=== PATIENT | male | born 1950 | race Caucasian/White ===

== ENCOUNTER → 2017-03-29 | Outpatient (CLI) | payer OTHER ==
[2017-03-29 17:30] LABS: Non-African American GFR(MDRD) >60 (>60 ml/min/1.73 sqM)
--- NOTE | 2017-03-29 19:22 | MR ---
EXAMINATION TYPE: MR lumbar spine wo/w con DATE OF EXAM: 03/29/2017 COMPARISON: Lumbar MRI 07/18/2014 HISTORY: Low back pain, Left leg pain and numbness, x30 years TECHNIQUE: Multiplanar, multisequence images of the lumbar spine were acquired utilizing 20 mL intravenous Multi Chris gadolinium contrast. L1-L2: Normal disc appearance without desiccation. No herniation, protrusion or disc bulging. No ca nal stenosis is present. Foramina are patent bilaterally. L2-L3: Circumferential posterior disc bulge causes mild anterior mass effect on the thecal sac, mild foraminal encroachment bilaterally. Only mild central stenosis. L3-L4: Circumferential posterior disc bulge causes anterior mass effect on the thecal sac, lateral ex tension endplate disc complex causes bilateral foraminal encroachment. Facet arthropathy is noted. On ly mild central stenosis. L4-L5: Facet arthropathy is present. Circumferential extension of endplate disc complex results in bi lateral foraminal encroachment left greater than right, there is mild anterior mass effect on the the mauro sac. L5-S1: Similar appearance to prior exam, circumferential extension of endplate disc complex results i n bilateral foraminal encroachment. Posterior disc herniation in the right posterior paracentral loca tion causes anterior mass effect on the thecal sac. There is facet arthropathy change, no significant central stenosis. Lumbar segments are intact. No paraspinal masses are identified. Conus medullaris has a normal appe arance. Lumbar vertebral bodies show stable height, alignment, and bone marrow signal, there is multi level spondylosis with endplate discogenic marrow signal change, loss of disc height and signal at th e intervertebral levels as on prior exam. Vacuum phenomenon present at the intervertebral levels L3-4 , L4-5 and L5-S1. Clumping of the nerve roots peripherally is again noted at the lower thecal sac as on prior exam with an empty thecal sac sign, laminectomy change present as on prior and L5 on the lef t. Abnormal thickening of the meninges is suspected as on prior. No abnormal enhancement following co ntrast administration. Possible bilateral parapelvic cysts as on prior exam. IMPRESSION: Findings compatible with arachnoiditis as on prior exam. Multilevel degenerative disc disease, postop changes, foraminal encroachment, facet arthropathy.
== END | disposition home or self-care (01) ==
LOC: RADMRIMAIN 16:53
PROVIDERS: ATTEND Physical Medicine & Rehabilitation
DX: M51.36 Other intervertebral disc degeneration, lumbar region (principal); M46.86 Other specified inflammatory spondylopathies, lumbar region; Z98.890 Other specified postprocedural states; Z01.812 Encounter for preprocedural laboratory examination; M48.06 Spinal stenosis, lumbar region; S33.5XXA Sprain of ligaments of lumbar spine, initial encounter; G60.9 Hereditary and idiopathic neuropathy, unspecified; M43.16 Spondylolisthesis, lumbar region; M47.817 Spondylosis without myelopathy or radiculopathy, lumbosacral region; E11.9 Type 2 diabetes mellitus without complications; Z85.51 Personal history of malignant neoplasm of bladder
CPT/HCPCS: 82565; 72158; A9577

== ENCOUNTER → 2017-10-11 | Outpatient (CLI) | payer MEDICARE ==
[2017-10-11 11:46] LABS: Anion Gap 11 mmol/L; Blood Urea Nitrogen 19 mg/dL (9-20); Carbon Dioxide 28 mmol/L (22-30); Chloride 105 mmol/L (98-107); Potassium 4.9 mmol/L (3.5-5.1); Sodium 144 mmol/L (137-145)
[2017-10-11 12:41] LABS: HGB 14.5 gm/dL (13.0-17.5); MCH 29.3 pg (25.0-35.0); MCHC 32.9 g/dL (31.0-37.0); MCV 89.1 fL (80.0-100.0); Mean Platelet Volume 7.1; Platelet Count 246 k/uL (150-450); RBC 4.94 m/uL (4.30-5.90); RDW 13.5 % (11.5-15.5); WBC 7.2 k/uL (3.8-10.6)
== END | disposition home or self-care (01) ==
LOC: LABPAT 10:43
PROVIDERS: ATTEND Internal Medicine Interventional Cardiology
DX: Z01.812 Encounter for preprocedural laboratory examination (principal); I25.10 Atherosclerotic heart disease of native coronary artery without angina pectoris
CPT/HCPCS: 36415; 80051; 82565; 84520; 85027

== ENCOUNTER 2017-10-18 09:24 | Day surgery (SDC) | payer MEDICARE ==
[~2017-10-18 09:24] MED LIST: ALPRAZolam 0.25 MG TAB PO PRN; ALPRAZolam 0.5 MG TAB PO PRN; ASPIRIN 325 MG TAB PO STA; NITROGLYCERIN SL TABS 0.4 MG TAB SUBLINGUAL PRN; SODIUM CHLORIDE 0.9% 1,000 ML in EMPTY BAG 1 BAG IV ONE
[2017-10-18] MEDS ORDERED: LIDOCAINE 2% INJ 20 MG/ML (20 ML MDV) ONE (10:05)
[2017-10-18 10:07] LABS: Glucose,Whole Blood 194 mg/dL (75-99)
[2017-10-18] MEDS ORDERED: VERAPAMIL 2.5 MG/ML 2 ML AMP ONE (10:07)
[2017-10-18] MEDS ORDERED: diphenhydrAMINE 50 MG/ML 1 ML VIAL ONE (10:12)
[2017-10-18] MEDS ORDERED: MIDAZOLAM 2 MG/2 ML VIAL ONE ×2 (10:12→11:07)
[2017-10-18] MEDS ORDERED: IV FLUID CONTINUATION 1,000 ML IV ONE (10:27)
[2017-10-18] MEDS ORDERED: diphenhydrAMINE 50 MG/ML 1 ML VIAL IVP ONE (10:36)
[2017-10-18] MEDS ORDERED: MIDAZOLAM 2 MG/2 ML VIAL IV ONE ×2 (10:37→11:09)
[2017-10-18] MEDS ORDERED: LIDOCAINE 2% INJ 20 MG/ML SQ ONE (10:51)
[2017-10-18] MEDS: NITROGLYCERIN 1000MCG/10ML SYRINGE INTRACORON ONE ×2 (11:09→11:31)
[2017-10-18] MEDS ORDERED: BIVALIRUDIN BOLUS 250 MG/50 ML IV ONE (11:13)
[2017-10-18] MEDS ORDERED: BIVALIRUDIN 250 MG in SODIUM CHLORIDE 0.9% 50 ML IV ONE (11:16)
[2017-10-18] MEDS ORDERED: CLOPIDOGREL 75 MG TAB ONE (11:26)
[2017-10-18] MEDS ORDERED: HYDROmorphone 2 MG/ML 1 ML SYRINGE ONE (11:28)
[2017-10-18] MEDS: HYDROmorphone 2 MG/ML 1 ML SYRINGE IV ONE ×2 (11:30→11:36)
[2017-10-18] MEDS ORDERED: IOHEXOL 350 MG/ML 125ML BOTTLE INJ ONE (11:31)
[2017-10-18] MEDS ORDERED: CLOPIDOGREL 75 MG TAB PO ONE (11:31)
[2017-10-18] MEDS ORDERED: ATROPINE SULFATE 0.1 MG/ML 10ML SYRINGE IV PRN (11:40)
[2017-10-18] MEDS ORDERED: MAG HYDROX/AL HYDROX/SIMETH 30 ML CUP PO PRN (11:40)
[2017-10-18] MEDS ORDERED: RX INFO: IV CONTRAST WAS GIVEN 1 EACH MISC MISCELLANE PRN (11:40)
[2017-10-18] MEDS ORDERED: NITROGLYCERIN SL TABS 0.4 MG TAB SUBLINGUAL PRN (11:40)
[2017-10-18] MEDS ORDERED: ZOLPIDEM 5 MG TAB PO PRN (11:40)
[2017-10-18] MEDS ORDERED: SODIUM CHLORIDE 0.9% 1,000 ML IV SCH (11:45)
--- NOTE | 2017-10-18 12:05 | CC ---
CARDIAC CATHETERIZATION REPORT DATE OF SERVICE: 10/18/2017 PERFORMING PHYSICIAN: Lawrence Gomes MD, Rope Walker. PROCEDURE PERFORMED: 1. Selective left and right coronary angiogram. 2. Left heart catheterization. 3. Successful stenting of the obtuse marginal branch of the left circumflex using 2.25 x 16 mm Promus drug-eluting stent with good angiographic results. 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 He continues to have chest discomfort. I brought him today to undergo a heart catheterization. APPROACH: Right common femoral artery. COMPLICATION: None. LEVEL OF SEDATION: Moderate with sedation length of 43 minutes. PROCEDURE DESCRIPTION: After obtaining an informed consent, the patient was brought to the Cardiac [employer] Sales Consultant. The right common femoral artery was cannulated using micropuncture technique, the micropuncture wire passed easily, then I placed a 6-Portuguese sheath in the right common femoral artery. After that, I did selective right and left coronary angiogram using a Jarrod Oconnor posterior. The RCA gives origin to the LAD and left circumflex by the ostium. After that, I did left heart catheterization using 6-Portuguese pigtail catheter. Subsequently, I did intervene on the left circumflex. Please see a separate paragraph for that. SELECTIVE CORONARY ANGIOGRAM: 1. The RCA is a large caliber vessel and it is a dominant vessel. The proximal RCA has mild disease only. The mid RCA is tortuous with mild disease only. The RCA distally has mild disease and bifurcates into PDA and PLV branches. The PDA branch is angiographically normal and the PLV branch is stented and the stent is patent. 2. The left main is not exist. 3. The left circumflex originating from the ostial RCA. The proximal left circumflex appeared to be angiographically normal. The mid left circumflex is normal and the circumflex distally has a lesion appeared to be in the range of 70%. 4. The left anterior descending artery. The proximal LAD appeared to be angiographically normal. The mid LAD has mild disease only and the LAD distally is angiographically normal. HEMODYNAMICS: The left ventricular end-diastolic pressure was 8 mmHg and no gradient was identified across the aortic valve. Left ventriculography was not performed. PCI of the left circumflex anticoagulation was initiated using Angiomax. Subsequently, I took multipurpose catheter and the left circumflex was engaged. A Whisper wire was used to wire the left circumflex. We subsequently did PTCA ballooning using 2.0 x 12 mm balloon, then I deployed 2.25 x 60 mm Promus Premier drug-eluting stent where the stent was positioned under fluoroscopic guidance and deployed under its nominal pressure. The following angiogram showed good angiographic results. The procedure was completed without any complication. POSTPROCEDURE MANAGEMENT: 1. Dual anti-platelet therapy. 2. Risk factors modifications. 3. Follow up with the patient. MMODL / IJN: [id number] /
--- NOTE | 2017-10-18 12:05 | LTR ---
DATE OF SERVICE: October 18, 2017 RE: Gregor Bernal Dear Alban; . Gregor Bernal underwent a heart catheterization and that revealed patent stent in the right coronary artery with severe disease involving the left circumflex, which was opened and stented with good angiographic results and without any complication. Thank you for allowing me to participate in his care. Sincerely, MD JEOVANY Fonseca / TEMI: [id number] /
[2017-10-18 12:25] VITALS: RESP 16
[2017-10-18 12:42] VITALS: BMI 28.5
[2017-10-18] MEDS ORDERED: INSPUCOR MISCELLANE PRN (14:16)
[2017-10-18] MEDS ORDERED: INSULIN PUMP ACTIVE INSULIN 1 EACH MISC MISCELLANE PRN (14:16)
[2017-10-18] MEDS ORDERED: INSULIN PUMP BASAL RATES 1 EACH MISC MISCELLANE PRN (14:16)
[2017-10-18] MEDS ORDERED: INSULIN PUMP TARGET GLUCOSE 1 EACH MISC MISCELLANE PRN (14:16)
[2017-10-18] MEDS ORDERED: INSULIN ASPART 100 UNIT/ML 1 ML 10 ML VIAL SQ PRN (14:16)
[2017-10-18 16:10] LABS: Glucose,Whole Blood 156 mg/dL (75-99)
[2017-10-18 17:22] LABS: Glucose,Whole Blood 158 mg/dL (75-99)
[2017-10-18] MEDS: INSULIN PUMP MEAL BOLUS 1 UNIT MISC MISCELLANE SCH ×2 (18:46→21:37)
[2017-10-18] MEDS: METOPROLOL TARTRATE 25 MG TAB PO SCH (20:07)
[2017-10-18] MEDS ORDERED: ATORVASTATIN 80 MG TAB PO SCH (21:00)
[2017-10-18] MEDS ORDERED: LORATADINE 10 MG TAB PO SCH (21:00)
[2017-10-18 21:42] LABS: Glucose,Whole Blood 204 mg/dL (75-99)
[2017-10-19 05:52] LABS: Basophils % (A) 1 %; Eosinophils # (A) 0.1 k/uL (0-0.7); Eosinophils % (A) 2 %; HCT 41.5 % (39.0-53.0); HGB 13.2 gm/dL (13.0-17.5); Lymphocytes % (A) 36 %; MCH 28.6 pg (25.0-35.0); MCHC 31.9 g/dL (31.0-37.0); MCV 89.8 fL (80.0-100.0); Mean Platelet Volume 6.9; Monocytes # (A) 0.5 k/uL (0-1.0); Monocytes % (A) 7 %; Neutrophils # (A) 4.4 k/uL (1.3-7.7); Neutrophils % (A) 53 %; Platelet Count 208 k/uL (150-450); RBC 4.62 m/uL (4.30-5.90); RDW 13.5 % (11.5-15.5); WBC 8.2 k/uL (3.8-10.6)
[2017-10-19 06:12] LABS: Glucose,Whole Blood 113 mg/dL (75-99)
[2017-10-19 06:17] LABS: Anion Gap 5 mmol/L; Blood Urea Nitrogen 20 mg/dL (9-20); Calcium 9.4 mg/dL (8.4-10.2); Carbon Dioxide 30 mmol/L (22-30); Chloride 107 mmol/L (98-107); Glucose 110 mg/dL (74-99); Potassium 4.3 mmol/L (3.5-5.1); Sodium 142 mmol/L (137-145)
[2017-10-19] MEDS ORDERED: PANTOPRAZOLE 40 MG TABLET PO SCH (07:30)
[2017-10-19] MEDS: INSULIN PUMP MEAL BOLUS 1 UNIT MISC MISCELLANE SCH (07:43)
[2017-10-19 08:15] VITALS: BP 136/68; PULSE 58; TEMP 97.5
[2017-10-19] MEDS ORDERED: ISOSORBIDE MONONITRATE 20 MG TAB PO SCH (09:00)
[2017-10-19] MEDS ORDERED: CLOPIDOGREL 75 MG TAB PO SCH (09:00)
[2017-10-19] MEDS ORDERED: ASPIRIN 81 MG PO SCH (09:00)
[2017-10-19] MEDS ORDERED: LISINOPRIL 10 MG TAB PO SCH (09:00)
[2017-10-19] MEDS ORDERED: FLUTICASONE 50MCG/SPRAY NASAL 16GM EA NOSTRIL SCH (09:00)
[2017-10-19] MEDS: METOPROLOL TARTRATE 25 MG TAB PO SCH (09:45)
--- NOTE | 2017-10-19 11:30 | DS ---
DISCHARGE SUMMARY DATE OF ADMISSION: 10/18/2017 DATE OF DISCHARGE: 10/19/2017 BRIEF HISTORY: This is a very pleasant 67-year-old gentleman who is known to have coronary artery disease and prior stenting of the RCA, was admitted to the hospital yesterday and underwent a heart catheterization for recurrent chest discomfort concerning for angina. He underwent successful stenting of anomalous left circumflex from the right coronary artery with good angiographic results and without any complication. On follow up with the patient today, he is doing good and he is asymptomatic. He is going to be discharged home on dual anti-platelet therapy and I will follow up with the patient in the office. MMODL / IJN: [id number] /
[2017-10-19 12:55] LABS: Hemoglobin A1C 7.7 % (4.0-6.0)
[2017-10-19] MEDS ORDERED: METOPROLOL TARTRATE 12.5 MG TAB PO SCH (21:00)
== END 2017-10-19 10:44 | disposition home or self-care (01) ==
LOC: CATHCVL 09:24 → 6SEL 11:33 → CATHCVL 10-19 10:44
PROVIDERS: ATTEND Internal Medicine Interventional Cardiology
DX: I25.110 Atherosclerotic heart disease of native coronary artery with unstable angina pectoris (principal); Q24.9 Congenital malformation of heart, unspecified; Z95.5 Presence of coronary angioplasty implant and graft; I10 Essential (primary) hypertension; E78.00 Pure hypercholesterolemia, unspecified; I25.5 Ischemic cardiomyopathy; E11.9 Type 2 diabetes mellitus without complications; Z82.49 Family history of ischemic heart disease and other diseases of the circulatory system; Z79.02 Long term (current) use of antithrombotics/antiplatelets; Z79.82 Long term (current) use of aspirin; Z79.4 Long term (current) use of insulin; Z79.899 Other long term (current) drug therapy; Z87.891 Personal history of nicotine dependence
CPT/HCPCS: 93458; 80048; 85025; 83036; C9600; C1769 ×3; C1887; C1725; C1894; C1874; C1760; J2001; J2250; J1170; J1200; J0583; Q9967

== ENCOUNTER → 2017-11-16 | Outpatient (CLI) | payer MEDICARE | END | disposition home or self-care (01) | LOC: LABWHC1 11:28 | PROVIDERS: ATTEND Internal Medicine | DX: R07.81 Pleurodynia (principal) | CPT/HCPCS: 36415; 85379 ==

== ENCOUNTER 2017-11-23 07:48 | Day surgery (SDC) | payer MEDICARE ==
[2017-11-21 11:52] VITALS: BMI 27.9
[~2017-11-23 07:48] MED LIST changes: +ATORVASTATIN 80 MG TAB PO STA
[2017-11-23 08:21] VITALS: TEMP 98
[2017-11-23 08:21] LABS: Basophils # (A) 0.1 k/uL (0-0.2); Basophils % (A) 1 %; Eosinophils # (A) 0.2 k/uL (0-0.7); Eosinophils % (A) 3 %; HGB 13.6 gm/dL (13.0-17.5); Lymphocytes # (A) 2.3 k/uL (1.0-4.8); Lymphocytes % (A) 36 %; MCH 28.7 pg (25.0-35.0); MCHC 33.1 g/dL (31.0-37.0); MCV 86.6 fL (80.0-100.0); Mean Platelet Volume 7.1; Monocytes # (A) 0.5 k/uL (0-1.0); Monocytes % (A) 8 %; Neutrophils # (A) 3.1 k/uL (1.3-7.7); Neutrophils % (A) 50 %; Platelet Count 250 k/uL (150-450); RBC 4.74 m/uL (4.30-5.90); RDW 13.4 % (11.5-15.5); WBC 6.3 k/uL (3.8-10.6)
[2017-11-23 08:30] LABS: Glucose,Whole Blood 127 mg/dL (75-99)
[2017-11-23 08:33] LABS: Anion Gap 10 mmol/L; Blood Urea Nitrogen 28 mg/dL (9-20); Calcium 9.3 mg/dL (8.4-10.2); Carbon Dioxide 23 mmol/L (22-30); Chloride 109 mmol/L (98-107); Glucose 133 mg/dL (74-99); Sodium 142 mmol/L (137-145)
[2017-11-23 08:35] LABS: Potassium 4.6 mmol/L (3.5-5.1)
[2017-11-23] MEDS ORDERED: LIDOCAINE 2% INJ 20 MG/ML (20 ML MDV) ONE (09:55)
[2017-11-23] MEDS ORDERED: MIDAZOLAM 2 MG/2 ML VIAL ONE (10:14)
[2017-11-23] MEDS ORDERED: MIDAZOLAM 2 MG/2 ML VIAL IVP ONE (10:26)
[2017-11-23] MEDS ORDERED: LIDOCAINE 2% INJ 20 MG/ML SQ ONE (10:29)
[2017-11-23] MEDS ORDERED: IOHEXOL 350 MG/ML 125ML BOTTLE INJ ONE (10:53)
[2017-11-23] MEDS ORDERED: RX INFO: IV CONTRAST WAS GIVEN 1 EACH MISC MISCELLANE PRN (11:00)
[2017-11-23] MEDS ORDERED: SODIUM CHLORIDE 0.9% 1,000 ML IV SCH (11:00)
--- NOTE | 2017-11-23 11:42 | LTR ---
November 23, 2017 Re: Gregor Bernal Dear Alban: MrWilliam Bernal underwent a heart catheterization today that revealed patent stent in both the RCA and left circumflex. I want to thank you for allowing me to participate in his care and please do not hesitate to call if you have any question or concern. Sincerely, MD JEOVANY Fonseca / TEMI: [id number] /
--- NOTE | 2017-11-23 11:42 | CC ---
CARDIAC CATHETERIZATION REPORT DATE OF SERVICE: 11/23/2017 PERFORMING PHYSICIAN: Lawrence Gomes MD, armature varnisher. PROCEDURE PERFORMED: 1. Selective right and left coronary angiogram. 2. Left heart catheterization. INDICATION: This is a pleasant 67-year-old gentleman who is known to have coronary artery disease and prior stenting of the RCA and left circumflex continues to have intermittent episodes of chest discomfort concerning for angina. He was seen and evaluated in the office and a heart catheterization was recommended. APPROACH: Right common femoral artery. COMPLICATION: None. LEVEL OF SEDATION: Moderate with sedation length of 21 minutes. PROCEDURE DESCRIPTION: After obtaining an informed consent, the patient was brought to cardiac lab manager. The right common femoral artery was cannulated using micropuncture technique, and a micropuncture wire passed easily, then I placed a 6-Sudanese sheath in the right common femoral artery. After that, I did selective right and left coronary angiogram using a [employer] posterior. The patient is known to have the origin of the left circumflex and LAD from the right coronary artery. After that I did left heart catheterization using 6-Sudanese pigtail catheter. The procedure was completed without any complication. SELECTIVE CORONARY ANGIOGRAM: 1. The right coronary artery is a large caliber vessel and it is a dominant vessel. The proximal RCA appeared to be angiographically normal. The mid RCA has mild disease only. The RCA distally appeared to be angiographically normal and bifurcates into PDA and PLV branches. The RCA distally is stented and the stent is patent. The PDA and PLV branches both have mild disease only. 2. The left main exist. 3. Left circumflex is a large caliber vessel and it is a nondominant vessel. The proximal circ appeared to have mild disease only. The mid circ appeared to be angiographically normal. The circ distally is stented and the stent is patent. 4. The left anterior descending artery: The LAD in general is a small to medium caliber vessel. The proximal LAD appeared to be angiographically normal. The mid LAD appeared to have mild to moderate disease only and the LAD distally becomes small caliber vessel and seems to be angiographically normal. The LAD in the proximal portion gives rise into a diagonal branch which seems to be angiographically normal. CONCLUSION: 1. 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 2. Patent stent in the distal right coronary artery. 3. Patent stent in the distal left circumflex coronary artery. 4. Small to medium caliber left anterior descending artery with mild to moderate disease in the midportion. Postprocedure management is medical treatment. MMODL / IJN: [id number] /
[2017-11-23 12:20] VITALS: BP 127/62; PULSE 64; RESP 16
== END 2017-11-23 16:34 | disposition home or self-care (01) ==
LOC: CATHCVL 07:48
PROVIDERS: ATTEND Internal Medicine Interventional Cardiology
DX: I25.110 Atherosclerotic heart disease of native coronary artery with unstable angina pectoris (principal); I10 Essential (primary) hypertension; Z87.891 Personal history of nicotine dependence; Q24.5 Malformation of coronary vessels; I25.5 Ischemic cardiomyopathy; E78.5 Hyperlipidemia, unspecified; Z95.5 Presence of coronary angioplasty implant and graft; Z82.49 Family history of ischemic heart disease and other diseases of the circulatory system; E11.9 Type 2 diabetes mellitus without complications; Z79.4 Long term (current) use of insulin; Z79.02 Long term (current) use of antithrombotics/antiplatelets; Z79.82 Long term (current) use of aspirin; Z79.51 Long term (current) use of inhaled steroids; Z79.899 Other long term (current) drug therapy
CPT/HCPCS: 93458; 80048; 85025; C1894; C1769 ×2; C1760; J2001; J2250; Q9967

== ENCOUNTER → 2017-12-20 | Outpatient (CLI) | payer MEDICARE ==
--- NOTE | 2017-12-20 09:01 | US ---
EXAMINATION TYPE: US abdomen limited DATE OF EXAM: 12/20/2017 COMPARISON: NONE CLINICAL HISTORY: K21.9 GERD. chest pain EXAM MEASUREMENTS: Liver Length: 13.7 cm Gallbladder Wall: 0.2 cm CBD: 0.4 cm Right Kidney: 9.7 x 5.5 x 4.8 cm Pancreas: not visualized due to midline bowel gas Liver: wnl as visualized, limited vis of left lobe due to midline bowel gas. Gallbladder: No stones seen Evidence for sonographic Santizo's sign: No CBD: wnl Right Kidney: No hydronephrosis or masses seen IMPRESSION: No sonographic evidence of cholelithiasis or acute cholecystitis. Unremarkable limited ab dominal ultrasound other than nonvisualization of the pancreas due to overlying bowel gas.
== END | disposition home or self-care (01) ==
LOC: RADUSMAIN 08:25
PROVIDERS: ATTEND Family Medicine
DX: K21.9 Gastro-esophageal reflux disease without esophagitis (principal)
CPT/HCPCS: 76705

== ENCOUNTER → 2018-01-09 | Outpatient (CLI) | payer MEDICARE ==
--- NOTE | 2018-01-09 10:09 | FL ---
EXAMINATION TYPE: FL barium swallow DATE OF EXAM: 01/09/2018 CLINICAL HISTORY: Dysphagia, chest pain and globus sensation x 4months. hx of thoractomy and cardiac stents. TECHNIQUE: A double contrast esophagram is performed utilizing air and barium. A total of 1min 48 seconds of fluoroscopic time was utilized during procedure. 1 pk of ez gas 1oz of ez paque, 3 oz of h d paque . 30 fluoroscopic images saved. COMPARISON: None FINDINGS: The esophagus shows slight delayed motility and emptying into the stomach with blunting of the secondary wave and few tertiary contractions on the gravity dependent portion of the examination. On the gravity independent portion the examination and tertiary contractions are present with sever e delayed motility. The patient was placed in upright position for contrast to pass through the gastr ic esophageal junction. There is a moderate degree of intraesophageal reflux without any gastroesopha geal reflux identified. No evidence of hiatal hernia or stricture noted. IMPRESSION: 1. Abnormal esophageal motility that can be seen in neuromuscular disorder or more commonly presbyeso phagus. The patient notes difficulty initiating swallowing and overall speech pathologist consultati on may be of benefit. 2. Moderate degree of intraesophageal reflux due to delayed esophageal motility without evidence of g astroesophageal reflux. 3. No evidence of hiatal hernia or stricture.
== END | disposition home or self-care (01) ==
LOC: RADFLMAIN 08:26
PROVIDERS: ATTEND Family Medicine
DX: K21.9 Gastro-esophageal reflux disease without esophagitis (principal); K22.4 Dyskinesia of esophagus
CPT/HCPCS: 74220

== ENCOUNTER 2018-01-30 01:59 | Inpatient (IN) | payer MEDICARE ==
[2018-01-30] MEDS ORDERED: NITROGLYCERIN-D5W PMX 50 MG in DEXTROSE/WATER 1 250ML.BAG IV STA ×2 (02:10→13:59)
[2018-01-30] MEDS ORDERED: MORPHINE SULFATE 4 MG/ML SYRINGE IVP STA (02:10)
--- NOTE | 2018-01-30 02:16 | ED ---
General Adult HPI - General Chief complaint: Chest Pain Stated complaint: chest pain Time Seen by Provider: 01/30/18 02:01 Source: patient, RN notes reviewed, old records reviewed Mode of arrival: ambulatory Limitations: no limitations - History of Present Illness Initial comments: 67-year-old male presenting for evaluation of chest pain. Patient has history of CAD status post stenting. He is currently on aspirin and Plavix. He states that his pain began throughout the day today. He states that approximately one hour prior to presentation the pain began to worsen. He took one sublingual nitroglycerin with complete relief of his pain. Proximally 30 minutes later the pain returned he took a second nitroglycerin at the time of my evaluation his pain is somewhat improved but still present. He denies missing any of his medications. He has history of hypertension and diabetes. His pain is substernal. He states it is somewhat similar but not the same as his previous [place]. Denies vomiting. Denies diaphoresis. Remote history of tobacco use. - Related Data Home Medications Medication Instructions Recorded Confirmed Cetirizine HCl 10 mg PO HS 07/19/17 11/23/17 Insulin Aspart (For Pump) [NovoLOG See Protocol SQ-PUMP CONTINUOUS 07/19/1704/05 (For Pump)] Lisinopril [Zestril] 10 mg PO QAM 07/19/17 11/23/17 Omeprazole 20 mg PO QAM 07/19/17 11/23/17 Clopidogrel Bisulfate [Plavix] 75 mg PO QAM 10/11/17 11/23/17 Fluticasone Nasal [place] [Flonase 2 spr EA NOSTRIL DAILY 10/11/17 11/23/17 Nasal [place]] Nitroglycerin Sl Tabs [Nitrostat] 0.4 mg SUBLINGUAL Q5M PRN 10/19/17 11/23/17 Previous Rx's Medication Instructions Recorded Aspirin EC [Ecotrin Low Dose] 81 mg PO DAILY #30 tablet. 07/22/17 Atorvastatin [Lipitor] 80 mg PO HS #30 tab 07/22/17 Isosorbide Mononitrate ER [Imdur] 60 mg PO QAM #30 tab.er.24h 10/21/17 Allergies Allergy/AdvReac Type Severity Reaction Status Date / Time No Known Allergies Allergy Verified 01/30/18 02:10 Review of Systems ROS Statement: Those systems with pertinent positive or pertinent negative responses have been documented in the HPI. ROS Other: All systems not noted in ROS Statement are negative. Past Medical History Past Medical History: Asthma, Cancer, Diabetes Mellitus, GERD/Reflux, Myocardial Infarction ([place]), Osteoarthritis (OA), Prostate Disorder Additional Past Medical History / Comment(s): Chronic back and bilateral shoulder pain, sciaticia, uses insulin pump, SARCOIDOSIS, PAST BLADDER CANCER, SEASONAL ALLERGIES, OCC CONSTIPATION, "DENIES HYPERTENSION OR HIGH CHOLESTEROL STATED THE MEDS HE'S ON IS D/T HIS DIABETES. Last Myocardial Infarction Date:: 07/19/17 History of Any Multi-Drug Resistant Organisms: None Reported Past Surgical History: Heart Catheterization, Heart Catheterization With Stent, Joint Replacement, Orthopedic Surgery Additional Past Surgical History / Comment(s): X3 SX FOR BLADDER CANCER, SAVITA CATARACTS, COLONOSCOPY, RT ANKLE SX, SAVITA CARPAL TUNNEL, LT KNEE REPLACMENT, SAVITA SHOULDER ROTATOR CUFF SX TWICE BILATERAlLY, LAMINECTOMY X2, THORACOTOMY/BX FOR NODULES ON LYMPH NODES(SACRCOIDOSIS) Past Anesthesia/Blood Transfusion Reactions: Motion Sickness, Postoperative Nausea & Vomiting (PONV) Date of Last Stent Placement:: 10/18/2017 Past Psychological History: No Psychological Hx Reported Smoking Status: Former smoker Past Alcohol Use History: Occasional Past Drug Use History: None Reported - Past Family History Father Family Medical History: Diabetes Mellitus Mother Family Medical History: Coronary Artery Disease (CAD), Diabetes Mellitus, Hypertension Brother(s) Family Medical History: Cancer Additional Family Medical History / Comment(s): Prostate cancer General Exam Limitations: no limitations General appearance: alert, in no apparent distress Head exam: Present: atraumatic, normocephalic Eye exam: Present: normal appearance, PERRL ENT exam: Present: normal exam Neck exam: Present: normal inspection. Absent: tenderness, meningismus Respiratory exam: Present: normal lung sounds bilaterally. Absent: respiratory distress Cardiovascular Exam: Present: regular rate, normal rhythm GI/Abdominal exam: Present: soft. Absent: distended, tenderness Extremities exam: Present: normal inspection, full ROM, normal capillary refill. Absent: pedal edema Neurological exam: Present: alert, oriented X3, CN II-XII intact. Absent: motor sensory deficit Psychiatric exam: Present: normal affect, normal mood Skin exam: Present: warm, dry, intact. Absent: cyanosis, diaphoretic Course Vital Signs 01/30/18 01/30/18 01/30/18 02:02 02:40 03:10 Temperature 97.9 F Pulse Rate 82 70 69 Respiratory 18 16 17 Rate Blood Pressure 155/78 115/59 108/59 O2 Sat by Pulse 100 99 97 Oximetry EKG Findings - EKG Comments: EKG Findings:: EKG: Normal sinus rhythm, right bundle branch block, left anterior fascicular block consistent with bifascicular block, septal infarct and possible lateral infarct of undetermined age. Rate of 78, MS interval 154, QRS duration 132, QTC 471 patient has had bifascicular block on previous EKG in September 2017 and has history of right bundle-branch block. Medical Decision Making - Medical Decision Making 67 yo male presenting with typical chest pain. Patient has history of CAD status post stenting. He is on aspirin and Plavix. He has not missed any of his medications. EKG shows a bifascicular block, no ST segment elevation. CBC and CMP are within normal limits. Troponin is elevated at 0.053. Patient had minimal pain at the time my evaluation. This improved with nitroglycerin infusion. He is maintained on nitroglycerin and heparin. He will be admitted for stroke cardiac enzymes and cardiology evaluation. Chest x-ray shows no acute findings. Diagnosis: NSTEMI - Lab Data Result diagrams: 01/30/18 02:14 01/30/18 02:14 Lab Results 01/30/18 01/30/18 01/30/18 Range/Units 02:14 02:14 02:14 WBC 7.6 (3.8-10.6) k/uL RBC 4.76 (4.30-5.90) m/uL Hgb 13.4 (13.0-17.5) gm/dL Hct 40.8 (39.0-53.0) % MCV 85.8 (80.0-100.0) fL MCH 28.2 (25.0-35.0) pg MCHC 32.9 (31.0-37.0) g/dL RDW 13.1 (11.5-15.5) % Plt Count 246 (150-450) k/uL Neutrophils % 50 % Lymphocytes % 36 % Monocytes % 8 % Eosinophils % 3 % Basophils % 1 % Neutrophils # 3.8 (1.3-7.7) k/uL Lymphocytes # 2.7 (1.0-4.8) k/uL Monocytes # 0.6 (0-1.0) k/uL Eosinophils # 0.2 (0-0.7) k/uL Basophils # 0.1 (0-0.2) k/uL PT (9.0-12.0) sec INR (<1.2) APTT (22.0-30.0) sec Sodium 142 (137-145) mmol/L Potassium 4.2 (3.5-5.1) mmol/L Chloride 105 (98-107) mmol/L Carbon Dioxide 25 (22-30) mmol/L Anion Gap 12 mmol/L BUN 20 (9-20) mg/dL Creatinine 0.90 (0.66-1.25) mg/dL Est GFR (CKD-EPI)AfAm >90 (>60 ml/min/1.73 sqM) Est GFR (CKD-EPI)NonAf 89 (>60 ml/min/1.73 sqM) Glucose 258 H (74-99) mg/dL Calcium 9.3 (8.4-10.2) mg/dL Magnesium 2.0 (1.6-2.3) mg/dL Total Bilirubin 0.2 (0.2-1.3) mg/dL AST 23 (17-59) U/L ALT 26 (21-72) U/L Alkaline Phosphatase 143 H (38-126) U/L Total Creatine Kinase 141 (55-170) U/L CK-MB (CK-2) 2.1 (0.0-2.4) ng/mL CK-MB (CK-2) Rel Index 1.5 Troponin I 0.053 H* (0.000-0.034) ng/mL NT-Pro-B Natriuret Pep pg/mL Total Protein 6.2 L (6.3-8.2) g/dL Albumin 3.8 (3.5-5.0) g/dL Lipase 78 (23-300) U/L 01/30/18 01/30/18 Range/Units 02:14 02:14 WBC (3.8-10.6) k/uL RBC (4.30-5.90) m/uL Hgb (13.0-17.5) gm/dL Hct (39.0-53.0) % MCV (80.0-100.0) fL MCH (25.0-35.0) pg MCHC (31.0-37.0) g/dL RDW (11.5-15.5) % Plt Count (150-450) k/uL Neutrophils % % Lymphocytes % % Monocytes % % Eosinophils % % Basophils % % Neutrophils # (1.3-7.7) k/uL Lymphocytes # (1.0-4.8) k/uL Monocytes # (0-1.0) k/uL Eosinophils # (0-0.7) k/uL Basophils # (0-0.2) k/uL PT 9.9 (9.0-12.0) sec INR 1.0 (<1.2) APTT 24.0 (22.0-30.0) sec Sodium (137-145) mmol/L Potassium (3.5-5.1) mmol/L Chloride (98-107) mmol/L Carbon Dioxide (22-30) mmol/L Anion Gap mmol/L BUN (9-20) mg/dL Creatinine (0.66-1.25) mg/dL Est GFR (CKD-EPI)AfAm (>60 ml/min/1.73 sqM) Est GFR (CKD-EPI)NonAf (>60 ml/min/1.73 sqM) Glucose (74-99) mg/dL Calcium (8.4-10.2) mg/dL Magnesium (1.6-2.3) mg/dL Total Bilirubin (0.2-1.3) mg/dL AST (17-59) U/L ALT (21-72) U/L Alkaline Phosphatase (38-126) U/L Total Creatine Kinase (55-170) U/L CK-MB (CK-2) (0.0-2.4) ng/mL CK-MB (CK-2) Rel Index Troponin I (0.000-0.034) ng/mL NT-Pro-B Natriuret Pep 135 pg/mL Total Protein (6.3-8.2) g/dL Albumin (3.5-5.0) g/dL Lipase (23-300) U/L Critical Care Time Critical Care Time: Yes Total Critical Care Time: 35 Disposition Clinical Impression: Acute non-ST segment elevation myocardial infarction (STEMI) following previous myocardial infarction Disposition: ADMITTED IP TO THIS HOSP Condition: Stable Is patient prescribed a controlled substance at d/c from ED?: No Referrals: Alban Terrell DO [Primary Care Provider] - 1-2 days Decision to Admit Reason: Admit from EC Decision Date: 01/30/18 Decision Time: 03:33
[2018-01-30 02:24] LABS: Basophils # (A) 0.1 k/uL (0-0.2); Basophils % (A) 1 %; Eosinophils # (A) 0.2 k/uL (0-0.7); Eosinophils % (A) 3 %; HCT 40.8 % (39.0-53.0); HGB 13.4 gm/dL (13.0-17.5); Lymphocytes # (A) 2.7 k/uL (1.0-4.8); Lymphocytes % (A) 36 %; MCH 28.2 pg (25.0-35.0); MCHC 32.9 g/dL (31.0-37.0); MCV 85.8 fL (80.0-100.0); Mean Platelet Volume 7.1; Monocytes # (A) 0.6 k/uL (0-1.0); Monocytes % (A) 8 %; Neutrophils # (A) 3.8 k/uL (1.3-7.7); Neutrophils % (A) 50 %; Platelet Count 246 k/uL (150-450); RBC 4.76 m/uL (4.30-5.90); RDW 13.1 % (11.5-15.5); WBC 7.6 k/uL (3.8-10.6)
[2018-01-30 02:33] LABS: Prothrombin Time 9.9 sec (9.0-12.0)
[2018-01-30 02:36] LABS: ALT 26 U/L (21-72); AST 23 U/L (17-59); Albumin 3.8 g/dL (3.5-5.0); Alkaline Phosphatase 143 U/L (38-126); Anion Gap 12 mmol/L; Blood Urea Nitrogen 20 mg/dL (9-20); Calcium 9.3 mg/dL (8.4-10.2); Carbon Dioxide 25 mmol/L (22-30); Chloride 105 mmol/L (98-107); Glucose 258 mg/dL (74-99); Lipase 78 U/L (23-300); Potassium 4.2 mmol/L (3.5-5.1); Sodium 142 mmol/L (137-145); Total Bilirubin 0.2 mg/dL (0.2-1.3); Total Protein 6.2 g/dL (6.3-8.2)
[2018-01-30] MEDS: NITROGLYCERIN SL TABS 0.4 MG TAB SUBLINGUAL STA ×2 (02:38→02:52)
--- NOTE | 2018-01-30 02:46 | XR ---
EXAMINATION TYPE: XR chest 2V DATE OF EXAM: 01/30/2018 COMPARISON: 10/19/2017 HISTORY: Chest pain TECHNIQUE: Frontal and lateral views of the chest are obtained. FINDINGS: Heart and mediastinum are normal. Lungs are clear. Diaphragm is normal. Bony thorax is int act. IMPRESSION: Normal chest. No change.
[2018-01-30 02:57] LABS: Creatine Kinase MB 2.1 ng/mL (0.0-2.4)
[2018-01-30 03:01] LABS: Troponin I 0.053 ng/mL (0.000-0.034)
[2018-01-30] MEDS ORDERED: HEPARIN SODIUM,PORCINE 5,000 UNIT/ML 1 ML VIAL IV PRN (03:03)
[2018-01-30] MEDS ORDERED: HEPARIN SODIUM,PORCINE 5,000 UNIT/ML 1 ML VIAL IV ONE (03:03)
[2018-01-30] MEDS ORDERED: NALOXONE 0.4 MG/ML 1 ML VIAL IV PRN (03:27)
[2018-01-30] MEDS ORDERED: MORPHINE SULFATE 4 MG/ML SYRINGE IV PRN (03:27)
[2018-01-30] MEDS: HEPARIN SODIUM,PORCINE/D5W PMX 25,000 UNIT in DEXTROSE/WATER 1 500ML.BAG IV SCH (04:05)
[2018-01-30 06:03] LABS: Glucose,Whole Blood 206 mg/dL (75-99)
[2018-01-30 06:39] LABS: Creatine Kinase MB 1.9 ng/mL (0.0-2.4)
[2018-01-30 06:43] LABS: Troponin I 0.065 ng/mL (0.000-0.034)
[2018-01-30] MEDS: 0.9% NACL WITH KCL 20 MEQ/L 1,000 ML IV SCH (07:33)
[2018-01-30] MEDS: ASPIRIN 81 MG PO SCH (07:48)
[2018-01-30] MEDS: CLOPIDOGREL 75 MG TAB PO SCH (07:48)
[2018-01-30] MEDS: LISINOPRIL 10 MG TAB PO SCH (07:48)
[2018-01-30] MEDS ORDERED: Insulin Aspart (For Pump) 100 UNIT/ML VIAL SQ-PUMP SCH (08:00)
[2018-01-30] MEDS ORDERED: NITROGLYCERIN SL TABS 0.4 MG TAB SUBLINGUAL PRN ×2 (08:02→13:19)
--- NOTE | 2018-01-30 08:17 | P.CRDCN ---
History of Present Illness Consult date: 01/30/18 Requesting physician: Markus Franks Consult reason: chest pain Chief complaint: Chest pain History of present illness: This is a pleasant 67 or O gentleman who follows regularly with Dr. Ponce in the office. 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 Patent stent in the distal RCA, patent stent in the distal circumflex, small to medium caliber LAD with mild to moderate disease. Medical therapy again was advised at that time. Because of the continuation of intermittent chest discomfort, patient was referred to pulmonary as an outpatient to did not feel that his lungs were giving him this problem. Subsequent to that he was evaluated by GI service, they do not want to do an EGD because the patient was on Plavix and aspirin, therefore a barium swallow was performed which revealed abnormal esophageal motility which can be seen and neuromuscular disorder or more commonly precipice esophagus. Moderate degree of intra-esophageal reflux. No hiatal hernia or stricture. He was scheduled to follow-up with GI in the office later this week. Tuesday patient was experiencing intermittent midsternal chest discomfort, heaviness and pressure. He again was experiencing symptoms Tuesday, took nitroglycerin with some relief, but right shortly after the symptoms returned, they became quite severe through the night so he woke his up to come into the hospital for further evaluation. His chest x-ray on admission here was normal. EKG showed a normal sinus rhythm with a right bundle branch block pattern and left anterior fascicular block.CBC is normal, sodium 142, potassium 4.2, BUN 20, creatinine 0.9. Magnesium level 2.0, C-reactive protein 3.4, cassius screen negative. Initial troponin 0.053, subsequent troponin 0.65. Blood pressure 108/60 with a heart rate in the 60s, temperature 97.2. Patient is currently on an IV heparin drip along with IV nitroglycerin. At the time of my examination this morning he does have some mild chest discomfort. Past Medical History Past Medical History: Asthma, Cancer, Diabetes Mellitus, GERD/Reflux, Myocardial Infarction ([place]), Osteoarthritis ([place]), Prostate Disorder Additional Past Medical History / Comment(s): Chronic back and bilateral shoulder pain, sciaticia, uses insulin pump, SARCOIDOSIS, PAST BLADDER CANCER, SEASONAL ALLERGIES, OCC CONSTIPATION, "DENIES HYPERTENSION OR HIGH CHOLESTEROL STATED THE MEDS HE'S ON IS D/T HIS DIABETES. Last Myocardial Infarction Date:: 07/19/17 History of Any Multi-Drug Resistant Organisms: None Reported Past Surgical History: Heart Catheterization, Heart Catheterization With Stent, Joint Replacement, Orthopedic Surgery Additional Past Surgical History / Comment(s): X3 SX FOR BLADDER CANCER, SAVITA CATARACTS, COLONOSCOPY, RT ANKLE SX, SAVITA CARPAL TUNNEL, LT KNEE REPLACMENT, SAVITA SHOULDER ROTATOR CUFF SX TWICE BILATERAlLY, LAMINECTOMY X2, THORACOTOMY/BX FOR NODULES ON LYMPH NODES(SACRCOIDOSIS) Past Anesthesia/Blood Transfusion Reactions: Postoperative Nausea & Vomiting ( PONV) Date of Last Stent Placement:: 10/18/2017 Past Psychological History: No Psychological Hx Reported Additional Psychological History / Comment(s): PT IS INDEPENDENT, LIVES W/ IN SINGLE STORY HOME THAT HAS 3 PORCH STEPS. I PET DOG. HAS INSULIN PUMP. NO SERVICE IN PAST. RETIRED -WAS A [employer]. Smoking Status: Former smoker Past Alcohol Use History: Occasional Additional Past Alcohol Use History / Comment(s): STARTED SMOLKING 1984 AND QUIT 1992 SMOKED 1 PPD Past Drug Use History: None Reported - Past Family History Father Family Medical History: Diabetes Mellitus Mother Family Medical History: Coronary Artery Disease (CAD), Diabetes Mellitus, Hypertension Brother(s) Family Medical History: Cancer Additional Family Medical History / Comment(s): Prostate cancer Medications and Allergies Home Medications Medication Instructions Recorded Confirmed Type Cetirizine HCl 10 mg PO HS 07/19/17 11/23/17 History Insulin Aspart (For Pump) [NovoLOG See Protocol SQ-PUMP CONTINUOUS 07/19/1704/05 History (For Pump)] Lisinopril [Zestril] 10 mg PO QAM 07/19/17 11/23/17 History Omeprazole 20 mg PO QAM 07/19/17 11/23/17 History Aspirin EC [Ecotrin Low Dose] 81 mg PO DAILY #30 tablet. 07/22/17 11/23/17 Rx Atorvastatin [Lipitor] 80 mg PO HS #30 tab 07/22/17 11/23/17 Rx Clopidogrel Bisulfate [Plavix] 75 mg PO QAM 10/11/17 11/23/17 History Fluticasone Nasal [place] [Flonase 2 spr EA NOSTRIL DAILY 10/11/17 11/23/17 History Nasal [place]] Nitroglycerin Sl Tabs [Nitrostat] 0.4 mg SUBLINGUAL Q5M PRN 10/19/17 11/23/17 History Isosorbide Mononitrate ER [Imdur] 60 mg PO QAM #30 tab.er.24h 10/21/17 11/23/17 Rx Allergies Allergy/AdvReac Type Severity Reaction Status Date / Time No Known Allergies Allergy Verified 01/30/18 02:10 Physical Exam Vitals: Vital Signs Temp Pulse Pulse Resp BP BP Pulse Ox 01/30/18 07:49 97.2 F L 67 18 137/76 98 01/30/18 04:25 96.8 F L 68 18 124/67 97 01/30/18 03:10 69 17 108/59 97 01/30/18 02:40 70 16 115/59 99 01/30/18 02:02 97.9 F 82 18 155/78 100 Intake and Output 01/29/18 01/30/18 01/30/18 22:59 06:59 14:59 Output Total 475 Balance -475 Output: Urine 475 Other: # Voids 1 Weight 95.8 kg PHYSICAL EXAMINATION: HEENT: Head is atraumatic, normocephalic. Pupils equal, round. Neck is supple. There is no elevated jugular venous pressure. HEART EXAMINATION: Heart S1, S2 normal. No murmur or gallop heard. CHEST EXAMINATION: Lungs are clear to auscultation and precussion. No chest wall tenderness is noted on palpation or with deep breathing. ABDOMEN: Soft, nontender. Bowel sounds are heard. No organomegaly noted. EXTREMITIES: 2+ peripheral pulses with no evidence of peripheral edema and no calf tenderness noted. NEUROLOGIC patient is awake, alert and oriented -3. . Results 01/30/18 02:14 01/30/18 02:14 Cardiac Enzymes 01/30/18 01/30/18 01/30/18 Range/Units 02:14 02:14 05:50 AST 23 (17-59) U/L CK-MB (CK-2) 2.1 1.9 (0.0-2.4) ng/mL Troponin I 0.053 H* 0.065 H* (0.000-0.034) ng/mL Coagulation 01/30/18 Range/Units 02:14 PT 9.9 (9.0-12.0) sec APTT 24.0 (22.0-30.0) sec CBC 01/30/18 Range/Units 02:14 WBC 7.6 (3.8-10.6) k/uL RBC 4.76 (4.30-5.90) m/uL Hgb 13.4 (13.0-17.5) gm/dL Hct 40.8 (39.0-53.0) % Plt Count 246 (150-450) k/uL Comprehensive Metabolic Panel 01/30/18 Range/Units 02:14 Sodium 142 (137-145) mmol/L Potassium 4.2 (3.5-5.1) mmol/L Chloride 105 (98-107) mmol/L Carbon Dioxide 25 (22-30) mmol/L BUN 20 (9-20) mg/dL Creatinine 0.90 (0.66-1.25) mg/dL Glucose 258 H (74-99) mg/dL Calcium 9.3 (8.4-10.2) mg/dL AST 23 (17-59) U/L ALT 26 (21-72) U/L Alkaline Phosphatase 143 H (38-126) U/L Total Protein 6.2 L (6.3-8.2) g/dL Albumin 3.8 (3.5-5.0) g/dL Current Medications Generic Name Dose Route Start Last Admin Trade Name Freq PRN Reason Stop Dose Admin Aspirin 81 mg 01/30/18 09:00 01/30/18 07:48 Aspirin PO 81 mg DAILY JAYDON Administration Atorvastatin Calcium 80 mg 01/30/18 21:00 Lipitor PO HS JAYDON Clopidogrel Bisulfate 75 mg 01/30/18 09:00 01/30/18 07:48 Plavix PO 75 mg QAM JAYDON Administration Heparin Sodium (Porcine) 0 unit 01/30/18 03:03 Heparin IV PER PROTOCOL PRN Low PTT Protocol Nitroglycerin/Dextrose 50 mg/ 250 mls @ 1.5 mls/hr 01/30/18 02:10 01/30/18 02 :39 IV Solution IV 01/31/18 02:09 5 mcg/min .Q24H STA 1.5 mls/hr Protocol Administration 5 MCG/MIN Heparin Sodium/Dextrose 25,000 500 mls @ 23.4 mls/hr 01/30/18 03:15 01/30/18 04:05 unit/ IV Solution IV 10.25 units/kg/hr .[id number] JAYDON 20 mls/hr Protocol Administration 12 UNITS/KG/HR Potassium Chloride/Sodium Chloride 1,000 mls @ 50 mls/hr 01/30/18 03:30 01/30 07:33 Ns-Kcl 20 Meq/L Iv Solution IV Not Given .Q20H JAYDON Lisinopril 10 mg 01/30/18 09:00 01/30/18 07:48 Zestril PO 10 mg QAM JAYDON Administration Morphine Sulfate 4 mg 01/30/18 03:27 Morphine Sulfate (Inj) IV Q4HR PRN Severe Pain Naloxone HCl 0.2 mg 01/30/18 03:27 Narcan IV Q2M PRN Opioid Reversal Intake and Output 01/29/18 01/30/18 01/30/18 22:59 06:59 14:59 Output Total 475 Balance -475 Output: Urine 475 Other: # Voids 1 Weight 95.8 kg 01/30/18 02:14 01/30/18 02:14 EKG Interpretations (text) EKG shows a normal sinus rhythm with a right bundle branch block pattern, left anterior fascicular block, no acute changes noted. Assessment and Plan Plan: Assessment and plan #1 chest pressure and heaviness with associated mild rise in troponin, suggesting acute coronary syndrome. EKG shows normal sinus rhythm with a right bundle branch block pattern, left anterior fascicular block. No acute changes noted on EKG. 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 Small to medium caliber LAD with mild to moderate disease. #3 hypertension #4 diabetes #5 hyperlipidemia Plan We will resume the patient's aspirin, continue IV heparin and nitroglycerin drips, continue Plavix, lisinopril, patient is not on a beta irene, we will start a low-dose beta irene. Because of the abnormality in the troponin and the patient's symptoms, he may require repeat cardiac catheterization in spite of the fact that he just had a cath done in November, we will speak with Dr. Ponce and further recommendations then will be made. DNP note has been reviewed, I agree with a documented findings and plan of care. Patient was seen and examined.
[2018-01-30] MEDS: PANTOPRAZOLE 40 MG TABLET PO SCH (09:10)
[2018-01-30] MEDS: FLUTICASONE 50MCG/SPRAY NASAL 16GM EA NOSTRIL SCH (09:10)
[2018-01-30] MEDS ORDERED: INSULIN PUMP ACTIVE INSULIN 1 EACH MISC MISCELLANE PRN (10:58)
[2018-01-30] MEDS ORDERED: INSULIN PUMP TARGET GLUCOSE 1 EACH MISC MISCELLANE PRN (10:58)
[2018-01-30] MEDS ORDERED: INSPUCOR MISCELLANE PRN (10:58)
[2018-01-30] MEDS ORDERED: INSULIN ASPART 100 UNIT/ML 1 ML 10 ML VIAL SQ PRN (10:58)
[2018-01-30] MEDS ORDERED: INSULIN PUMP BASAL RATES 1 EACH MISC MISCELLANE PRN (10:58)
[2018-01-30 11:47] LABS: Glucose,Whole Blood 114 mg/dL (75-99)
[2018-01-30] MEDS: INSULIN PUMP MEAL BOLUS 1 UNIT MISC MISCELLANE SCH ×2 (12:00→17:15)
--- NOTE | 2018-01-30 12:08 | ECHOF ---
Referral Reason:chest pain MEASUREMENTS -------- HEIGHT: 180.3 cm WEIGHT: 95.7 kg BP: IVSd: 1.3 cm (0.6 - 1.1) LVIDd: 4.5 cm (3.9 - 5.3) LVPWd: 1.1 cm (0.6 - 1.1) IVSs: 1.7 cm LVIDs: 2.8 cm LVPWs: 1.7 cm Ao Diam: 3.2 cm (2.0 - 3.7) AV Cusp: 2.0 cm (1.5 - 2.6) LA Diam: 3.1 cm (2.7 - 3.8) MV EXCURSION: 16.659 mm (> 18.000) MV EF SLOPE: 166 mm/s (70 - 150) EPSS: 0.5 cm MV E Shawn: 0.84 m/s MV DecT: 231 ms MV A Shawn: 0.93 m/s MV E/A Ratio: 0.91 RAP: 5.00 mmHg RVSP: 9.42 mmHg FINDINGS -------- Sinus rhythm. This was a technically difficult study with suboptimal views. The left ventricular size is normal. There is mild concentric left ventricular hypertrophy. Overa ll left ventricular systolic function is normal with, an EF between 55 - 60 %. The right ventricle is normal in size and function. The left atrium is normal in size. The right atrium is normal in size. Lumason used The aortic valve is trileaflet, and appears structurally normal. No aortic stenosis or regurgitation. The mitral valve leaflets are mildly thickened. Mild mitral regurgitation is present. Mild tricuspid regurgitation present. The right ventricular systolic pressure, as measured by Doppl er, is 9.42mmHg. There is no pulmonic regurgitation present. The aortic root size is normal. There is no pericardial effusion. CONCLUSIONS -------- 1. Sinus rhythm. 2. This was a technically difficult study with suboptimal views. 3. The left ventricular size is normal. 4. There is mild concentric left ventricular hypertrophy. 5. Overall left ventricular systolic function is normal with, an EF between 55 - 60 %. 6. The left atrium is normal in size. 7. Lumason used 8. The aortic valve is trileaflet, and appears structurally normal. No aortic stenosis or regurgitati on. 9. The mitral valve leaflets are mildly thickened. 10. Mild mitral regurgitation is present. 11. Mild tricuspid regurgitation present. 12. The right ventricular systolic pressure, as measured by Doppler, is 9.42mmHg. 13. There is no pulmonic regurgitation present. 14. The aortic root size is normal. 15. There is no pericardial effusion. ELECTROENCEPHALOGRAM TECHNOLOGIST: Araceli Mack RDCS
[2018-01-30] MEDS ORDERED: ASPIRIN 81 MG PO STA (13:19)
[2018-01-30] MEDS ORDERED: ALPRAZolam 0.5 MG TAB PO PRN (13:19)
[2018-01-30] MEDS ORDERED: ATORVASTATIN 80 MG TAB PO STA (13:19)
[2018-01-30] MEDS ORDERED: ALPRAZolam 0.25 MG TAB PO PRN (13:19)
[2018-01-30] MEDS ORDERED: SODIUM CHLORIDE 0.9% 1,000 ML in EMPTY BAG 1 BAG IV ONE (13:19)
[2018-01-30 14:24] LABS: Creatine Kinase MB 1.8 ng/mL (0.0-2.4)
[2018-01-30 14:26] LABS: Troponin I 0.058 ng/mL (0.000-0.034)
[2018-01-30 16:32] LABS: Glucose,Whole Blood 160 mg/dL (75-99)
[2018-01-30] MEDS: LORATADINE 10 MG TAB PO SCH (20:33)
[2018-01-30 20:46] LABS: Glucose,Whole Blood 142 mg/dL (75-99)
--- NOTE | 2018-01-30 21:18 | HP ---
HISTORY AND PHYSICAL DATE PATIENT WAS SEEN: 01/30/2018 HISTORY OF PRESENT ILLNESS: The patient is a pleasant 67-year-old white male who was just recently undergone a cardiac catheterization with stent placement. The patient had been having progressive atypical chest pain since having this stent placed a few months prior. The patient had revaluation by Dr. Gomes, who did a second heart catheterization to determine that there is no change in his stents. He is currently on aspirin and Plavix. He had a full pulmonary workup to rule out any complications from sarcoidosis or any type of pulmonary process. It is determined that there was no pulmonary acute process going on at this time. However, patient was still having difficulty with chest pain in swallowing. He is currently under evaluation for some esophageal motility dysfunction and difficulty swallowing, which she also underwent a barium swallow and has a consultation this with Gastroenterology. However, last evening the patient began having pain throughout the day midsternal area radiating to his left upper chest and his back. His pain began to worsen and felt like he was having some cardiac chest pain. He took a sublingual nitroglycerin which relieved his pain. Approximately 30 minutes later, his pain returned where he took another nitroglycerin. He then proceeded to wake up his and told her to take him to the emergency department when she was subsequently admitted. He denies any nausea, vomiting, diaphoresis, or vomiting. MEDICATIONS: Include Zyrtec 10 mg at q.h.s., insulin via pump protocol with a basal rate and bolus according to carb load, lisinopril 10 mg daily, omeprazole 20 mg daily, Plavix 75 mg daily, Flonase 2 sprays each nostril at q.h.s., sublingual nitroglycerin as directed. Lipitor 80 mg at q.h.s., Imdur 60 daily. PAST MEDICAL HISTORY: Significant for asthma, sarcoidosis, diabetes type 2. GERD and esophageal motility dysfunction. Previous myocardial infarction with coronary artery disease and stenting. Osteoarthritis, prostate and bladder cancer. PAST SURGICAL HISTORY: Significant for heart catheterization with stent, then re-heart catheterization since his myocardial infarction July 19, 2017, joint replacement, bladder cancer surgery, bilateral cataracts, colonoscopy, right ankle surgery, bilateral carpal tunnel, left total knee arthroplasty, bilateral shoulder rotator cuff, lumbar laminectomy, thoracotomy for biopsy of lung nodules, which was positive for sarcoidosis. PAST FAMILY HISTORY: Father had diabetes. Mother had coronary artery disease and diabetes and hypertension. Has a brother with prostate cancer. REVIEW OF SYSTEMS: Denies any stroke or paralysis. Admits shortness of breath on occasion. States that he did have chest pain and pressure last evening with deep breathing. Rest of review of systems is essentially unremarkable. PHYSICAL EXAM: He is alert. He is answering questions appropriately. He is in no apparent distress at this time. HEAD: Normocephalic and atraumatic. Eyes, pupils equal, round, reactive to light. NECK: Supple. No JVD. No carotid bruits. HEART: Regular rate and rhythm without murmurs, rubs, or gallops. ABDOMEN: Soft, nontender. No rebound, rigidity, or guarding is present. EXTREMITIES: No cyanosis, clubbing or jaundice with normal capillary refill. Neurological cranial nerves 2-12 grossly intact without any lateralizing deficit. Psychiatric: Answers questions appropriately with normal tone. Skin is warm and dry without edema. His vital signs on chart for review today: Temperature is 97.9, pulse rate of 82, respiratory rate of 18 with a blood pressure 155/78, and pulse ox continuous above 97% on room air. The EKG shows a right bundle branch block with a lateral infarct which is unchanged from his previous EKG. IMPRESSIONS: 1. Non ST-segment elevated myocardial infarction with elevated troponins. 2. History of coronary artery stent with angioplasty post stenting, currently on anticoagulants, aspirin and Plavix. 3. Sarcoidosis. 4. Esophageal motility dysfunction currently under an evaluation. 5. Hypertensive coronary artery disease. 6. Asthma. PLAN: Admit patient with full cardiology workup, serial EKGs and enzymes already in progress. Dr. Roberts at bedside evaluating the patient currently. MMODL / IJN: [id number] /
[2018-01-30 21:47] LABS: Hemoglobin A1C 8.3 % (4.0-6.0)
[2018-01-31] MEDS: INSULIN PUMP MEAL BOLUS 1 UNIT MISC MISCELLANE SCH ×5 (03:00→21:20)
[2018-01-31] MEDS: 0.9% NACL WITH KCL 20 MEQ/L 1,000 ML IV SCH ×3 (03:43→22:04)
[2018-01-31] MEDS: HEPARIN SODIUM,PORCINE/D5W PMX 25,000 UNIT in DEXTROSE/WATER 1 500ML.BAG IV SCH ×2 (03:44→22:05)
[2018-01-31 06:11] LABS: Glucose,Whole Blood 135 mg/dL (75-99)
[2018-01-31 06:17] LABS: Basophils % (A) 1 %; Eosinophils # (A) 0.1 k/uL (0-0.7); Eosinophils % (A) 2 %; HCT 40.2 % (39.0-53.0); HGB 12.9 gm/dL (13.0-17.5); Lymphocytes # (A) 2.1 k/uL (1.0-4.8); Lymphocytes % (A) 28 %; MCH 28.2 pg (25.0-35.0); MCHC 32.2 g/dL (31.0-37.0); MCV 87.8 fL (80.0-100.0); Mean Platelet Volume 6.6; Monocytes # (A) 0.5 k/uL (0-1.0); Monocytes % (A) 6 %; Neutrophils # (A) 4.6 k/uL (1.3-7.7); Neutrophils % (A) 62 %; Platelet Count 216 k/uL (150-450); RBC 4.58 m/uL (4.30-5.90); RDW 13.5 % (11.5-15.5); WBC 7.5 k/uL (3.8-10.6)
[2018-01-31] MEDS: CLOPIDOGREL 75 MG TAB PO SCH (06:41)
[2018-01-31] MEDS: LISINOPRIL 10 MG TAB PO SCH (06:41)
[2018-01-31] MEDS: ASPIRIN 81 MG PO SCH (06:41)
[2018-01-31] MEDS: PANTOPRAZOLE 40 MG TABLET PO SCH (06:41)
[2018-01-31] MEDS: FLUTICASONE 50MCG/SPRAY NASAL 16GM EA NOSTRIL SCH (06:43)
[2018-01-31] MEDS: METOPROLOL TARTRATE 12.5 MG TAB PO SCH ×2 (10:32→19:25)
[2018-01-31 11:19] LABS: Glucose,Whole Blood 221 mg/dL (75-99)
[2018-01-31] MEDS ORDERED: MORPHINE ORAL SOLN 10 MG/5 ML CUP PO PRN (13:28)
[2018-01-31] MEDS: NITROGLYCERIN-D5W PMX 50 MG in DEXTROSE/WATER 1 250ML.BAG IV SCH (14:21)
--- NOTE | 2018-01-31 15:55 | P.PN ---
Subjective Progress Note Date: 01/31/18 This is a pleasant 67 or O gentleman who follows regularly with Dr. Ponce in the office. 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 Patent stent in the distal RCA, patent stent in the distal circumflex, small to medium caliber LAD with mild to moderate disease. Medical therapy again was advised at that time. Because of the continuation of intermittent chest discomfort, patient was referred to pulmonary as an outpatient to did not feel that his lungs were giving him this problem. Subsequent to that he was evaluated by GI service, they do not want to do an EGD because the patient was on Plavix and aspirin, therefore a barium swallow was performed which revealed abnormal esophageal motility which can be seen and neuromuscular disorder or more commonly precipice esophagus. Moderate degree of intra-esophageal reflux. No hiatal hernia or stricture. He was scheduled to follow-up with GI in the office later this week. Tuesday patient was experiencing intermittent midsternal chest discomfort, heaviness and pressure. He again was experiencing symptoms Tuesday, took nitroglycerin with some relief, but right shortly after the symptoms returned, they became quite severe through the night so he woke his up to come into the hospital for further evaluation. His chest x-ray on admission here was normal. EKG showed a normal sinus rhythm with a right bundle branch block pattern and left anterior fascicular block.CBC is normal, sodium 142, potassium 4.2, BUN 20, creatinine 0.9. Magnesium level 2.0, C-reactive protein 3.4, cassius screen negative. Initial troponin 0.053, subsequent troponin 0.65. Blood pressure 108/60 with a heart rate in the 60s, temperature 97.2. Patient is currently on an IV heparin drip along with IV nitroglycerin. At the time of my examination this morning he does have some mild chest discomfort. 01/31/2018 Patient seen and examined this morning, denied any further chest discomfort, however he has not been up ambulating either. Computed tomography scan performed at [place] was reviewed, no evidence of the coronary arteries the aorta. For this reason patient was advised to undergo cardiac catheterization. This was originally scheduled for today, it was deferred to be performed until tomorrow because of the schedule. Objective - Vital Signs Vital signs: Vital Signs Temp 98 F 01/31/18 12:00 Pulse 70 01/31/18 12:00 Resp 18 01/31/18 12:00 BP 121/80 01/31/18 12:00 Pulse Ox 98 01/31/18 12:00 Intake & Output 01/30/18 01/31/18 01/31/18 18:59 06:59 18:59 Intake Total 621.7 473 804.893 Output Total 1050 580 Balance 621.7 -577 224.893 Weight 94.8 kg Intake: Intake, IV Titration 144.7 473 564.893 Amount 0.9% NaCl with KCl 20 Meq 350 /l 1,000 ml @ 50 mls/hr IV .Q20H PENDING SALE TO [facility] Rx#: [id number] Heparin Sodium,Porcine/ 23.4 473 214.893 D5w Pmx 25,000 unit In Dextrose/Water 1 500ml. bag @ 12 UNITS/KG/HR 23.4 mls/hr IV .[id number] PENDING SALE TO [facility] Rx#:[id number] Nitroglycerin-D5w Pmx 50 25.5 mg In Dextrose/Water 1 250ml.bag @ 5 MCG/MIN 1.5 mls/hr IV .Q24H [facility] Rx#: [id number] Sodium Chloride 0.9% 1, 95.8 000 ml In Empty Bag 1 bag @ 1 ML/KG/HR 95.8 mls/hr IV .[id number] [facility] Rx#: [id number] Oral 477 240 Output: Urine 1050 580 Other: # Voids 1 - Exam PHYSICAL EXAMINATION: HEENT: Head is atraumatic, normocephalic. Pupils equal, round. Neck is supple. There is no elevated jugular venous pressure. HEART EXAMINATION: Heart S1, S2 normal. No murmur or gallop heard. CHEST EXAMINATION: Lungs are clear to auscultation and precussion. No chest wall tenderness is noted on palpation or with deep breathing. ABDOMEN: Soft, nontender. Bowel sounds are heard. No organomegaly noted. EXTREMITIES: 2+ peripheral pulses with no evidence of peripheral edema and no calf tenderness noted. NEUROLOGIC patient is awake, alert and oriented -3. . - Labs CBC & Chem 7: 01/31/18 05:53 01/30/18 02:14 Labs: Abnormal Lab Results - Last 24 Hours (Table) 01/30/18 01/30/18 01/30/18 Range/Units 02:14 16:29 20:44 Hgb (13.0-17.5) gm/dL APTT (22.0-30.0) sec POC Glucose (mg/dL) 160 H 142 H (75-99) mg/dL Hemoglobin A1c 8.3 H (4.0-6.0) % 01/31/18 01/31/18 01/31/18 Range/Units 05:53 05:53 06:10 Hgb 12.9 L (13.0-17.5) gm/dL APTT 38.9 H (22.0-30.0) sec POC Glucose (mg/dL) 135 H (75-99) mg/dL Hemoglobin A1c (4.0-6.0) % 01/31/18 01/31/18 Range/Units 11:16 13:54 Hgb (13.0-17.5) gm/dL APTT 39.1 H (22.0-30.0) sec POC Glucose (mg/dL) 221 H (75-99) mg/dL Hemoglobin A1c (4.0-6.0) % Assessment and Plan Plan: Assessment and plan #1 chest pressure and heaviness with associated mild rise in troponin, suggesting acute coronary syndrome. EKG shows normal sinus rhythm with a right bundle branch block pattern, left anterior fascicular block. No acute changes noted on EKG. 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 Small to medium caliber LAD with mild to moderate disease. #3 hypertension #4 diabetes #5 hyperlipidemia Plan We will resume the patient's aspirin, continue IV heparin and nitroglycerin drips, continue Plavix, lisinopril, patient is not on a beta irene, we will start a low-dose beta irene. Patient is scheduled to undergo cardiac catheterization tomorrow by Dr. Ponce. Further recommendations will be based on those findings and patient's clinical course. DNP note has been reviewed, I agree with a documented findings and plan of care. Patient was seen and examined. DNP note has been reviewed, I agree with a documented findings and plan of care. Patient was seen and examined.
[2018-01-31 16:09] LABS: Glucose,Whole Blood 148 mg/dL (75-99)
[2018-01-31] MEDS: ATORVASTATIN 80 MG TAB PO SCH (19:25)
[2018-01-31] MEDS: LORATADINE 10 MG TAB PO SCH (19:25)
--- NOTE | 2018-01-31 20:10 | PN ---
PROGRESS NOTE DATE OF SERVICE: 01/31/2018 Gregor is a pleasant 67-year-old white male who was admitted with atypical chest pain who is awaiting cardiac catheterization. The patient denied any further chest pain that he had. He is currently on aspirin, Plavix and denies any further chest discomfort. He is waiting and currently n.p.o. The patient's vital signs are stable. He is afebrile. PHYSICAL EXAM: HEENT: Head is normocephalic, atraumatic. Pupils equal, round, reactive to light. Extraocular muscles are intact. Neck is supple. No JVD. HEART: Regular rate and rhythm. LUNGS: Clear to auscultation. Abdomen is soft, nontender. No rebound, rigidity, guarding. EXTREMITIES: No cyanosis, clubbing or jaundice. IMPRESSIONS: 1. Atypical chest pain with acute coronary syndrome. 2. Status post recent myocardial infarction with cardiac catheterization and stent placement and re-catheterization to check the patency of the previous 2 stents. 3. Diabetes type 2 with insulin pump. 4. Hyperlipidemia. 5. Hypertensive cardiovascular disease. 6. Sarcoidosis of the lung. 7. Motility disorder seen on recent esophagram with gastroenterology office consultation scheduled for this . PLAN: Continue to await heart catheterization to further delineate patient's problem, meaning chest pain. MMODL / IJN: [id number] /
[2018-01-31 20:55] LABS: Glucose,Whole Blood 152 mg/dL (75-99)
[2018-02-01 05:45] LABS: Glucose,Whole Blood 156 mg/dL (75-99)
[2018-02-01] MEDS: METOPROLOL TARTRATE 12.5 MG TAB PO SCH ×2 (06:05→19:37)
[2018-02-01] MEDS: FLUTICASONE 50MCG/SPRAY NASAL 16GM EA NOSTRIL SCH (06:05)
[2018-02-01] MEDS: ASPIRIN 81 MG PO SCH (06:06)
[2018-02-01] MEDS: CLOPIDOGREL 75 MG TAB PO SCH (06:06)
[2018-02-01] MEDS: PANTOPRAZOLE 40 MG TABLET PO SCH (06:06)
[2018-02-01] MEDS: LISINOPRIL 10 MG TAB PO SCH (06:06)
[2018-02-01] MEDS: INSULIN PUMP MEAL BOLUS 1 UNIT MISC MISCELLANE SCH ×4 (06:07→21:20)
[2018-02-01 06:37] LABS: Basophils % (A) 1 %; Eosinophils # (A) 0.1 k/uL (0-0.7); Eosinophils % (A) 2 %; HCT 40.1 % (39.0-53.0); HGB 12.9 gm/dL (13.0-17.5); Lymphocytes # (A) 2.4 k/uL (1.0-4.8); Lymphocytes % (A) 36 %; MCH 28.2 pg (25.0-35.0); MCHC 32.2 g/dL (31.0-37.0); MCV 87.5 fL (80.0-100.0); Mean Platelet Volume 6.8; Monocytes # (A) 0.5 k/uL (0-1.0); Monocytes % (A) 8 %; Neutrophils # (A) 3.4 k/uL (1.3-7.7); Neutrophils % (A) 52 %; Platelet Count 237 k/uL (150-450); RBC 4.59 m/uL (4.30-5.90); RDW 13.3 % (11.5-15.5); WBC 6.6 k/uL (3.8-10.6)
[2018-02-01] MEDS ORDERED: SODIUM CHLORIDE 0.9% 1,000 ML IV ONE (07:20)
[2018-02-01] MEDS ORDERED: MIDAZOLAM 2 MG/2 ML VIAL IV ONE (07:38)
[2018-02-01] MEDS ORDERED: LIDOCAINE 2% INJ 20 MG/ML SQ ONE (07:40)
[2018-02-01] MEDS ORDERED: fentaNYL (PF) 50 MCG/ML 2 ML AMP IV ONE (07:45)
[2018-02-01] MEDS: NITROGLYCERIN 1000MCG/10ML SYRINGE INTRACORON ONE ×2 (07:49→08:14)
[2018-02-01] MEDS ORDERED: BIVALIRUDIN BOLUS 250 MG/50 ML IV ONE (07:57)
[2018-02-01] MEDS ORDERED: BIVALIRUDIN 250 MG in SODIUM CHLORIDE 0.9% 50 ML IV ONE (07:58)
[2018-02-01] MEDS ORDERED: IOPAMIDOL-370 125ML BTL INJ ONE (08:16)
[2018-02-01] MEDS ORDERED: CLOPIDOGREL 75 MG TAB PO ONE (08:23)
[2018-02-01] MEDS ORDERED: MAG HYDROX/AL HYDROX/SIMETH 30 ML CUP PO PRN (08:31)
[2018-02-01] MEDS ORDERED: ZOLPIDEM 5 MG TAB PO PRN (08:31)
[2018-02-01] MEDS ORDERED: RX INFO: IV CONTRAST WAS GIVEN 1 EACH MISC MISCELLANE PRN (08:31)
[2018-02-01] MEDS ORDERED: NITROGLYCERIN SL TABS 0.4 MG TAB SUBLINGUAL PRN (08:31)
[2018-02-01] MEDS ORDERED: ATROPINE SULFATE 0.1 MG/ML 10ML SYRINGE IV PRN (08:31)
[2018-02-01] MEDS ORDERED: SODIUM CHLORIDE 0.9% 1,000 ML IV SCH (08:45)
--- NOTE | 2018-02-01 09:05 | CC ---
CARDIAC CATHETERIZATION REPORT CARDIAC CATH AND PERCUTANEOUS CORONARY INTERVENTION DATE OF SERVICE: 02/01/2018 PERFORMING PHYSICIAN: Lawrence Gomes MD, programming director. PROCEDURE PERFORMED: 1. Selective right and left coronary angiogram. 2. Left heart catheterization. 3. Successful stenting of the distal left circumflex coronary artery using 2.25 x 15 mm Xience DAREK with good angiographic results. INDICATION: This is a pleasant 67-year-old gentleman with known history of coronary artery disease and prior stenting of the RCA and left circumflex presented to the hospital complaining of chest discomfort and mildly abnormal cardiac enzymes. He was found to have mildly abnormal cardiac enzymes. He was seen and evaluated by Dr. Srinivasan and a heart catheterization was recommended. APPROACH: Right common femoral artery. COMPLICATION: None. LEVEL OF SEDATION: Moderate with a sedation length of 45 minutes. PROCEDURE DESCRIPTION: After obtaining an informed consent, the patient was brought to the cardiac geophysical laboratory chief. The right common femoral artery was cannulated using micropuncture technique, the micropuncture wire passed easily then I placed a 6-Senegalese sheath in the right common femoral artery. After that, I did selective right and left coronary angiogram using Jarrod johnson. 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 After that, I did perform left heart catheterization using 6-Senegalese pigtail catheter. Then I did angioplasty and stenting of the left circumflex please see a separate paragraph for that. SELECTIVE CORONARY ANGIOGRAM: 1. The right coronary artery is a large caliber vessel and it is a dominant vessel. The RCA has mild disease in the proximal and mid portion. Distally has mild disease only. It bifurcates into PDA and PLV branch. The PDA branch appeared to have mild disease only and the PLV branch is stented and the stent is patent. 2. The left circumflex is a large caliber vessel. It is a nondominant vessel. The proximal circ appeared to be angiographically normal. The mid circ appeared to be angiographically normal. The circ gives rise into a OM branch which is stented and the stent is patent. Distal to the stent, there was a lesion appeared to be in the range of 90%. 3. The LAD; the LAD appeared to have mild disease only in the mid portion. PCI OF THE LEFT CIRCUMFLEX: Anticoagulation was initiated using Angiomax. Subsequently I did engage the left circumflex using multipurpose catheter. A whisper wire was used to wire the left circumflex coronary artery and advance the wire to the OM branch of the left circumflex. Subsequently I did balloon angioplasty using 2.0 x 12 mm balloon before I deployed 2.25 x 15 mm Xience DAREK where the stent was positioned under fluoroscopy guidance and deployed under its nominal pressure. The following angiogram showed good angiographic results and the procedure was completed without any complication. CONCLUSION: 1. Acute non-ST elevation myocardial infarction. 2. Known history of coronary artery disease and prior stenting of the right coronary artery and left circumflex. 3. 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 4. Patent stent in the PLV branch of the right coronary artery. 5. Patent stent in the obtuse marginal branch of the left circumflex. 6. Severe de cherie coronary artery disease involving the first obtuse marginal branch of the left circumflex just distal to the previous stent. 7. Mild disease involving the left anterior descending artery. 8. Successful stenting of the left circumflex as described above. POSTPROCEDURE MANAGEMENT: Maximize medical treatment and follow up with the patient. MMODL / IJN: [id number] /
--- NOTE | 2018-02-01 09:11 | LTR ---
February 01, 2018 Re: Gregor Bernal Dear Dr. Terrell: MrWilliam Bernal underwent a heart catheterization and successful stenting of the left circumflex coronary artery. Thank you for allowing me to participate in his care and please do not hesitate to call if you have any question or concern. Sincerely, MD JEOVANY Fonseca / TEMI: [id number] /
[2018-02-01 09:33] VITALS: BMI 27.9
[2018-02-01 11:29] LABS: Glucose,Whole Blood 138 mg/dL (75-99)
[2018-02-01] MEDS: NITROGLYCERIN-D5W PMX 50 MG in DEXTROSE/WATER 1 250ML.BAG IV SCH (16:01)
[2018-02-01 16:32] LABS: Glucose,Whole Blood 196 mg/dL (75-99)
[2018-02-01] MEDS: ATORVASTATIN 80 MG TAB PO SCH (19:37)
[2018-02-01] MEDS: LORATADINE 10 MG TAB PO SCH (19:37)
[2018-02-01 21:21] LABS: Glucose,Whole Blood 176 mg/dL (75-99)
[2018-02-02] MEDS: INSULIN PUMP MEAL BOLUS 1 UNIT MISC MISCELLANE SCH ×2 (06:16→12:10)
[2018-02-02 06:17] LABS: Glucose,Whole Blood 143 mg/dL (75-99)
[2018-02-02 06:37] LABS: Basophils % (A) 1 %; Eosinophils # (A) 0.1 k/uL (0-0.7); Eosinophils % (A) 2 %; HCT 44.8 % (39.0-53.0); HGB 14.5 gm/dL (13.0-17.5); Lymphocytes # (A) 1.8 k/uL (1.0-4.8); Lymphocytes % (A) 26 %; MCHC 32.5 g/dL (31.0-37.0); MCV 89.2 fL (80.0-100.0); Mean Platelet Volume 6.7; Monocytes # (A) 0.5 k/uL (0-1.0); Monocytes % (A) 7 %; Neutrophils # (A) 4.4 k/uL (1.3-7.7); Neutrophils % (A) 63 %; Platelet Count 191 k/uL (150-450); RBC 5.02 m/uL (4.30-5.90); RDW 13.7 % (11.5-15.5); WBC 7.1 k/uL (3.8-10.6)
[2018-02-02] MEDS: ASPIRIN 81 MG PO SCH (09:31)
[2018-02-02] MEDS: CLOPIDOGREL 75 MG TAB PO SCH (09:31)
[2018-02-02] MEDS: METOPROLOL TARTRATE 12.5 MG TAB PO SCH (09:32)
[2018-02-02] MEDS: LISINOPRIL 10 MG TAB PO SCH (09:32)
[2018-02-02] MEDS: FLUTICASONE 50MCG/SPRAY NASAL 16GM EA NOSTRIL SCH (09:32)
[2018-02-02] MEDS: PANTOPRAZOLE 40 MG TABLET PO SCH (09:32)
[2018-02-02 09:59] VITALS: TEMP 97.1
[2018-02-02 11:17] VITALS: BP 127/80; PULSE 57; RESP 16
[2018-02-02] MEDS: 0.9% NACL WITH KCL 20 MEQ/L 1,000 ML IV SCH (11:24)
[2018-02-02 11:33] LABS: Glucose,Whole Blood 150 mg/dL (75-99)
[2018-02-02] MEDS ORDERED: EZETIMIBE 10 MG TAB PO SCH (15:00)
--- NOTE | 2018-02-02 15:18 | P.PN ---
Subjective Progress Note Date: 02/02/18 This is a pleasant 67 or O gentleman who follows regularly with Dr. Ponce in the office. 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 Patent stent in the distal RCA, patent stent in the distal circumflex, small to medium caliber LAD with mild to moderate disease. Medical therapy again was advised at that time. Because of the continuation of intermittent chest discomfort, patient was referred to pulmonary as an outpatient to did not feel that his lungs were giving him this problem. Subsequent to that he was evaluated by GI service, they do not want to do an EGD because the patient was on Plavix and aspirin, therefore a barium swallow was performed which revealed abnormal esophageal motility which can be seen and neuromuscular disorder or more commonly precipice esophagus. Moderate degree of intra-esophageal reflux. No hiatal hernia or stricture. He was scheduled to follow-up with GI in the office later this week. Tuesday patient was experiencing intermittent midsternal chest discomfort, heaviness and pressure. He again was experiencing symptoms Tuesday, took nitroglycerin with some relief, but right shortly after the symptoms returned, they became quite severe through the night so he woke his up to come into the hospital for further evaluation. His chest x-ray on admission here was normal. EKG showed a normal sinus rhythm with a right bundle branch block pattern and left anterior fascicular block.CBC is normal, sodium 142, potassium 4.2, BUN 20, creatinine 0.9. Magnesium level 2.0, C-reactive protein 3.4, cassius screen negative. Initial troponin 0.053, subsequent troponin 0.65. Blood pressure 108/60 with a heart rate in the 60s, temperature 97.2. Patient is currently on an IV heparin drip along with IV nitroglycerin. At the time of my examination this morning he does have some mild chest discomfort. 01/31/2018 Patient seen and examined this morning, denied any further chest discomfort, however he has not been up ambulating either. Computed tomography scan performed at [facility] was reviewed, no evidence of the coronary arteries the aorta. For this reason patient was advised to undergo cardiac catheterization. This was originally scheduled for today, it was deferred to be performed until tomorrow because of the schedule. 02/02/2018 Patient was taken to the cardiac catheterization lab yesterday where he underwent angioplasty and stenting of a new lesion in the circumflex artery. He was seen and examined this morning, feeling well, denies any chest pain, breathing is stable. He is hemodynamically stable. EKG shows normal sinus rhythm with no changes from post-PCI. Objective - Vital Signs Vital signs: Vital Signs Temp 97.1 F L 02/02/18 11:15 Pulse 57 L 02/02/18 11:26 Resp 16 02/02/18 11:15 BP 127/80 02/02/18 11:15 Pulse Ox 97 02/02/18 11:15 Intake & Output 02/01/18 02/02/18 02/02/18 18:59 06:59 18:59 Intake Total 882 480 Output Total 1000 1200 Balance -118 -720 Weight 93.4 kg 94.1 kg Intake: IV 282 Oral 600 480 Output: Urine 1000 1200 Other: Voiding Method Toilet # Voids 1 - Exam PHYSICAL EXAMINATION: HEENT: Head is atraumatic, normocephalic. Pupils equal, round. Neck is supple. There is no elevated jugular venous pressure. HEART EXAMINATION: Heart S1, S2 normal. No murmur or gallop heard. CHEST EXAMINATION: Lungs are clear to auscultation and precussion. No chest wall tenderness is noted on palpation or with deep breathing. ABDOMEN: Soft, nontender. Bowel sounds are heard. No organomegaly noted. Right groin soft, no evidence of any hematoma. EXTREMITIES: 2+ peripheral pulses with no evidence of peripheral edema and no calf tenderness noted. NEUROLOGIC patient is awake, alert and oriented -3. . - Labs CBC & Chem 7: 02/02/18 06:06 02/02/18 06:06 Labs: Abnormal Lab Results - Last 24 Hours (Table) 02/01/18 02/01/18 02/02/18 Range/Units 16:28 21:19 06:15 POC Glucose (mg/dL) 196 H 176 H 143 H (75-99) mg/dL 05/17/18 Range/Units 11:29 POC Glucose (mg/dL) 150 H (75-99) mg/dL Assessment and Plan Plan: Assessment and plan #1 chest pressure and heaviness with associated mild rise in troponin, suggesting acute coronary syndrome. EKG shows normal sinus rhythm with a right bundle branch block pattern, left anterior fascicular block. No acute changes noted on EKG. 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 Small to medium caliber LAD with mild to moderate disease. #3 hypertension #4 diabetes #5 hyperlipidemia Plan From cardiology's perspective, patient may be able to be discharged home today. We will make him a follow-up appointment to see Dr. Ponce in the office in one week. We will add study at 10 mg daily to his medication regime. Patient will be discharged home on dual antiplatelet therapy along with Lipitor 80 mg daily, aspirin 81 mg daily, Plavix 75 mg daily, Cipro 10 mg daily, metoprolol tartrate milligrams twice a day, subungual nitroglycerin as needed for chest pain. DNP note has been reviewed, I agree with a documented findings and plan of care. Patient was seen and examined.
--- NOTE | 2018-02-03 07:09 | DS ---
DISCHARGE SUMMARY DATE OF ADMISSION: 01/30/2018. DATE OF DISCHARGE: 02/02/2018. DISCHARGE DIAGNOSES: 1. Acute coronary syndrome with mild elevation of troponin and unstable angina. 2. Known coronary artery disease status post 2 stent placements and recent heart catheterization. 3. New stent placement on this admission with catheterization. 4. Hypertension. 5. Diabetes. 6. Sarcoidosis of the lung. 7. Hyperlipidemia. HOSPITAL COURSE: Gregor is a pleasant 57-year-old white male who has known coronary artery disease. He underwent stent placements earlier this year and subsequently was discharged. He underwent a second cardiac catheterization which was negative. However, on this admission with continued chest pain with a positive third stent placed. He was doing quite well. Feeling much improved. Chest pain seemed to be resolved from a cardiac standpoint. To be discharged on his regular medications with follow up with Dr. Gomes as well as myself in the office. He had new prescriptions for: 1. Zetia 10 mg 1 daily. 2. Lopressor 12.5 b.i.d. 3. Nitroglycerin sublingual p.r.n. 4. Aspirin 81 mg 1 daily. 5. Lipitor 80 mg once daily. 6. Zyrtec 10 mg at bedtime. 7. Plavix 75 once daily. 8. Flonase as directed. 9. Insulin pump. 10.Imdur 60 daily. 11.Zestril 10 1 daily. 12.Omeprazole 20 daily. The patient understands both written and verbal instructions. MMODL / IJN: [id number] /
== END 2018-02-02 15:05 | disposition home or self-care (01) | DRG 247 ==
LOC: EC 01:59 → 6SEL 03:29
PROVIDERS: ADMIT Family Medicine; ATTEND Family Medicine
PROC: B2111ZZ Fluoroscopy of Multiple Coronary Arteries using Low Osmolar Contrast (ICD-10-PCS; 2018-02-01)
PROC: 027034Z Dilation of Coronary Artery, One Artery with Drug-eluting Intraluminal Device, Percutaneous Approach (ICD-10-PCS; principal; 2018-02-01 07:30)
PROC: 4A023N7 Measurement of Cardiac Sampling and Pressure, Left Heart, Percutaneous Approach (ICD-10-PCS; 2018-02-01 07:30)
DX: I21.4 Non-ST elevation (NSTEMI) myocardial infarction (principal); I45.2 Bifascicular block; D86.9 Sarcoidosis, unspecified; E78.5 Hyperlipidemia, unspecified; E11.9 Type 2 diabetes mellitus without complications; K59.00 Constipation, unspecified; K22.4 Dyskinesia of esophagus; J45.909 Unspecified asthma, uncomplicated; I25.110 Atherosclerotic heart disease of native coronary artery with unstable angina pectoris; I45.10 Unspecified right bundle-branch block; I11.9 Hypertensive heart disease without heart failure; Z96.41 Presence of insulin pump (external) (internal); K21.9 Gastro-esophageal reflux disease without esophagitis; Z96.652 Presence of left artificial knee joint; I25.2 Old myocardial infarction; Z95.5 Presence of coronary angioplasty implant and graft; Z79.02 Long term (current) use of antithrombotics/antiplatelets; Z79.82 Long term (current) use of aspirin; Z87.891 Personal history of nicotine dependence; Z85.51 Personal history of malignant neoplasm of bladder; Z79.4 Long term (current) use of insulin; Z83.3 Family history of diabetes mellitus; Z82.49 Family history of ischemic heart disease and other diseases of the circulatory system; Z80.42 Family history of malignant neoplasm of prostate; Z98.41 Cataract extraction status, right eye; Z98.42 Cataract extraction status, left eye; Z85.46 Personal history of malignant neoplasm of prostate; Z79.899 Other long term (current) drug therapy
CPT/HCPCS: 36415; 71046; 80053; 82550; 82553; 82565; 83036; 83690; 83735; 83880; 84484; 85025; 85610; 85730; 93005; 93306; 93454; 96365; 96366; 96375; 99291

== ENCOUNTER 2018-08-26 18:09 | Observation (INO) | payer MEDICARE ==
[2018-08-26] MEDS ORDERED: MORPHINE SULFATE 4 MG/ML SYRINGE IVP STA (18:30)
[2018-08-26] MEDS ORDERED: SODIUM CHLORIDE 0.9% 1,000 ML IV STA ×2 (18:30)
--- NOTE | 2018-08-26 18:32 | ED ---
Chest Pain HPI - General Chief Complaint: Chest Pain Stated Complaint: Chest pain Time Seen by Provider: 08/26/18 18:14 Source: EMS Mode of arrival: EMS Limitations: no limitations - History of Present Illness Initial Comments: This is a 68-year-old male the ER with history of cardiac disease and stents, presents with chest pain that began was at [facility] she was diaphoretic short of breath and chest pain rating to his back. Chest pain is persisted, patient's friend ER by EMS still mildly short of breath or chest pain and nausea MD Complaint: chest pain -: minutes(s) Onset: during rest Pain Location: substernal Pain Radiation: back Severity: severe Severity scale (1-10): 6 Quality: tightness, aching Consistency: constant Improves With: nothing Worsens With: nothing Anginal Symptoms: nausea, diaphoresis, dyspnea Treatments Prior to Arrival: none - Related Data Home Medications Medication Instructions Recorded Confirmed Cetirizine HCl 10 mg PO HS 07/19/17 08/27/18 Insulin Aspart (For Pump) [NovoLOG See Protocol SQ-PUMP CONTINUOUS 07/19/1706/06 (For Pump)] Lisinopril [Zestril] 10 mg PO QAM 07/19/17 08/27/18 Omeprazole 20 mg PO QAM 07/19/17 08/27/18 Famotidine [Pepcid] 20 mg PO DAILY 08/27/18 08/27/18 Metoprolol Tartrate [Lopressor] 12.5 mg PO DAILY 08/27/18 08/27/18 Previous Rx's Medication Instructions Recorded Aspirin EC [Ecotrin Low Dose] 81 mg PO DAILY #30 tablet. 07/22/17 Atorvastatin [Lipitor] 80 mg PO HS #30 tab 07/22/17 Ezetimibe [Zetia] 10 mg PO DAILY #30 tab 02/02/18 Nitroglycerin Sl Tabs [Nitrostat] 0.4 mg SUBLINGUAL Q5M PRN #25 tab 02/02/18 Allergies Allergy/AdvReac Type Severity Reaction Status Date / Time No Known Allergies Allergy Verified 01/30/18 08:05 Review of Systems ROS Statement: Those systems with pertinent positive or pertinent negative responses have been documented in the HPI. ROS Other: All systems not noted in ROS Statement are negative. EKG Findings - EKG Comments: EKG Findings:: EKG shows sinus bradycardia rate of 52, FL 154, QRS 1:30, QTc 451 ,. This is compared with old EKG by EMS as well as prior EKG Past Medical History Past Medical History: Asthma, Cancer, Diabetes Mellitus, GERD/Reflux, Myocardial Infarction (CT), Osteoarthritis (OA), Prostate Disorder Additional Past Medical History / Comment(s): Chronic back and bilateral shoulder pain, sciaticia, uses insulin pump, SARCOIDOSIS, PAST BLADDER CANCER, SEASONAL ALLERGIES, OCC CONSTIPATION, "DENIES HYPERTENSION OR HIGH CHOLESTEROL STATED THE MEDS HE'S ON IS D/T HIS DIABETES. Last Myocardial Infarction Date:: 07/19/17 History of Any Multi-Drug Resistant Organisms: None Reported Past Surgical History: Heart Catheterization, Heart Catheterization With Stent, Joint Replacement, Orthopedic Surgery Additional Past Surgical History / Comment(s): X3 SX FOR BLADDER CANCER, SAVITA CATARACTS, COLONOSCOPY, RT ANKLE SX, SAVITA CARPAL TUNNEL, LT KNEE REPLACMENT, SAVITA SHOULDER ROTATOR CUFF SX TWICE BILATERAlLY, LAMINECTOMY X2, THORACOTOMY/BX FOR NODULES ON LYMPH NODES(SACRCOIDOSIS) Past Anesthesia/Blood Transfusion Reactions: Postoperative Nausea & Vomiting ( PONV) Date of Last Stent Placement:: 10/18/2017 Past Psychological History: No Psychological Hx Reported Smoking Status: Former smoker Past Alcohol Use History: Occasional Past Drug Use History: None Reported - Past Family History Father Family Medical History: Diabetes Mellitus Mother Family Medical History: Coronary Artery Disease (CAD), Diabetes Mellitus, Hypertension Brother(s) Family Medical History: Cancer Additional Family Medical History / Comment(s): Prostate cancer General Exam Limitations: no limitations General appearance: alert, in no apparent distress Head exam: Present: atraumatic, normocephalic, normal inspection Eye exam: Present: normal appearance, PERRL, EOMI. Absent: scleral icterus, conjunctival injection, periorbital swelling ENT exam: Present: normal exam, mucous membranes moist Neck exam: Present: normal inspection. Absent: tenderness, meningismus, lymphadenopathy Respiratory exam: Present: normal lung sounds bilaterally. Absent: respiratory distress, wheezes, rales, rhonchi, stridor Cardiovascular Exam: Present: regular rate, normal rhythm, normal heart sounds. Absent: systolic murmur, diastolic murmur, rubs, gallop, clicks GI/Abdominal exam: Present: soft, normal bowel sounds. Absent: distended, tenderness, guarding, rebound, rigid Extremities exam: Present: normal inspection, full ROM, normal capillary refill. Absent: tenderness, pedal edema, joint swelling, calf tenderness Back exam: Present: normal inspection Neurological exam: Present: alert, oriented X3, CN II-XII intact Psychiatric exam: Present: normal affect, normal mood Skin exam: Present: warm, dry, intact, normal color. Absent: rash Course Vital Signs 08/26/18 08/26/18 08/26/18 18:13 18:23 18:30 Temperature 97.3 F L Pulse Rate 58 L 50 L Pulse Rate [ Clinical Business Analyst ] Respiratory 18 10 L Rate Blood Pressure 111/63 111/63 O2 Sat by Pulse 90 L 99 100 Oximetry 08/26/18 08/26/18 08/26/18 19:00 19:30 20:00 Temperature Pulse Rate 55 L 51 L Pulse Rate [ Clinical Business Analyst ] Respiratory 13 14 Rate Blood Pressure 101/58 117/64 119/65 O2 Sat by Pulse 97 100 Oximetry 08/26/18 08/26/18 08/26/18 20:19 20:30 20:38 Temperature 97.7 F Pulse Rate Pulse Rate [ 58 L Clinical Business Analyst ] Respiratory Rate Blood Pressure 128/66 O2 Sat by Pulse 100 100 Oximetry - Reevaluation(s) Reevaluation #1: 08/26/18 18:32 Medical history is reviewed including multiple cardiac stents Spoke with Cardiology, they're aware of patient, EKG Studies CTA chest is negative for acute disease Chest Pain MDM - MDM 68 male the ER for evaluation resents today for evaluation chest pain. Patient be admitted for chest pain observation Critical Care Time Critical Care Time: Yes Total Critical Care Time: 31 Disposition Clinical Impression: Chest pain Disposition: ADMITTED IP TO THIS HOSP Condition: Undetermined Is patient prescribed a controlled substance at d/c from ED?: No
[2018-08-26 19:07] LABS: Basophils # (A) 0.1 k/uL (0-0.2); Basophils % (A) 1 %; Eosinophils # (A) 0.1 k/uL (0-0.7); Eosinophils % (A) 2 %; HCT 40.3 % (39.0-53.0); Lymphocytes # (A) 2.9 k/uL (1.0-4.8); Lymphocytes % (A) 40 %; MCH 29.2 pg (25.0-35.0); MCHC 32.3 g/dL (31.0-37.0); MCV 90.5 fL (80.0-100.0); Mean Platelet Volume 7.1; Monocytes # (A) 0.6 k/uL (0-1.0); Monocytes % (A) 8 %; Neutrophils # (A) 3.3 k/uL (1.3-7.7); Neutrophils % (A) 46 %; Platelet Count 206 k/uL (150-450); RBC 4.46 m/uL (4.30-5.90); RDW 13.9 % (11.5-15.5); WBC 7.1 k/uL (3.8-10.6)
[2018-08-26 19:16] LABS: Albumin 3.5 g/dL (3.5-5.0); Calcium 9.2 mg/dL (8.4-10.2); Potassium 4.4 mmol/L (3.5-5.1); Total Bilirubin 0.4 mg/dL (0.2-1.3)
[2018-08-26 19:27] LABS: Partial Thromboplastin Time 21.6 sec (22.0-30.0); Prothrombin Time 10.5 sec (9.0-12.0)
[2018-08-26 19:28] LABS: Creatine Kinase MB 2.9 ng/mL (0.0-2.4); Troponin I 0.015 ng/mL (0.000-0.034)
[2018-08-26] MEDS ORDERED: MORPHINE SULFATE 4 MG/ML SYRINGE IV PRN (20:19)
[2018-08-26] MEDS ORDERED: NITROGLYCERIN SL TABS 0.4 MG TAB SUBLINGUAL PRN (20:19)
--- NOTE | 2018-08-26 20:27 | CT ---
EXAMINATION TYPE: CT abdomen pelvis w con DATE OF EXAM: 08/26/2018 COMPARISON: 03/17/2012 HISTORY: posterior chest pain CT DLP: combined DLP 1485.3 mGycm Automated exposure control for dose reduction was used. TECHNIQUE: Helical acquisition of images was performed from the lung bases through the pelvis. CONTRAST: Performed without Oral Contrast and with IV Contrast, patient injected with 100 mL of Isovue 300. FINDINGS: Lung bases are clear. There is no pleural effusion. Heart size is normal. There is no pericardial eff usion. Liver shows no focal defect. Gallbladder appears normal. Stomach appears normal. Spleen appear s normal. There is no evidence of a pancreatic mass. There is no adrenal mass. Kidneys show satisfactory contrast opacification. There is no hydronephrosi s. There is no retroperitoneal adenopathy. Abdominal aorta is normal in size. There is minimal athero matous change. There is very slight thickening of the wall of the urinary bladder on the right side c ompared to the left. There is no inguinal hernia. There is no free fluid in the pelvis. There is no e vidence of a bowel obstruction. Appendix appears normal. There is laminectomy defect on the left side at the L5 level. There are spondylotic changes in the lumbar spine. There is hypertrophic facet arth ropathy and endplate spur formation. There is mild multilevel spinal stenosis. I see no focal bone de struction. There is some hypertrophic osteoarthritis in the hip joints and more on the right side. IMPRESSION: NO SIGN OF ACUTE ABDOMEN AND PELVIS. Slight right-sided bladder wall thickening is less than old CT s can and is of uncertain significance.
--- NOTE | 2018-08-26 20:31 | CT ---
EXAMINATION TYPE: CT angio chest DATE OF EXAM: 08/26/2018 8:05 PM COMPARISON: None HISTORY: posterior chest pain CT DLP: combined DLP 1485.3 mGycm Automated exposure control for dose reduction was used. CONTRAST: CTA scan of the thorax is performed with IV Contrast, patient injected with 100 mL of Isovue 300, pul monary embolism protocol. There are 3-D post processed images.. FINDINGS: There are small areas of linear density in the periphery of both lungs consistent with scarring or harrington bsegmental atelectasis. Heart size is normal. There is no pericardial effusion. There are no hilar ma sses. There is no mediastinal adenopathy. Thoracic aorta shows no aneurysm or dissection. There is no rmal contrast opacification of the pulmonary arteries. There are no filling defects. Thoracic spine i s intact. I see no bony destructive process. IMPRESSION: NEGATIVE CT ANGIOGRAM OF THE CHEST. NO EVIDENCE OF PULMONARY EMBOLISM.
[2018-08-26] MEDS ORDERED: INSULIN ASPART 100 UNIT/ML 1 ML 10 ML VIAL SQ SCH (21:00)
[2018-08-26] MEDS ORDERED: METOPROLOL TARTRATE 25 MG TAB PO SCH (21:00)
[2018-08-26 21:13] LABS: Glucose,Whole Blood 72 mg/dL (75-99)
[2018-08-26 21:22] VITALS: BMI 28.2
[2018-08-27 00:46] LABS: Troponin I 0.014 ng/mL (0.000-0.034)
[2018-08-27 06:06] LABS: Cholesterol 78 mg/dL (<200); HDL Cholesterol 39 mg/dL (40-60); LDL Cholesterol,Calculated 30 mg/dL (0-99); Triglycerides 45 mg/dL (<150)
[2018-08-27 06:25] LABS: Creatine Kinase MB 2.4 ng/mL (0.0-2.4); Troponin I 0.016 ng/mL (0.000-0.034)
[2018-08-27 07:03] LABS: Glucose,Whole Blood 108 mg/dL (75-99)
[2018-08-27] MEDS ORDERED: PANTOPRAZOLE 40 MG TABLET PO SCH (07:30)
[2018-08-27] MEDS ORDERED: ASPIRIN 325 MG TAB PO SCH (09:00)
[2018-08-27] MEDS ORDERED: LISINOPRIL 10 MG TAB PO SCH (09:00)
[2018-08-27] MEDS ORDERED: ASPIRIN 81 MG PO SCH (09:00)
[2018-08-27] MEDS ORDERED: EZETIMIBE 10 MG TAB PO SCH (09:00)
[2018-08-27] MEDS ORDERED: ISOSORBIDE MONONITRATE ER 60 MG TAB.ER.24H PO SCH (09:00)
[2018-08-27] MEDS ORDERED: METOPROLOL TARTRATE 12.5 MG TAB PO SCH (09:00)
[2018-08-27] MEDS ORDERED: CLOPIDOGREL 75 MG TAB PO SCH (09:00)
--- NOTE | 2018-08-27 09:19 | CONS ---
CONSULTATION This is a 68-year-old gentleman with a known history of type 2 diabetes, hypertension, hyperlipidemia. He has an insulin pump. He has CAD with multivessel PCI. This gentleman in January of this year underwent stenting of the circumflex marginal performed by Dr. Gomes. The previous stents in the circumflex marginal proximal to the current stent and also the stent in the RCA were widely patent. 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 He has a LAD, circumflex also originating from the right coronary cusp. Procedure was done using a multipurpose catheter for intervention and for selective coronary angiography, a Mario posterior catheter was used. He had a 2.25 caliber 15 mm long Xience stent deployed distal to the previously placed stent. He also has stenting of the RCA and RCA stent was patent at this time. This gentleman came into the hospital after having had an issue in the [facility]. He went to the [facility]iness and felt a little nauseated, had some pain under his right rib cage, felt uncomfortable, dizzy and came into a quiet room and the next thing he remembers is having and had a passing-out spell with extreme nausea, had broken into sweat and EMS had arrived. At the time of my evaluation, he is not having any chest pain, and he insisted that he did not complain of chest pain. Only had pain under his right rib and even that has resolved. He also had a CT angiogram performed which did not reveal any significant abnormalities and there was no evidence of any pulmonary embolism. He was slightly bradycardic when he came in at a rate of 52 beats per minute and his systolic blood pressure was about 111 on arrival. He seemed to have received nearly a L of IV fluids and repeat blood pressure and heart rate in supine and standing does not reveal any orthostatic changes. Blood pressure is in the range of 140-150 systolic. He is resting comfortably without any symptoms and his troponins are normal. PAST MEDICAL HISTORY: 1. Diabetes on insulin pump. 2. CAD with multivessel PCI. 3. History of left knee surgery, shoulder surgery, carpal tunnel surgery and also has had some question of sarcoidosis for which he had a thoracotomy. MEDICATIONS: At home include insulin pump, Zestril 10 mg daily, Plavix 75 mg daily, aspirin 81 mg, omeprazole 20 mg daily, Lipitor 80 mg daily, Zetia 10 mg daily, Imdur 60 mg daily, metoprolol tartrate 12.5 mg b.i.d. and sublingual nitroglycerin p.r.n. ALLERGIES: None. PHYSICAL EXAMINATION: Blood pressure is 144/70 without orthostatic changes HEENT: Unremarkable. Fundus was not examined by me. Neck is supple. No JVD. I do not hear a carotid bruit. There is no thyromegaly. Heart exam reveals S1, S2 without rub, murmur or gallop. Lungs are clear. Abdomen is soft, nontender. Lower extremities reveal normal pulses. No edema. Central nervous system is normal. EKG revealed a sinus mechanism with a right bundle branch block type pattern, leftward axis, no acute changes. IMPRESSION: 1. Episode of near syncope, probably vasovagal precipitated by some nausea and right rib area discomfort seems noncardiac. 2. History of CAD with prior multivessel PTCA last 1 in January of this year by Dr. Gomes in the first obtuse marginal branch of circumflex. 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 3. Type 2 diabetes mellitus. 4. History of PCI. 5. Negative CT angiography for pulmonary embolism. RECOMMENDATIONS: I am recommending that we will discontinue aspirin 81 mg daily, decrease the metoprolol tartrate to 12.5 mg in the morning only. Discontinue Imdur. Do orthostatic changes again later on today. Increase activity and if he has no further symptoms, he can be discharged and we will do an event monitor as an outpatient and he will see Dr. Gomes following the event monitor. I discussed my thoughts in detail with the patient. We will increase activity and see if he has any further symptoms in the hospital. If he has no symptoms, he can be discharged later this evening. Thank you very much for the consultation. MMODL / IJN: [id number] /
[2018-08-27 11:55] LABS: Glucose,Whole Blood 190 mg/dL (75-99)
--- NOTE | 2018-08-27 14:37 | P.HPIM ---
History of Present Illness 68-year-old pleasant gentleman with the extensive coronary artery disease history in the recent cardiac catheterization and multiple stents in the past came in with complaints of dizziness lightheadedness although workup is negative except for mild sinus bradycardia because of which patient received atropine patient was evaluated by cardiology patient is also comparing of mild epigastric abdominal tenderness started yesterday with mostly discomfort pressure like sensation lasted all day no aggravating or relieving factors not associated with shortness of breath, diaphoresis associated with that troponins were obtained EKG did not show any significant new abnormality was a valid by cardiology in the recommending cutting down the beta irene and patient will need a Holter monitor and patient will follow with Dr. Gomes as an outpatient. And cleared for discharge patient had a CT angiogram as well as CT of the abdomen and pelvis all of which are negative patient had an RCA stent in the past which was apparently patent. Review of Systems REVIEW OF SYSTEMS: CONSTITUTIONAL: No fever, no malaise, no fatigue. HEENT: No recent visual problems or hearing problems. Denied any sore throat. CARDIOVASCULAR: No chest pain, orthopnea, PND, no palpitations, no syncope. PULMONARY: No shortness of breath, no cough, no hemoptysis. GASTROINTESTINAL: No diarrhea, no nausea, no vomiting, no abdominal pain. Normoactive bowel sounds. NEUROLOGICAL: No headaches, no weakness, no numbness. HEMATOLOGICAL: Denies any bleeding or petechiae. GENITOURINARY: Denies any burning micturition, frequency, or urgency. MUSCULOSKELETAL/RHEUMATOLOGICAL: Denies any joint pain, swelling, or any muscle pain. ENDOCRINE: Denies any polyuria or polydipsia. The rest of the 14-point review of systems is negative. Past Medical History Past Medical History: Asthma, Cancer, Diabetes Mellitus, GERD/Reflux, Myocardial Infarction (CA), Osteoarthritis (OA), Prostate Disorder Additional Past Medical History / Comment(s): Chronic back and bilateral shoulder pain, sciaticia, uses insulin pump, SARCOIDOSIS, PAST BLADDER CANCER, SEASONAL ALLERGIES, OCC CONSTIPATION, "DENIES HYPERTENSION OR HIGH CHOLESTEROL STATED THE MEDS HE'S ON IS D/T HIS DIABETES. Last Myocardial Infarction Date:: 07/19/17 History of Any Multi-Drug Resistant Organisms: None Reported Past Surgical History: Heart Catheterization, Heart Catheterization With Stent, Joint Replacement, Orthopedic Surgery Additional Past Surgical History / Comment(s): X3 SX FOR BLADDER CANCER, SAVITA CATARACTS, COLONOSCOPY, RT ANKLE SX, SAVITA CARPAL TUNNEL, LT KNEE REPLACMENT, SAVITA SHOULDER ROTATOR CUFF SX TWICE BILATERAlLY, LAMINECTOMY X2, THORACOTOMY/BX FOR NODULES ON LYMPH NODES(SACRCOIDOSIS) Past Anesthesia/Blood Transfusion Reactions: Postoperative Nausea & Vomiting ( PONV) Date of Last Stent Placement:: 10/18/2017 Past Psychological History: No Psychological Hx Reported Additional Psychological History / Comment(s): PT IS INDEPENDENT, LIVES W/ IN SINGLE STORY HOME THAT HAS 3 PORCH STEPS. I PET DOG. HAS INSULIN PUMP. NO SERVICE IN PAST. RETIRED -WAS A [employer]. Smoking Status: Former smoker Past Alcohol Use History: Occasional Additional Past Alcohol Use History / Comment(s): STARTED SMOLKING 1984 AND QUIT 1992 SMOKED 1 PPD Past Drug Use History: None Reported - Past Family History Father Family Medical History: Diabetes Mellitus Mother Family Medical History: Coronary Artery Disease (CAD), Diabetes Mellitus, Hypertension Brother(s) Family Medical History: Cancer Additional Family Medical History / Comment(s): Prostate cancer Medications and Allergies Home Medications Medication Instructions Recorded Confirmed Type Cetirizine HCl 10 mg PO HS 07/19/17 08/27/18 History Insulin Aspart (For Pump) [NovoLOG See Protocol SQ-PUMP CONTINUOUS 07/19/1706/06 History (For Pump)] Lisinopril [Zestril] 10 mg PO QAM 07/19/17 08/27/18 History Omeprazole 20 mg PO QAM 07/19/17 08/27/18 History Aspirin EC [Ecotrin Low Dose] 81 mg PO DAILY #30 tablet. 07/22/17 08/27/18 Rx Atorvastatin [Lipitor] 80 mg PO HS #30 tab 07/22/17 08/27/18 Rx Ezetimibe [Zetia] 10 mg PO DAILY #30 tab 02/02/18 08/27/18 Rx Nitroglycerin Sl Tabs [Nitrostat] 0.4 mg SUBLINGUAL Q5M PRN #25 tab 02/02/1806/06 Rx Famotidine [Pepcid] 20 mg PO DAILY 08/27/18 08/27/18 History Metoprolol Tartrate [Lopressor] 12.5 mg PO DAILY 08/27/18 08/27/18 History Allergies Allergy/AdvReac Type Severity Reaction Status Date / Time No Known Allergies Allergy Verified 01/30/18 08:05 Physical Exam Vitals: Vital Signs Temp Pulse Pulse Pulse Pulse Pulse Resp 08/27/18 12:15 18 08/27/18 12:00 98.2 F 61 18 08/27/18 08:30 71 69 08/27/18 08:00 98.2 F 63 16 08/27/18 03:38 97.6 F 62 18 08/26/18 23:37 98.3 F 56 L 16 08/26/18 21:12 97.7 F 59 L 16 08/26/18 20:38 97.7 F 58 L 08/26/18 20:30 08/26/18 20:19 08/26/18 20:00 08/26/18 19:30 51 L 14 08/26/18 19:00 55 L 13 08/26/18 18:30 50 L 10 L 08/26/18 18:23 97.3 F L 58 L 18 08/26/18 18:13 BP BP BP BP Pulse Ox 08/27/18 12:15 08/27/18 12:00 144/71 100 08/27/18 08:30 152/79 142/79 08/27/18 08:00 137/77 98 08/27/18 03:38 118/69 97 08/26/18 23:37 117/62 97 08/26/18 21:12 127/73 100 08/26/18 20:38 100 08/26/18 20:30 128/66 08/26/18 20:19 100 08/26/18 20:00 119/65 08/26/18 19:30 117/64 100 08/26/18 19:00 101/58 97 08/26/18 18:30 111/63 100 08/26/18 18:23 111/63 99 08/26/18 18:13 90 L Intake and Output 08/26/18 08/27/18 08/27/18 22:59 06:59 14:59 Intake Total 999 Balance 999 Intake: Intake, IV Titration 999 Amount Sodium Chloride 0.9% 1, 999 000 ml @ 999 mls/hr IV . Q1H1M STA Rx#:[id number] Other: # Voids 2 Weight 94.347 kg PHYSICAL EXAMINATION: GENERAL: The patient is alert and oriented x3, not in any acute distress. Well developed, well nourished. HEENT: Pupils are round and equally reacting to light. EOMI. No scleral icterus. No conjunctival pallor. Normocephalic, atraumatic. No pharyngeal erythema. No thyromegaly. CARDIOVASCULAR: S1 and S2 present. No murmurs, rubs, or gallops. PULMONARY: Chest is clear to auscultation, no wheezing or crackles. ABDOMEN: Soft, nontender, nondistended, normoactive bowel sounds. No palpable organomegaly. MUSCULOSKELETAL: No joint swelling or deformity. EXTREMITIES: No cyanosis, clubbing, or pedal edema. NEUROLOGICAL: Gross neurological examination did not reveal any focal deficits. SKIN: No rashes. Results CBC & Chem 7: 08/26/18 18:18 08/26/18 18:18 Labs: Abnormal Lab Results - Last 24 Hours (Table) 08/26/18 08/26/18 08/26/18 Range/Units 18:18 18:18 18:18 APTT 21.6 L (22.0-30.0) sec Chloride 110 H (98-107) mmol/L BUN 26 H (9-20) mg/dL Glucose 143 H (74-99) mg/dL POC Glucose (mg/dL) (75-99) mg/dL Total Creatine Kinase 237 H (55-170) U/L CK-MB (CK-2) 2.9 H (0.0-2.4) ng/mL Total Protein 6.0 L (6.3-8.2) g/dL HDL Cholesterol (40-60) mg/dL 18 08/26/18 08/27/18 Range/Units 21:02 23:29 05:36 APTT (22.0-30.0) sec Chloride (98-107) mmol/L BUN (9-20) mg/dL Glucose (74-99) mg/dL POC Glucose (mg/dL) 72 L (75-99) mg/dL Total Creatine Kinase 218 H 172 H (55-170) U/L CK-MB (CK-2) 3.0 H (0.0-2.4) ng/mL Total Protein (6.3-8.2) g/dL HDL Cholesterol (40-60) mg/dL 08/27/18 08/27/18 08/27/18 Range/Units 05:36 06:53 11:51 APTT (22.0-30.0) sec Chloride (98-107) mmol/L BUN (9-20) mg/dL Glucose (74-99) mg/dL POC Glucose (mg/dL) 108 H 190 H (75-99) mg/dL Total Creatine Kinase (55-170) U/L CK-MB (CK-2) (0.0-2.4) ng/mL Total Protein (6.3-8.2) g/dL HDL Cholesterol 39 L (40-60) mg/dL Thrombosis Risk Factor Assmnt - Choose All That Apply Each Factor Represents 1 point: Obesity (BMI >25) Other Risk Factors: Yes Each Risk Factor Represents 2 Points: Age 61-74 years Thrombosis Risk Factor Assessment Total Risk Factor Score: 3 Thrombosis Risk Factor Assessment Level: Moderate Risk Assessment and Plan Plan: -Dizziness lightheadedness with mild sinus bradycardia: Cutting down on metoprolol patient will have a Holter monitor as an outpatient with rule out acute medicine syndromes was a valid by cardiology. TSH will be obtained because of his generalized fatigue symptoms which appears to be going on since his myocardial infarction. -Coronary artery disease: Patient will continue his home medications except for low-dose of metoprolol -Ruled out pulmonary embolism -Asthma without any acute exacerbation next and heparin type 2 diabetes mellitus -Benign prostatic hypertrophy -Gastroesophageal reflux disease For above-mentioned chronic medical problems patient will resume and continue his home medications no changes are being made for those medications
--- NOTE | 2018-08-27 14:37 | P.DS ---
Providers Date of admission: 08/26/18 20:19 Attending physician: Markus Franks Consults: 08/26/18 20:19 Consult Physician Urgent Consulting Provider: Nori Zhang Consult Reason/Comments: cp Do you want consulting provider notified?: Yes Primary care physician: Alban Terrell [facility] Course: Please refer to my HPI Patient Condition at Discharge: Undetermined Plan - Discharge Summary New Discharge Prescriptions: No Action Omeprazole 20 mg PO QAM Cetirizine HCl 10 mg PO HS Lisinopril [Zestril] 10 mg PO QAM Insulin Aspart (For Pump) [NovoLOG (For Pump)] See Protocol SQ-PUMP CONTINUOUS Atorvastatin [Lipitor] 80 mg PO HS #30 tab Aspirin EC [Ecotrin Low Dose] 81 mg PO DAILY #30 tablet. Nitroglycerin Sl Tabs [Nitrostat] 0.4 mg SUBLINGUAL Q5M PRN #25 tab PRN Reason: Chest Pain Ezetimibe [Zetia] 10 mg PO DAILY #30 tab Metoprolol Tartrate [Lopressor] 12.5 mg PO DAILY Famotidine [Pepcid] 20 mg PO DAILY Discharge Medication List Cetirizine HCl 10 mg PO HS 07/19/17 [History] Insulin Aspart (For Pump) [NovoLOG (For Pump)] See Protocol SQ-PUMP CONTINUOUS 07/19/17 [History] Lisinopril [Zestril] 10 mg PO QAM 07/19/17 [History] Omeprazole 20 mg PO QAM 07/19/17 [History] Aspirin EC [Ecotrin Low Dose] 81 mg PO DAILY #30 tablet. 07/22/17 [Rx] Atorvastatin [Lipitor] 80 mg PO HS #30 tab 07/22/17 [Rx] Ezetimibe [Zetia] 10 mg PO DAILY #30 tab 02/02/18 [Rx] Nitroglycerin Sl Tabs [Nitrostat] 0.4 mg SUBLINGUAL Q5M PRN #25 tab 02/02/18 [Rx ] Famotidine [Pepcid] 20 mg PO DAILY 08/27/18 [History] Metoprolol Tartrate [Lopressor] 12.5 mg PO DAILY 08/27/18 [History] Follow up Appointment(s)/Referral(s): Alban Terrell DO [Primary Care Provider] - 3 Days Patient Instructions/Handouts: Chest Pain (ED) Discharge Disposition: HOME SELF-CARE
[2018-08-27 16:04] VITALS: BP 135/61; RESP 16; TEMP 98.3
[2018-08-27 16:14] VITALS: PULSE 64
[2018-08-27 16:48] LABS: Glucose,Whole Blood 175 mg/dL (75-99)
[2018-08-27] MEDS ORDERED: ATORVASTATIN 80 MG TAB PO SCH (21:00)
[2018-08-28 10:17] LABS: Hemoglobin A1C 8.3 % (4.0-6.0)
== END 2018-08-27 17:36 | disposition home or self-care (01) ==
LOC: EC 18:09 → 1SOBS 20:19
PROVIDERS: ADMIT Hospitalist; ATTEND Hospitalist
DX: R42 Dizziness and giddiness (principal); R00.1 Bradycardia, unspecified; R61 Generalized hyperhidrosis; R11.0 Nausea; R53.83 Other fatigue; R10.816 Epigastric abdominal tenderness; K21.9 Gastro-esophageal reflux disease without esophagitis; J45.909 Unspecified asthma, uncomplicated; E11.9 Type 2 diabetes mellitus without complications; M16.0 Bilateral primary osteoarthritis of hip; I25.10 Atherosclerotic heart disease of native coronary artery without angina pectoris; I10 Essential (primary) hypertension; E78.5 Hyperlipidemia, unspecified; G89.29 Other chronic pain; M25.512 Pain in left shoulder; M25.511 Pain in right shoulder; M54.9 Dorsalgia, unspecified; D86.9 Sarcoidosis, unspecified; K59.00 Constipation, unspecified; M54.30 Sciatica, unspecified side; N40.0 Benign prostatic hyperplasia without lower urinary tract symptoms; E66.9 Obesity, unspecified; Z68.28 Body mass index [BMI] 28.0-28.9, adult; Z79.4 Long term (current) use of insulin; Z96.41 Presence of insulin pump (external) (internal); Z79.82 Long term (current) use of aspirin; Z79.899 Other long term (current) drug therapy; Z79.02 Long term (current) use of antithrombotics/antiplatelets; I25.2 Old myocardial infarction; Z85.51 Personal history of malignant neoplasm of bladder; Z96.652 Presence of left artificial knee joint; Z87.891 Personal history of nicotine dependence; Z98.42 Cataract extraction status, left eye; Z98.41 Cataract extraction status, right eye; Z95.5 Presence of coronary angioplasty implant and graft; Z83.3 Family history of diabetes mellitus; Z82.49 Family history of ischemic heart disease and other diseases of the circulatory system; Z80.42 Family history of malignant neoplasm of prostate
CPT/HCPCS: 96361; 96374; 99291; 36415; 93005; 80061; 80053; 84443; 82550 ×2; 82553 ×2; 83690; 83735; 84484 ×2; 85025; 85610; 85730; 83036; 71275; 74177; G0378 ×2; J2270; Q9967

== ENCOUNTER → 2018-08-30 | Outpatient (CLI) | payer MEDICARE ==
--- NOTE | 2018-08-30 10:39 | US ---
EXAMINATION TYPE: US scrotum with doppler. Grayscale and color Doppler Duplex imaging performed of t he scrotum. DATE OF EXAM: 08/30/2018 COMPARISON: NONE CLINICAL HISTORY: Left Testicular Swell N50.89. Swelling x 3 weeks; denies trauma; HX of Bladder CA EXAM MEASUREMENTS: TESTICLES: Right Testicle: 3.6 x 2.7 x 2.2 cm Left Testicle: 3.7 x 2.2 x 2.2 cm EPIDIDYMIS HEAD: Right Epididymis: 1.8 x 0.8 x 0.8 cm Left Epididymis: 2.2 x 1.1 x 0.4 cm Doppler performed to assess for testicular vascularity; good bilateral color flow and waveforms are s een. There is no evidence of testicular torsion. Presence of hydroceles: In right scrotal sac = 1.1 x 3.3 x 1.9cm and in left scrotal sac = 6.3 x 4.0 x 3.4cm. Presence of varicoceles: none. Left testicular appendage noted = 0.2 x 0.2 x 0.2cm. Left scrotal florentino (limited posterior shadowin g) seen in lower sac = 0.3 x 0.4 x 0.3cm IMPRESSION: 1. Minimal right hydrocele. 2. Moderate left hydrocele 3. Normal color flow within the bilateral testicles.
== END ==
LOC: RADUSWWP 07:02
PROVIDERS: ATTEND Urology
DX: N43.3 Hydrocele, unspecified (principal)
CPT/HCPCS: 76870; 93975

== ENCOUNTER → 2018-10-10 | Outpatient (CLI) | payer MEDICARE | END | disposition home or self-care (01) | LOC: LABWHC1 11:18 | PROVIDERS: ATTEND Urology | DX: N40.0 Benign prostatic hyperplasia without lower urinary tract symptoms (principal); R97.20 Elevated prostate specific antigen [PSA] | CPT/HCPCS: 36415; 84153 ==

== ENCOUNTER → 2018-10-14 | Outpatient (CLI) | payer MEDICARE ==
--- NOTE | 2018-10-14 08:08 | MR ---
EXAMINATION TYPE: MR shoulder LT wo con DATE OF EXAM: 10/14/2018 7:47 AM COMPARISON: NONE HISTORY: Lt shoulder pain, recent injury, hx of surgery TECHNIQUE: Multiplanar, multisequence imaging of the left shoulder is performed without contrast. FINDINGS: There is no evidence of an os acromiale. There are moderate hypertrophic changes in the lef t AC joint. There is an incomplete full-thickness tear of the supraspinatus tendon. There is generalized tendinos is of both supraspinatus and infraspinatus tendon. There is no muscular retraction. There is mild decentering of the humeral head within the glenohumeral joint. There are remodeling jacquie nges within the glenohumeral joint. There is pseudocystic changes present within the glenoid. Superio r glenoid labrum appears macerated. There is increased fluid adjacent to the biceps tendon. The bicep s tendon is intact and inserts normally upon the biceps anchor. IMPRESSION: 1. DIFFUSE TENDINOSIS OF BOTH THE SUPRASPINATUS AND INFRASPINATUS TENDONS WITH A INCOMPLETE FULL-THIC KNESS TEAR OF THE SUPRASPINATUS TENDON. 2. MACERATION OF THE SUPERIOR GLENOID LABRUM. 3. OSTEOARTHRITIS. 4. HYPERTROPHIC CHANGE, LEFT AC JOINT.
== END | disposition home or self-care (01) ==
LOC: RADMRIMAIN 07:02
PROVIDERS: ATTEND Orthopaedic Surgery
DX: M75.112 Incomplete rotator cuff tear or rupture of left shoulder, not specified as traumatic (principal); M19.012 Primary osteoarthritis, left shoulder

== ENCOUNTER → 2018-10-18 | Outpatient (CLI) | payer MEDICARE ==
[2018-10-18 10:32] LABS: Basophils # (A) 0.1 k/uL (0-0.2); Basophils % (A) 1 %; Eosinophils # (A) 0.1 k/uL (0-0.7); Eosinophils % (A) 2 %; HCT 47.1 % (39.0-53.0); HGB 14.5 gm/dL (13.0-17.5); Lymphocytes # (A) 2.3 k/uL (1.0-4.8); Lymphocytes % (A) 32 %; MCH 28.7 pg (25.0-35.0); MCHC 30.7 g/dL (31.0-37.0); MCV 93.5 fL (80.0-100.0); Mean Platelet Volume 6.3; Monocytes # (A) 0.5 k/uL (0-1.0); Monocytes % (A) 6 %; Neutrophils # (A) 4.1 k/uL (1.3-7.7); Neutrophils % (A) 57 %; Platelet Count 233 k/uL (150-450); RBC 5.04 m/uL (4.30-5.90); RDW 13.6 % (11.5-15.5); WBC 7.2 k/uL (3.8-10.6)
[2018-10-18 10:41] LABS: INR 0.9 (<1.2); Partial Thromboplastin Time 25.1 sec (22.0-30.0); Prothrombin Time 10.2 sec (9.0-12.0)
[2018-10-18 10:45] LABS: Potassium 4.6 mmol/L (3.5-5.1)
== END | disposition home or self-care (01) ==
LOC: LABPAT 09:20
PROVIDERS: ATTEND Orthopaedic Surgery
DX: Z01.812 Encounter for preprocedural laboratory examination (principal); M19.012 Primary osteoarthritis, left shoulder; Z79.01 Long term (current) use of anticoagulants
CPT/HCPCS: 36415; 80051; 85025; 85610; 85730; 87070

== ENCOUNTER 2018-10-31 06:17 | Inpatient (IN) | payer MEDICARE ==
--- NOTE | 2018-10-30 09:37 | HP ---
HISTORY AND PHYSICAL CHIEF COMPLAINT: Left shoulder pain. HISTORY OF PRESENT ILLNESS: The patient is a 68-year-old, right-hand dominant, retired gentleman who presents with left shoulder pain after a recent injury in September of this year. He slipped and fell on the ice and now cannot lift his arm. He has had problems with his shoulder in the past. He has been taking Tylenol for this. PAST MEDICAL HISTORY: Significant for hypercholesterolemia, diabetes, hypertension, heart disease, and neuropathy. PAST SURGICAL HISTORY: Significant for left knee surgery, previous bilateral shoulder surgery, multiple coronary stent placement, in addition to lumbar laminectomy. He also has a history of bladder cancer. CURRENT MEDICATIONS: 1. Aspirin. 2. Atorvastatin. 3. Lisinopril. 4. Insulin. 5. Omeprazole. 6. Plavix. 7. Tramadol. FAMILY HISTORY: Significant for cancer and heart disease. SOCIAL HISTORY: Significant for previous tobacco use; however, he quit in 1988. REVIEW OF SYSTEMS: A 16-point review of systems otherwise reviewed and is noncontributory. He denies drug allergies. PHYSICAL EXAMINATION: On examination, the patient is approximately 6 foot tall, 207 pounds of endomorphic habitus. HEENT exam is nonfocal. Neck is supple. He has painless cervical spine motion. Active motion left shoulder, forward elevation 20 degrees, external rotation with arm at side -15 degrees, internal rotation to L3. Motor strength is 4- over 5 for external rotation with arm at side and 4-/5 for abduction. Impingement test, Neer test, and Speed test are positive. Passively, I am able to forward elevate him 150 degrees. His distal neurovascular appears to be intact in the left upper extremity. X-rays of the left shoulder obtained in the office show severe rotator cuff arthropathy with diminished humeral head to acromial distance. MRI report form the for the left shoulder from 10/14/2018 shows a large rotator cuff tear along with significant tendinosis. Severe degenerative joint disease is also noted. IMPRESSION: 1. Left rotator cuff arthropathy-symptomatic. 2. History of heart disease on anticoagulation. RECOMMENDATIONS: I talked to the patient at length regarding his condition and treatment options. At this point, he is quite symptomatic and limited because of pain and lack of function. After a thorough discussion, he opts to proceed with surgery. We will plan to proceed with reverse left total shoulder arthroplasty. We will likely reinstitute his Plavix postoperatively. The patient underwent preoperative cardiac evaluation by Dr. Ray and medical evaluation by Dr. Terrell. JEOVANY / TEMI: [id number] /
[~2018-10-31 06:17] MED LIST changes: +ACETAMINOPHEN TAB 500 MG TAB PO ONE; -ALPRAZolam 0.25 MG TAB PO PRN; -ALPRAZolam 0.5 MG TAB PO PRN; -ASPIRIN 325 MG TAB PO STA; -ATORVASTATIN 80 MG TAB PO STA; +MELOXICAM 7.5 MG TAB PO ONE; -NITROGLYCERIN SL TABS 0.4 MG TAB SUBLINGUAL PRN; -SODIUM CHLORIDE 0.9% 1,000 ML in EMPTY BAG 1 BAG IV ONE; +TRANEXAMIC ACID 1,000 MG in SODIUM CHLORIDE 0.9% 100 ML IVPB PRN; +TRANEXAMIC ACID 1,000 MG in SODIUM CHLORIDE 0.9% 50 ML IVPB ONE; +ceFAZolin IN SWFI 2 GM/20 ML SYRINGE IVP ONE
[2018-10-31] MEDS ORDERED: LIDOCAINE 1% 20 ML VIAL (10MG/ML) FOR IV START INTRADERMA PRN (06:43)
[2018-10-31] MEDS ORDERED: MIDAZOLAM (PF) 2 MG/2 ML VIAL IV PRN (06:43)
[2018-10-31] MEDS ORDERED: fentaNYL (PF) 50 MCG/ML 2 ML AMP IV PRN (06:43)
[2018-10-31] MEDS ORDERED: HYDROmorphone 0.5 MG/0.5 ML SYRINGE IVP PRN ×2 (06:43→10:21)
[2018-10-31] MEDS: LACTATED RINGERS 1,000 ML IV SCH (07:14)
[2018-10-31 07:18] LABS: Glucose,Whole Blood 159 mg/dL (75-99)
[2018-10-31] MEDS ORDERED: ONDANSETRON 4 MG/2 ML VIAL IVP ONE ×2 (07:28→11:25)
[2018-10-31] MEDS ORDERED: DEXAMETHASONE SOD PHOSPHATE 10 MG/ML 1 ML VIAL IV ONE (07:28)
[2018-10-31] MEDS ORDERED: MIDAZOLAM 2 MG/2 ML VIAL IV ONE (07:53)
[2018-10-31] MEDS ORDERED: fentaNYL (PF) 50 MCG/ML 2 ML AMP IV ONE (08:08)
--- NOTE | 2018-10-31 08:14 | P.ONQ ---
Anesthesiology Proc Note - PNB - Peripheral Nerve Block Performed Left Interscalene Single Time Out Performed: Yes Procedure Start Time: 07:52 Indication: Acute Post-Operative Pain Specifically requested for management of pain by DrWilliam: Robles Quach Sedation Type: Sedate with meaningful contact maintained Preparation: Sterile Prep Position: Supine Catheter: None Needle Types: Other (see comment) (pajunk) Needle Size: 50mm (2") Needle Gauge: 21 Technique: Ultrasound Injectate: 0.5% Ropivacaine (see comment for volume) (20cc) Blood Aspirated: No Pain Paresthesia on Injection Noted: No Resistance on Injection: Normal Events: Uneventful and Well Tolerated
[2018-10-31] MEDS ORDERED: ROCURONIUM BROMIDE 10 MG/ML 10 ML VIAL IV ONE (08:20)
[2018-10-31] MEDS ORDERED: fentaNYL (PF) 50 MCG/ML 2 ML AMP ONE (08:20)
[2018-10-31] MEDS ORDERED: SODIUM CHLORIDE 0.9% 100 ML BAG ONE (08:20)
[2018-10-31] MEDS ORDERED: ePHEDrine SULFATE/0.9% NACL/PF 50 MG/5 ML SYRINGE IV ONE (08:20)
[2018-10-31] MEDS ORDERED: TRANEXAMIC ACID 1,000 MG/10 ML VIAL ONE (08:20)
[2018-10-31] MEDS ORDERED: SUCCINYLCHOLINE CHLORIDE 100 MG/5 ML SYR IV ONE (08:20)
[2018-10-31] MEDS ORDERED: LIDOCAINE 1% INJ 10MG/ML (20 ML MDV) ONE (08:20)
[2018-10-31] MEDS ORDERED: NEOSTIGMINE 1 MG/ML 10 ML VIAL ONE (08:20)
[2018-10-31] MEDS ORDERED: MIDAZOLAM 2 MG/2 ML VIAL ONE (08:20)
[2018-10-31] MEDS ORDERED: PROPOFOL 10 MG/ML 20 ML VIAL IV ONE (08:20)
[2018-10-31] MEDS ORDERED: GLYCOPYRROLATE 0.2 MG/ML 2 ML VIAL ONE (08:20)
[2018-10-31] MEDS ORDERED: PHENYLEPHRINE-0.9% NACL SYG 1 MG/10 ML SYRINGE ONE (08:20)
[2018-10-31] MEDS ORDERED: ceFAZolin 3,000 MG in SODIUM CHLORIDE 0.9% IRRIGATIO 3,000 ML IRRIGATION ONE (09:00)
[2018-10-31] MEDS ORDERED: HYDROcodone/APAP 5-325MG 1 EACH TAB PO PRN ×2 (10:21)
[2018-10-31] MEDS ORDERED: SENNOSIDES-DOCUSATE SODIUM 1 EACH TAB PO PRN (10:21)
[2018-10-31] MEDS ORDERED: ONDANSETRON 4 MG/2 ML VIAL IVP PRN (10:21)
[2018-10-31] MEDS ORDERED: LACTATED RINGERS 1,000 ML IV ONE (10:28)
--- NOTE | 2018-10-31 10:47 | P.OP ---
Date of Procedure: 10/31/18 Preoperative Diagnosis: Left shoulder rotator cuff arthropathy Postoperative Diagnosis: Same Procedure(s) Performed: Left reverse total shoulder arthroplasty Implants: Depuy Xtend size 12 press-fit humeral stem, size 1 epiphysis, 42 mm glenosphere , standard baseplate, 42+6 articular surface Anesthesia: VIPIN, ayah Surgeon: Robles Quach Cloth Mercerizer Operator #1: Lm Mclaughlin Estimated Blood Loss (ml): 150 Pathology: other (Humeral head) Condition: stable Disposition: PACU Indications for Procedure: The patient is a 68-year-old gentleman who presents with progressive left shoulder pain and weakness after a recent injury. He has a history of 2 open rotator cuff repairs. A discussion of the risks and benefits of operative intervention was made with patient. He opted to proceed with surgery. Operative risks to include infection, neurovascular injury, development of blood clots, possible instability, possible fracture, and possible need for subsequent procedures was discussed. Informed consent was obtained. Operative Findings: As below Description of Procedure: The patient was brought to the operating room, and after induction of general anesthesia was placed in a beachchair position. The bony prominences were appropriately padded. I examined the left shoulder. There was moderate lack of passive forward elevation and external rotation. The left upper extremity was prepped and draped in normal fashion. The bony outlines the coracoid process, distal clavicle, and acromion were outlined with a skin marker. A pulse centimeter deltopectoral incision was made lateral to the coracoid process. Skin was incised sharply. Subcutaneous tissues were divided bluntly. Electrocautery was used for hemostasis. The cephalic vein was identified and gently retracted laterally with the deltoid. The deltopectoral was bluntly developed. Subdeltoid adhesions were then released. The self-retaining retractor was placed. The conjoined tendon was retracted medially and the deltoid laterally. The biceps was identified. Its sheath was opened. A biceps tenotomy was performed along the remaining tendon did retract distally. Pseudocapsule was excised. The head was then exposed. The shoulder was dislocated. A starting hole was made in line with the humeral shaft. The canal was reamed by hand up to size 12. There was good distal chatter. The cutting guide was then placed. I planned on 20 of retroversion. The humeral head cut was then made. The bone was removed in one fragment. Residual inferomedial osteophytes were removed flush with the [place] cortical bone. Attention was then paid towards preparing the glenoid. An anterior and posterior retractors placed. The labrum was released from the 6:00 to 12 o' clock position. Remaining biceps was removed as well. A guidepin was placed in the inferior aspect of the glenoid with the guide slightly tilting inferior. The reamer was used down to a bleeding bony surface. The central peg hole was drilled. The standard baseplate was inserted with good purchase. Inferior , superior, and posterior locking screws the appropriate length were placed. Good purchase was obtained. The 42 mm glenosphere was inserted over a guidewire. This was fully seated. Care was taken to avoid any soft tissue interposition. Attention was then paid towards preparing the proximal humerus. The appropriate broach was placed and 20 of retroversion and was fully seated. An eccentric size 1 epiphyseal reamer was utilized. A size 12 stem with a size 1) was placed and 20 of retroversion. Trial reduction was obtained with a 42 mm +6 articular surface. The shoulder was taken through range of motion. He was felt to be stable in flexion and extension with internal and external rotation. I felt there was adequate mandaen of soft tissue tension judging off the conjoined tendon. The shoulder was gently dislocated. The trial components were then removed. The final size 12 press- fit stem along with a size 1 epiphysis was fully seated. There was good rotational stability. The 42 mm +6 articular surface was impacted. The shoulder again was gently reduced and taken through range of motion. Again it was felt to be stable in all planes. Pulsatile lavage was utilized. The subscapularis was a attached to the lesser tuberosity with #2 Ethibond suture. The deltopectoral interval was closed with interrupted 2-0 Vicryl sutures. The skin was reapproximated with 3-0 subcuticular Prolene suture. Steri-Strips were applied. A sterile dressing was applied. A sling was placed. The patient was awoken from general anesthesia and transferred to recovery room in good condition. Blood loss was estimated at 150 mL. No complications were incurred. Sponge and needle counts were correct at the end the case. Garry MARTIN assisted during the major components of the case to include exposure, glenoid and humeral preparation, implantation, and closure.
--- NOTE | 2018-10-31 11:29 | XR ---
Limited left shoulder HISTORY: Status post left shoulder arthroplasty Single frontal view of the left shoulder Patient is status post left shoulder arthroplasty. Lucency present in the soft tissues. There is anibal omic alignment. Left lung apex as visualized is normal. There are cardiac leads. IMPRESSION: Orthopedic follow-up.
[2018-10-31] MEDS ORDERED: METOCLOPRAMIDE 5 MG/ML 2 ML VIAL IVP ONE (11:32)
[2018-10-31 11:56] LABS: Glucose,Whole Blood 198 mg/dL (75-99)
[2018-10-31 12:43] LABS: Glucose,Whole Blood 231 mg/dL (75-99)
[2018-10-31] MEDS ORDERED: INSULIN PUMP TARGET GLUCOSE 1 EACH MISC MISCELLANE PRN (15:50)
[2018-10-31] MEDS ORDERED: INSPUCOR MISCELLANE PRN (15:50)
[2018-10-31] MEDS ORDERED: INSULIN PUMP BASAL RATES 1 EACH MISC MISCELLANE PRN (15:50)
[2018-10-31] MEDS ORDERED: INSULIN ASPART (NovoLOG) 100 UNIT/ML VIAL SQ PRN (15:50)
[2018-10-31] MEDS ORDERED: INSULIN PUMP ACTIVE INSULIN 1 EACH MISC MISCELLANE PRN (15:50)
[2018-10-31] MEDS: traMADol 50 MG TAB PO SCH ×3 (16:41→21:37)
[2018-10-31 17:21] LABS: Glucose,Whole Blood 313 mg/dL (75-99)
[2018-10-31] MEDS: INSULIN PUMP MEAL BOLUS 1 UNIT MISC MISCELLANE SCH ×2 (17:22→21:38)
[2018-10-31] MEDS: ceFAZolin IN SWFI 2 GM/20 ML SYRINGE IVP SCH ×2 (17:23→23:44)
[2018-10-31 19:11] VITALS: BMI 27.1
[2018-10-31 19:25] LABS: Glucose,Whole Blood 316 mg/dL (75-99)
[2018-10-31 21:53] LABS: Glucose,Whole Blood 263 mg/dL (75-99)
[2018-11-01] MEDS: LACTATED RINGERS 1,000 ML IV SCH (02:10)
[2018-11-01] MEDS: HYDROmorphone 0.5 MG/0.5 ML SYRINGE IVP PRN ×2 (02:41→07:55)
[2018-11-01 06:55] LABS: Basophils % (A) 0 %; Eosinophils % (A) 0 %; HCT 37.5 % (39.0-53.0); HGB 12.4 gm/dL (13.0-17.5); Lymphocytes # (A) 1.3 k/uL (1.0-4.8); Lymphocytes % (A) 10 %; MCH 29.7 pg (25.0-35.0); MCHC 32.9 g/dL (31.0-37.0); MCV 90.2 fL (80.0-100.0); Mean Platelet Volume 6.2; Monocytes % (A) 8 %; Neutrophils % (A) 81 %; Platelet Count 232 k/uL (150-450); RBC 4.16 m/uL (4.30-5.90); RDW 13.1 % (11.5-15.5); WBC 13.5 k/uL (3.8-10.6)
[2018-11-01 07:05] LABS: Glucose,Whole Blood 205 mg/dL (75-99)
[2018-11-01] MEDS: traMADol 50 MG TAB PO SCH ×2 (07:56→13:24)
[2018-11-01] MEDS: INSULIN PUMP MEAL BOLUS 1 UNIT MISC MISCELLANE SCH ×2 (07:57→13:24)
[2018-11-01] MEDS ORDERED: CLOPIDOGREL 75 MG TAB PO SCH (09:00)
--- NOTE | 2018-11-01 11:49 | P.PN ---
Subjective Progress Note Date: 11/01/18 Principal diagnosis: Status post left reverse total shoulder arthroplasty Patient evaluated at bedside today, resting comfortably. He has had some increase in pain since the block were off. Denies any chest pain or shortness of breath. Objective - Vital Signs Vital signs: Vital Signs Temp 97.9 F 11/01/18 00:51 Pulse 86 11/01/18 00:51 Resp 16 11/01/18 03:02 BP 113/64 11/01/18 00:51 Pulse Ox 95 11/01/18 00:51 Intake & Output 10/31/18 11/01/18 11/01/18 18:59 06:59 18:59 Intake Total 1701 600 Output Total 150 Balance 1551 600 Intake: IV 1101 Oral 600 600 Output: Estimated Blood Loss 150 Other: Voiding Method Toilet # Voids 1 - Exam Left upper extremity: Initial postop bandage is changed, Steri-Strips are in good position. Ecchymosis present in the lower arm. Sensation to light touch throughout extremities intact. Radial pulses 2+. - Labs CBC & Chem 7: 11/01/18 06:01 Labs: Abnormal Lab Results - Last 24 Hours (Table) 10/31/18 10/31/18 10/31/18 Range/Units 11:35 12:21 17:02 WBC (3.8-10.6) k/uL RBC (4.30-5.90) m/uL Hgb (13.0-17.5) gm/dL Hct (39.0-53.0) % Neutrophils # (1.3-7.7) k/uL POC Glucose (mg/dL) 198 H 231 H 313 H (75-99) mg/dL 10/31/18 10/31/18 11/01/18 Range/Units 19:13 21:36 06:01 WBC 13.5 H (3.8-10.6) k/uL RBC 4.16 L (4.30-5.90) m/uL Hgb 12.4 L (13.0-17.5) gm/dL Hct 37.5 L (39.0-53.0) % Neutrophils # 11.0 H (1.3-7.7) k/uL POC Glucose (mg/dL) 316 H 263 H (75-99) mg/dL 11/01/18 Range/Units 06:54 WBC (3.8-10.6) k/uL RBC (4.30-5.90) m/uL Hgb (13.0-17.5) gm/dL Hct (39.0-53.0) % Neutrophils # (1.3-7.7) k/uL POC Glucose (mg/dL) 205 H (75-99) mg/dL Assessment and Plan Plan: Assessment: Postoperative day #1 status post left reverse total shoulder arthroplasty Plan: Pain control, we'll discharge home on [place] 7.5 mg/325 mg GI and DVT prophylaxis, will resume aspirin and Plavix after discharge Wound care instructions discussed Activity restrictions discussed, this including use of sling Medical recommendations Discharge planning: Patient will be discharged home today Time with Patient: Less than 30
--- NOTE | 2018-11-01 11:54 | P.DS ---
Providers Date of admission: 10/31/18 06:17 Expected date of discharge: 11/01/18 Attending physician: Robles Quach Consults: 10/31/18 10:21 Consult Physician Routine Consulting Provider: Alban Terrell Reason/Comments: medical management Do you want consulting provider notified?: Yes Primary care physician: Alban Terrell [facility] Course: Date of admission: 10/31/2018 Date of discharge: 11/01/2018 Admission diagnosis: Status post left reverse total shoulder arthroplasty Discharge diagnosis: Same Attending physician: Dr. Quach Surgical procedures: Left reverse total shoulder arthroplasty Brief history: Patient is a 68-year-old male with a history of progressive left shoulder rotator cuff arthropathy. At this point patient has failed conservative treatment measures and has opted to proceed with a elective reverse left total shoulder arthroplasty. Hospital course: Details of patient's surgery can be found in operative report. Patient tolerated the procedure well and was subsequently transported to orthopedic floor. Patient's orthopeidc and medical care was provided daily. Patient had daily laboratory tests performed for evaluation of overall blood counts. Patient had daily physical therapy to include strengthening range of motion as well as education with walker ambulation. Patient was treated with Plavix for their postoperative DVT prophylaxis during their inpatient stay. Patient was noted to have a relatively uneventful postoperative course. Patient reported satisfactory pain control with oral pain medications by postoperative day 0. Patient showed satisfactory progress with physical therapy. Patient moved steadily through the program and had no difficulty meeting the goals by postoperative day 1. Given patient's otherwise satisfactory course and having met physical therapy goals, plan is to discharge patient home on postoperative day 1. Discharge condition/disposition: Patient will be discharged home in stable condition. Discharge medications: Instructions are given on resumption of patient's normal daily medications per primary care recommendation, in addition patient will be prescribed [place] 7.5 mg/25 mg, Colace 100 mg. Discharge instructions: 1. Wound care and infection precautions, keep incision dry and covered while showering, no lotions, creams, moisturizers. No soaking, tubs, pools, hottubs. Do not scrub over the incision. 2. Utilize arm sling 3. Ice and elevate when necessary. Do not exceed 20 minutes per hour with ice pack. 4. Utilize compression sleeve until seen at first follow up appointment. 5. Visiting nursing care. 6. Home physical therapy. 7. Pain meds and anticoagulants per prescription. 8. Pain medication has potential to cause constipation. Increase oral fluid and fiber intake. Contact primary care provider if you have not had a bowel movement within 48 hours after discharge 9. No anti-inflammatory medication until discussed at first post operative visit, this including Motrin, Aleve, Mobic, Diclofenac. 10. Follow up in office at 2 weeks postop with Garry Mclaughlin PA-C 11. Follow up with your primary care doctor 7-10 days after discharge. 12. Contact [facility] with any questions, . Procedures: Left reverse total shoulder arthroplasty Patient Condition at Discharge: Good Plan - Discharge Summary Discharge Rx Participant: Yes New Discharge Prescriptions: New Docusate [Colace] 100 mg PO DAILY #30 capsule HYDROcodone/APAP 7.5-325MG [[place] 7.5] 1 each PO Q6HR PRN #28 tab PRN Reason: Pain No Action Omeprazole 20 mg PO DAILY Cetirizine HCl 10 mg PO HS Lisinopril [Zestril] 10 mg PO DAILY Insulin Aspart (For Pump) [NovoLOG (For Pump)] See Protocol SQ-PUMP CONTINUOUS Atorvastatin [Lipitor] 80 mg PO HS #30 tab Aspirin EC [Ecotrin Low Dose] 81 mg PO DAILY #30 tablet. Nitroglycerin Sl Tabs [Nitrostat] 0.4 mg SUBLINGUAL Q5M PRN #25 tab PRN Reason: Chest Pain Ezetimibe [Zetia] 10 mg PO DAILY #30 tab Famotidine [Pepcid] 20 mg PO DAILY traMADol HCL [Ultram] 50 mg PO Q6HR PRN PRN Reason: Pain Loratadine [Claritin] 10 mg PO DAILY Clopidogrel [Plavix] 75 mg PO DAILY Calcium Polycarbophil [Fibercon] 625 mg PO DAILY Discharge Medication List Cetirizine HCl 10 mg PO HS 07/19/17 [History] Insulin Aspart (For Pump) [NovoLOG (For Pump)] See Protocol SQ-PUMP CONTINUOUS 07/19/17 [History] Lisinopril [Zestril] 10 mg PO DAILY 07/19/17 [History] Omeprazole 20 mg PO DAILY 07/19/17 [History] Aspirin EC [Ecotrin Low Dose] 81 mg PO DAILY #30 tablet. 07/22/17 [Rx] Atorvastatin [Lipitor] 80 mg PO HS #30 tab 11/03/17 [Rx] Ezetimibe [Zetia] 10 mg PO DAILY #30 tab 02/02/18 [Rx] Nitroglycerin Sl Tabs [Nitrostat] 0.4 mg SUBLINGUAL Q5M PRN #25 tab 02/02/18 [Rx ] Famotidine [Pepcid] 20 mg PO DAILY 08/27/18 [History] Calcium Polycarbophil [Fibercon] 625 mg PO DAILY 10/25/18 [History] Clopidogrel [Plavix] 75 mg PO DAILY 10/25/18 [History] Loratadine [Claritin] 10 mg PO DAILY 10/25/18 [History] traMADol HCL [Ultram] 50 mg PO Q6HR PRN 10/25/18 [History] Docusate [Colace] 100 mg PO DAILY #30 capsule 11/01/18 [Rx] HYDROcodone/APAP 7.5-325MG [[place] 7.5] 1 each PO Q6HR PRN #28 tab 11/01/18 [Rx] Follow up Appointment(s)/Referral(s): Alban Terrell DO [Primary Care Provider] - 11/13/18 2:00 pm Lm Mclaughlin PAC [PHYSICIAN [facility] [employer]Y SERVICES DISPATCHER] - 11/15/18 3:10 pm Activity/Diet/Wound Care/Special Instructions: Orthopedic Discharge Instructions: 1. Wound care and infection precautions, keep incision dry and covered while showering, no lotions, creams, moisturizers. No soaking, pools, hot tubs. Do not scrub over incision. 2. Utilize arm sling 3. Ice and elevate when necessary. Do not exceed 20 minutes per hour with ice pack. 4. Utilize compression sleeve until seen at first follow up appointment. 5. Pain meds and anticoagulants per prescription. 6. Pain medication has potential to cause constipation. Increase oral fluid and fiber intake. Contact primary care provider if you have not had a bowel movement within 48 hours after discharge. 7. No anti-inflammatory medication until discussed at first post operative visit, this including Motrin, Aleve, Mobic, Diclofenac. 8. Follow up in office at 2 weeks postop with Garry Mclaughlin PA-C 9. Follow up with your primary care doctor 7-10 days after discharge. 10. Contact [facility] with any questions, . Discharge Disposition: HOME WITH HOME HEALTH SERVICES
[2018-11-01 12:11] LABS: Glucose,Whole Blood 176 mg/dL (75-99)
[2018-11-01] MEDS ORDERED: HYDROcodone/APAP 10-325MG 1 EACH TAB PO PRN ×2 (13:05)
[2018-11-01 14:14] VITALS: BP 121/71; PULSE 83; RESP 18; TEMP 98.7
== END 2018-11-01 14:19 | disposition home or self-care (01) | DRG 483 ==
LOC: 2ORMAIN 06:17 → 4SSUR 10:51
PROVIDERS: ADMIT Orthopaedic Surgery; ATTEND Orthopaedic Surgery
PROC: 0RRK00Z Replacement of Left Shoulder Joint with Reverse Ball and Socket Synthetic Substitute, Open Approach (ICD-10-PCS; principal; 2018-10-31 08:00)
DX: M75.102 Unspecified rotator cuff tear or rupture of left shoulder, not specified as traumatic (principal); G62.9 Polyneuropathy, unspecified; E78.00 Pure hypercholesterolemia, unspecified; E11.9 Type 2 diabetes mellitus without complications; I10 Essential (primary) hypertension; Z79.02 Long term (current) use of antithrombotics/antiplatelets; Z79.82 Long term (current) use of aspirin; Z79.4 Long term (current) use of insulin; Z79.899 Other long term (current) drug therapy; Z96.41 Presence of insulin pump (external) (internal); Z91.81 History of falling; Z87.891 Personal history of nicotine dependence; Z95.5 Presence of coronary angioplasty implant and graft; Z85.51 Personal history of malignant neoplasm of bladder
CPT/HCPCS: 64415; 85025; 88300

== ENCOUNTER 2019-06-27 21:19 | Observation (INO) | payer MEDICARE ==
--- NOTE | 2019-06-27 21:43 | ED ---
Chest Pain [facility] - General Chief Complaint: Chest Pain Stated Complaint: Chest Pain Time Seen by Provider: 06/27/19 21:26 Source: patient Mode of arrival: wheelchair Limitations: no limitations - History of Present Illness Initial Comments: This patient is a 69-year-old man who presents with complaint that he was walking his dog tonight around the block from his home and he developed substernal chest pain. The patient states that the pain was tight or heavy feeling. He continued while he was walking. He did go home and with rest the pain improved somewhat. The patient's suggest he take nitroglycerin which did further reduce the pain. He also was complaining of some shortness of breath at the time. He may have felt a little sweaty as well. He does state that he is feeling better from the symptoms as well. History is notable for having for previous stent placements, the last of which was in January 2018 located in the obtuse marginal of the left circumflex, here with Dr. Skaf. MCCULLOUGH Complaint: chest pain -: hour(s) Onset: during exertion Pain Location: substernal Pain Radiation: none Quality: tightness Consistency: now resolved Improves With: nitroglycerin, rest Worsens With: exertion Anginal Symptoms: dyspnea Treatments Prior to Arrival: nitroglycerin - Related Data Home Medications Medication Instructions Recorded Confirmed Cetirizine HCl 10 mg PO HS 07/19/17 06/27/19 Insulin Aspart (For Pump) [NovoLOG See Protocol SQ-PUMP CONTINUOUS 07/19/17 06/27/19 (For Pump)] Lisinopril [Zestril] 10 mg PO DAILY 07/19/17 06/27/19 Omeprazole 20 mg PO DAILY 07/19/17 06/27/19 Famotidine [Pepcid] 20 mg PO DAILY 08/27/18 06/27/19 Clopidogrel [Plavix] 75 mg PO DAILY 10/25/18 06/27/19 Azithromycin [Zithromax Z-pack] See Taper PO DAILY 06/27/19 06/27/19 Previous Rx's Medication Instructions Recorded Aspirin EC [Ecotrin Low Dose] 81 mg PO DAILY #30 tablet. 07/22/17 Atorvastatin [Lipitor] 80 mg PO HS #30 tab 07/22/17 Ezetimibe [Zetia] 10 mg PO DAILY #30 tab 05/17/18 Nitroglycerin Sl Tabs [Nitrostat] 0.4 mg SUBLINGUAL Q5M PRN #25 tab 02/02/18 Allergies Allergy/AdvReac Type Severity Reaction Status Date / Time No Known Allergies Allergy Verified 06/27/19 21:56 Review of Systems ROS Statement: Those systems with pertinent positive or pertinent negative responses have been documented in the HPI. ROS Other: All systems not noted in ROS Statement are negative. Constitutional: Denies: fever, chills Respiratory: Reports: dyspnea. Denies: cough, wheezes Cardiovascular: Reports: chest pain, dyspnea on exertion. Denies: palpitations, orthopnea, edema, syncope Gastrointestinal: Denies: abdominal pain, nausea, vomiting Genitourinary: Denies: dysuria, hematuria Musculoskeletal: Denies: back pain Skin: Denies: rash Neurological: Denies: headache, weakness, numbness EKG Findings - EKG Results: EKG: sinus rhythm (Rate 86 bpm), normal ST/T - Blocks, [place], Hypertrophy, ST Abn: AV and intraventricular conduction: right bundle branch block (fixed/intermitten t, complete/incomplete), left anterior fascicular block - NC, Pacemaker, Normal: Myocardial infarction: septal NC (old age or indeterminate), lateral NC (old age or indeterminate) Past Medical History Past Medical History: Cancer, Diabetes Mellitus, GERD/Reflux, Hyperlipidemia, Hypertension, Myocardial Infarction (NC), Osteoarthritis (OA), Prostate Disorder Additional Past Medical History / Comment(s): Chronic back and bilateral shoulder pain, sciaticia, uses insulin pump, SARCOIDOSIS, PAST BLADDER CANCER, SEASONAL ALLERGIES, OCC CONSTIPATION, neuropathy, BPH Last Myocardial Infarction Date:: 07/19/17 History of Any Multi-Drug Resistant Organisms: None Reported Past Surgical History: Heart Catheterization, Heart Catheterization With Stent, Joint Replacement, Orthopedic Surgery Additional Past Surgical History / Comment(s): X3 SX FOR BLADDER CANCER, SAVITA CATARACTS, COLONOSCOPY, RT ANKLE SX, SAVITA CARPAL TUNNEL, LT KNEE REPLACEMENT, SAVITA SHOULDER ROTATOR CUFF SX x2, LAMINECTOMY X2, THORACOTOMY/BX FOR NODULES ON LYMPH NODES(SARCOIDOSIS), 7 trigger finger releases Past Anesthesia/Blood Transfusion Reactions: Previous Problems w/ Anesthesia, Postoperative Nausea & Vomiting (PONV) Additional Past Anesthesia/Blood Transfusion Reaction / Comment(s): anesthesia affected BP once & was in recovery longer Date of Last Stent Placement:: January 2018 Past Psychological History: No Psychological Hx Reported Smoking Status: Former smoker Past Alcohol Use History: Occasional Past Drug Use History: None Reported - Past Family History Father Family Medical History: Diabetes Mellitus Mother Family Medical History: Coronary Artery Disease (CAD), Diabetes Mellitus, Hypertension Brother(s) Family Medical History: Cancer Additional Family Medical History / Comment(s): Prostate cancer General Exam Limitations: no limitations General appearance: alert, in no apparent distress Head exam: Present: atraumatic, normocephalic Eye exam: Present: normal appearance ENT exam: Present: normal oropharynx Neck exam: Present: normal inspection Respiratory exam: Present: normal lung sounds bilaterally. Absent: respiratory distress, wheezes, rales, rhonchi, stridor Cardiovascular Exam: Present: regular rate, normal rhythm, normal heart sounds. Absent: systolic murmur, diastolic murmur, rubs, gallop GI/Abdominal exam: Present: soft. Absent: distended, tenderness, guarding, rebound, rigid, mass, pulsatile mass Extremities exam: Present: normal inspection, normal capillary refill. Absent: pedal edema, calf tenderness Back exam: Present: normal inspection. Absent: CVA tenderness (R), CVA t enderness (L) Neurological exam: Present: alert Skin exam: Present: warm, dry, intact, normal color. Absent: rash Course Vital Signs 06/27/19 06/27/19 06/27/19 21:20 21:22 22:00 Temperature 98.3 F Pulse Rate 98 83 83 Respiratory 20 18 18 Rate Blood Pressure 121/64 145/78 O2 Sat by Pulse 96 97 97 Oximetry 06/27/19 06/27/19 06/27/19 22:10 22:30 22:40 Temperature Pulse Rate 75 72 79 Respiratory 18 19 17 Rate Blood Pressure 142/69 122/69 142/73 O2 Sat by Pulse 97 97 98 Oximetry 06/27/19 06/27/19 06/27/19 22:50 23:40 23:50 Temperature Pulse Rate 72 76 76 Respiratory 19 22 18 Rate Blood Pressure 143/74 137/74 139/73 O2 Sat by Pulse 98 98 98 Oximetry 06/28/19 06/28/19 06/28/19 00:10 00:30 00:40 Temperature Pulse Rate 70 69 67 Respiratory 20 17 16 Rate Blood Pressure 138/74 139/87 139/74 O2 Sat by Pulse 97 97 98 Oximetry 06/28/19 00:50 Temperature Pulse Rate 68 Respiratory 16 Rate Blood Pressure 138/69 O2 Sat by Pulse 97 Oximetry Critical Care Time Critical Care Time: Yes (30 minutes) Disposition Clinical Impression: Chest pain, Hyperglycemia Disposition: ADMITTED IP TO THIS HOSP Condition: Fair Is patient prescribed a controlled substance at d/c from ED?: No
[2019-06-27] MEDS ORDERED: HEPARIN SODIUM,PORCINE 5,000 UNIT/ML 1 ML VIAL IV STA (22:03)
[2019-06-27] MEDS ORDERED: NITROGLYCERIN OINT 1 INCH/GM PACKET TOPICAL STA (22:03)
[2019-06-27] MEDS ORDERED: MORPHINE SULFATE 2 MG/ML SYRINGE IVP STA (22:03)
[2019-06-27] MEDS ORDERED: ASPIRIN 81 MG PO STA (22:03)
[2019-06-27] MEDS ORDERED: HEPARIN SOD,PORK IN 0.45% NACL 25,000 UNIT in 0.45% NACL 1 250ML.BAG IV SCH (22:15)
--- NOTE | 2019-06-27 22:22 | XR ---
EXAMINATION TYPE: XR chest 1V portable DATE OF EXAM: 06/27/2019 COMPARISON: 01/30/2018 HISTORY: Chest pain TECHNIQUE: Single frontal view of the chest is obtained. FINDINGS: Heart and mediastinum are normal. Lungs are clear. Diaphragm is normal. There is left shou lder prosthesis. There are chest leads. IMPRESSION: No active cardiopulmonary disease. Normal heart. No change.
[2019-06-27 22:23] LABS: Basophils # (A) 0.1 k/uL (0-0.2); Basophils % (A) 1 %; Eosinophils % (A) 0 %; HCT 44.8 % (39.0-53.0); HGB 13.5 gm/dL (13.0-17.5); Lymphocytes % (A) 9 %; MCH 28.9 pg (25.0-35.0); MCHC 30.1 g/dL (31.0-37.0); Mean Platelet Volume 6.9; Monocytes # (A) 0.3 k/uL (0-1.0); Monocytes % (A) 3 %; Neutrophils # (A) 9.1 k/uL (1.3-7.7); Neutrophils % (A) 87 %; Platelet Count 241 k/uL (150-450); RBC 4.67 m/uL (4.30-5.90); RDW 13.7 % (11.5-15.5); WBC 10.5 k/uL (3.8-10.6)
[2019-06-27 22:34] LABS: ALT 22 U/L (21-72); AST 30 U/L (17-59); African American GFR (CKD) >90 (>60 ml/min/1.73 sqM); Alkaline Phosphatase 165 U/L (38-126); Anion Gap 10 mmol/L; Blood Urea Nitrogen 31 mg/dL (9-20); Calcium 9.1 mg/dL (8.4-10.2); Carbon Dioxide 23 mmol/L (22-30); Chloride 106 mmol/L (98-107); Glucose 406 mg/dL (74-99); Potassium 4.7 mmol/L (3.5-5.1); Sodium 139 mmol/L (137-145); Total Bilirubin 0.3 mg/dL (0.2-1.3); Total Protein 6.6 g/dL (6.3-8.2)
[2019-06-27 22:46] LABS: Partial Thromboplastin Time 26.1 sec (22.0-30.0); Prothrombin Time 10.4 sec (9.0-12.0)
[2019-06-27] MEDS ORDERED: INSULIN REGULAR 100 UNIT/ML VIAL SQ STA (23:06)
[2019-06-27] MEDS ORDERED: NITROGLYCERIN SL TABS 0.4 MG TAB SUBLINGUAL PRN (23:19)
[2019-06-27 23:49] LABS: Glucose,Whole Blood 316 mg/dL (75-99)
[2019-06-28 00:31] LABS: Glucose,Whole Blood 311 mg/dL (75-99)
[2019-06-28 03:36] VITALS: RESP 18
[2019-06-28 06:27] LABS: Cholesterol 91 mg/dL (<200); HDL Cholesterol 46 mg/dL (40-60); LDL Cholesterol,Calculated 37 mg/dL (0-99); Triglycerides 38 mg/dL (<150)
[2019-06-28 06:39] LABS: Glucose,Whole Blood 139 mg/dL (75-99)
[2019-06-28] MEDS ORDERED: PANTOPRAZOLE 40 MG TABLET PO SCH (07:30)
[2019-06-28] MEDS: INSULIN ASPART (NovoLOG) 100 UNIT/ML VIAL SQ SCH ×2 (07:34→11:34)
[2019-06-28] MEDS ORDERED: EZETIMIBE 10 MG TAB PO SCH (09:00)
[2019-06-28] MEDS ORDERED: LISINOPRIL 10 MG TAB PO SCH (09:00)
[2019-06-28] MEDS ORDERED: ASPIRIN 325 MG TAB PO SCH (09:00)
[2019-06-28] MEDS ORDERED: NON FORMULARY DRUG (Aspirin Ec 81 MG) PO SCH (09:00)
[2019-06-28] MEDS ORDERED: CLOPIDOGREL 75 MG TAB PO SCH (09:00)
[2019-06-28] MEDS ORDERED: FAMOTIDINE 20 MG TAB PO SCH (09:00)
[2019-06-28] MEDS ORDERED: IPRATROPIUM-ALBUTEROL 3 ML NEB INHALATION PRN (10:45)
--- NOTE | 2019-06-28 10:45 | P.HPIM ---
History of Present Illness H&P Date: 06/28/19 Chief Complaint: Chest pain This is 69-year-old gentleman with history of diabetes mellitus with insulin pump, gastroesophageal reflux disease, hypertension, hyperlipidemia, MS, heart catheterization with stents-recently January 2018, bladder cancer, former smoker, history of sarcoidosis, chronic intermittent asthma, COPD presented to the ER with complaints of substernal chest tightness/heaviness accompanied by shortness of breath, diaphoresis, improved with rest and nitroglycerin sublingual. Earlier this week , patient at PCPs office with complaints of congestion, productive cough, shortness of breath, received Depo-Medrol injection, Rocephin, placed on Zpak. Blood sugars elevated in the 300s on admission, steroid- induced. Patient has insulin pump. Troponins less than 0.012, 0.017. EKG reported normal sinus rhythm, right bundle branch block, left anterior fascic ular block, septal and lateral infarct, age undetermined. Chest x-ray nonacute. Vital signs stable. Heparin protocol initiated,NPO, cardiology consulted with recommendations pending. Afebrile. Review of Systems Constitutional: Denied any fatigue denied any fever. Cardio vascular: Positive chest pain, no palpitations Gastrointestinal denied any nausea vomiting Pulmonary: Positive shortness of breath cough Neurologic denied any new focal deficits ROS Statement: Those systems with pertinent positive or pertinent negative responses have been documented in the HPI. ROS Other: All systems not noted in ROS Statement are negative. Past Medical History Past Medical History: Cancer, Diabetes Mellitus, GERD/Reflux, Hyperlipidemia, Hypertension, Myocardial Infarction (MS), Osteoarthritis (OA), Prostate Disorder Additional Past Medical History / Comment(s): Chronic back and bilateral shoulder pain, sciaticia, uses insulin pump, SARCOIDOSIS, PAST BLADDER CANCER, SEASONAL ALLERGIES, OCC CONSTIPATION, neuropathy, BPH Last Myocardial Infarction Date:: 07/19/17 History of Any Multi-Drug Resistant Organisms: None Reported Past Surgical History: Heart Catheterization, Heart Catheterization With Stent, Joint Replacement, Orthopedic Surgery Additional Past Surgical History / Comment(s): X3 SX FOR BLADDER CANCER, SAVITA CATARACTS, COLONOSCOPY, RT ANKLE SX, SAVITA CARPAL TUNNEL, LT KNEE REPLACEMENT, SAVITA SHOULDER ROTATOR CUFF SX x2, LAMINECTOMY X2, THORACOTOMY/BX FOR NODULES ON LYMPH NODES(SARCOIDOSIS), 7 trigger finger releases Past Anesthesia/Blood Transfusion Reactions: Previous Problems w/ Anesthesia, Postoperative Nausea & Vomiting (PONV) Additional Past Anesthesia/Blood Transfusion Reaction / Comment(s): anesthesia affected BP once & was in recovery longer Date of Last Stent Placement:: January 2018 Past Psychological History: No Psychological Hx Reported Smoking Status: Former smoker Past Alcohol Use History: Occasional Past Drug Use History: None Reported - Past Family History Father Family Medical History: Diabetes Mellitus Mother Family Medical History: Coronary Artery Disease (CAD), Diabetes Mellitus, Hypertension Brother(s) Family Medical History: Cancer Additional Family Medical History / Comment(s): Prostate cancer Medications and Allergies Home Medications Medication Instructions Recorded Confirmed Type Cetirizine HCl 10 mg PO HS 07/19/17 06/27/19 History Insulin Aspart (For Pump) [NovoLOG See Protocol SQ-PUMP CONTINUOUS 07/19/17 06/27/19 History (For Pump)] Lisinopril [Zestril] 10 mg PO DAILY 07/19/17 06/27/19 History Omeprazole 20 mg PO DAILY 07/19/17 06/27/19 History Aspirin EC [Ecotrin Low Dose] 81 mg PO DAILY #30 tablet.dr 07/22/17 06/27/19 Rx Atorvastatin [Lipitor] 80 mg PO HS #30 tab 07/22/17 06/27/19 Rx Ezetimibe [Zetia] 10 mg PO DAILY #30 tab 02/02/18 06/27/19 Rx Nitroglycerin Sl Tabs [Nitrostat] 0.4 mg SUBLINGUAL Q5M PRN #25 tab 02/02/18 06/27/19 Rx Famotidine [Pepcid] 20 mg PO DAILY 08/27/18 06/27/19 History Clopidogrel [Plavix] 75 mg PO DAILY 10/25/18 06/27/19 History Azithromycin [Zithromax Z-pack] See Taper PO DAILY 06/27/19 06/27/19 History Allergies Allergy/AdvReac Type Severity Reaction Status Date / Time No Known Allergies Allergy Verified 06/27/19 21:56 Physical Exam Vitals: Vital Signs Temp Pulse Pulse Resp BP BP Pulse Ox 06/28/19 07:20 97.8 F 72 18 151/76 98 06/28/19 03:55 82 18 06/28/19 02:15 98.2 F 82 18 148/75 97 06/28/19 02:05 61 15 06/28/19 00:50 68 16 138/69 97 06/28/19 00:40 67 16 139/74 98 06/28/19 00:30 69 17 139/87 97 06/28/19 00:10 70 20 138/74 97 06/27/19 23:50 76 18 139/73 98 06/27/19 23:40 76 22 137/74 98 06/27/19 22:50 72 19 143/74 98 06/27/19 22:40 79 17 142/73 98 06/27/19 22:30 72 19 122/69 97 06/27/19 22:10 75 18 142/69 97 06/27/19 22:00 83 18 145/78 97 06/27/19 21:22 83 18 97 06/27/19 21:20 98.3 F 98 20 121/64 96 Intake and Output 06/27/19 06/28/19 06/28/19 22:59 06:59 14:59 Other: Weight 93.44 kg PHYSICAL EXAM: VITAL SIGNS: As above GENERAL: Sitting up in bed, no acute distress HEENT: Conjunctivae normal. eyes normal. Oral mucosa dry NECK: No JVD. No thyroid enlargement. No LNs CARDIOVASCULAR: S1, S2 regular.. No murmur RESPIRATION: Breath sounds diminished in the bases. No rhonchi or crackles. No bronchial breathing. No wheezing ABDOMEN: Soft, nontender . No guarding. no masses palpable. No ascites, No hepatosplenomegaly.Bowel sounds heard. LEGS: No edema. no swelling PSYCHIATRY: Alert and oriented X3, mood and affect normal. NERVOUS SYSTEM: Cranial N 2-12 grossly normal. Moves all 4 limbs. Diffuse weakness No focal deficits. Strength and sensation grossly intact.. Skin: no lesions, no rash Joints: No active swelling. No inflammation. Lymphatic system. No LN neck axilla or groin. Results CBC & Chem 7: 06/27/19 21:40 06/27/19 21:40 Labs: Abnormal Lab Results - Last 24 Hours (Table) 06/27/19 06/27/19 06/27/19 Range/Units 21:40 21:40 23:38 MCHC 30.1 L (31.0-37.0) g/dL Neutrophils # 9.1 H (1.3-7.7) k/uL APTT (22.0-30.0) sec BUN 31 H (9-20) mg/dL Glucose 406 H (74-99) mg/dL POC Glucose (mg/dL) 316 H (75-99) mg/dL Alkaline Phosphatase 165 H (38-126) U/L 06/28/19 06/28/19 06/28/19 Range/Units 00:20 05:54 06:36 MCHC (31.0-37.0) g/dL Neutrophils # (1.3-7.7) k/uL APTT 55.0 H (22.0-30.0) sec BUN (9-20) mg/dL Glucose (74-99) mg/dL POC Glucose (mg/dL) 311 H 139 H (75-99) mg/dL Alkaline Phosphatase (38-126) U/L Thrombosis Risk Factor Assmnt - Choose All That Apply Any of the Below Risk Factors Present?: No Other Risk Factors: No Other congenital or acquired thrombophilia - If yes, enter type in comment: No Thrombosis Risk Factor Assessment Level: Very Low Risk Assessment and Plan Assessment: -Acute chest pain, rule out acute coronary syndrome -CAD, history of MS and prior stents, most recently January 2018 -Diabetes mellitus, hyperglycemia, steroid-induced, on insulin pump -Recently treated for acute COPD, acute asthma exacerbation in a patient with history of sarcoidosis -Hypertension -Hyperlipidemia -Bladder cancer -History of nicotine dependence -Osteoarthritis Plan: Continue on current medication regime ,monitoring and symptomatic treatment. Maintain heparin drip as per protocol. Cardiology consulted with recommendations pending. NPO. Home meds have been reviewed and resumed accordingly. Further recommendations to follow. The impression and plan of care has been dictated as directed. : I performed a history and examination of this patient, discussed the same with the dictator. I agree with the dictator's note ,documented as a scribe. Any additional findings or plans will be noted. Time taken: 35 minutes
[2019-06-28] MEDS ORDERED: AMINOPHYLLINE 500 MG/20 ML VIAL IV PRN (11:11)
[2019-06-28] MEDS ORDERED: CAFFEINE CITRATE 60 MG/3 ML VIAL IV PRN (11:11)
[2019-06-28] MEDS ORDERED: REGADENOSON 0.4 MG/5 ML SYRINGE IV ONE (11:30)
[2019-06-28] MEDS: IPRATROPIUM-ALBUTEROL 3 ML NEB INHALATION SCH ×2 (11:31→15:45)
[2019-06-28 11:35] LABS: Glucose,Whole Blood 169 mg/dL (75-99)
[2019-06-28 11:56] VITALS: BP 132/71; TEMP 98.2
[2019-06-28] MEDS ORDERED: INSULIN PUMP BASAL RATES 1 EACH MISC MISCELLANE PRN (12:26)
[2019-06-28] MEDS ORDERED: INSULIN ASPART (NovoLOG) 100 UNIT/ML VIAL SQ PRN (12:26)
[2019-06-28] MEDS ORDERED: INSPUCOR MISCELLANE PRN (12:26)
[2019-06-28] MEDS ORDERED: INSULIN PUMP TARGET GLUCOSE 1 EACH MISC MISCELLANE PRN (12:26)
[2019-06-28] MEDS ORDERED: INSULIN PUMP ACTIVE INSULIN 1 EACH MISC MISCELLANE PRN (12:26)
[2019-06-28] MEDS ORDERED: INSULIN PUMP MEAL BOLUS 1 UNIT MISC MISCELLANE SCH (12:30)
--- NOTE | 2019-06-28 13:01 | ECHOF ---
Referral Reason:cp MEASUREMENTS -------- HEIGHT: 182.9 cm WEIGHT: 93.4 kg BP: 151/76 RVIDd: 2.7 cm (< 3.3) IVSd: 1.3 cm (0.6 - 1.1) LVIDd: 4.2 cm (3.9 - 5.3) LVPWd: 1.1 cm (0.6 - 1.1) IVSs: 1.6 cm LVIDs: 3.4 cm LVPWs: 1.2 cm LA Diam: 3.9 cm (2.7 - 3.8) LAESV Index (A-L): 18.50 ml/m Ao Diam: 3.6 cm (2.0 - 3.7) AV Cusp: 1.8 cm (1.5 - 2.6) LA Diam: 4.1 cm (2.7 - 3.8) MV EXCURSION: 16.226 mm (> 18.000) MV EF SLOPE: 80 mm/s (70 - 150) EPSS: 0.9 cm MV E Shawn: 0.87 m/s MV DecT: 253 ms MV A Shawn: 0.93 m/s MV E/A Ratio: 0.93 RAP: 5.00 mmHg RVSP: 16.38 mmHg TAPSE: 30.50 mm FINDINGS -------- Sinus rhythm. This was a technically adequate study. The left ventricular size is normal. Left ventricular wall thickness is normal. Overall left vent ricular systolic function is normal with, an EF between 55 - 60 %. The diastolic filling pattern is normal for the age of the patient {E/E'}. The right ventricle is normal in size. The left atrial size is normal. Normal LA size by volume 22+/-6 ml/m2. The right atrial size is normal. There is mild aortic valve sclerosis. There is no evidence of aortic regurgitation. Mild mitral annular calcification present. Mild mitral regurgitation is present. Mild tricuspid regurgitation present. Right ventricular systolic pressure is normal at < 35 mmHg. There is no evidence of pulmonary hypertension. The pulmonic valve was not well visualized. The aortic root size is normal. There is no pericardial effusion. CONCLUSIONS -------- 1. Sinus rhythm. 2. This was a technically adequate study. 3. The left ventricular size is normal. 4. Left ventricular wall thickness is normal. 5. Overall left ventricular systolic function is normal with, an EF between 55 - 60 %. 6. The diastolic filling pattern is normal for the age of the patient {E/E'} 7. The right ventricle is normal in size. 8. The left atrial size is normal. 9. Normal LA size by volume 22+/-6 ml/m2. 10. The right atrial size is normal. 11. There is mild aortic valve sclerosis. 12. Mild mitral annular calcification present. 13. Mild mitral regurgitation is present. 14. Mild tricuspid regurgitation present. 15. Right ventricular systolic pressure is normal at < 35 mmHg. 16. There is no evidence of pulmonary hypertension. 17. The pulmonic valve was not well visualized. 18. The aortic root size is normal. 19. There is no pericardial effusion. TABULAR TYPIST: Zaria Buckley RDCS
--- NOTE | 2019-06-28 13:54 | NM ---
EXAMINATION TYPE: NM stress lexiscan cardiolite DATE OF EXAM: 06/28/2019 COMPARISON: NONE HISTORY: Chest pain TECHNIQUE: After the intravenous administration of 10.69 mCi Tc 99m Sestamibi - Cardiolite resting S PECT images acquired 45 minutes post injection. The patient received 0.4mg Lexiscan, 25.9 mCi Tc 99m Sestamibi - Stress images obtained [address] injection FINDINGS: Review of stress and rest SPECT images demonstrates no distinct perfusion abnormality. Gated analysi s shows normal wall motion with an estimated left ventricular ejection fraction of 56 %. IMPRESSION: No scintigraphic evidence for reversible ischemia.
--- NOTE | 2019-06-28 13:58 | P.CRDCN ---
History of Present Illness History of present illness: This is a pleasant 69-year-old male past medical history significant for coronary artery disease s/p multiple PCI's, hypertension, dyslipidemia, diabetes mellitus, sarcoidosis, history of bladder cancer and GERD. He follows in the office with Dr. Gomes. We have been asked to see him in consultation secondary to chest discomfort. He states for the previous one week he has had increased nasal drainage, mild shortness of breath and coughing. He saw Dr. Terrell first thing yesterday morning got a steroid injection later in the afternoon he was taking his dog for a walk and while he was had with his he started feeling a heavy pressure sensation in the midsternal region. There was no radiation to the arm, back, neck or jaw. His pain was quite intense and was associated with some mild shortness of breath. He continued to walk back to his home once he got home he sat down and his symptoms did seem to be mildly improved however he continued to have a pressure on the chest is not as intense. He continues to have a cough that is dry with no significant sputum production and is mildly short of breath with activity. He denies any further episodes of chest discomfort. Most recent cardiac catheterization performed January 2018 revealed patent stent in the circumflex, patent stent in the distal RCA and mild disease in the LAD. EKG on arrival reveals sinus mechanism with a right bundle branch block pattern, poor R-wave progression and left ventricular hypertrophy. Chest x-ray is negative for an acute cardiopulmonary process. X-ray data reviewed, cardiac enzymes negative 3, LDL 37, proBNP 259, WBC 10.5, hemoglobin 13.5, sodium 139, potassium 4.7, creatinine 0.93. Current daily cardiac medications include aspirin 81 mg daily, atorvastatin 80 mg daily, Plavix 75 mg daily, Zetia 10 mg daily, lisinopril 10 mg daily. Most recent echocardiogram obtained in the office in September 2018 reveals preserved LV systolic function with ejection fraction 50%, mild LVH, mild MR and mild TR. Most recent stress test performed in the office September 2018 revealed no evidence of reversibility with a fixed defect of the inferior wall. At the time of my exam: CONSTITUTIONAL: Denies fever. Denies chills. EYES: Denies blurred vision. Denies vision changes. Denies eye pain. EARS, NOSE, MOUTH & THROAT: Denies headache. Denies sore throat. Denies ear pain. CARDIOVASCULAR: Denies chest pain. Denies shortness of breath. Denies orthopnea. Denies PND. Denies palpitations. RESPIRATORY: Complains of cough. GASTROINTESTINAL: Denies abdominal pain. Denies diarrhea. Denies constipation. Denies nausea. Denies vomiting. MUSCULOSKELETAL: Denies myalgias. INTEGUMENTARY: Denies pruitis. Denies rash. NEUROLOGIC: Denies numbness. Denies tingling. Denies weakness. PSYCHIATRIC: Denies anxiety. Denies depression. ENDOCRINE: Denies fatigue. Denies weight change. Denies polydipsia. Denies polyurina. GENITOURINARY: Denies burning, hematuria or urgency with micturation. HEMATOLOGIC: Denies history of anemia. Denies bleeding. Blood pressure 132/71 heart rate 80 afebrile maintaining oxygen saturation on room air GENERAL: This is a 69-year-old male in no apparent distress at the time of my examination. HEENT: Head is atraumatic, normocephalic. Pupils are equal, round. Sclerae anicteric. Conjunctivae are clear. Mucous membranes of the mouth are moist. Neck is supple. There is no jugular venous distention. No carotid bruit is heard. LUNGS: Clear to auscultation no wheezes, rales or rhonchi. No chest wall tenderness is noted on palpation or with deep breathing. HEART: Regular rate and rhythm without murmurs, rubs or gallops. S1 and S2 heard. ABDOMEN: Soft, nontender. Bowel sounds are heard. No organomegaly noted. EXTREMITIES: No evidence of peripheral edema and no calf tenderness noted. VASCULAR: Radial and dorsalis pedis pulses palpated, no evidence of clubbing. NEUROLOGIC: Patient is awake, alert and oriented x3. ASSESSMENT Precordial chest pain, an acute coronary event has been ruled out. Recently treated for upper respiratory illness with ongoing cough and congestion History of coronary artery disease status post multiple PCI's Hypertension Dyslipidemia Diabetes mellitus Sarcoidosis PLAN An acute coronary event has been ruled out. Discontinue heparin infusion. Obtain 2-D echocardiogram and Doppler study to assess cardiac structure and function. Perform Lexiscan stress test to assess for stress-induced reversibility. If stress test is normal he may be discharged from a cardiac perspective. Symptoms may be related to underlying respiratory illness. Follow-up with Dr. Gomes upon discharge. Thank you kindly for this consultation. Nurse Practitioner note has been reviewed, I agree with a documented findings and plan of care. Patient was seen and examined. Past Medical History Past Medical History: Cancer, Diabetes Mellitus, GERD/Reflux, Hyperlipidemia, Hypertension, Myocardial Infarction (CA), Osteoarthritis (OA), Prostate Disorder Additional Past Medical History / Comment(s): Chronic back and bilateral shoulder pain, sciaticia, uses insulin pump, SARCOIDOSIS, PAST BLADDER CANCER, SEASONAL ALLERGIES, OCC CONSTIPATION, neuropathy, BPH Last Myocardial Infarction Date:: 07/19/17 History of Any Multi-Drug Resistant Organisms: None Reported Past Surgical History: Heart Catheterization, Heart Catheterization With Stent, Joint Replacement, Orthopedic Surgery Additional Past Surgical History / Comment(s): X3 SX FOR BLADDER CANCER, SAVITA CATARACTS, COLONOSCOPY, RT ANKLE SX, SAVITA CARPAL TUNNEL, LT KNEE REPLACEMENT, SAVITA SHOULDER ROTATOR CUFF SX x2, LAMINECTOMY X2, THORACOTOMY/BX FOR NODULES ON LYMPH NODES(SARCOIDOSIS), 7 trigger finger releases Past Anesthesia/Blood Transfusion Reactions: Previous Problems w/ Anesthesia, Postoperative Nausea & Vomiting (PONV) Additional Past Anesthesia/Blood Transfusion Reaction / Comment(s): anesthesia affected BP once & was in recovery longer Date of Last Stent Placement:: January 2018 Past Psychological History: No Psychological Hx Reported Smoking Status: Former smoker Past Alcohol Use History: Occasional Past Drug Use History: None Reported - Past Family History Father Family Medical History: Diabetes Mellitus Mother Family Medical History: Coronary Artery Disease (CAD), Diabetes Mellitus, Hypertension Brother(s) Family Medical History: Cancer Additional Family Medical History / Comment(s): Prostate cancer Medications and Allergies Home Medications Medication Instructions Recorded Confirmed Type Cetirizine HCl 10 mg PO HS 07/19/17 06/27/19 History Insulin Aspart (For Pump) [NovoLOG See Protocol SQ-PUMP CONTINUOUS 07/19/17 06/27/19 History (For Pump)] Lisinopril [Zestril] 10 mg PO DAILY 07/19/17 06/27/19 History Omeprazole 20 mg PO DAILY 07/19/17 06/27/19 History Aspirin EC [Ecotrin Low Dose] 81 mg PO DAILY #30 tablet. 07/22/17 06/27/19 Rx Atorvastatin [Lipitor] 80 mg PO HS #30 tab 07/22/17 06/27/19 Rx Ezetimibe [Zetia] 10 mg PO DAILY #30 tab 02/02/18 06/27/19 Rx Nitroglycerin Sl Tabs [Nitrostat] 0.4 mg SUBLINGUAL Q5M PRN #25 tab 02/02/18 06/27/19 Rx Famotidine [Pepcid] 20 mg PO DAILY 08/27/18 06/27/19 History Clopidogrel [Plavix] 75 mg PO DAILY 10/25/18 06/27/19 History Azithromycin [Zithromax Z-pack] See Taper PO DAILY 06/27/19 06/27/19 History Allergies Allergy/AdvReac Type Severity Reaction Status Date / Time No Known Allergies Allergy Verified 06/27/19 21:56 Physical Exam Vitals: Vital Signs Temp Pulse Pulse Resp BP BP Pulse Ox 06/28/19 11:42 80 06/28/19 11:32 76 06/28/19 11:15 98.2 F 77 18 132/71 97 06/28/19 07:20 97.8 F 72 18 151/76 98 06/28/19 03:55 82 18 06/28/19 02:15 98.2 F 82 18 148/75 97 06/28/19 02:05 61 15 06/28/19 00:50 68 16 138/69 97 06/28/19 00:40 67 16 139/74 98 06/28/19 00:30 69 17 139/87 97 06/28/19 00:10 70 20 138/74 97 06/27/19 23:50 76 18 139/73 98 06/27/19 23:40 76 22 137/74 98 06/27/19 22:50 72 19 143/74 98 06/27/19 22:40 79 17 142/73 98 06/27/19 22:30 72 19 122/69 97 06/27/19 22:10 75 18 142/69 97 06/27/19 22:00 83 18 145/78 97 06/27/19 21:22 83 18 97 06/27/19 21:20 98.3 F 98 20 121/64 96 Intake and Output 06/27/19 06/28/19 06/28/19 22:59 06:59 14:59 Other: Weight 93.44 kg 93.44 kg Results 06/27/19 21:40 06/27/19 21:40 Cardiac Enzymes 06/27/19 06/27/19 06/28/19 Range/Units 21:40 21:40 03:31 AST 30 (17-59) U/L Troponin I <0.012 0.017 (0.000-0.034) ng/mL 06/28/19 Range/Units 09:23 AST (17-59) U/L Troponin I 0.013 (0.000-0.034) ng/mL Coagulation 06/27/19 06/28/19 Range/Units 21:40 05:54 PT 10.4 (9.0-12.0) sec APTT 26.1 55.0 H (22.0-30.0) sec Lipids 06/28/19 Range/Units 05:54 Triglycerides 38 (<150) mg/dL Cholesterol 91 (<200) mg/dL HDL Cholesterol 46 (40-60) mg/dL CBC 06/27/19 Range/Units 21:40 WBC 10.5 (3.8-10.6) k/uL RBC 4.67 (4.30-5.90) m/uL Hgb 13.5 (13.0-17.5) gm/dL Hct 44.8 (39.0-53.0) % Plt Count 241 (150-450) k/uL Comprehensive Metabolic Panel 06/27/19 Range/Units 21:40 Sodium 139 (137-145) mmol/L Potassium 4.7 (3.5-5.1) mmol/L Chloride 106 (98-107) mmol/L Carbon Dioxide 23 (22-30) mmol/L BUN 31 H (9-20) mg/dL Creatinine 0.93 (0.66-1.25) mg/dL Glucose 406 H (74-99) mg/dL Calcium 9.1 (8.4-10.2) mg/dL AST 30 (17-59) U/L ALT 22 (21-72) U/L Alkaline Phosphatase 165 H (38-126) U/L Total Protein 6.6 (6.3-8.2) g/dL Albumin 4.0 (3.5-5.0) g/dL Current Medications Generic Name Dose Route Start Last Admin Trade Name Freq PRN Reason Stop Dose Admin Albuterol/Ipratropium 3 ml 06/28/19 12:00 06/28/19 11:31 Duoneb 0.5 Mg-3 Mg/3 Ml Soln INHALATION 3 ml RT-QID JAYDON Administration Albuterol/Ipratropium 3 ml 06/28/19 10:45 Duoneb 0.5 Mg-3 Mg/3 Ml Soln INHALATION RT-Q2H PRN Shortness Of Breath Or Wheezing Aminophylline 100 mg 06/28/19 11:11 Aminophylline IV 06/28/19 21:11 ONCE PRN Patient Response Aspirin 81 mg 06/29/19 09:00 Aspirin PO DAILY [facility] Atorvastatin Calcium 80 mg 06/28/19 21:00 Lipitor PO HS [facility] Caffeine Citrate 60 mg 06/28/19 11:11 Cafcit Inj IV 06/28/19 21:11 ONCE PRN Patient Response Clopidogrel Bisulfate 75 mg 06/28/19 09:00 06/28/19 11:34 Plavix PO 75 mg DAILY [facility] Administration Ezetimibe 10 mg 06/28/19 09:00 06/28/19 11:34 Zetia PO 10 mg DAILY [facility] Administration Famotidine 20 mg 06/28/19 09:00 06/28/19 11:33 Pepcid PO 20 mg DAILY [facility] Administration Insulin Aspart 0 unit 06/28/19 12:26 Novolog SQ DAILY PRN Insulin Pump Replacement Lisinopril 10 mg 06/28/19 09:00 06/28/19 11:33 Zestril PO 10 mg DAILY [facility] Administration Loratadine 10 mg 06/28/19 21:00 Claritin PO HS [facility] Miscellaneous Information 1 each 06/28/19 12:26 Insulin Pump Basal Rates MISCELLANE Q6HR PRN Blood Sugar - High Protocol Miscellaneous Information 0 unit 06/28/19 12:30 Insulin Pump Meal Bolus MISCELLANE ACHS [facility] Protocol Miscellaneous Information 0 unit 06/28/19 12:26 Insulin Pump Correction Bolus MISCELLANE ACHS PRN Blood Sugar - High Protocol Miscellaneous Information 1 each 06/28/19 12:26 Insulin Pump Active Insulin MISCELLANE ACHS PRN Blood Sugar - High Protocol Miscellaneous Information 1 each 06/28/19 12:26 Insulin Pump Target Glucose MISCELLANE ACHS PRN Blood Sugar - High Protocol Nitroglycerin 0.4 mg 06/27/19 23:19 Nitrostat SUBLINGUAL Q5M PRN Chest Pain Pantoprazole Sodium 40 mg 06/28/19 07:30 06/28/19 11:34 Protonix PO 40 mg DAILY@0730 [facility] Administration Intake and Output 06/27/19 06/28/19 06/28/19 22:59 06:59 14:59 Other: Weight 93.44 kg 93.44 kg Patient Weight 06/29/19 06:59 Weight 93.44 kg 06/27/19 21:40 06/27/19 21:40
[2019-06-28 14:30] VITALS: BMI 27.9
[2019-06-28 15:58] VITALS: PULSE 80
[2019-06-28] MEDS ORDERED: LORATADINE 10 MG TAB PO SCH (21:00)
[2019-06-28] MEDS ORDERED: ATORVASTATIN 80 MG TAB PO SCH (21:00)
[2019-06-29] MEDS ORDERED: ASPIRIN 81 MG PO SCH (09:00)
--- NOTE | 2019-06-29 12:14 | EST ---
EXERCISE STRESS AGE: 69 SEX: M HT: 72" WT: 206 PROTOCOL: Lexiscan Cardiolite Stress Test HEART RATE REST: 81 BLOOD PRESSURE REST: 143/81 MAXIMUM HEART RATE ACHIEVED: 88 MAXIMUM BLOOD PRESSURE: 122/55 INDICATIONS: Chest pain. CLINICAL INFORMATION: A Lexiscan nuclear study was performed. Peak heart rate of 88 was achieved. Maximum blood pressure of 122/55 mmHg was noted. Resting EKG shows a normal sinus rhythm with a QRS morphology suggestive of right bundle branch block pattern was noted. Occasional PVCs were noted. The results of the nuclear study will follow. MMODL / IJN: [id number] /
--- NOTE | 2019-06-29 16:18 | P.DS ---
Providers Date of admission: 06/27/19 23:19 Expected date of discharge: 06/29/19 Attending physician: Alban Terrell Consults: 06/27/19 23:19 Consult Physician Routine Consulting Provider: Lawrence Gomes Consult Reason/Comments: chest pain Do you want consulting provider notified?: Yes Primary care physician: Alban Terrell [facility] Course: Final Diagnoses: -Acute chest pain, acute coronary syndrome ruled out -CAD, history of KS and prior stents, most recently January 2018 -Diabetes mellitus, hyperglycemia, steroid-induced, on insulin pump -Recently treated for acute COPD, acute asthma exacerbation in a patient with history of sarcoidosis -Hypertension -Hyperlipidemia -Bladder cancer -History of nicotine dependence -Osteoarthritis Hospital course:This is 69-year-old gentleman with history of diabetes mellitus with insulin pump, gastroesophageal reflux disease, hypertension, hyperlipidemia, KS, heart catheterization with stents-recently January 2018, bladder cancer, former smoker, history of sarcoidosis, chronic intermittent asthma, COPD presented to the ER with complaints of substernal chest tightness/heaviness accompanied by shortness of breath, diaphoresis, improved with rest and nitroglycerin sublingual. Earlier this week , patient at PCPs office with complaints of congestion, productive cough, shortness of breath, received Depo- Medrol injection, Rocephin, placed on Zpak. Blood sugars elevated in the 300s on admission, steroid-induced. Patient has insulin pump. Troponins less than 0.012, 0.017. EKG reported normal sinus rhythm, right bundle branch block, left anterior fascicular block, septal and lateral infarct, age undetermined. Chest x-ray nonacute. Vital signs stable. Heparin protocol initiated,NPO, cardiology consulted with recommendations pending. Afebrile. Evaluated by cardiology, acute coronary event ruled out out. 2-D echo/Doppler, Lexiscan stress test ordered. Patient will be discharged home pending normal stress test, cardiac clearance, in a stable condition with guarded prognosis. EXAM: GENERAL: Alert and oriented 3, no acute distress CARDIOVASCULAR: S1, S2 regular.. No murmur RESPIRATION: Breath sounds diminished in the bases. No rhonchi or crackles. No wheezing ABDOMEN: Soft, nontender . No guarding. no masses palpable. Bowel sounds heard. NERVOUS SYSTEM: No focal deficits. The impression and plan of care has been dictated as directed. Dr.: I performed a history and examination of this patient, discussed the same with the dictator. I agree with the dictator's note ,documented as a scribe. Any additional findings or plans will be noted. Patient Condition at Discharge: Stable Plan - Discharge Summary Discharge Rx Participant: No New Discharge Prescriptions: Continue Omeprazole 20 mg PO DAILY Cetirizine HCl 10 mg PO HS Lisinopril [Zestril] 10 mg PO DAILY Insulin Aspart (For Pump) [NovoLOG (For Pump)] See Protocol SQ-PUMP CONTINUOUS Atorvastatin [Lipitor] 80 mg PO HS #30 tab Aspirin EC [Ecotrin Low Dose] 81 mg PO DAILY #30 tablet. Nitroglycerin Sl Tabs [Nitrostat] 0.4 mg SUBLINGUAL Q5M PRN #25 tab PRN Reason: Chest Pain Ezetimibe [Zetia] 10 mg PO DAILY #30 tab Famotidine [Pepcid] 20 mg PO DAILY Clopidogrel [Plavix] 75 mg PO DAILY Azithromycin [Zithromax Z-pack] See Taper PO DAILY Discharge Medication List Cetirizine HCl 10 mg PO HS 07/19/17 [History] Insulin Aspart (For Pump) [NovoLOG (For Pump)] See Protocol SQ-PUMP CONTINUOUS 1 [History] Lisinopril [Zestril] 10 mg PO DAILY 07/19/17 [History] Omeprazole 20 mg PO DAILY 07/19/17 [History] Aspirin EC [Ecotrin Low Dose] 81 mg PO DAILY #30 tablet. 07/22/17 [Rx] Atorvastatin [Lipitor] 80 mg PO HS #30 tab 07/22/17 [Rx] Ezetimibe [Zetia] 10 mg PO DAILY #30 tab 02/02/18 [Rx] Nitroglycerin Sl Tabs [Nitrostat] 0.4 mg SUBLINGUAL Q5M PRN #25 tab 02/02/18 [Rx] Famotidine [Pepcid] 20 mg PO DAILY 08/27/18 [History] Clopidogrel [Plavix] 75 mg PO DAILY 10/25/18 [History] Azithromycin [Zithromax Z-pack] See Taper PO DAILY 06/27/19 [History] Follow up Appointment(s)/Referral(s): Lawrence Gomes MD [STAFF PHYSICIAN] - 07/10/19 2:30 pm (pt to follow up at [facility] with [facility]ise) Alban Terrell DO [Primary Care Provider] - 1-2 days Patient Instructions/Handouts: Chest Pain (ED) Discharge Disposition: HOME SELF-CARE
== END 2019-06-28 17:30 | disposition home or self-care (01) ==
LOC: EC 21:19 → 1SOBS 23:19
PROVIDERS: ADMIT Family Medicine; ATTEND Family Medicine
DX: R07.89 Other chest pain (principal); I11.9 Hypertensive heart disease without heart failure; I45.2 Bifascicular block; J45.20 Mild intermittent asthma, uncomplicated; J44.9 Chronic obstructive pulmonary disease, unspecified; E11.65 Type 2 diabetes mellitus with hyperglycemia; T38.0X5A Adverse effect of glucocorticoids and synthetic analogues, initial encounter; K21.9 Gastro-esophageal reflux disease without esophagitis; E78.5 Hyperlipidemia, unspecified; E11.42 Type 2 diabetes mellitus with diabetic polyneuropathy; M19.90 Unspecified osteoarthritis, unspecified site; N40.0 Benign prostatic hyperplasia without lower urinary tract symptoms; D86.9 Sarcoidosis, unspecified; M25.511 Pain in right shoulder; M25.512 Pain in left shoulder; K59.00 Constipation, unspecified; Z79.02 Long term (current) use of antithrombotics/antiplatelets; Z79.82 Long term (current) use of aspirin; Z79.899 Other long term (current) drug therapy; Z96.41 Presence of insulin pump (external) (internal); I25.2 Old myocardial infarction; Z96.652 Presence of left artificial knee joint; Z85.51 Personal history of malignant neoplasm of bladder; Z98.42 Cataract extraction status, left eye; Z98.41 Cataract extraction status, right eye; Z95.5 Presence of coronary angioplasty implant and graft; Z87.891 Personal history of nicotine dependence; Z83.3 Family history of diabetes mellitus; Z80.42 Family history of malignant neoplasm of prostate; Z82.49 Family history of ischemic heart disease and other diseases of the circulatory system
CPT/HCPCS: 96366; 96376; 96365; 96375; 99291; 36415; 94640 ×2; 93005; 93017; 93306; 83880; 80061; 80053; 83735; 84484 ×2; 85025; 85610; 85730 ×2; 71045; 78452; G0378 ×2; A9500; J1644 ×2; J2270; J2785

== ENCOUNTER → 2019-08-27 | Outpatient (CLI) | payer MEDICARE ==
[2019-08-27 15:43] LABS: HCT 42.9 % (39.0-53.0); HGB 13.9 gm/dL (13.0-17.5); MCH 30.1 pg (25.0-35.0); MCHC 32.3 g/dL (31.0-37.0); MCV 92.9 fL (80.0-100.0); Mean Platelet Volume 7.3; Platelet Count 254 k/uL (150-450); RBC 4.62 m/uL (4.30-5.90); RDW 12.9 % (11.5-15.5); WBC 7.6 k/uL (3.8-10.6)
[2019-08-27 15:59] LABS: African American GFR (CKD) >90 (>60 ml/min/1.73 sqM); Anion Gap 8 mmol/L; Blood Urea Nitrogen 25 mg/dL (9-20); Carbon Dioxide 27 mmol/L (22-30); Chloride 106 mmol/L (98-107); Glucose 188 mg/dL (74-99); Non-African American GFR(CKD) 86 (>60 ml/min/1.73 sqM); Potassium 4.6 mmol/L (3.5-5.1); Sodium 141 mmol/L (137-145)
== END | disposition home or self-care (01) ==
LOC: LABPAT 14:25
PROVIDERS: ATTEND Internal Medicine Interventional Cardiology
DX: Z01.812 Encounter for preprocedural laboratory examination (principal); R07.89 Other chest pain; I25.5 Ischemic cardiomyopathy; E11.9 Type 2 diabetes mellitus without complications
CPT/HCPCS: 36415; 80051; 82565; 82947; 84520; 85027

== ENCOUNTER 2019-09-03 09:22 | Day surgery (SDC) | payer MEDICARE ==
[2019-08-30 11:15] VITALS: BMI 28.5
[~2019-09-03 09:22] MED LIST changes: -ACETAMINOPHEN TAB 500 MG TAB PO ONE; +ALPRAZolam 0.25 MG TAB PO PRN; +ALPRAZolam 0.5 MG TAB PO PRN; +ASPIRIN 325 MG TAB PO STA; +ATORVASTATIN 80 MG TAB PO STA; -MELOXICAM 7.5 MG TAB PO ONE; +NITROGLYCERIN SL TABS 0.4 MG TAB SUBLINGUAL PRN; +SODIUM CHLORIDE 0.9% 1,000 ML in EMPTY BAG 1 BAG IV ONE; -TRANEXAMIC ACID 1,000 MG in SODIUM CHLORIDE 0.9% 100 ML IVPB PRN; -TRANEXAMIC ACID 1,000 MG in SODIUM CHLORIDE 0.9% 50 ML IVPB ONE; -ceFAZolin IN SWFI 2 GM/20 ML SYRINGE IVP ONE
[2019-09-03 09:45] LABS: Glucose,Whole Blood 119 mg/dL (75-99)
[2019-09-03] MEDS ORDERED: VERAPAMIL 2.5 MG/ML 2 ML AMP ONE (10:21)
[2019-09-03] MEDS ORDERED: LIDOCAINE 1% INJ 10MG/ML (20 ML MDV) ONE (10:21)
[2019-09-03] MEDS ORDERED: HEPARIN SODIUM 1,000 UN/ML (10ML VL) ONE (10:21)
[2019-09-03] MEDS ORDERED: MIDAZOLAM 2 MG/2 ML VIAL IVP ONE ×2 (10:27)
[2019-09-03] MEDS ORDERED: LIDOCAINE 1% INJ 10MG/ML (20 ML MDV) SQ ONE (10:29)
[2019-09-03] MEDS ORDERED: HYDROmorphone 1 MG/ML 1 ML SYRINGE ONE (10:33)
[2019-09-03] MEDS ORDERED: HYDROmorphone 1 MG/ML 1 ML SYRINGE IVP ONE (10:35)
[2019-09-03] MEDS ORDERED: CLOPIDOGREL 75 MG TAB ONE (10:41)
[2019-09-03] MEDS ORDERED: CLOPIDOGREL 75 MG TAB PO ONE (10:42)
[2019-09-03] MEDS ORDERED: BIVALIRUDIN BOLUS 250 MG/50 ML IV ONE (10:43)
[2019-09-03] MEDS ORDERED: BIVALIRUDIN 250 MG in SODIUM CHLORIDE 0.9% 50 ML IV ONE (10:44)
[2019-09-03] MEDS ORDERED: IOPAMIDOL-370 125ML BTL INJ ONE (10:48)
[2019-09-03] MEDS ORDERED: NITROGLYCERIN 1000MCG/10ML SYRINGE INTRACORON ONE (10:55)
[2019-09-03] MEDS ORDERED: ATROPINE SULFATE 0.1 MG/ML 10ML SYRINGE IV PRN (11:03)
[2019-09-03] MEDS ORDERED: MAG HYDROX/AL HYDROX/SIMETH 30 ML CUP PO PRN (11:03)
[2019-09-03] MEDS ORDERED: RX INFO: IV CONTRAST WAS GIVEN 1 EACH MISC MISCELLANE PRN (11:03)
[2019-09-03] MEDS ORDERED: IOPAMIDOL-370 100ML BTL INJ ONE (11:08)
[2019-09-03 12:01] LABS: Glucose,Whole Blood 120 mg/dL (75-99)
[2019-09-03] MEDS: SODIUM CHLORIDE 0.9% 1,000 ML IV SCH ×2 (15:10→22:51)
[2019-09-03 17:06] LABS: Glucose,Whole Blood 147 mg/dL (75-99)
[2019-09-03] MEDS ORDERED: INSULIN PUMP BASAL RATES 1 EACH MISC MISCELLANE PRN (20:37)
[2019-09-03] MEDS ORDERED: INSPUCOR MISCELLANE PRN (20:37)
[2019-09-03 20:54] LABS: Glucose,Whole Blood 208 mg/dL (75-99)
[2019-09-03] MEDS ORDERED: INSULIN PUMP MEAL BOLUS 1 UNIT MISC MISCELLANE SCH (21:00)
[2019-09-03] MEDS ORDERED: ATORVASTATIN 80 MG TAB PO SCH (21:00)
[2019-09-03] MEDS ORDERED: LORATADINE 10 MG TAB PO SCH (21:00)
[2019-09-04 03:58] VITALS: BP 124/65; PULSE 65; RESP 19; TEMP 97.6
[2019-09-04 06:06] LABS: Glucose,Whole Blood 96 mg/dL (75-99)
[2019-09-04 06:28] LABS: Basophils % (A) 0 %; Eosinophils # (A) 0.1 k/uL (0-0.7); Eosinophils % (A) 2 %; HCT 41.8 % (39.0-53.0); HGB 13.3 gm/dL (13.0-17.5); Lymphocytes # (A) 2.3 k/uL (1.0-4.8); Lymphocytes % (A) 32 %; MCH 29.6 pg (25.0-35.0); MCHC 31.8 g/dL (31.0-37.0); Mean Platelet Volume 7.5; Monocytes # (A) 0.6 k/uL (0-1.0); Monocytes % (A) 8 %; Neutrophils # (A) 4.1 k/uL (1.3-7.7); Neutrophils % (A) 56 %; Platelet Count 200 k/uL (150-450); RBC 4.49 m/uL (4.30-5.90); WBC 7.3 k/uL (3.8-10.6)
[2019-09-04 06:34] LABS: African American GFR (CKD) >90 (>60 ml/min/1.73 sqM); Anion Gap 6 mmol/L; Blood Urea Nitrogen 15 mg/dL (9-20); Calcium 8.8 mg/dL (8.4-10.2); Carbon Dioxide 24 mmol/L (22-30); Chloride 110 mmol/L (98-107); Glucose 96 mg/dL (74-99); Non-African American GFR(CKD) >90 (>60 ml/min/1.73 sqM); Sodium 140 mmol/L (137-145)
--- NOTE | 2019-09-04 07:36 | CC ---
CARDIAC CATHETERIZATION REPORT CARDIAC CATHETERIZATION AND PERCUTANEOUS CORONARY INTERVENTION: DATE OF SERVICE: September 03, 2019 PERFORMING PHYSICIAN: Lawrence Gomes MD. PROCEDURE PERFORMED: 1. Selective right and left coronary angiogram. 2. Successful stenting of the PDA branch of the right coronary artery using 2.0 x 15 mm Jamaal drug-eluting stent with an excellent angiographic result and reduction of stenosis from 80% to 0%. 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 Because of that, a heart catheterization was advised. APPROACH: Right common femoral artery. COMPLICATION: None. LEVEL OF SEDATION: Moderate with sedation length of 42 minutes. PROCEDURE DESCRIPTION: After obtaining an informed consent, the patient was brought to the cardiac recyclable materials collector. The right common femoral artery was cannulated using micropuncture technique, the micropuncture wire passed easily then I placed a 6-Romansh sheath in the right common femoral artery. After that, I did selective right and left coronary angiogram using a Jarrod right posterior. I did that for the RCA, LCX, as well as LAD because the LCX and LAD are originating from the right coronary artery. After that, I intervened on the RCA, please see a separate paragraph for that. SELECTIVE CORONARY ANGIOGRAM: 1. The right coronary artery is a large caliber vessel, it is a dominant vessel, and is a tortuous vessel. The proximal RCA has mild disease only. The mid RCA is extremely tortuous with mild to moderate disease only. Distally appeared to have mild disease only. It bifurcates into PDA and PLV branches. The PDA branch has a tight lesion in the midportion appeared to be in the range of 50% and the PDA branch appeared to be stented and the stent is patent. The PDA branch after that bifurcates into 2 subbranches both appeared to be angiographically normal. 2. Left Circumflex: The left circumflex is originating from the right coronary artery. The left circumflex is stented and the stent is patent. 3. The left anterior descending artery appeared to have mild disease only. PCI OF THE RCA: Anticoagulation was initiated using Angiomax. Subsequently I took Jarrod right posterior and the RCA was engaged. I did after that wire the PDA using a whisper wire. I did balloon angioplasty using 2.5 x 12 mm balloon before I deployed 2.0 x 15 mm Jamaal drug-eluting stent where the stent was positioned under fluoroscopy guidance and deployed under 20 atmospheres for 20 seconds with the following angiogram showing good angiographic results. The procedure was completed without any complication. CONCLUSION: 1. Critical disease involving the PDA branch of the right coronary artery. Patent stent in the PDA branch of the RCA. 2. Successful stenting of the PDA branch of the RCA using 2.0 x 15 mm Chadwick with an excellent angiographic result. 3. Mild disease involving the left coronary system, which originates from the right coronary artery. POSTPROCEDURE MANAGEMENT: 1. Dual antiplatelet therapy. 2. Risk factors modifications. 3. Follow up with the patient. MMODL / IJN: [id number] /
--- NOTE | 2019-09-04 07:36 | DS ---
DISCHARGE SUMMARY DATE OF ADMISSION: September 03, 2019 DATE OF DISCHARGE: September 04, 2019 BRIEF HISTORY: This is a pleasant 69-year-old gentleman with history of coronary artery disease who was experiencing symptoms of chest discomfort concerning for angina. He underwent a heart catheterization yesterday and was found to have critical disease involving the PDA branch of the RCA where he underwent successful stenting of the PDA branch with an excellent angiographic result. The patient was seen this morning. He is doing good from the cardiovascular standpoint of view. He is going to be discharged home and I will follow up with him in the office next week. MMJASONL / IJN: [id number] /
[2019-09-04] MEDS ORDERED: ASPIRIN 325 MG TAB PO SCH (09:00)
[2019-09-04] MEDS ORDERED: EZETIMIBE 10 MG TAB PO SCH (09:00)
[2019-09-04] MEDS ORDERED: FAMOTIDINE 20 MG TAB PO SCH (09:00)
[2019-09-04] MEDS ORDERED: ISOSORBIDE MONONITRATE ER 30 MG TAB.ER.24H PO SCH (09:00)
[2019-09-04] MEDS ORDERED: LISINOPRIL 10 MG TAB PO SCH (09:00)
[2019-09-04] MEDS ORDERED: CLOPIDOGREL 75 MG TAB PO SCH (11:05)
== END 2019-09-04 09:32 | disposition home or self-care (01) ==
LOC: CATHCVL 09:22 → 3SCARD 11:01 → CATHCVL 09-04 09:32
PROVIDERS: ATTEND Internal Medicine Interventional Cardiology
DX: I25.110 Atherosclerotic heart disease of native coronary artery with unstable angina pectoris (principal); I10 Essential (primary) hypertension; I25.5 Ischemic cardiomyopathy; E78.5 Hyperlipidemia, unspecified; E11.9 Type 2 diabetes mellitus without complications; F17.210 Nicotine dependence, cigarettes, uncomplicated; Z79.4 Long term (current) use of insulin; Z79.02 Long term (current) use of antithrombotics/antiplatelets; Z79.899 Other long term (current) drug therapy; Z82.49 Family history of ischemic heart disease and other diseases of the circulatory system
CPT/HCPCS: 93454; 80048; 85025; C9600; C1887; C1769 ×4; C1725; C1894 ×2; C1874; J2250; J2001; J1170; J0583; Q9967 ×2

== ENCOUNTER 2019-10-02 02:06 | Observation (INO) | payer MEDICARE ==
[2019-10-02] MEDS ORDERED: MORPHINE SULFATE 4 MG/ML SYRINGE IV STA (02:21)
[2019-10-02] MEDS ORDERED: LABETALOL 5 MG/ML VIAL MDV IVP STA (02:21)
--- NOTE | 2019-10-02 02:25 | ED ---
Chest Pain HPI - General Stated Complaint: chest pain Time Seen by Provider: 10/02/19 02:14 - History of Present Illness Initial Comments: This patient is 69-year-old man who presents with substernal chest pain that had started tonight while he was lying in bed. The patient became concerned because the pain was somewhat reminiscent of the pain he experienced with his heart attack. When the pain was not relieved following nitroglycerin he phoned EMS who brought him here. The patient has had aspirin. MD Complaint: chest pain Onset/Timin -: hour(s) Onset: during rest Pain Location: substernal Severity: severe Quality: aching Consistency: constant Improves With: nothing Worsens With: nothing Anginal Symptoms: diaphoresis Treatments Prior to Arrival: aspirin, nitroglycerin, oxygen - Related Data Home Medications Medication Instructions Recorded Confirmed Cetirizine HCl 10 mg PO HS 07/19/17 09/03/19 Insulin Aspart (For Pump) [NovoLOG See Protocol SQ-PUMP CONTINUOUS 07/19/17 08/30/19 (For Pump)] Lisinopril [Zestril] 10 mg PO DAILY 07/19/17 09/03/19 Omeprazole 20 mg PO DAILY 07/19/17 09/03/19 Famotidine [Pepcid] 20 mg PO DAILY 08/27/18 09/03/19 Clopidogrel [Plavix] 75 mg PO DAILY 10/25/18 09/03/19 Isosorbide Mononitrate [Isosorbide 30 mg PO DAILY 08/30/19 09/03/19 Mononitrate ER] Previous Rx's Medication Instructions Recorded Aspirin EC [Ecotrin Low Dose] 81 mg PO DAILY #30 tablet. 07/22/17 Atorvastatin [Lipitor] 80 mg PO HS #30 tab 07/22/17 Ezetimibe [Zetia] 10 mg PO DAILY #30 tab 02/02/18 Nitroglycerin Sl Tabs [Nitrostat] 0.4 mg SUBLINGUAL Q5M PRN #25 tab 02/02/18 Allergies Allergy/AdvReac Type Severity Reaction Status Date / Time No Known Allergies Allergy Verified 10/02/19 02:27 Review of Systems ROS Statement: Those systems with pertinent positive or pertinent negative responses have been documented in the HPI. ROS Other: All systems not noted in ROS Statement are negative. Constitutional: Denies: fever, chills Respiratory: Denies: cough, dyspnea Cardiovascular: Reports: chest pain. Denies: palpitations, orthopnea, edema, syncope Gastrointestinal: Denies: abdominal pain, nausea, vomiting Genitourinary: Denies: dysuria Musculoskeletal: Denies: back pain Skin: Denies: rash Neurological: Denies: headache, weakness, numbness EKG Findings - EKG Comments: EKG Findings:: Similar to the comparison EKG from September 03. - EKG Results: EKG: interpreted by ERMD, sinus rhythm (Rate 67 bpm) - Blocks, [place], Hypertrophy, ST Abn: AV and intraventricular conduction: right bundle branch block (fixed/intermittent, complete/incomplete), left anterior fascicular block Past Medical History Past Medical History: Cancer, Diabetes Mellitus, GERD/Reflux, Hyperlipidemia, Hypertension, Myocardial Infarction (NE), Osteoarthritis (OA), Prostate Disorder Additional Past Medical History / Comment(s): Chronic back and bilateral shoulder pain, sciaticia, uses insulin pump, SARCOIDOSIS, PAST BLADDER CANCER, SEASONAL ALLERGIES, OCC CONSTIPATION, neuropathy, BPH Last Myocardial Infarction Date:: 07/19/17 History of Any Multi-Drug Resistant Organisms: None Reported Past Surgical History: Heart Catheterization, Heart Catheterization With Stent, Joint Replacement, Orthopedic Surgery Additional Past Surgical History / Comment(s): X3 SX FOR BLADDER CANCER, SAVITA CATARACTS, COLONOSCOPY, RT ANKLE SX, SAVITA CARPAL TUNNEL, LT KNEE REPLACEMENT, SAVITA SHOULDER ROTATOR CUFF SX x2, LAMINECTOMY X2, THORACOTOMY/BX FOR NODULES ON LYMPH NODES(SARCOIDOSIS), 7 trigger finger releases Past Anesthesia/Blood Transfusion Reactions: Previous Problems w/ Anesthesia, Postoperative Nausea & Vomiting (PONV) Additional Past Anesthesia/Blood Transfusion Reaction / Comment(s): anesthesia affected BP once & was in recovery longer Date of Last Stent Placement:: January 2018 Smoking Status: Former smoker - Past Family History Father Family Medical History: Diabetes Mellitus Mother Family Medical History: Coronary Artery Disease (CAD), Diabetes Mellitus, Hypertension Brother(s) Family Medical History: Cancer Additional Family Medical History / Comment(s): Prostate cancer General Exam General appearance: alert, in no apparent distress Head exam: Present: atraumatic, normocephalic Eye exam: Present: normal appearance Respiratory exam: Present: normal lung sounds bilaterally. Absent: respiratory distress, wheezes, rales, rhonchi, stridor Cardiovascular Exam: Present: regular rate, normal rhythm, normal heart sounds. Absent: systolic murmur, diastolic murmur, rubs, gallop GI/Abdominal exam: Present: soft. Absent: distended, tenderness, guarding, rebound, rigid, mass Extremities exam: Present: normal inspection, normal capillary refill. Absent: pedal edema, calf tenderness Back exam: Present: normal inspection. Absent: CVA tenderness (R), CVA tenderness (L) Neurological exam: Present: alert Skin exam: Present: warm, dry, intact, normal color. Absent: rash Course Vital Signs 10/02/19 10/02/19 10/02/19 02:22 02:57 03:39 Temperature 97.6 F Pulse Rate 69 67 66 Respiratory 18 18 18 Rate Blood Pressure 143/122 96/58 117/66 O2 Sat by Pulse 96 97 96 Oximetry 10/02/19 06:04 Temperature Pulse Rate 79 Respiratory 18 Rate Blood Pressure 119/72 O2 Sat by Pulse 96 Oximetry Disposition Clinical Impression: Chest pain Disposition: ADMITTED IP TO THIS HOSP
--- NOTE | 2019-10-02 02:39 | XR ---
EXAMINATION TYPE: XR chest 1V portable DATE OF EXAM: 10/02/2019 COMPARISON: 06/27/2019 HISTORY: Chest pain TECHNIQUE: FINDINGS: Portable single view shows a normal heart and mediastinum. Lungs are clear. Diaphragm is no rmal. There is a left shoulder prosthesis. Bony thorax is intact. IMPRESSION: Normal chest. No change.
[2019-10-02 03:10] LABS: Basophils # (A) 0.1 k/uL (0-0.2); Basophils % (A) 1 %; Eosinophils # (A) 0.2 k/uL (0-0.7); Eosinophils % (A) 2 %; HCT 41.7 % (39.0-53.0); HGB 13.9 gm/dL (13.0-17.5); Lymphocytes # (A) 3.2 k/uL (1.0-4.8); Lymphocytes % (A) 32 %; MCH 30.6 pg (25.0-35.0); MCHC 33.4 g/dL (31.0-37.0); MCV 91.5 fL (80.0-100.0); Mean Platelet Volume 7.7; Monocytes # (A) 0.8 k/uL (0-1.0); Monocytes % (A) 8 %; Neutrophils # (A) 5.6 k/uL (1.3-7.7); Neutrophils % (A) 56 %; Platelet Count 215 k/uL (150-450); RBC 4.56 m/uL (4.30-5.90); RDW 12.6 % (11.5-15.5)
[2019-10-02 03:24] LABS: D-Dimer 0.38 mg/L FEU (<0.60); Partial Thromboplastin Time 23.5 sec (22.0-30.0); Prothrombin Time 10.4 sec (9.0-12.0)
[2019-10-02 03:25] LABS: Calcium 8.8 mg/dL (8.4-10.2); Magnesium 2.3 mg/dL (1.6-2.3); Total Bilirubin 0.3 mg/dL (0.2-1.3); Total Protein 6.7 g/dL (6.3-8.2)
[2019-10-02] MEDS ORDERED: NITROGLYCERIN SL TABS 0.4 MG TAB SUBLINGUAL PRN (05:34)
[2019-10-02 07:52] LABS: Glucose,Whole Blood 175 mg/dL (75-99)
--- NOTE | 2019-10-02 08:43 | US ---
EXAMINATION TYPE: US gallbladder DATE OF EXAM: 10/02/2019 COMPARISON: Previous dated 12/20/2017 CLINICAL HISTORY: cp. Chest pain. NPO EXAM MEASUREMENTS: Liver Length: 14.4 cm Gallbladder Wall: 0.2 cm Right Kidney: 8.8 x 5.1 x 5.4 cm Limited due to overlying bowel gas Pancreas: Obscured by bowel gas Liver: Scanned through ribs due to overlying bowel gas. Left lobe not visualized due to gas. Limit ed visualization of right lobe appear wnl. Gallbladder: wnl Evidence for sonographic Santizo's sign: neg CBD: Obscured by overlying bowel gas Right Kidney: No hydronephrosis or masses seen There is no evident ascites. IMPRESSION: Exam is limited.
--- NOTE | 2019-10-02 11:01 | ECHOF ---
Referral Reason:cp, lv function MEASUREMENTS -------- HEIGHT: 182.9 cm WEIGHT: 93.0 kg BP: 127/72 FINDINGS -------- Sinus rhythm. This was a technically difficult study with suboptimal parasternal views. Limited Study Overall left ventricular systolic function is normal with, an EF between 60 - 65 %. 4 ml of Lumason was utilized for enhancement of images. There is mild aortic valve sclerosis. The mitral valve leaflets are mildly thickened. Mild mitral annular calcification present. The tricuspid valve appears structurally normal. The pulmonic valve was not well visualized. There is no pericardial effusion. CONCLUSIONS -------- 1. Sinus rhythm. 2. This was a technically difficult study with suboptimal parasternal views. 3. Limited Study 4. Overall left ventricular systolic function is normal with, an EF between 60 - 65 %. 5. 4 ml of Lumason was utilized for enhancement of images. 6. There is mild aortic valve sclerosis. 7. The mitral valve leaflets are mildly thickened. 8. Mild mitral annular calcification present. 9. The tricuspid valve appears structurally normal. 10. The pulmonic valve was not well visualized. 11. There is no pericardial effusion. [employer]: Krystin Alcaraz RD
[2019-10-02] MEDS: ISOSORBIDE MONONITRATE ER 30 MG TAB.ER.24H PO SCH (11:22)
[2019-10-02] MEDS: CLOPIDOGREL 75 MG TAB PO SCH (11:22)
[2019-10-02] MEDS: ASPIRIN 81 MG PO SCH (11:22)
[2019-10-02] MEDS: LISINOPRIL 10 MG TAB PO SCH (11:22)
[2019-10-02] MEDS: TRIAMTERENE-HCTZ 37.5-25MG 1 EACH TAB PO SCH (11:23)
[2019-10-02] MEDS: EZETIMIBE 10 MG TAB PO SCH (11:23)
[2019-10-02] MEDS ORDERED: INSULIN PUMP TARGET GLUCOSE 1 EACH MISC MISCELLANE PRN (11:26)
[2019-10-02] MEDS ORDERED: INSULIN PUMP BASAL RATES 1 EACH MISC MISCELLANE PRN (11:26)
[2019-10-02] MEDS ORDERED: INSULIN ASPART (NovoLOG) 100 UNIT/ML VIAL SQ PRN (11:26)
[2019-10-02] MEDS ORDERED: INSPUCOR MISCELLANE PRN (11:26)
[2019-10-02] MEDS ORDERED: INSULIN PUMP ACTIVE INSULIN 1 EACH MISC MISCELLANE PRN (11:26)
[2019-10-02 11:50] LABS: Glucose,Whole Blood 186 mg/dL (75-99)
--- NOTE | 2019-10-02 11:56 | P.CRDCN ---
History of Present Illness History of present illness: HISTORY OF PRESENTING ILLNESS This is a pleasant 69-year-old male past medical history significant for coronary artery disease s/p multiple stent placements, diabetes mellitus, hypertension, dyslipidemia, chronic neck, shoulder and back pain. He follows in the office with Dr. Gomes. We have been asked to see in consultation for chest pain. He states he has been experiencing pain and heaviness in the chest intermittently for quite some time. The pain feels heavy in the mid-sternal region. He suffers from chronic bilateral shoulder pain. When he laid down to sleep he was having difficulty getting comfortable, which is a chronic problem for him due to his shoulders. However have tossing and turning for a few minutes he then felt the heaviness in his chest. He became concerned and sat up to take a nitro. He took one nitro and then started to feeling light headed and diapho retic. EMS was called. Upon arrival he was having ongoing chest heaviness and he took a second nitro. This did not relieve his chest pain. Upon arrival to ED he was still having ongoing chest pain. He then developed pain in the left upper quadrant that was described as nagging and associated with nausea. He also states he has been having diarrhea for the last 4-5 days with foul smell. His symptoms of chest pain were evident prior to recent stent placement and persisted afterwards as well. Initially he underwent a Lexiscan stress in June 2019 that was normal with no evidence of reversibility. However given ongoing pain he brought him in for elective cardiac catheterization 09/03/2019. the cath revealed disease in the PDA that required placement of DAREK. The prior stented areas in the RCA, circumflex were patent. He has been following with Dr. Terrell as an outpatient and was in the process of getting an outpatient ultrasound of his gallbladder which was ordered here this morning. Gallbladder ultrasound is limited due to overlying gas but gallbladder is within normal limits. DIAGNOSTICS EKG reveals sinus mechanism, right bundle branch block, left anterior fasicular block and poor R-wave progression. Chest xray negative for an acute cardiopulmonary process. Laboratory reviewed, CBC unremarkable, d-dimer 0.38, sodium 135, potassium 4.0, creatinine 1.2, cardiac enzymes negative x2. Current cardiac medications include aspirin 81 mg daily, atorvastatin 80 mg daily, plavix 75 mg daily, zetia 10 mg daily, imdur 30 mg daily, lisinopril 10 mg daily and triamterene/hctz 37.5/25 mg daily. Most recent echocardiogram obtained 06/2019 revealed preserved LV systolic function with EF 55-60%, mild MR and mild TR. REVIEW OF SYSTEMS At the time of my exam: CONSTITUTIONAL: Denies fever or chills. CARDIOVASCULAR: Denies chest pain, shortness of breath, orthopnea, PND or palpitations. RESPIRATORY: Denies cough. GASTROINTESTINAL: Denies abdominal pain, diarrhea, constipation, nausea or vomiting. MUSCULOSKELETAL: Denies myalgias. NEUROLOGIC: Denies numbness, tingling or weakness. ENDOCRINE: Denies fatigue, weight change, polydipsia or polyurina. GENITOURINARY: Denies burning, hematuria or urgency with micturation. HEMATOLOGIC: Denies history of anemia or bleeding. PHYSICAL EXAMINATION Blood pressure 127/79 heart rate 69 afebrile and maintaining oxygen saturation on room air. CONSTITUTIONAL: No apparent distress. HEENT: Head is normocephalic. Pupils are equal, round. Sclerae anicteric. Mucous membranes of the mouth are moist. No JVD. No carotid bruit. CHEST EXAMINATION: Lungs are clear to auscultation. No chest wall tenderness is noted on palpation or with deep breathing. HEART EXAMINATION: Regular rate and rhythm. S1, S2 heard. No murmurs, gallops or rub. ABDOMEN: Soft, nontender. Positive bowel sounds. EXTREMITIES: 2+ peripheral pulses, no lower extremity edema and no calf tenderness. NEUROLOGIC EXAMINATION: Patient is awake, alert and oriented x3. ASSESSMENT Chest pain, atypical for angina. An acute event has been ruled out. Abdominal pain with nausea and diarrhea Coronary artery disease s/p recent stent placement, maintained on dual anti- platelet therapy Hypertension Dyslipidemia Diabetes mellitus. PLAN Repeat limited echo to assess for wall motion abnormalities. Consider GI evaluation. Symptoms are atypical for angina. Thank you kindly for this consultation. Nurse Practitioner note has been reviewed, I agree with a documented findings and plan of care. Patient was seen and examined. Past Medical History Past Medical History: Cancer, Chest Pain / Angina, Diabetes Mellitus, GERD/Reflux, Hyperlipidemia, Hypertension, Myocardial Infarction (ME), Osteoarthritis (OA), Prostate Disorder Additional Past Medical History / Comment(s): Chronic back and bilateral shoulder pain, sciaticia, uses insulin pump, SARCOIDOSIS, PAST BLADDER CANCER, SEASONAL ALLERGIES, OCC CONSTIPATION, neuropathy, BPH, macular edema- getting eye injections Last Myocardial Infarction Date:: 07/19/17 History of Any Multi-Drug Resistant Organisms: None Reported Past Surgical History: Heart Catheterization, Heart Catheterization With Stent, Joint Replacement, Orthopedic Surgery Additional Past Surgical History / Comment(s): X3 SX FOR BLADDER CANCER, SAVITA CATARACTS, COLONOSCOPY, RT ANKLE SX, SAVITA CARPAL TUNNEL, LT KNEE REPLACEMENT, SAVITA SHOULDER ROTATOR CUFF SX x2, LAMINECTOMY X2, THORACOTOMY/BX FOR NODULES ON LYMPH NODES(SARCOIDOSIS), 7 trigger finger releases, aug 2019 RCA stent- 5 total card iac stents. Past Anesthesia/Blood Transfusion Reactions: Previous Problems w/ Anesthesia, Postoperative Nausea & Vomiting (PONV) Additional Past Anesthesia/Blood Transfusion Reaction / Comment(s): anesthesia affected BP once & was in recovery longer Date of Last Stent Placement:: Aug 2019 Past Psychological History: No Psychological Hx Reported Additional Psychological History / Comment(s): PT IS INDEPENDENT, LIVES W/ IN SINGLE STORY HOME THAT HAS 3 PORCH STEPS. I PET DOG. HAS INSULIN PUMP. NO SERVICE IN PAST. RETIRED -WAS A [employer]. Smoking Status: Former smoker Past Alcohol Use History: Occasional Additional Past Alcohol Use History / Comment(s): STARTED SMOKING 1984 AND QUIT 1992 SMOKED 1 PPD Past Drug Use History: None Reported - Past Family History Father Family Medical History: Diabetes Mellitus Mother Family Medical History: Coronary Artery Disease (CAD), Diabetes Mellitus, Hypertension Brother(s) Family Medical History: Cancer Additional Family Medical History / Comment(s): Prostate cancer Medications and Allergies Home Medications Medication Instructions Recorded Confirmed Type Cetirizine HCl 10 mg PO HS 07/19/17 10/02/19 History Insulin Aspart (For Pump) [NovoLOG See Protocol SQ-PUMP CONTINUOUS 07/19/17 10/02/19 History (For Pump)] Lisinopril [Zestril] 10 mg PO DAILY 07/19/17 10/02/19 History Omeprazole 20 mg PO DAILY 07/19/17 10/02/19 History Aspirin EC [Ecotrin Low Dose] 81 mg PO DAILY #30 tablet. 07/22/17 10/02/19 Rx Atorvastatin [Lipitor] 80 mg PO HS #30 tab 07/22/17 10/02/19 Rx Ezetimibe [Zetia] 10 mg PO DAILY #30 tab 02/02/18 10/02/19 Rx Nitroglycerin Sl Tabs [Nitrostat] 0.4 mg SUBLINGUAL Q5M PRN #25 tab 02/02/18 10/02/19 Rx Famotidine [Pepcid] 20 mg PO DAILY 08/27/18 10/02/19 History Clopidogrel [Plavix] 75 mg PO DAILY 10/25/18 10/02/19 History Isosorbide Mononitrate [Isosorbide 30 mg PO DAILY 08/30/19 10/02/19 History Mononitrate ER] Triamterene/Hydrochlorothiazid 1 tab PO DAILY 10/02/19 10/02/19 History [Triamterene-Hctz 37.5-25 mg Tb] Allergies Allergy/AdvReac Type Severity Reaction Status Date / Time No Known Allergies Allergy Verified 10/02/19 07:26 Physical Exam Vitals: Vital Signs Temp Pulse Pulse Resp BP BP Pulse Ox 10/02/19 07:54 97.6 F 73 18 127/72 97 10/02/19 06:04 79 18 119/72 96 10/02/19 03:39 66 18 117/66 96 10/02/19 02:57 67 18 96/58 97 10/02/19 02:22 97.6 F 69 18 143/122 96 Intake and Output 10/01/19 10/02/19 10/02/19 22:59 06:59 14:59 Other: Weight 92.986 kg 92.986 kg Results 10/02/19 02:45 10/02/19 02:45 Cardiac Enzymes 10/02/19 10/02/19 Range/Units 02:45 02:45 AST 29 (17-59) U/L Troponin I <0.012 (0.000-0.034) ng/mL Coagulation 10/02/19 Range/Units 02:45 PT 10.4 (9.0-12.0) sec APTT 23.5 (22.0-30.0) sec CBC 10/02/19 Range/Units 02:45 WBC 10.0 (3.8-10.6) k/uL RBC 4.56 (4.30-5.90) m/uL Hgb 13.9 (13.0-17.5) gm/dL Hct 41.7 (39.0-53.0) % Plt Count 215 (150-450) k/uL Comprehensive Metabolic Panel 10/02/19 Range/Units 02:45 Sodium 135 L (137-145) mmol/L Potassium 4.0 (3.5-5.1) mmol/L Chloride 104 (98-107) mmol/L Carbon Dioxide 21 L (22-30) mmol/L BUN 45 H (9-20) mg/dL Creatinine 1.20 (0.66-1.25) mg/dL Glucose 175 H (74-99) mg/dL Calcium 8.8 (8.4-10.2) mg/dL AST 29 (17-59) U/L ALT 17 (4-49) U/L Alkaline Phosphatase 108 (38-126) U/L Total Protein 6.7 (6.3-8.2) g/dL Albumin 4.0 (3.5-5.0) g/dL Current Medications Generic Name Dose Route Start Last Admin Trade Name Freq PRN Reason Stop Dose Admin Aspirin 81 mg 10/02/19 09:00 Aspirin PO DAILY [facility] Atorvastatin Calcium 80 mg 10/02/19 21:00 Lipitor PO HS [facility] Clopidogrel Bisulfate 75 mg 10/02/19 09:00 Plavix PO DAILY [facility] Ezetimibe 10 mg 10/02/19 09:00 Zetia PO DAILY [facility] Isosorbide Mononitrate 30 mg 10/02/19 09:00 Imdur PO DAILY [facility] Lisinopril 10 mg 10/02/19 09:00 Zestril PO DAILY [facility] Nitroglycerin 0.4 mg 10/02/19 05:34 Nitrostat SUBLINGUAL Q5M PRN Chest Pain Sodium Chloride 10 ml 10/02/19 09:00 Saline Flush IV BID [facility] Triamterene/HCTZ 1 each 10/02/19 09:00 Maxzide-25 PO DAILY [facility] Intake and Output 10/01/19 10/02/19 10/02/19 22:59 06:59 14:59 Other: Weight 92.986 kg 92.986 kg Patient Weight 10/03/19 06:59 Weight 92.986 kg 10/02/19 02:45 10/02/19 02:45
[2019-10-02] MEDS: INSULIN PUMP MEAL BOLUS 1 UNIT MISC MISCELLANE SCH ×3 (12:30→22:34)
[2019-10-02] MEDS ORDERED: PANTOPRAZOLE 40 MG/10 ML VIAL IVP SCH (12:45)
[2019-10-02] MEDS ORDERED: MAGNESIUM CITRATE 296 ML BOTTLE PO ONE (15:21)
--- NOTE | 2019-10-02 15:46 | XR ---
Abdomen HISTORY: Abdomen pain Frontal view of the abdomen and 2 images Lung bases are clear. There are overlying cardiac leads. Degenerative disc changes are noted in the v isualized spine. There is no evident bowel obstruction or pneumoperitoneum. No pathologic calcificati on is seen. IMPRESSION: No acute abnormality.
[2019-10-02 16:51] LABS: Glucose,Whole Blood 251 mg/dL (75-99)
[2019-10-02] MEDS: DICYCLOMINE 20 MG TAB PO SCH ×2 (18:10→21:26)
--- NOTE | 2019-10-02 18:56 | P.HPIM ---
History of Present Illness H&P Date: 10/02/19 Chief Complaint: Chest pain, abdominal pain This is 69-year-old gentleman with history of diabetes mellitus with insulin pump, gastroesophageal reflux disease, hypertension, hyperlipidemia, DC, recent heart catheterization with stents-September 03 2019, bladder cancer, former smoker, history of sarcoidosis, chronic intermittent asthma, COPD, chronic bilateral shoulder pain, presented to the ER with complaints of mid substernal chest tightness/heaviness, worsened when laying down secondary to his chronic bilateral shoulder pain .After taking a nitro with sublingual, developed lightheadedness accompanied by diaphoresis. Called EMS and on arrival to the second nitro sublingual which relieved the pain. Also reported abdominal pain that has been reoccurring on a regular basis since mid August usually after eating. Reports he does not have regular bowel movements, either has constipation or diarrhea. Last colonoscopy was greater than 5 years ago. Last night developed left upper quadrant abdominal pain accompanied by nausea. States it is not a sharp pain but feels like a "punch" that radiates thru to the back, between the shoulder blades.EKG reported sinus with right bundle branch block, left anterior fascicular block with poor R-wave progression. Cardiac enzymes negative 2. D-dimer 0.38. Chest x-ray reported no acute cardiopulmonary process. CBC unremarkable, electrolytes within normal limits, creatinine 1.2. Blood sugars 251 on admission. Cardiology consulted. Review of Systems ROS Statement: Those systems with pertinent positive or pertinent negative responses have been documented in the HPI. ROS Other: All systems not noted in ROS Statement are negative. Constitutional: Denied any fatigue denied any fever. Cardio vascular: Positive chest pain, no palpitations Gastrointestinal Positive nausea, no vomiting Pulmonary: Denied shortness of breath cough Neurologic denied any new focal deficits Past Medical History Past Medical History: Cancer, Chest Pain / Angina, Diabetes Mellitus, GERD/Reflux, Hyperlipidemia, Hypertension, Myocardial Infarction (DC), Osteoarthritis (OA), Prostate Disorder Additional Past Medical History / Comment(s): Chronic back and bilateral shou lder pain, sciaticia, uses insulin pump, SARCOIDOSIS, PAST BLADDER CANCER, SEASONAL ALLERGIES, OCC CONSTIPATION, neuropathy, BPH, macular edema- getting eye injections Last Myocardial Infarction Date:: 07/19/17 History of Any Multi-Drug Resistant Organisms: None Reported Past Surgical History: Heart Catheterization, Heart Catheterization With Stent, Joint Replacement, Orthopedic Surgery Additional Past Surgical History / Comment(s): X3 SX FOR BLADDER CANCER, SAVITA CATARACTS, COLONOSCOPY, RT ANKLE SX, SAVITA CARPAL TUNNEL, LT KNEE REPLACEMENT, SAVITA SHOULDER ROTATOR CUFF SX x2, LAMINECTOMY X2, THORACOTOMY/BX FOR NODULES ON LYMPH NODES(SARCOIDOSIS), 7 trigger finger releases, aug 2019 RCA stent- 5 total cardiac stents. Past Anesthesia/Blood Transfusion Reactions: Previous Problems w/ Anesthesia, Postoperative Nausea & Vomiting (PONV) Additional Past Anesthesia/Blood Transfusion Reaction / Comment(s): anesthesia affected BP once & was in recovery longer Date of Last Stent Placement:: Aug 2019 Past Psychological History: No Psychological Hx Reported Additional Psychological History / Comment(s): PT IS INDEPENDENT, LIVES W/ IN SINGLE STORY HOME THAT HAS 3 PORCH STEPS. I PET DOG. HAS INSULIN PUMP. NO SERVICE IN PAST. RETIRED -WAS A [employer] AND [employer]. Smoking Status: Former smoker Past Alcohol Use History: Occasional Additional Past Alcohol Use History / Comment(s): STARTED SMOKING 1984 AND QUIT 1992 SMOKED 1 PPD Past Drug Use History: None Reported - Past Family History Father Family Medical History: Diabetes Mellitus Mother Family Medical History: Coronary Artery Disease (CAD), Diabetes Mellitus, Hypertension Brother(s) Family Medical History: Cancer Additional Family Medical History / Comment(s): Prostate cancer Medications and Allergies Home Medications Medication Instructions Recorded Confirmed Type Cetirizine HCl 10 mg PO HS 07/19/17 10/02/19 History Insulin Aspart (For Pump) [NovoLOG See Protocol SQ-PUMP CONTINUOUS 07/19/17 10/02/19 History (For Pump)] Lisinopril [Zestril] 10 mg PO DAILY 07/19/17 10/02/19 History Omeprazole 20 mg PO DAILY 07/19/17 10/02/19 History Aspirin EC [Ecotrin Low Dose] 81 mg PO DAILY #30 tablet. 07/22/17 10/02/19 Rx Atorvastatin [Lipitor] 80 mg PO HS #30 tab 07/22/17 10/02/19 Rx Ezetimibe [Zetia] 10 mg PO DAILY #30 tab 02/02/18 10/02/19 Rx Nitroglycerin Sl Tabs [Nitrostat] 0.4 mg SUBLINGUAL Q5M PRN #25 tab 02/02/18 10/02/19 Rx Famotidine [Pepcid] 20 mg PO DAILY 08/27/18 10/02/19 History Clopidogrel [Plavix] 75 mg PO DAILY 10/25/18 10/02/19 History Isosorbide Mononitrate [Isosorbide 30 mg PO DAILY 08/30/19 10/02/19 History Mononitrate ER] Triamterene/Hydrochlorothiazid 1 tab PO DAILY 10/02/19 10/02/19 History [Triamterene-Hctz 37.5-25 mg Tb] Allergies Allergy/AdvReac Type Severity Reaction Status Date / Time No Known Allergies Allergy Verified 10/02/19 07:26 Physical Exam Vitals: Vital Signs Temp Pulse Pulse Resp BP BP Pulse Ox 10/02/19 12:00 69 18 10/02/19 11:33 97.4 F L 69 18 127/79 97 10/02/19 08:00 73 18 10/02/19 07:54 97.6 F 73 18 127/72 97 10/02/19 06:04 79 18 119/72 96 10/02/19 03:39 66 18 117/66 96 10/02/19 02:57 67 18 96/58 97 10/02/19 02:22 97.6 F 69 18 143/122 96 Intake and Output 10/01/19 10/02/19 10/02/19 22:59 06:59 14:59 Other: Voiding Method Toilet Weight 92.986 kg 92.986 kg VITAL SIGNS: As above GENERAL: Sitting up in bed, no acute distress HEENT: Conjunctivae normal. eyes normal. Oral mucosa dry NECK: No JVD. No thyroid enlargement. No LNs CARDIOVASCULAR: S1, S2 regular.. No murmur RESPIRATION: Essentially clear .Breath sounds diminished in the bases. No rhonchi or crackles. No bronchial breathing. No wheezing ABDOMEN: Soft, nontender . No guarding. no masses palpable. No ascites, No he patosplenomegaly.Bowel sounds heard. LEGS: No edema. no swelling PSYCHIATRY: Alert and oriented X3, mood and affect normal. NERVOUS SYSTEM: Cranial N 2-12 grossly normal. Moves all 4 limbs. Diffuse weakness No focal deficits. Strength and sensation grossly intact.. Skin: no lesions, no rash Joints: No active swelling. No inflammation. Lymphatic system. No LN neck axilla or groin. Results CBC & Chem 7: 10/02/19 02:45 10/02/19 02:45 Labs: Abnormal Lab Results - Last 24 Hours (Table) 10/02/19 10/02/19 10/02/19 Range/Units 02:45 07:51 11:48 Sodium 135 L (137-145) mmol/L Carbon Dioxide 21 L (22-30) mmol/L BUN 45 H (9-20) mg/dL Glucose 175 H (74-99) mg/dL POC Glucose (mg/dL) 175 H 186 H (75-99) mg/dL Thrombosis Risk Factor Assmnt - Choose All That Apply Any of the Below Risk Factors Present?: Yes Each Factor Represents 1 point: Obesity (BMI >25) Other Risk Factors: Yes Each Risk Factor Represents 2 Points: Age 61-74 years Other congenital or acquired thrombophilia - If yes, enter type in comment: No Thrombosis Risk Factor Assessment Total Risk Factor Score: 3 Thrombosis Risk Factor Assessment Level: Moderate Risk Assessment and Plan Assessment: -Acute chest pain, rule out acute coronary syndrome, possible angina -Abdominal pain 2 months for further workup -CAD, history of DC and prior stents, most recently August 2019 -Diabetes mellitus, hyperglycemia, on insulin pump -history of sarcoidosis -Hypertension -Hyperlipidemia -Bladder cancer -History of nicotine dependence -Osteoarthritis Plan: Continue on current medication regime ,monitoring and symptomatic treatment. Evaluated by Cardiology with recommendations noted and appreciated. Echo ordered. PPI added to med regimen. GI consulted .HIDA scan scheduled for a.m. NPO. Home meds have been reviewed and resumed accordingly. Further rec ommendations to follow. The impression and plan of care has been dictated as directed. : I performed a history and examination of this patient, discussed the same with the dictator. I agree with the dictator's note ,documented as a scribe. Any additional findings or plans will be noted.
[2019-10-02 20:05] LABS: Glucose,Whole Blood 170 mg/dL (75-99)
[2019-10-02] MEDS: PANTOPRAZOLE 40 MG/10 ML VIAL IVP SCH (20:10)
[2019-10-02] MEDS ORDERED: ATORVASTATIN 80 MG TAB PO SCH (21:00)
[2019-10-02] MEDS ORDERED: LORATADINE 10 MG TAB PO SCH (21:00)
--- NOTE | 2019-10-02 21:00 | P.CONS ---
History of Present Illness - Reason for Consult Consult date: 10/02/19 Abdominal pain Requesting physician: Alban Terrell - Chief Complaint Chest and abdominal pain - History of Present Illness 69-year-old male with a medical history significant for diabetes mellitus, gastroesophageal reflux disease, hypertension, hyperlipidemia, myocardial inf arction with stents placed on 09/03/2019, bladder cancer, prior tobacco abuse, sarcoidosis, COPD who presented to the hospital with complaints of chest and abdominal pain. Patient was seen in the ER where he describes chest tightness/heaviness with lightheadedness developed after being given sublingual nitro. Patient reports that the pain is both in his chest and his upper abdomen. He describes the pain as both sharp and aching in nature. He feels that the pain is under his ribs and worse after eating. The patient has a long- standing history of problems with abdominal pain and problems with his bowel movements. He describes both intermittent diarrhea and constipation. He started a regimen of Metamucil with some improvement in the regularity of his bowel movements. Currently reporting 2 days without a bowel movement which is abnormal for him. He also reports previous diagnosis of reflux disease. The patient was on Prilosec therapy and had Pepcid at night with some improvement in his symptoms. Denies any dysphagia or odynophagia at this time. Does report nausea with no vomiting. He has undergone a colonoscopy approximately 5 years ago which she believes was normal. Denies any prior EGD. Ultrasound of the abdomen performed on current presentation was limited due to bowel gas. Laboratory evaluation significant for hemoglobin 13.9, WBC 10, platelet count 215,000, total bilirubin 0.3, alkaline phosphatase 108, AST 29, ALT 17. Review of Systems REVIEW OF SYSTEMS: CONSTITUTIONAL: Denies any fevers, chills, weight change or fatigue. CARDIOVASCULAR: Denies any palpitations high or low blood pressures, but did report pain in his chest and upper abdomen on presentation. RESPIRATORY: Denies any shortness of breath, hemoptysis or cough. GENITOURINARY: No dysuria or hematuria. MUSCULOSKELETAL: No weakness reported. SKIN: Denies any new rashes or lesions, jaundice or pallor. PSYCHIATRIC: Denies any depression or anxiety. NEUROLOGY: Denies headache, denies any new focal deficits. EARS/NOSE/THROAT: No recent hearing change, congestion, nasal discharge or sore throat. EYES: No pain in eyes, discharge or change in vision. GASTROINTESTINAL: As per HPI. Past Medical History Past Medical History: Cancer, Chest Pain / Angina, Diabetes Mellitus, GERD/Reflux, Hyperlipidemia, Hypertension, Myocardial Infarction ([place]), Osteoarthritis (OA), Prostate Disorder Additional Past Medical History / Comment(s): Chronic back and bilateral shoul monica pain, sciaticia, uses insulin pump, SARCOIDOSIS, PAST BLADDER CANCER, SEASONAL ALLERGIES, OCC CONSTIPATION, neuropathy, BPH, macular edema- getting eye injections Last Myocardial Infarction Date:: 07/19/17 History of Any Multi-Drug Resistant Organisms: None Reported Past Surgical History: Heart Catheterization, Heart Catheterization With Stent, Joint Replacement, Orthopedic Surgery Additional Past Surgical History / Comment(s): X3 SX FOR BLADDER CANCER, SAVITA CATARACTS, COLONOSCOPY, RT ANKLE SX, SAVITA CARPAL TUNNEL, LT KNEE REPLACEMENT, SAVITA SHOULDER ROTATOR CUFF SX x2, LAMINECTOMY X2, THORACOTOMY/BX FOR NODULES ON LYMPH NODES(SARCOIDOSIS), 7 trigger finger releases, aug 2019 RCA stent- 5 total cardiac stents. Past Anesthesia/Blood Transfusion Reactions: Previous Problems w/ Anesthesia, Postoperative Nausea & Vomiting (PONV) Additional Past Anesthesia/Blood Transfusion Reaction / Comm: anesthesia affected BP once & was in recovery longer Date of Last Stent Placement:: Aug 2019 Past Psychological History: No Psychological Hx Reported Additional Psychological History / Comment(s): PT IS INDEPENDENT, LIVES W/ IN SINGLE STORY HOME THAT HAS 3 PORCH STEPS. I PET DOG. HAS INSULIN PUMP. NO SERVICE IN PAST. RETIRED -WAS A [employer] AND [employer]. Smoking Status: Former smoker Past Alcohol Use History: Occasional Additional Past Alcohol Use History / Comment(s): STARTED SMOKING 1984 AND QUIT 1992 SMOKED 1 PPD Past Drug Use History: None Reported - Past Family History Father Family Medical History: Diabetes Mellitus Mother Family Medical History: Coronary Artery Disease (CAD), Diabetes Mellitus, Hypertension Brother(s) Family Medical History: Cancer Additional Family Medical History / Comment(s): Prostate cancer Medications and Allergies Home Medications Medication Instructions Recorded Confirmed Type Cetirizine HCl 10 mg PO HS 07/19/17 10/02/19 History Insulin Aspart (For Pump) [NovoLOG See Protocol SQ-PUMP CONTINUOUS 07/19/17 10/02/19 History (For Pump)] Lisinopril [Zestril] 10 mg PO DAILY 07/19/17 10/02/19 History Omeprazole 20 mg PO DAILY 07/19/17 10/02/19 History Aspirin EC [Ecotrin Low Dose] 81 mg PO DAILY #30 tablet.dr 07/22/17 10/02/19 Rx Atorvastatin [Lipitor] 80 mg PO HS #30 tab 07/22/17 10/02/19 Rx Ezetimibe [Zetia] 10 mg PO DAILY #30 tab 02/02/18 10/02/19 Rx Nitroglycerin Sl Tabs [Nitrostat] 0.4 mg SUBLINGUAL Q5M PRN #25 tab 02/02/18 10/02/19 Rx Famotidine [Pepcid] 20 mg PO DAILY 08/27/18 10/02/19 History Clopidogrel [Plavix] 75 mg PO DAILY 10/25/18 10/02/19 History Isosorbide Mononitrate [Isosorbide 30 mg PO DAILY 08/30/19 10/02/19 History Mononitrate ER] Triamterene/Hydrochlorothiazid 1 tab PO DAILY 10/02/19 10/02/19 History [Triamterene-Hctz 37.5-25 mg Tb] Allergies Allergy/AdvReac Type Severity Reaction Status Date / Time No Known Allergies Allergy Verified 10/02/19 07:26 Physical Exam Vitals: Vital Signs Temp Pulse Pulse Resp BP BP Pulse Ox 10/02/19 12:00 69 18 10/02/19 11:33 97.4 F L 69 18 127/79 97 10/02/19 08:00 73 18 10/02/19 07:54 97.6 F 73 18 127/72 97 10/02/19 06:04 79 18 119/72 96 10/02/19 03:39 66 18 117/66 96 10/02/19 02:57 67 18 96/58 97 10/02/19 02:22 97.6 F 69 18 143/122 96 Intake and Output 10/01/19 10/02/19 10/02/19 22:59 06:59 14:59 Other: Voiding Method Toilet Weight 92.986 kg 92.986 kg On physical examination, patient appears comfortable in no apparent distress. HEAD: Normocephalic, atraumatic. EYES: No scleral icterus. No conjunctival injection. MOUTH: No lesions, tongue midline. NECK: Trachea midline, no gross abnormalities. CHEST: Clear to auscultation with no wheezing or rhonchi appreciated. HEART: Regular rate and rhythm. ABDOMEN: Soft, obese, mildly tender to palpation. Bowel sounds are positive. No organomegaly. No guarding or rigidity. EXTREMITIES: No pedal edema. SKIN: No rashes, no jaundice. NEUROLOGIC: Alert and oriented x3. No focal deficits. Results CBC & Chem 7: 10/02/19 02:45 10/02/19 02:45 Labs: Abnormal Lab Results - Last 24 Hours (Table) 10/02/19 10/02/19 10/02/19 Range/Units 02:45 07:51 11:48 Sodium 135 L (137-145) mmol/L Carbon Dioxide 21 L (22-30) mmol/L BUN 45 H (9-20) mg/dL Glucose 175 H (74-99) mg/dL POC Glucose (mg/dL) 175 H 186 H (75-99) mg/dL Abdominal x-ray: report reviewed (Nonacute x-ray abdomen.) US - abdomen: report reviewed (Ultrasound of the abdomen limited due to bowel gas pattern.) Assessment and Plan (1) Abdominal pain Narrative/Plan: 61-year-old male with multiple medical comorbidities who presented to the hospital with chest and abdominal pain with cardiac evaluation negative. The patient reports worsening pain in his upper abdomen described as sharp and achy in nature which has been present for months. He reports worse symptoms with food. Ultrasound of the abdomen was limited due to bowel gas pattern. Liver enzymes were found to be normal. The patient does report a history of uncontrolled reflux previously on Prilosec therapy, improved after Pepcid was added at night. He also reports alternating constipation and diarrhea with improved bowel movements on Metamucil therapy. No bowel movement in 2 days which is unusual for the patient. X-ray of the abdomen was ordered an essentially negative. Patient's symptoms likely represent functional bowel disorder in the setting of altered bowel function uncontrolled reflux disease, patient may be experiencing uncontrolled heartburn, HIDA scan ordered to rule ou t biliary dysfunction with limited findings on ultrasound abdomen, serologic workup also will be performed to evaluate for pancreatic inflammation, otherwise symptoms to be treated medically. Current Visit: Yes Status: Acute Code(s): R10.9 - UNSPECIFIED ABDOMINAL PAIN SNOMED Code(s): 28418411 (2) GERD (gastroesophageal reflux disease) Current Visit: Yes Status: Acute Code(s): K21.9 - GASTRO-ESOPHAGEAL REFLUX DISEASE WITHOUT ESOPHAGITIS SNOMED Code(s): 831163064 Plan: Supportive care Protonix 40 mg twice daily Ultrasound abdomen reviewed HIDA scan ordered Amylase and lipase ordered for the morning Trial of dicyclomine 20 mg 4 times a day ordered for functional abdominal pain and spasming X-ray abdomen ordered to rule out large stool burden Patient reporting constipation at this time and magnesium citrate ordered for bowel regimen Patient's symptoms appear to be functional in order if improves with medical therapy patient should be discharged for follow-up in the gastroenterology clinic with no acute finding so far on laboratory and imaging evaluation Thank you for allowing us to participate in the care of the patient we will continue to follow
[2019-10-03 06:29] LABS: Basophils # (A) 0.1 k/uL (0-0.2); Basophils % (A) 2 %; Eosinophils # (A) 0.1 k/uL (0-0.7); Eosinophils % (A) 2 %; HGB 14.3 gm/dL (13.0-17.5); Lymphocytes # (A) 2.4 k/uL (1.0-4.8); Lymphocytes % (A) 32 %; MCH 29.8 pg (25.0-35.0); MCHC 32.6 g/dL (31.0-37.0); MCV 91.6 fL (80.0-100.0); Mean Platelet Volume 7.6; Monocytes # (A) 0.6 k/uL (0-1.0); Monocytes % (A) 7 %; Neutrophils # (A) 4.3 k/uL (1.3-7.7); Neutrophils % (A) 56 %; Platelet Count 211 k/uL (150-450); RDW 12.6 % (11.5-15.5); WBC 7.7 k/uL (3.8-10.6)
[2019-10-03 06:40] LABS: Calcium 9.1 mg/dL (8.4-10.2); Potassium 4.7 mmol/L (3.5-5.1)
[2019-10-03 07:01] LABS: Glucose,Whole Blood 123 mg/dL (75-99)
[2019-10-03] MEDS: INSULIN PUMP MEAL BOLUS 1 UNIT MISC MISCELLANE SCH ×3 (07:34→17:14)
[2019-10-03] MEDS ORDERED: ASPIRIN 325 MG TAB PO SCH (09:00)
[2019-10-03 09:24] LABS: Glucose,Whole Blood 112 mg/dL (75-99)
--- NOTE | 2019-10-03 09:36 | NM ---
EXAMINATION TYPE: NM hepatobiliary w CCK DATE OF EXAM: 10/03/2019 COMPARISON: Ultrasound gallbladder 10/02/2019 HISTORY: Abdominal pain TECHNIQUE: After the intravenous administration of 4.31 mCi Tc 99m Mebrofenin hepatobiliary scintigra phy is performed. Immediate images post injection. FINDINGS: There is satisfactory initial accumulation of tracer by the liver. The gallbladder is visualized wit hin 12 minutes. The small bowel activity is noted within 6 minutes. At one hour CCK was administere d, patient was injected with 1.8 mcg of Kinevac, and gallbladder ejection fraction is calculated at 8 9 %, just above the upper limit of the normal range. Therefore there is no scintigraphic evidence of cystic or common bile duct obstruction to suggest acute cholecystitis. IMPRESSION: Findings could represent hyperdynamic gallbladder.
[2019-10-03 12:08] LABS: Glucose,Whole Blood 136 mg/dL (75-99)
[2019-10-03] MEDS: CLOPIDOGREL 75 MG TAB PO SCH (12:45)
[2019-10-03] MEDS: ASPIRIN 81 MG PO SCH (12:45)
[2019-10-03] MEDS: ISOSORBIDE MONONITRATE ER 30 MG TAB.ER.24H PO SCH (12:46)
[2019-10-03] MEDS: TRIAMTERENE-HCTZ 37.5-25MG 1 EACH TAB PO SCH (12:46)
[2019-10-03] MEDS: EZETIMIBE 10 MG TAB PO SCH (12:46)
[2019-10-03] MEDS: LISINOPRIL 10 MG TAB PO SCH (12:46)
[2019-10-03] MEDS: DICYCLOMINE 20 MG TAB PO SCH ×2 (12:46→14:04)
[2019-10-03] MEDS: PANTOPRAZOLE 40 MG/10 ML VIAL IVP SCH (12:46)
--- NOTE | 2019-10-03 15:30 | P.DS ---
Providers Date of admission: 10/02/19 05:36 Expected date of discharge: 10/03/19 Attending physician: Alban Terrell Consults: 10/02/19 05:34 Consult Physician Routine Consulting Provider: Ren Rocha Consult Reason/Comments: chest pain Do you want consulting provider notified?: Yes 10/02/19 12:28 Consult Physician Routine Consulting Provider: Delroy Hays Consult Reason/Comments: abd pain x2 months, worse after eating Do you want consulting provider notified?: Yes Primary care physician: Alban Terrell Hospital Course: Final Diagnoses: -Atypical chest pain, acute coronary syndrome ruled out as per cardiology. -Abdominal pain, normal abdominal x-ray, hyperdynamic gallbladder -Gastroesophageal reflux disease -CAD, history of FL and prior stents, most recently August 2019 -Diabetes mellitus, hyperglycemia, on insulin pump -history of sarcoidosis -Hypertension -Hyperlipidemia -Bladder cancer -History of nicotine dependence -Osteoarthritis Hospital course:This is 69-year-old gentleman with history of diabetes mellitus with insulin pump, gastroesophageal reflux disease, hypertension, hyperlipidemia, FL, recent heart catheterization with stents-September 03 2019, bladder cancer, former smoker, history of sarcoidosis, chronic intermittent asthma, COPD, chronic bilateral shoulder pain, presented to the ER with complaints of mid substernal chest tightness/heaviness, worsened when laying down secondary to his chronic bilateral shoulder pain .After taking a nitro with sublingual, developed lightheadedness accompanied by diaphoresis. Called EMS and on arrival to the second nitro sublingual which relieved the pain. Also reported abdominal pain that has been reoccurring on a regular basis since mid August usually after eating. Reports he does not have regular bowel movements, either has constipation or diarrhea. Last colonoscopy was greater than 5 years ago. Last night developed left upper quadrant abdominal pain accompanied by nausea. States it is not a sharp pain but feels like a "punch" that radiates thru to the back, between the shoulder blades.EKG reported sinus with right bundle branch block, left anterior fascicular block with poor R-wave progression. Cardiac enzymes negative 2. D-dimer 0.38. Chest x-ray reported no acute cardiopulmonary process. CBC unremarkable, electrolytes within normal limits, creatinine 1.2. Blood sugars 251 on admission. Cardiology consulted. Abdominal x-ray reported no acute abnormality. HIDA scan reported hyperdynamic gallbladder, EF 89% with no evidence of cystic or common bile duct obstruction to suggest acute cholecystitis. Evaluated by GI, Bentyl added to med regime. Underwent treadmill stress test, verbally reported as negative. Cleared by both GI and cardiology for discharge. She is being discharged home in stable condition with guarded prognosis. GEN: Alert and oriented 3, no acute distress CHEST: Clear to auscultation with no wheezing or rhonchi appreciated. HEART: Regular rate and rhythm. ABDOMEN: Soft, nontender, Bowel sounds are positive. NEUROLOGIC: No focal deficits. The impression and plan of care has been dictated as directed. : I performed a history and examination of this patient, discussed the same with the dictator. I agree with the dictator's note ,documented as a scribe. Any additional findings or plans will be noted. Patient Condition at Discharge: Stable Plan - Discharge Summary Discharge Rx Participant: No New Discharge Prescriptions: New Dicyclomine [Bentyl] 20 mg PO QID #60 tab Continue Omeprazole 20 mg PO DAILY Cetirizine HCl 10 mg PO HS Lisinopril [Zestril] 10 mg PO DAILY Insulin Aspart (For Pump) [NovoLOG (For Pump)] See Protocol SQ-PUMP CONTINUOUS Atorvastatin [Lipitor] 80 mg PO HS #30 tab Aspirin EC [Ecotrin Low Dose] 81 mg PO DAILY #30 tablet. Nitroglycerin Sl Tabs [Nitrostat] 0.4 mg SUBLINGUAL Q5M PRN #25 tab PRN Reason: Chest Pain Ezetimibe [Zetia] 10 mg PO DAILY #30 tab Famotidine [Pepcid] 20 mg PO DAILY Clopidogrel [Plavix] 75 mg PO DAILY Isosorbide Mononitrate [Isosorbide Mononitrate ER] 30 mg PO DAILY Triamterene/Hydrochlorothiazid [Triamterene-Hctz 37.5-25 mg Tb] 1 tab PO DAILY Discharge Medication List Cetirizine HCl 10 mg PO HS 07/19/17 [History] Insulin Aspart (For Pump) [NovoLOG (For Pump)] See Protocol SQ-PUMP CONTINUOUS 07/19/17 [History] Lisinopril [Zestril] 10 mg PO DAILY 07/19/17 [History] Omeprazole 20 mg PO DAILY 07/19/17 [History] Aspirin EC [Ecotrin Low Dose] 81 mg PO DAILY #30 tablet. 07/22/17 [Rx] Atorvastatin [Lipitor] 80 mg PO HS #30 tab 07/22/17 [Rx] Ezetimibe [Zetia] 10 mg PO DAILY #30 tab 02/02/18 [Rx] Nitroglycerin Sl Tabs [Nitrostat] 0.4 mg SUBLINGUAL Q5M PRN #25 tab 02/02/18 [Rx] Famotidine [Pepcid] 20 mg PO DAILY 08/27/18 [History] Clopidogrel [Plavix] 75 mg PO DAILY 10/25/18 [History] Isosorbide Mononitrate [Isosorbide Mononitrate ER] 30 mg PO DAILY 08/30/19 [History] Triamterene/Hydrochlorothiazid [Triamterene-Hctz 37.5-25 mg Tb] 1 tab PO DAILY 10/02/19 [History] Dicyclomine [Bentyl] 20 mg PO QID #60 tab 10/03/19 [Rx] Follow up Appointment(s)/Referral(s): Lawrence Gomes MD [STAFF PHYSICIAN] - 2 Weeks Alban Terrell DO [Primary Care Provider] - 3 Days Patient Instructions/Handouts: Chest Pain (DC)
[2019-10-03 16:50] VITALS: TEMP 98.1
[2019-10-03 16:57] LABS: Glucose,Whole Blood 214 mg/dL (75-99)
[2019-10-03 17:56] VITALS: RESP 17
[2019-10-03 18:04] LABS: Glucose,Whole Blood 222 mg/dL (75-99)
[2019-10-03 18:16] VITALS: BP 108/61; PULSE 84
--- NOTE | 2019-10-03 19:08 | ECHOS ---
STRESS ECHOCARDIOGRAM INDICATIONS: Chest pain. MEDICATIONS: BASELINE HEART RATE: 75 BASELINE BLOOD PRESSURE: 123/73 MAXIMUM HEART RATE: 135 MAXIMUM BLOOD PRESSURE: 190/62 85% MPHR: 129 100% MPHR: 152 METS: 5.4 MAXIMUM STAGE REACHED: 2 TOTAL EXERCISE TIME: 5:00 CLINICAL INFORMATION: The patient was exercised for a total period of 5 minutes. A peak heart rate of 135 was achieved. Maximum blood pressure of 190/62 mmHg was noted. Resting EKG shows normal sinus rhythm with normal NH interval and QRS duration and normal ST-T waves. No ST- segment depression suggestive of ischemia is noted. The baseline echocardiographic images reveal normal left ventricular chamber size with normal left ventricular systolic function. In the immediate post-exercise period, normal increase in the wall thickness and contractility is noted. FINAL IMPRESSION: This stress echocardiographic study is negative for stress-induced ischemia. Patient's exercise tolerance is average. MMODL / IJN: [id number] /
== END 2019-10-03 18:15 ==
LOC: EC 02:06 → 1SOBS 05:36
PROVIDERS: ADMIT Family Medicine; ATTEND Family Medicine
DX: R07.89 Other chest pain (principal); I45.2 Bifascicular block; E78.5 Hyperlipidemia, unspecified; K21.9 Gastro-esophageal reflux disease without esophagitis; E11.40 Type 2 diabetes mellitus with diabetic neuropathy, unspecified; E11.311 Type 2 diabetes mellitus with unspecified diabetic retinopathy with macular edema; Z79.4 Long term (current) use of insulin; Z96.41 Presence of insulin pump (external) (internal); I10 Essential (primary) hypertension; G89.29 Other chronic pain; M54.9 Dorsalgia, unspecified; M25.512 Pain in left shoulder; M25.511 Pain in right shoulder; I25.10 Atherosclerotic heart disease of native coronary artery without angina pectoris; E11.65 Type 2 diabetes mellitus with hyperglycemia; M19.90 Unspecified osteoarthritis, unspecified site; I25.2 Old myocardial infarction; J45.20 Mild intermittent asthma, uncomplicated; J44.9 Chronic obstructive pulmonary disease, unspecified; D86.9 Sarcoidosis, unspecified; M54.30 Sciatica, unspecified side; Z87.891 Personal history of nicotine dependence; Z95.5 Presence of coronary angioplasty implant and graft; Z98.42 Cataract extraction status, left eye; Z98.41 Cataract extraction status, right eye; Z96.652 Presence of left artificial knee joint; Z98.890 Other specified postprocedural states; E66.9 Obesity, unspecified; Z68.27 Body mass index [BMI] 27.0-27.9, adult; Z85.51 Personal history of malignant neoplasm of bladder; Z83.3 Family history of diabetes mellitus; Z82.49 Family history of ischemic heart disease and other diseases of the circulatory system; Z80.42 Family history of malignant neoplasm of prostate; N40.0 Benign prostatic hyperplasia without lower urinary tract symptoms; Z79.02 Long term (current) use of antithrombotics/antiplatelets; Z79.82 Long term (current) use of aspirin; Z79.899 Other long term (current) drug therapy
CPT/HCPCS: 96375; 96376; 96374; 99285; 36415; 93005; 93351; 85379; 80061; 80053; 80048; 82150; 83690; 83735; 84484; 85025 ×2; 85610; 85730; 71045; 74018; 76705; 78227; G0378 ×2; C8924; A9537; J2270; J2805; C9113 ×2; Q9950; 93308

== ENCOUNTER → 2020-03-17 | Outpatient (CLI) | payer MEDICARE ==
[2020-03-17 11:05] LABS: Basophils # (A) 0.1 k/uL (0-0.2); Basophils % (A) 1 %; Eosinophils # (A) 0.2 k/uL (0-0.7); Eosinophils % (A) 2 %; HCT 43.7 % (39.0-53.0); HGB 13.7 gm/dL (13.0-17.5); Lymphocytes # (A) 2.4 k/uL (1.0-4.8); Lymphocytes % (A) 29 %; MCH 28.9 pg (25.0-35.0); MCHC 31.4 g/dL (31.0-37.0); Mean Platelet Volume 6.9; Monocytes # (A) 0.7 k/uL (0-1.0); Monocytes % (A) 8 %; Neutrophils # (A) 4.9 k/uL (1.3-7.7); Neutrophils % (A) 58 %; Platelet Count 241 k/uL (150-450); RBC 4.75 m/uL (4.30-5.90); RDW 13.5 % (11.5-15.5); WBC 8.4 k/uL (3.8-10.6)
[2020-03-17 12:39] LABS: Erythrocyte Sedimentation Rate 4 mm/hr (0-15)
== END | disposition home or self-care (01) ==
LOC: LABWHC1 09:43
PROVIDERS: ATTEND Orthopaedic Surgery
DX: M25.562 Pain in left knee (principal)
CPT/HCPCS: 36415; 85025; 85652; 86140

== ENCOUNTER → 2020-03-28 | Outpatient (CLI) | payer MEDICARE ==
--- NOTE | 2020-03-28 13:00 | NM ---
EXAMINATION TYPE: NM bone 3 phase DATE OF EXAM: 03/28/2020 COMPARISON: Plain film left knee 03/17/2020 HISTORY: Left knee pain Triple phase bone scintigraphy was performed following the injection of 25 mCi Tc 99m MDP. Immediate images and 4 hours post injection images acquired. FINDINGS: Increased blood flow and blood pool activity is noted to the left knee is compared to the right, more towards the femoral component. Delayed imaging shows uptake along the tibial plateau and tibial comp onent as well as the patella, lateral aspect of the femoral component. IMPRESSION: Correlate for loosening patient's left knee arthroplasty, infection not excluded.
== END | disposition home or self-care (01) ==
LOC: RADNMMAIN 07:19
PROVIDERS: ATTEND Orthopaedic Surgery
DX: M79.662 Pain in left lower leg (principal)
CPT/HCPCS: 78315; A9503

== ENCOUNTER → 2020-08-12 | Outpatient (CLI) | payer MEDICARE ==
[2020-08-12 14:20] LABS: HCT 46.7 % (39.0-53.0); HGB 14.4 gm/dL (13.0-17.5); MCH 28.7 pg (25.0-35.0); MCHC 30.9 g/dL (31.0-37.0); MCV 92.9 fL (80.0-100.0); Mean Platelet Volume 6.9; Platelet Count 244 k/uL (150-450); RBC 5.03 m/uL (4.30-5.90); WBC 8.3 k/uL (3.8-10.6)
[2020-08-12 14:30] LABS: African American GFR (CKD) >90 (>60 ml/min/1.73 sqM); Anion Gap 5 mmol/L; Blood Urea Nitrogen 24 mg/dL (9-20); Carbon Dioxide 28 mmol/L (22-30); Chloride 106 mmol/L (98-107); Magnesium 2.2 mg/dL (1.6-2.3); Non-African American GFR(CKD) 80 (>60 ml/min/1.73 sqM); Potassium 4.8 mmol/L (3.5-5.1); Sodium 139 mmol/L (137-145)
== END | disposition home or self-care (01) ==
LOC: LABPAT 12:25
PROVIDERS: ATTEND Internal Medicine Interventional Cardiology
DX: Z01.818 Encounter for other preprocedural examination (principal); I25.10 Atherosclerotic heart disease of native coronary artery without angina pectoris
CPT/HCPCS: 36415; 80051; 82565; 83735; 84520; 85027

== ENCOUNTER 2020-08-19 06:15 | Day surgery (SDC) | payer MEDICARE ==
[2020-08-12 11:44] VITALS: BMI 28.0
[~2020-08-19 06:15] MED LIST changes: +ASPIRIN 325 MG TAB PO ONE; -ASPIRIN 325 MG TAB PO STA; +ATORVASTATIN 80 MG TAB PO ONE; -ATORVASTATIN 80 MG TAB PO STA
[2020-08-19] MEDS ORDERED: SODIUM CHLORIDE 0.9% 1,000 ML IV ONE (06:57)
[2020-08-19 07:01] LABS: Glucose,Whole Blood 140 mg/dL (75-99)
[2020-08-19 07:03] VITALS: RESP 16; TEMP 98.6
[2020-08-19] MEDS ORDERED: MIDAZOLAM 2 MG/2 ML VIAL IV ONE (08:00)
[2020-08-19] MEDS ORDERED: LIDOCAINE 1% INJ 10MG/ML (20 ML MDV) SQ ONE (08:01)
[2020-08-19] MEDS ORDERED: BIVALIRUDIN BOLUS 250 MG/50 ML IV ONE (08:24)
[2020-08-19] MEDS ORDERED: BIVALIRUDIN 250 MG in SODIUM CHLORIDE 0.9% 50 ML IV ONE (08:25)
[2020-08-19] MEDS ORDERED: ADENOSINE 90 MG in SODIUM CHLORIDE 0.9% 60 ML IVP ONE (08:39)
[2020-08-19] MEDS ORDERED: IOPAMIDOL-370 125ML BTL INJ ONE (08:40)
[2020-08-19] MEDS ORDERED: RX INFO: IV CONTRAST WAS GIVEN 1 EACH MISC MISCELLANE PRN (08:45)
[2020-08-19] MEDS ORDERED: SODIUM CHLORIDE 0.9% 1,000 ML IV SCH (08:45)
[2020-08-19 09:12] LABS: Glucose,Whole Blood 111 mg/dL (75-99)
--- NOTE | 2020-08-19 10:19 | CC ---
CARDIAC CATHETERIZATION REPORT DATE OF SERVICE: 08/19/2020 PERFORMING PHYSICIAN: Lawrecne Gomes MD. PROCEDURE PERFORMED: 1. Selective right and left coronary angiogram. 2. Left heart catheterization. 3. Fractional flow reserve of the right coronary artery. INDICATION: This is a 70-year-old gentleman with coronary artery disease and prior stenting of the LCX and RCA who was experiencing symptoms of chest pain with exertion concerning for severe underlying coronary artery disease. Because of that, a heart catheterization was advised. APPROACH: Right common femoral artery. COMPLICATION: None. LEVEL OF SEDATION: Moderate with sedation length of 43 minutes. PROCEDURE DESCRIPTION: After obtaining an informed consent, the patient was brought to the cardiac radiographer cardiac catheterization. The right common femoral artery was cannulated using micropuncture technique, the micropuncture wire passed easily, then I placed a 6-Urdu sheath at the right common femoral artery. Selective right coronary angiogram and left coronary angiogram were performed using Jarrod Oconnor posterior catheter. The patient is known to have the left circumflex and LAD originating from the right coronary artery. Left heart catheterization was performed using a Jarrod right catheter as well. After that, the FFR of the RCA, please see a separate paragraph for that. SELECTIVE CORONARY ANGIOGRAM: 1. The right coronary artery is a large caliber vessel, it is a dominant vessel. The RCA in the proximal portion appeared to be angiographically normal. In the midportion has a lesion appeared to be in the range of 60%. FFR was performed and came into be at 0.81. The RCA distally is normal and bifurcates into PDA and PLV branches. Both PDA and PLV are stented and the stents are patent. 2. The left main does not exist. 3. The left circumflex is originating from the right coronary artery and appeared to be stented and the stent is patent. 4. The LAD is also originating from the right coronary artery and appeared to have mild disease only. 5. HEMODYNAMICS: The LVEDP was 10 to 12 mmHg without significant gradient across the aortic valve. 6. FFR of the RCA: Anticoagulation was achieved with Angiomax. After zeroing the Doppler wire and equalizing between the Doppler wire and the guiding catheter with an FFR per IV adenosine infusion. The FFR came in to be at 0.81. CONCLUSION: 1. Intermediate to severe lesion involving the mid RCA. FFR was applied and came in to be at 0.81. 2. Patent stent in the PLV and PDA branches of the RCA. 3. Patent stent in the left circumflex. 4. Mild disease involving the LAD. POSTPROCEDURE MANAGEMENT: 1. Medical treatment. 2. Follow up with the patient. MMODL / IJN: [id number] /
[2020-08-19] MEDS ORDERED: ACETAMINOPHEN TAB 500 MG TAB PO ONE (11:17)
[2020-08-19 11:19] LABS: Glucose,Whole Blood 108 mg/dL (75-99)
[2020-08-19 16:26] VITALS: BP 158/75; PULSE 62
[2020-08-19 16:47] LABS: Glucose,Whole Blood 156 mg/dL (75-99)
== END 2020-08-19 17:55 | disposition home or self-care (01) ==
LOC: CATHCVL 06:15
PROVIDERS: ATTEND Internal Medicine Interventional Cardiology
DX: I25.110 Atherosclerotic heart disease of native coronary artery with unstable angina pectoris (principal); R07.89 Other chest pain; R06.02 Shortness of breath; I10 Essential (primary) hypertension; E78.00 Pure hypercholesterolemia, unspecified; E78.5 Hyperlipidemia, unspecified; E11.9 Type 2 diabetes mellitus without complications; I25.5 Ischemic cardiomyopathy; Z95.5 Presence of coronary angioplasty implant and graft; Z87.448 Personal history of other diseases of urinary system; Z98.890 Other specified postprocedural states; Z72.0 Tobacco use; Z79.899 Other long term (current) drug therapy; Z79.4 Long term (current) use of insulin; Z79.82 Long term (current) use of aspirin; Z79.02 Long term (current) use of antithrombotics/antiplatelets; Z82.49 Family history of ischemic heart disease and other diseases of the circulatory system
CPT/HCPCS: 93571; 93458; C1887; C1769 ×4; C1894 ×2; J2250; J2001; J0583; J0153; Q9967

== ENCOUNTER → 2020-10-02 | Outpatient (CLI) | payer MEDICARE ==
[2020-10-02 11:32] LABS: HCT 44.1 % (39.0-53.0); HGB 14.3 gm/dL (13.0-17.5); MCH 29.6 pg (25.0-35.0); MCHC 32.3 g/dL (31.0-37.0); MCV 91.4 fL (80.0-100.0); Mean Platelet Volume 6.8; Platelet Count 247 k/uL (150-450); RBC 4.83 m/uL (4.30-5.90); RDW 12.9 % (11.5-15.5); WBC 8.2 k/uL (3.8-10.6)
[2020-10-02 11:46] LABS: African American GFR (CKD) >90 (>60 ml/min/1.73 sqM); Anion Gap 6 mmol/L; Blood Urea Nitrogen 25 mg/dL (9-20); Carbon Dioxide 26 mmol/L (22-30); Chloride 106 mmol/L (98-107); Non-African American GFR(CKD) 88 (>60 ml/min/1.73 sqM); Potassium 4.6 mmol/L (3.5-5.1); Sodium 138 mmol/L (137-145)
== END | disposition home or self-care (01) ==
LOC: LABPAT 10:34
PROVIDERS: ATTEND Internal Medicine Interventional Cardiology
DX: Z01.818 Encounter for other preprocedural examination (principal); I25.10 Atherosclerotic heart disease of native coronary artery without angina pectoris
CPT/HCPCS: 80051; 82565; 84520; 85027

== ENCOUNTER 2020-10-07 06:51 | Day surgery (SDC) | payer MEDICARE ==
[2020-10-01 09:30] VITALS: BMI 28.6
[~2020-10-07 06:51] MED LIST changes: -ASPIRIN 325 MG TAB PO ONE; -ATORVASTATIN 80 MG TAB PO ONE
[2020-10-07] MEDS ORDERED: ASPIRIN 325 MG TAB PO ONE (07:00)
[2020-10-07] MEDS ORDERED: HEPARIN SODIUM,PORCINE 2,500 UNIT in SODIUM CHLORIDE 0.9% 250 ML IRRIGATION PRN (07:00)
[2020-10-07] MEDS ORDERED: HEPARIN SODIUM,PORCINE 10,000 UNIT in SODIUM CHLORIDE 0.9% 1,000 ML IRRIGATION PRN (07:00)
[2020-10-07] MEDS ORDERED: SODIUM CHLORIDE 0.9% 1,000 ML IV ONE (07:18)
[2020-10-07 07:37] LABS: Glucose,Whole Blood 158 mg/dL (75-99)
[2020-10-07] MEDS ORDERED: LIDOCAINE 1% INJ 10MG/ML (20 ML MDV) SQ ONE (08:36)
[2020-10-07] MEDS: fentaNYL (PF) 50 MCG/ML 2 ML AMP IV ONE ×2 (08:36→09:10)
[2020-10-07] MEDS ORDERED: MIDAZOLAM 2 MG/2 ML VIAL IV ONE (08:37)
[2020-10-07] MEDS ORDERED: BIVALIRUDIN BOLUS 250 MG/50 ML IV ONE (08:40)
[2020-10-07] MEDS ORDERED: METOCLOPRAMIDE 5 MG/ML 2 ML VIAL IVP STA (08:41)
[2020-10-07] MEDS ORDERED: BIVALIRUDIN 250 MG in SODIUM CHLORIDE 0.9% 50 ML IV ONE (08:41)
[2020-10-07] MEDS ORDERED: NITROGLYCERIN 1000MCG/10ML SYRINGE INTRACORON ONE (08:57)
[2020-10-07] MEDS ORDERED: FAMOTIDINE 20 MG/2 ML VIAL IV SCH (09:00)
[2020-10-07] MEDS ORDERED: IOPAMIDOL-370 125ML BTL INJ ONE (09:01)
[2020-10-07] MEDS ORDERED: CLOPIDOGREL 75 MG TAB PO ONE (09:01)
[2020-10-07] MEDS ORDERED: niCARdipine Syringe (1,000 mcg/10 mL) IV ONE (09:04)
[2020-10-07] MEDS ORDERED: NITROGLYCERIN SL TABS 0.4 MG TAB SUBLINGUAL PRN ×2 (09:13→09:14)
[2020-10-07] MEDS ORDERED: ACETAMINOPHEN TAB 500 MG TAB PO PRN (09:13)
[2020-10-07] MEDS ORDERED: RX INFO: IV CONTRAST WAS GIVEN 1 EACH MISC MISCELLANE PRN (09:14)
[2020-10-07] MEDS ORDERED: ZOLPIDEM 5 MG TAB PO PRN (09:14)
[2020-10-07] MEDS ORDERED: MAG HYDROX/AL HYDROX/SIMETH 30 ML CUP PO PRN (09:14)
[2020-10-07] MEDS ORDERED: ATROPINE SULFATE 0.1 MG/ML 10ML SYRINGE IV PRN (09:14)
[2020-10-07] MEDS ORDERED: SODIUM CHLORIDE 0.9% 1,000 ML IV SCH (09:15)
[2020-10-07 09:31] LABS: Glucose,Whole Blood 165 mg/dL (75-99)
--- NOTE | 2020-10-07 09:57 | LTR ---
October 07, 2020 Re: Gregor Bernal Dear Dr. Terrell: MrWilliam Bernal underwent successful stenting of the right coronary artery with a good angiographic result. I want to thank you for allowing me to participate in his care. Sincerely, MD JEOVANY Fonseca / TEMI: [id number] /
--- NOTE | 2020-10-07 09:57 | PTCA ---
PERCUTANEOUSTRANS CORORONARY ANGIOGRAPHY PERCUTANEOUS CORONARY INTERVENTION DATE OF SERVICE: October 07, 2020 PERFORMING PHYSICIAN: Lawrence Gomes MD. PROCEDURE PERFORMED: Successful stenting of the mid right coronary artery using a 4.0 x 15 mm Xience drug- eluting stent with an excellent angiographic result and reduction of stenosis from 70% to 0%. INDICATION: This is a 70-year-old gentleman with coronary artery disease and prior stenting of the RCA who was experiencing symptoms of chest discomfort. He underwent a heart catheterization recently and was found to have intermediate to severe lesion involving the right coronary artery. He underwent an FFR of the RCA and that came in to be at 0.81. Because of that, he was treated medically, but unfortunately continues to have chest discomfort and because of that, a PCI of the RCA was advised. APPROACH: Right common femoral artery. COMPLICATION: None. LEVEL OF SEDATION: Moderate with sedation length of 32 minutes. PROCEDURE DESCRIPTION: After obtaining an informed consent, the patient was brought to the cardiac laboratory animal caretaker. The right common femoral artery was cannulated using micropuncture technique and a micropuncture wire passed easily then I placed a 6-Bruneian sheath at the right groin. Anticoagulation was initiated using Angiomax with bolus and a drip. Subsequently, I did engage the RCA using Mario right catheter. After attempting JR4 guide, which was unsuccessful. I did wire the RCA using a run-through wire. After that, I did do balloon angioplasty using 3.5 x 15 mm balloon before I deployed 4.0 x 15 mm Xience drug-eluting stent where the stent was positioned under fluoroscopy guidance and deployed under its nominal pressure. After that I post-dilated the stent using 4.5 mm balloon. The balloon was noncompliant balloon. The procedure was completed without any complication. POSTPROCEDURE MANAGEMENT: 1. Dual anti-platelet therapy. 2. Risk factor modifications. 3. Follow up with the patient. MMODL / IJN: [id number] /
[2020-10-07 11:15] LABS: Glucose,Whole Blood 152 mg/dL (75-99)
[2020-10-07] MEDS ORDERED: INSPUCOR MISCELLANE PRN (16:46)
[2020-10-07] MEDS ORDERED: INSULIN PUMP BASAL RATES 1 EACH MISC MISCELLANE PRN (16:46)
[2020-10-07] MEDS ORDERED: INSULIN ASPART (NovoLOG) 100 UNIT/ML VIAL SQ PRN (16:46)
[2020-10-07 17:21] LABS: Glucose,Whole Blood 250 mg/dL (75-99)
[2020-10-07] MEDS: INSULIN PUMP MEAL BOLUS 1 UNIT MISC MISCELLANE SCH ×2 (18:42→20:49)
[2020-10-07 20:42] LABS: Glucose,Whole Blood 159 mg/dL (75-99)
[2020-10-07] MEDS ORDERED: LORATADINE 10 MG TAB PO SCH (21:00)
[2020-10-07] MEDS ORDERED: ATORVASTATIN 80 MG TAB PO SCH (21:00)
[2020-10-08 06:25] LABS: Glucose,Whole Blood 146 mg/dL (75-99)
[2020-10-08] MEDS ORDERED: PANTOPRAZOLE 40 MG TABLET PO SCH (07:30)
[2020-10-08 08:21] VITALS: BP 124/56; PULSE 74; RESP 17; TEMP 98.3
[2020-10-08] MEDS: INSULIN PUMP MEAL BOLUS 1 UNIT MISC MISCELLANE SCH (08:24)
[2020-10-08 08:35] LABS: Basophils # (A) 0.1 k/uL (0-0.2); Basophils % (A) 1 %; Eosinophils # (A) 0.1 k/uL (0-0.7); Eosinophils % (A) 2 %; HCT 43.7 % (39.0-53.0); Lymphocytes # (A) 1.9 k/uL (1.0-4.8); Lymphocytes % (A) 27 %; MCH 29.3 pg (25.0-35.0); MCV 91.7 fL (80.0-100.0); Mean Platelet Volume 7.1; Monocytes # (A) 0.4 k/uL (0-1.0); Monocytes % (A) 6 %; Neutrophils # (A) 4.5 k/uL (1.3-7.7); Neutrophils % (A) 63 %; Platelet Count 217 k/uL (150-450); RBC 4.77 m/uL (4.30-5.90); WBC 7.2 k/uL (3.8-10.6)
[2020-10-08] MEDS ORDERED: ASPIRIN 81 MG PO SCH (09:00)
[2020-10-08] MEDS ORDERED: FUROSEMIDE 20 MG TAB PO SCH (09:00)
[2020-10-08] MEDS ORDERED: CLOPIDOGREL 75 MG TAB PO SCH (09:00)
[2020-10-08] MEDS ORDERED: EZETIMIBE 10 MG TAB PO SCH (09:00)
[2020-10-08] MEDS ORDERED: CALCIUM CARB-VIT D 500 MG-5 MCG TAB PO SCH (09:00)
[2020-10-08] MEDS ORDERED: lisinopriL 20 MG TAB PO SCH (09:00)
[2020-10-08] MEDS ORDERED: MULTIVITAMINS, THERA 1 EACH TAB PO SCH (09:00)
[2020-10-08] MEDS ORDERED: ISOSORBIDE MONONITRATE ER 60 MG TAB.ER.24H PO SCH (09:00)
[2020-10-08 09:01] LABS: African American GFR (CKD) >90 (>60 ml/min/1.73 sqM); Anion Gap 4 mmol/L; Blood Urea Nitrogen 19 mg/dL (9-20); Carbon Dioxide 27 mmol/L (22-30); Chloride 105 mmol/L (98-107); Glucose 314 mg/dL (74-99); Non-African American GFR(CKD) 89 (>60 ml/min/1.73 sqM); Potassium 4.2 mmol/L (3.5-5.1); Sodium 136 mmol/L (137-145)
--- NOTE | 2020-10-08 10:01 | P.DS ---
Providers Date of admission: October 072020 Attending physician: Lawrence Gomes Consults: 10/07/20 09:14 Consult Physician Routine Consulting Provider: [facility] Consult Reason/Comments: Post Interventional patient Do you want consulting provider notified?: Already Contacted Primary care physician: Alban Terrell [facility] Course: This is a 70-year-old gentleman who was admitted to the hospital yesterday and underwent successful stenting of the midright coronary artery with an excellent angiographic results. The patient was seen and examined this morning. The right groin is soft and non tender and without any bruises. The blood was reviewed. The patient is going to be discharged home on dual antiplatelet therapy and the intensity statin and I will follow-up with him in a week in the office Plan - Discharge Summary Discharge Rx Participant: No New Discharge Prescriptions: Continue Omeprazole 20 mg PO DAILY Cetirizine HCl 10 mg PO HS lisinopriL [Zestril] 20 mg PO DAILY Insulin Aspart (For Pump) [NovoLOG (For Pump)] See Protocol SQ-PUMP CONTINUOUS Atorvastatin [Lipitor] 80 mg PO HS #30 tab Aspirin EC [Ecotrin Low Dose] 81 mg PO DAILY #30 tablet. Nitroglycerin Sl Tabs [Nitrostat] 0.4 mg SUBLINGUAL Q5M PRN #25 tab PRN Reason: Chest Pain Ezetimibe [Zetia] 10 mg PO DAILY #30 tab Clopidogrel [Plavix] 75 mg PO DAILY Isosorbide Mononitrate [Isosorbide Mononitrate ER] 60 mg PO DAILY Acetaminophen [Tylenol Extra Strength] 1,000 mg PO Q8H PRN PRN Reason: Pain Furosemide [Lasix] 20 mg PO DAILY Multivitamins, Thera [Multivitamin (formulary)] 1 tab PO DAILY Calcium/Magnesium/Zinc [Bboafhw-Jxyifiwzv-Ulwx Tablet] 1 each PO DAILY Discharge Medication List Cetirizine HCl 10 mg PO HS 07/19/17 [History] Insulin Aspart (For Pump) [NovoLOG (For Pump)] See Protocol SQ-PUMP CONTINUOUS 07/19/17 [History] Omeprazole 20 mg PO DAILY 07/19/17 [History] lisinopriL [Zestril] 20 mg PO DAILY 07/19/17 [History] Aspirin EC [Ecotrin Low Dose] 81 mg PO DAILY #30 tablet. 07/22/17 [Rx] Atorvastatin [Lipitor] 80 mg PO HS #30 tab 07/22/17 [Rx] Ezetimibe [Zetia] 10 mg PO DAILY #30 tab 02/02/18 [Rx] Nitroglycerin Sl Tabs [Nitrostat] 0.4 mg SUBLINGUAL Q5M PRN #25 tab 02/02/18 [Rx] Clopidogrel [Plavix] 75 mg PO DAILY 10/25/18 [History] Isosorbide Mononitrate [Isosorbide Mononitrate ER] 60 mg PO DAILY 08/30/19 [History] Acetaminophen [Tylenol Extra Strength] 1,000 mg PO Q8H PRN 08/12/20 [History] Calcium/Magnesium/Zinc [Toivtwx-Jhgupwyxg-Rcgy Tablet] 1 each PO DAILY 10/01/20 [History] Furosemide [Lasix] 20 mg PO DAILY 10/01/20 [History] Multivitamins, Thera [Multivitamin (formulary)] 1 tab PO DAILY 10/01/20 [History] Follow up Appointment(s)/Referral(s): Lawrence Gomes MD [STAFF PHYSICIAN] - 10/14/20 2:45 pm (appointment is at [facility] office ) Patient Instructions/Handouts: Left Heart Catheterization (DC), Procedural Sedation (ED) Activity/Diet/Wound Care/Special Instructions: CARDIAC CATH Support your puncture site by applying firm, steady pressure whenever you cough, laugh, sneeze or bear down to have a bowel movement (2-day restriction). Watch for any excessive bruising, active bleeding, a firm knot forming under your skin, extreme tenderness and signs of infection (redness, swelling, fever). Shower daily, do not soak puncture in a tub bath, jacuzzi, pool, nguyen etc. for 1 week. This is to prevent risk of infection. Drink plenty of fluids the day of and day after your procedure to flush contrast dye out of your kidneys. Take all medications as directed. Never stop any new medication without your physicians OK. No driving for 2 days after procedure. 10- pound weight lifting restriction for 1 week. Low sodium/low fat diet. Activity limited until follow up appointment with your visual developer. In case of any problems, please call [facility] [place] @ [phone]
== END 2020-10-08 11:03 | disposition home or self-care (01) ==
LOC: CATHCVL 06:51 → 3SCARD 14:43 → CATHCVL 10-08 11:03
PROVIDERS: ATTEND Internal Medicine Interventional Cardiology
DX: I25.10 Atherosclerotic heart disease of native coronary artery without angina pectoris (principal); I10 Essential (primary) hypertension; E78.5 Hyperlipidemia, unspecified; Z95.5 Presence of coronary angioplasty implant and graft; E11.9 Type 2 diabetes mellitus without complications; Z82.49 Family history of ischemic heart disease and other diseases of the circulatory system; Z72.0 Tobacco use
CPT/HCPCS: 80048; 85025; C9600; C1887 ×2; C1725 ×2; C1769 ×3; C1894; C1760; C1874; J2250; J2001; J3010; J0583; Q9967

== ENCOUNTER → 2020-12-08 | Outpatient (CLI) | payer MEDICARE ==
--- NOTE | 2020-12-08 17:37 | CT ---
EXAMINATION TYPE: CT angio chest DATE OF EXAM: 12/08/2020 5:11 PM COMPARISON: Same-day radiograph. CT 08/26/2018. HISTORY: Dyspnea and chest pain. CT DLP: 580 mGycm Automated exposure control for dose reduction was used. CONTRAST: CTA scan of the thorax is performed with IV Contrast, patient injected with 100ml mL of Isovue 370, p ulmonary embolism protocol. MIP images are created and reviewed. FINDINGS: LUNGS: There is mild tree in bud pattern opacities in the right lower and middle lobes. There is resi dual mild left upper lobe opacity/scarring. No pleural effusion or pneumothorax. MEDIASTINUM: There is satisfactory enhancement of the pulmonary artery and its branches, there is no CT evidence for pulmonary embolism. There are no greater than 1 cm hilar or mediastinal lymph nodes. No pericardial effusion is seen. OTHER: No additional significant abnormality is seen. Left shoulder arthroplasty seen. IMPRESSION: NO ACUTE PE. MILD RIGHT LOWER AND MIDDLE LOBE TREE-IN-BUD PATTERN OPACITIES, LESS PROMINENT COMPARED TO 08/26/2018 CT. FINDINGS MAY REPRESENT CHRONIC CHANGES VERSUS RECURRENT ATYPICAL INFECTION.
== END ==
LOC: RADCTMAIN 16:23
PROVIDERS: ATTEND Internal Medicine
DX: R91.8 Other nonspecific abnormal finding of lung field (principal); R06.09 Other forms of dyspnea
CPT/HCPCS: 82565; 84520; 71275; 36415; Q9967

== ENCOUNTER 2021-03-23 | Observation (INO) | payer MEDICARE | END 2021-03-25 14:33 | disposition home or self-care (01) | PROVIDERS: ADMIT Family Medicine ==

== ENCOUNTER 2021-04-16 15:58 | Emergency (ER) | payer MEDICARE ==
[2021-04-16 16:03] VITALS: TEMP 98.4
[2021-04-16] MEDS ORDERED: MORPHINE SULFATE 4 MG/ML SYRINGE IV STA (16:05)
[2021-04-16] MEDS ORDERED: ASPIRIN 81 MG PO STA (16:05)
[2021-04-16 16:46] LABS: Basophils # (A) 0.1 k/uL (0-0.2); Basophils % (A) 1 %; Eosinophils # (A) 0.2 k/uL (0-0.7); Eosinophils % (A) 2 %; HCT 41.1 % (39.0-53.0); HGB 13.9 gm/dL (13.0-17.5); Lymphocytes # (A) 2.6 k/uL (1.0-4.8); Lymphocytes % (A) 35 %; MCH 31.6 pg (25.0-35.0); MCHC 33.8 g/dL (31.0-37.0); MCV 93.5 fL (80.0-100.0); Mean Platelet Volume 6.7; Monocytes # (A) 0.6 k/uL (0-1.0); Monocytes % (A) 8 %; Neutrophils # (A) 3.8 k/uL (1.3-7.7); Neutrophils % (A) 52 %; Platelet Count 245 k/uL (150-450); RBC 4.39 m/uL (4.30-5.90); RDW 13.6 % (11.5-15.5); WBC 7.3 k/uL (3.8-10.6)
[2021-04-16 16:56] LABS: INR 0.9 (<1.2); Partial Thromboplastin Time 23.4 sec (22.0-30.0); Prothrombin Time 10.2 sec (9.0-12.0)
--- NOTE | 2021-04-16 16:56 | XR ---
EXAMINATION TYPE: XR chest 1V portable DATE OF EXAM: 04/16/2021 COMPARISON: 03/23/2021. HISTORY: Chest pain. TECHNIQUE: Single frontal view of the chest is obtained. FINDINGS: There is no focal air space opacity, pleural effusion, or pneumothorax seen. The cardiac silhouette size is within normal limits. The osseous structures are stable. Left shoulder arthropla sty again seen. IMPRESSION: No acute process.
[2021-04-16 16:57] LABS: Potassium 4.3 mmol/L (3.5-5.1)
[2021-04-16 16:58] LABS: Albumin 3.9 g/dL (3.5-5.0); Magnesium 2.1 mg/dL (1.6-2.3); Total Bilirubin 0.2 mg/dL (0.2-1.3); Total Protein 6.3 g/dL (6.3-8.2)
[2021-04-16 18:59] VITALS: BP 106/59; PULSE 61; RESP 16
--- NOTE | 2021-04-16 19:36 | ED ---
Chest Pain HPI - General Chief Complaint: Chest Pain Stated Complaint: Chest pain Time Seen by Provider: 04/16/21 16:04 Source: patient Mode of arrival: ambulatory Limitations: no limitations - History of Present Illness Initial Comments: Patient complains of chest pain. His symptoms began yesterday. Nothing makes it better or worse. The pain is the middle of the chest. It doesn't radiate nor. He was doing anything when this began. He didn't take any medicine for this. He has no nausea or diaphoresis. He has no focal weakness. He has no paresthesias. He has had no loss of continence. He has had no loss of consciousness. - Related Data Home Medications Medication Instructions Recorded Confirmed Cetirizine HCl 10 mg PO HS 07/19/17 04/16/21 Omeprazole 20 mg PO DAILY 07/19/17 04/16/21 Clopidogrel [Plavix] 75 mg PO DAILY 10/25/18 04/16/21 Acetaminophen [Tylenol Extra 1,000 mg PO HS 08/12/20 04/16/21 Strength] Furosemide [Lasix] 20 mg PO DAILY PRN 10/01/20 04/16/21 Calcium/Magnesium/Zinc/Vitamin D3 1 tab PO HS 03/23/21 04/16/21 Insulin Aspart (For Pump) [NovoLOG 0.01 unit SQ-PUMP CONTINUOUS 03/23/21 04/16/21 (For Pump)] Aspirin EC [Ecotrin Low Dose] 81 mg PO DAILY 04/16/21 04/16/21 Isosorbide Mononitrate ER [Imdur] 60 mg PO DAILY 04/16/21 04/16/21 Multivitamins, Thera [Multivitamin 1 tab PO DAILY 04/16/21 04/16/21 (formulary)] Phenylephrine HCl 10 mg PO DAILY 04/16/21 04/16/21 Ranolazine [Ranolazine ER] 1,000 mg PO BID 04/16/21 04/16/21 lisinopriL 20 mg PO DAILY 04/16/21 04/16/21 Previous Rx's Medication Instructions Recorded Atorvastatin [Lipitor] 80 mg PO HS #30 tab 07/22/17 Ezetimibe [Zetia] 10 mg PO DAILY #30 tab 02/02/18 Nitroglycerin Sl Tabs [Nitrostat] 0.4 mg SUBLINGUAL Q5M PRN #25 tab 02/02/18 Allergies Allergy/AdvReac Type Severity Reaction Status Date / Time No Known Allergies Allergy Verified 04/16/21 17:56 Review of Systems ROS Statement: Those systems with pertinent positive or pertinent negative responses have been documented in the HPI. ROS Other: All systems not noted in ROS Statement are negative. EKG Findings - EKG Comments: EKG Findings:: Twelve-lead EKG shows ventricular rate 71 bpm, normal LA interval Joseluis complexes, no ST elevation or depression, interpreted by me as normal sinus rhythm. Past Medical History Past Medical History: Cancer, Chest Pain / Angina, Diabetes Mellitus, GERD/Reflux, Hypertension, Myocardial Infarction ([place]), Osteoarthritis (OA), Prostate Disorder Additional Past Medical History / Comment(s): Chronic back , sciaticia, uses insulin pump, SARCOIDOSIS, PAST BLADDER CANCER-chemo onetime directly into bladder, SEASONAL ALLERGIES, OCC CONSTIPATION, neuropathy, BPH, macular edema- getting eye injections Last Myocardial Infarction Date:: 07/19/17 History of Any Multi-Drug Resistant Organisms: None Reported Past Surgical History: Back Surgery, Heart Catheterization, Heart Catheterization With Stent, Joint Replacement, Orthopedic Surgery Additional Past Surgical History / Comment(s): X3 SX FOR BLADDER CANCER, ASVITA CATARACTS, COLONOSCOPY, RT ANKLE SX, SAVITA CARPAL TUNNEL, LT KNEE REPLACEMENT, SAVITA SHOULDER ROTATOR CUFF SX x2, LAMINECTOMY X2, THORACOTOMY/BX FOR NODULES ON LYMPH NODES(SARCOIDOSIS), 7 trigger finger releases, aug 2019 RCA stent- 5 total cardiac stents,left total reversed shoulder Past Anesthesia/Blood Transfusion Reactions: Previous Problems w/ Anesthesia, Postoperative Nausea & Vomiting (PONV) Additional Past Anesthesia/Blood Transfusion Reaction / Comment(s): anesthesia dropped BP once & was in recovery longer with a shoulder surgery.no hx blood transfusion Date of Last Stent Placement:: september 2020 Past Psychological History: No Psychological Hx Reported Smoking Status: Former smoker Past Alcohol Use History: Occasional Past Drug Use History: None Reported - Past Family History Father Family Medical History: Diabetes Mellitus Mother Family Medical History: Coronary Artery Disease (CAD), Diabetes Mellitus, Hypertension Brother(s) Family Medical History: Cancer Additional Family Medical History / Comment(s): Prostate cancer General Exam Limitations: no limitations General appearance: alert, in no apparent distress Head exam: Present: atraumatic, normocephalic, normal inspection Eye exam: Present: normal appearance, PERRL, EOMI. Absent: scleral icterus, conjunctival injection, periorbital swelling ENT exam: Present: normal exam, mucous membranes moist Neck exam: Present: normal inspection. Absent: tenderness, meningismus, lymphadenopathy Respiratory exam: Present: normal lung sounds bilaterally. Absent: respiratory distress, wheezes, rales, rhonchi, stridor Cardiovascular Exam: Present: regular rate, normal rhythm, normal heart sounds. Absent: systolic murmur, diastolic murmur, rubs, gallop, clicks GI/Abdominal exam: Present: soft, normal bowel sounds. Absent: distended, tenderness, guarding, rebound, rigid Extremities exam: Present: normal inspection, full ROM, normal capillary refill. Absent: tenderness, pedal edema, joint swelling, calf tenderness Back exam: Present: normal inspection Neurological exam: Present: alert, oriented X3, CN II-XII intact Psychiatric exam: Present: normal affect, normal mood Skin exam: Present: warm, dry, intact, normal color. Absent: rash Course Vital Signs 04/16/21 04/16/21 16:00 18:59 Temperature 98.4 F Pulse Rate 74 61 Respiratory 18 16 Rate Blood Pressure 122/71 106/59 O2 Sat by Pulse 98 96 Oximetry Chest Pain MDM - Core Measures AMI Core Measures Followed: Yes - MDM Patient presents with chest pain. 2 serial troponins are negative. His labwork is negative. He is not short of breath. He has full and symmetric pulses in all x-rays. I can find no evidence of acute emergency this time. I believe he is stable for discharge. Disposition Clinical Impression: Chest pain Disposition: HOME SELF-CARE Condition: Good Instructions (If sedation given, give patient instructions): Chest Pain (ED) Is patient prescribed a controlled substance at d/c from ED?: No Referrals: Alban Terrell DO [Primary Care Provider] - 1-2 days
== END 2021-04-16 19:47 | disposition home or self-care (01) ==
LOC: EC 15:58
DX: R07.89 Other chest pain (principal); I10 Essential (primary) hypertension; E11.40 Type 2 diabetes mellitus with diabetic neuropathy, unspecified; I25.2 Old myocardial infarction; K21.9 Gastro-esophageal reflux disease without esophagitis; M19.90 Unspecified osteoarthritis, unspecified site; N40.0 Benign prostatic hyperplasia without lower urinary tract symptoms; Z79.02 Long term (current) use of antithrombotics/antiplatelets; Z85.51 Personal history of malignant neoplasm of bladder; Z87.891 Personal history of nicotine dependence; Z79.4 Long term (current) use of insulin; Z79.82 Long term (current) use of aspirin; Z79.899 Other long term (current) drug therapy; Z91.048 Other nonmedicinal substance allergy status; Z95.5 Presence of coronary angioplasty implant and graft
CPT/HCPCS: 36415; 93005; 83880; 80053; 83735; 84484; 85025; 85610; 85730; 71045; 99285; 96374; J2270

== ENCOUNTER 2021-11-16 10:34 | Observation (INO) | payer MEDICARE ==
[~2021-11-16 10:34] MED LIST changes: +ASPIRIN 325 MG TAB PO STA; +ATORVASTATIN 80 MG TAB PO STA; +HEPARIN SODIUM,PORCINE 10,000 UNIT in SODIUM CHLORIDE 0.9% 1,000 ML IRRIGATION PRN; +HEPARIN SODIUM,PORCINE 2,500 UNIT in SODIUM CHLORIDE 0.9% 250 ML IRRIGATION PRN; -SODIUM CHLORIDE 0.9% 1,000 ML in EMPTY BAG 1 BAG IV ONE
[2021-11-16 11:00] LABS: Glucose,Whole Blood 108 mg/dL (75-99)
[2021-11-16] MEDS: SODIUM CHLORIDE 0.9% 1,000 ML in EMPTY BAG 1 BAG IV SCH ×2 (11:03→16:44)
[2021-11-16 11:13] LABS: Basophils % (A) 1 %; Eosinophils # (A) 0.1 k/uL (0-0.7); Eosinophils % (A) 2 %; HCT 44.7 % (39.0-53.0); HGB 14.6 gm/dL (13.0-17.5); Lymphocytes # (A) 2.2 k/uL (1.0-4.8); Lymphocytes % (A) 33 %; MCH 31.9 pg (25.0-35.0); MCHC 32.5 g/dL (31.0-37.0); MCV 98.1 fL (80.0-100.0); Mean Platelet Volume 7.4; Monocytes # (A) 0.6 k/uL (0-1.0); Monocytes % (A) 9 %; Neutrophils # (A) 3.7 k/uL (1.3-7.7); Neutrophils % (A) 54 %; Platelet Count 225 k/uL (150-450); RBC 4.56 m/uL (4.30-5.90); WBC 6.8 k/uL (3.8-10.6)
[2021-11-16 11:21] LABS: Calcium 8.9 mg/dL (8.4-10.2); Potassium 4.1 mmol/L (3.5-5.1)
[2021-11-16] MEDS ORDERED: LIDOCAINE 1% INJ 10MG/ML (20 ML MDV) ONE (12:14)
[2021-11-16] MEDS ORDERED: VERAPAMIL 2.5 MG/ML 2 ML AMP ONE (12:15)
[2021-11-16] MEDS ORDERED: fentaNYL (PF) 50 MCG/ML 2 ML AMP ONE (12:28)
[2021-11-16] MEDS ORDERED: MIDAZOLAM 2 MG/2 ML VIAL IV ONE (12:41)
[2021-11-16] MEDS ORDERED: fentaNYL (PF) 50 MCG/ML 2 ML AMP IV ONE (12:44)
[2021-11-16] MEDS ORDERED: LIDOCAINE 1% INJ 10MG/ML (20 ML MDV) SQ ONE (12:45)
[2021-11-16] MEDS ORDERED: HEPARIN SODIUM 1,000 UN/ML (10ML VL) ONE (12:46)
[2021-11-16] MEDS: VERAPAMIL SYRINGE (5 MG/10 ML) INTRAARTER ONE ×2 (12:46→12:58)
[2021-11-16 12:57] LABS: Glucose,Whole Blood 100 mg/dL (75-99)
[2021-11-16] MEDS ORDERED: IOPAMIDOL-370 125ML BTL INJ ONE (12:59)
[2021-11-16] MEDS ORDERED: RX INFO: IV CONTRAST WAS GIVEN 1 EACH MISC MISCELLANE PRN (13:14)
[2021-11-16] MEDS ORDERED: SODIUM CHLORIDE 0.9% 1,000 ML IV SCH (13:15)
--- NOTE | 2021-11-16 13:19 | P.PCN ---
Date of Procedure: 11/16/21 Operative Findings: CARDIAC CATHETERIZATION PERFORMING PHYSICIAN: Lawrence Gomes MD, RPVI PROCEDURE PERFORMED: 1. Selective right and left coronary angiogram 2. Left heart catheterization INDICATION: Intermittent episodes of chest discomfort with exertion associated with abnormal myocardial perfusion imaging stress test 8-year-old gentleman who is known to have CAD with prior stenting of the RCA and LCx and LAD COMPLICATION: None APPROACH: Right radial artery LEVEL OF SEDATION: Moderate with a sedation length of 15 minutes PROCEDURE DESCRIPTION: After obtaining an informed consent, the patient was brought to cardiac laboratory mechanical technician. Local anesthesia was performed using lidocaine subcutaneously. The right radial artery was cannulated using Seldinger technique, the guidewire passed easily, following that we advanced a 5-Macanese sheath dilator assembly, the wire and dilator were removed and sheath was flushed. Following that, 2 mg of verapamil along with 5000 unit heparin were given. Selective right and left and right coronary angiogram using a 6-Macanese multipurpose catheters. Following that we did left heart catheterization using 6-Macanese pigtail catheter. The procedure was completed there was no complication. SELECTIVE CORONARY ANGIOGRAM: The right coronary artery: Is a large caliber vessel and dominant vessel. The proximal RCA has mild disease only. The mid RCA stented and the stent is patent. The RCA distally has a lesion appeared to be in the range of 60%. Bifurcates into PDA and PLV branches. The ostial PDA branch has a lesion appeared to be 60% and the PLV branch has a stent which seems to be patent Left main: Not exist. The left circumflex: Is a large caliber vessel nondominant vessel. The left circumflex has mild disease only. The left circumflex is a stented and the stent is patent. The left anterior descending artery: Has mild disease only. HEMODYNAMICS: The LVEDP was 18 mmHg without significant gradient across aortic valve CONCLUSION: 1. Patent stent in the mid RCA. Intermediate to severe disease involving the distal RCA. Patent stent in the PDA and PLV branches 2. Patent stent in the left circumflex 3. Mild disease involving the LAD POSTPROCEDURE MANAGEMENT: PCI of the RCA tomorrow
[2021-11-16] MEDS ORDERED: ASPIRIN 325 MG TAB PO STA (13:50)
[2021-11-16] MEDS ORDERED: ATORVASTATIN 80 MG TAB PO STA (13:50)
[2021-11-16] MEDS: LORATADINE 10 MG TAB PO SCH (21:39)
[2021-11-16] MEDS: RANOLAZINE 500 MG TAB.ER.12H PO SCH ×3 (21:39→21:46)
[2021-11-16] MEDS: ATORVASTATIN 80 MG TAB PO SCH (21:39)
[2021-11-17] MEDS: SODIUM CHLORIDE 0.9% 1,000 ML in EMPTY BAG 1 BAG IV SCH (05:54)
[2021-11-17] MEDS ORDERED: HEPARIN SODIUM,PORCINE 10,000 UNIT in SODIUM CHLORIDE 0.9% 1,000 ML IRRIGATION PRN (07:00)
[2021-11-17] MEDS ORDERED: HEPARIN SODIUM,PORCINE 2,500 UNIT in SODIUM CHLORIDE 0.9% 250 ML IRRIGATION PRN (07:00)
[2021-11-17] MEDS: RANOLAZINE 500 MG TAB.ER.12H PO SCH ×2 (08:50→19:59)
[2021-11-17] MEDS ORDERED: DEXTROSE 50% SYRINGE 50 ML IVP ONE (11:47)
[2021-11-17] MEDS ORDERED: IV FLUID CONTINUATION 1,000 ML IV ONE (13:00)
[2021-11-17] MEDS ORDERED: VERAPAMIL 2.5 MG/ML 2 ML AMP ONE (13:07)
[2021-11-17] MEDS ORDERED: LIDOCAINE 1% INJ 10MG/ML (20 ML MDV) ONE (13:07)
[2021-11-17] MEDS ORDERED: MIDAZOLAM 2 MG/2 ML VIAL IV ONE (13:09)
[2021-11-17] MEDS ORDERED: LIDOCAINE 1% INJ 10MG/ML (20 ML MDV) SQ ONE (13:13)
[2021-11-17] MEDS ORDERED: HEPARIN SODIUM 1,000 UN/ML (10ML VL) ONE (13:14)
[2021-11-17] MEDS ORDERED: VERAPAMIL SYRINGE (5 MG/10 ML) INTRAARTER ONE (13:15)
[2021-11-17] MEDS ORDERED: HEPARIN SODIUM 1,000 UN/ML (10ML VL) IV ONE (13:16)
[2021-11-17] MEDS ORDERED: MORPHINE SULFATE 4 MG/ML SYRINGE ONE (13:32)
[2021-11-17] MEDS ORDERED: MORPHINE SULFATE 4 MG/ML SYRINGE IV ONE (13:34)
[2021-11-17] MEDS ORDERED: MORPHINE SULFATE 4MG/4ML SYRG IV ONE (13:34)
[2021-11-17] MEDS: NITROGLYCERIN 1000MCG/10ML SYRINGE INTRACORON ONE ×2 (13:36→13:41)
[2021-11-17] MEDS ORDERED: niCARdipine Syringe (1,000 mcg/10 mL) INTRACORON ONE (13:36)
[2021-11-17] MEDS ORDERED: CLOPIDOGREL 75 MG TAB ONE (13:44)
[2021-11-17] MEDS ORDERED: IOPAMIDOL-370 125ML BTL INJ ONE (13:48)
[2021-11-17] MEDS ORDERED: CLOPIDOGREL 75 MG TAB PO ONE (13:48)
--- NOTE | 2021-11-17 13:50 | P.PCN ---
Date of Procedure: 11/17/21 Operative Findings: PERCUTANEOUS CORONARY INTERVENTION Performing physician Lawrence Gomes M.D. Procedure Performed: 1. Successful stenting of the distal right coronary artery using 4.0 x 15 mm Xience drug-eluting stent with an excellent angiographic results. 2. Selective right coronary angiogram. Indication: Chest discomfort and this 71-year-old gentleman who was known to have CAD with triple-vessel disease with underwent angioplasty as well in the past. He underwent recently myocardial perfusion imaging stress test and that showed inferior ischemia. Approach: Right radial art Complications: None Level of Sedation: Moderate with a sedation length of 38 minutes Procedure Discussion: After obtaining an informed consent the patient was brought to the cardiac laboratory chemical assistant. The right radial artery was cannulated using micropuncture technique, the micropuncture wire passed easily then I placed a 6-Sami sheath at the right radial artery. I gave the patient 2 mg of verapamil IV and 10,000 units of heparin IV. Subsequently I did engage the RCA using an a.l. 0.75 mm guiding catheter. I did wire the RCA using 2 wires. The first wire was whisper and second wire was a run-through wire. Subsequently after selective right coronary artery angiogram was performed I attempted a crossing the lesion using 3.5 mm balloon but the balloon would not make the turn from the proximal to mid RCA. That was over the whisper wire. Over the run-through I was able to get the balloon down. I did balloon angioplasty of the RCA distally and subsequently I deployed a 4.0 x 15 mm sinus drug-eluting stent where the stent was positioned under fluoroscopy guidance and deployed under its nominal pressure. The following angiogram showed good angiographic results distally but proximally there was a spasm which was relieved using nitroglycerin. The procedure was completed without any complication Postprocedure Management: 1. Dual antiplatelet therapy 2. Aggressive cholesterol control 3. Risk factors modification
[2021-11-17] MEDS ORDERED: MAG HYDROX/AL HYDROX/SIMETH 30 ML CUP PO PRN (13:56)
[2021-11-17] MEDS ORDERED: ATROPINE SULFATE 0.1 MG/ML 10ML SYRINGE IV PRN (13:56)
[2021-11-17] MEDS ORDERED: ZOLPIDEM 5 MG TAB PO PRN (13:56)
[2021-11-17] MEDS ORDERED: RX INFO: IV CONTRAST WAS GIVEN 1 EACH MISC MISCELLANE PRN (13:56)
[2021-11-17 14:14] LABS: Glucose,Whole Blood 96 mg/dL (75-99)
--- NOTE | 2021-11-17 14:33 | P.EN ---
A- team: Indication: Hypotension Arrived on Scene to find: Patient diaphoretic with bolus infusing Patient seen and examined at bedside. He complains of chest pain 3/6 retrostenal, no shortness of breath, + nausea, unsure if dizzy, feeling very slow. Vital signs reviewed General: ill appearing, mild distress, appears at stated age Derm: pale, warm, dry Head: atraumatic, normocephalic, symmetric Eyes: EOMI, no lid lag, anicteric sclera Mouth: no lip lesion, mucus membranes moist, Left hand with ischemia Cardiovascular: S1S2 reg, no murmur, positive posterior tibial pulse bilateral, Lungs: Decreased bs bilateral, no rhonchi, no rales , no accessory muscle use Abdominal: soft, + tender to palpation RUQ and LUQ, no guarding, no appreciable organomegaly Ext: no gross muscle atrophy, no edema, no contractures Neuro: CN II-XI grossly intact, no focal neuro deficits Psych: Alert, oriented, appropriate affect Assessment: CAD s/p stent to the RCA 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 Gomes - left message Spoke with - had hypotension after shoulder surgery as well. Rechecked at 1530 Still with some chest pain now a 1-2/10 , no shrootess of breath, nuasea resol william, Feeling back to normal and hungry. A Total of 32 minutes of critical care time was spent on the complex care of this patient.
[2021-11-17] MEDS: LORATADINE 10 MG TAB PO SCH (19:59)
[2021-11-17] MEDS: ATORVASTATIN 80 MG TAB PO SCH (19:59)
[2021-11-18 06:23] VITALS: BP 149/78; RESP 18; TEMP 98.2
[2021-11-18 07:02] LABS: Basophils % (A) 1 %; Eosinophils # (A) 0.2 k/uL (0-0.7); Eosinophils % (A) 2 %; HCT 44.5 % (39.0-53.0); HGB 14.2 gm/dL (13.0-17.5); Lymphocytes # (A) 1.9 k/uL (1.0-4.8); Lymphocytes % (A) 20 %; MCH 31.7 pg (25.0-35.0); MCHC 31.8 g/dL (31.0-37.0); MCV 99.6 fL (80.0-100.0); Mean Platelet Volume 7.2; Monocytes # (A) 0.7 k/uL (0-1.0); Monocytes % (A) 8 %; Neutrophils # (A) 6.8 k/uL (1.3-7.7); Neutrophils % (A) 69 %; Platelet Count 216 k/uL (150-450); RBC 4.47 m/uL (4.30-5.90); WBC 9.8 k/uL (3.8-10.6)
[2021-11-18 07:18] LABS: African American GFR (CKD) 89 (>60 ml/min/1.73 sqM); Anion Gap 6 mmol/L; Blood Urea Nitrogen 22 mg/dL (9-20); Calcium 8.3 mg/dL (8.4-10.2); Carbon Dioxide 25 mmol/L (22-30); Chloride 109 mmol/L (98-107); Glucose 103 mg/dL (74-99); Non-African American GFR(CKD) 77 (>60 ml/min/1.73 sqM); Potassium 4.1 mmol/L (3.5-5.1); Sodium 140 mmol/L (137-145)
[2021-11-18 07:45] VITALS: PULSE 62
[2021-11-18] MEDS: RANOLAZINE 500 MG TAB.ER.12H PO SCH (08:21)
[2021-11-18] MEDS ORDERED: CLOPIDOGREL 75 MG TAB PO SCH (09:00)
[2021-11-18] MEDS ORDERED: ASPIRIN 81 MG PO SCH (09:00)
[2021-11-18] MEDS ORDERED: lisinopriL 20 MG TAB PO SCH (09:00)
[2021-11-18] MEDS ORDERED: ISOSORBIDE MONONITRATE ER 60 MG TAB.ER.24H PO SCH (09:00)
[2021-11-18 10:37] VITALS: BMI 27.6
== END 2021-11-18 11:28 ==
LOC: CATHCVL 10:34 → 6NMEDSUR 12:59 → CATHCVL 11-17 14:19 → 6NMEDSUR 11-17 14:28
PROVIDERS: ADMIT Internal Medicine Interventional Cardiology; ATTEND Internal Medicine Interventional Cardiology
DX: I25.110 Atherosclerotic heart disease of native coronary artery with unstable angina pectoris (principal); I95.9 Hypotension, unspecified; I45.2 Bifascicular block; I25.5 Ischemic cardiomyopathy; E78.5 Hyperlipidemia, unspecified; I10 Essential (primary) hypertension; E11.9 Type 2 diabetes mellitus without complications; I08.3 Combined rheumatic disorders of mitral, aortic and tricuspid valves; F17.210 Nicotine dependence, cigarettes, uncomplicated; Z20.822 Contact with and (suspected) exposure to COVID-19; Z79.02 Long term (current) use of antithrombotics/antiplatelets; Z79.82 Long term (current) use of aspirin; Z79.4 Long term (current) use of insulin; Z79.899 Other long term (current) drug therapy; Z95.5 Presence of coronary angioplasty implant and graft; Z82.49 Family history of ischemic heart disease and other diseases of the circulatory system
CPT/HCPCS: 93458; 80048 ×2; 85025 ×2; 87635; 99152 ×2; 99153; G0378 ×2; C9600; C1769 ×2; C1887 ×2; C1894 ×2; C1725; C1874; J2250 ×2; J2270; J2001 ×2; J3010; J1644 ×2; Q9967 ×2

== ENCOUNTER → 2021-11-20 | Outpatient (CLI) | payer MEDICARE ==
--- NOTE | 2021-11-20 15:20 | XR ---
EXAMINATION TYPE: XR chest 2V DATE OF EXAM: 11/20/2021 COMPARISON: Chest x-ray 04/16/2021 HISTORY: R07.9 R05.9 TECHNIQUE: Frontal and lateral views of the chest are obtained. FINDINGS: There is no focal air space opacity, pleural effusion, or pneumothorax seen. The cardiac silhouette size is within normal limits. Postop change noted to the left shoulder and right shoulder . IMPRESSION: No acute cardiopulmonary process.
== END | disposition home or self-care (01) ==
LOC: RADXRMAIN 14:12
PROVIDERS: ATTEND Family Medicine
DX: R07.9 Chest pain, unspecified (principal); R05.9 Cough, unspecified
CPT/HCPCS: 71046

== ENCOUNTER → 2022-01-14 | Outpatient (CLI) | payer MEDICARE ==
--- NOTE | 2022-01-14 22:30 | CT ---
EXAMINATION TYPE: CT urogram wo/w con DATE OF EXAM: 01/14/2022 COMPARISON: CT abdomen/pelvis 08/26/2018 HISTORY: hematuria, hx of bladder ca CT DLP: 2774.8 mGycm. Automated Exposure Control for Dose Reduction was Utilized. TECHNIQUE: Multiple contiguous axial CT images of the abdomen and pelvis were obtained from the lung bases through the pubic symphysis without and with IV Contrast, patient injected with 100 mL of Isovu e 300. 2-D sagittal and coronal reformatted images were obtained. 3-D post processing reconstructed images were performed of the urinary collecting system for better a natomic evaluation. FINDINGS: Kidneys are symmetric in size without hydronephrosis. Punctate 1 to 2 mm nonobstructing left renal ca lculus. No ureteral calculi. There are small peripelvic cysts of the left kidney measuring up to 15 m m. Normal symmetric opacification of the urinary collecting system bilaterally without filling defect s upon delayed imaging. Urinary bladder appears unremarkable without filling defect. Prostate gland a ppears mildly enlarged. Lung bases are clear. Liver, spleen, pancreas, and bilateral adrenal glands have an unremarkable enhanced appearance. Gallbladder is present and contains a small calcified gallstone. No definite intrahepatic or extrahep atic biliary ductal dilatation. Visualized bowel is of normal caliber without evidence of obstruction. No significant mesenteric infl ammation. Appendix appears unremarkable. No free air. Scattered chronic calcified and calcified plaque of the abdominal aorta without aneurysm. No intra-ab dominal or retroperitoneal lymphadenopathy. Subcutaneous soft tissues appear unremarkable. There are hydroceles of the bilateral testicles. Stable postsurgical changes of the lumbosacral spine consisten t with left hemilaminectomies at the levels of L5 and S1. Moderate multilevel degenerative changes of the lumbar spine. IMPRESSION: 1. Punctate nonobstructing 1 to 2 mm left renal calculus. No evidence of obstructive uropathy or hydr onephrosis. 2. No suspicious renal masses. Small left peripelvic renal cysts. 3. Unremarkable appearance of the ureters and urinary bladder.
== END | disposition home or self-care (01) ==
LOC: RADCTMAIN 15:24
PROVIDERS: ATTEND Urology
DX: N20.0 Calculus of kidney (principal); N28.1 Cyst of kidney, acquired; Z85.51 Personal history of malignant neoplasm of bladder
CPT/HCPCS: 82565; 84520; 74178; 36415; 74400; Q9967

== ENCOUNTER → 2022-07-01 | Outpatient (CLI) | payer MEDICARE ==
--- NOTE | 2022-07-01 14:10 | CT ---
EXAMINATION: CT ABDOMEN AND PELVIS WITHOUT AND WITH IV CONTRAST DATE OF EXAMINATION: 2021. COMPARISON: 08/26/2018. INDICATION: Hematuria. PROCEDURE: Axial CT of the abdomen and pelvis was performed without and with sagittal and coronal r eformatted images without contrast enhancement. 100 mL of Isovue-[address] dose lowering techniques were used, to include: automated exposure control, adjustment for patient size, and/or use of iterative reconstruction. FINDINGS: LOWER CHEST : The visualized lung bases are clear. There are no pleural or pericardial effusions. T here are patchy coronary calcifications are seen. ABDOMEN: Liver and Biliary system: Normal. Adrenal glands: Normal. Kidneys and ureters: There is a 2 mm nonobstructing stone in the lower pole of the left kidney. The right kidney and ureter appear unremarkable. Spleen: Normal. Pancreas: Normal. Gallbladder: There is a calcified gallstone in the gallbladder. Lymph nodes, Peritoneum and mesentery: There is no mesenteric or retroperitoneal lymphadenopathy. Gastrointestinal tract: There are no dilated loops of bowel or free intraperitoneal air. . The appe ndix is normal. Aorta/IVC: No aortic aneurysm.. IVC normal. Abdominal wall: Normal. PELVIS: Fluid: There is no free fluid in the pelvis. Lymph Nodes: There is no pelvic or inguinal lymphadenopathy.. Urinary bladder: Normal. BONES: There are no osseous destructive lesions.. ADDITIONAL SIGNIFICANT FINDINGS: There is a moderate left and small right hydrocele.. IMPRESSION: 1. Nonobstructing left renal stone. 2. Suspicious renal or bladder lesions identified. 3. No bowel obstruction or appendicitis. 4. No acute findings. 5. Cholelithiasis. 6. Coronary artery calcifications.
== END | disposition home or self-care (01) ==
LOC: RADCTMAIN 10:07
PROVIDERS: ATTEND Urology
DX: C67.9 Malignant neoplasm of bladder, unspecified (principal); R31.0 Gross hematuria; N20.0 Calculus of kidney; I25.10 Atherosclerotic heart disease of native coronary artery without angina pectoris; K80.20 Calculus of gallbladder without cholecystitis without obstruction
CPT/HCPCS: 82565; 84520; 74178; 36415; 74400; Q9967

== ENCOUNTER 2022-07-12 14:06 | Observation (INO) | payer MEDICARE ==
[2022-07-12] MEDS ORDERED: NITROGLYCERIN OINT 1 INCH/GM PACKET TOPICAL STA (14:15)
--- NOTE | 2022-07-12 14:20 | ED ---
General Adult HPI - General Stated complaint: Chest pain Time Seen by Provider: 07/12/22 14:06 Source: patient, RN notes reviewed, old records reviewed - History of Present Illness Initial comments: This is a 72-year-old male who presents emergency Department complaining of chest pain. Patient states he just got done eating and he started having severe chest pain. Patient states he has a history of 7 stents he has diabetes h ypertension and high cholesterol. Patient states the pain did not radiate anywhere and he doesn't remember being short of breath but he does state he was sweating for a while. Patient states he took aspirin and nitroglycerin at home and it seemed to relieve the pain after a few minutes. Patient currently is chest pain-free. Patient denies any short of breath currently. Patient denies any recent fever chills or cough. Patient denies any syncopal episode or near syncopal episode. Patient denies headache patient denies numbness weakness. Patient denies abdominal pain patient denies any nausea vomiting diarrhea. Patient has been complaining of dysuria frequency and saw his urologist this morning the to the urinalysis and did not determine that there was any infection but didn't send the urine out for further evaluation. - Related Data Home Medications Medication Instructions Recorded Confirmed Cetirizine HCl 10 mg PO HS 07/19/17 11/16/21 Clopidogrel [Plavix] 75 mg PO DAILY 10/25/18 11/16/21 Acetaminophen [Tylenol Extra 1,000 mg PO HS 08/12/20 11/16/21 Strength] Insulin Aspart (For Pump) [NovoLOG 0.01 unit SQ-PUMP CONTINUOUS 03/23/21 11/16/21 (For Pump)] Aspirin EC [Ecotrin Low Dose] 81 mg PO DAILY 04/16/21 11/16/21 Isosorbide Mononitrate ER [Imdur] 60 mg PO DAILY 04/16/21 11/16/21 Multivitamins, Thera [Multivitamin 1 tab PO DAILY 04/16/21 11/16/21 (formulary)] Phenylephrine HCl 10 mg PO DAILY 04/16/21 11/16/21 Ranolazine [Ranolazine ER] 1,000 mg PO BID 04/16/21 11/16/21 lisinopriL [Prinivil] 20 mg PO DAILY 04/16/21 11/16/21 Calcium/Magnesium/Zinc 1 each PO HS 11/13/21 11/16/21 [Osvguvi-Bgskjivjc-Gogz Tablet] Cholecalciferol [Vitamin D3 (25 50 mcg PO DAILY 11/13/21 11/16/21 Mcg = 1000 Iu)] Pantoprazole Sodium [Protonix] 20 mg PO QAM 11/13/21 11/16/21 Previous Rx's Medication Instructions Recorded Atorvastatin [Lipitor] 80 mg PO HS #30 tab 07/22/17 Ezetimibe [Zetia] 10 mg PO DAILY #30 tab 02/02/18 Nitroglycerin Sl Tabs [Nitrostat] 0.4 mg SUBLINGUAL Q5M PRN #25 tab 02/02/18 Allergies Allergy/AdvReac Type Severity Reaction Status Date / Time No Known Allergies Allergy Verified 11/16/21 10:51 Review of Systems ROS Statement: Those systems with pertinent positive or pertinent negative responses have been documented in the HPI. ROS Other: All systems not noted in ROS Statement are negative. Past Medical History Past Medical History: Coronary Artery Disease (CAD), Cancer, Chest Pain / Angina, Diabetes Mellitus, Eye Disorder, GERD/Reflux, Myocardial Infarction ([place]), Osteoarthritis (OA), Prostate Disorder Additional Past Medical History / Comment(s): Chronic back pain, sciaticia, insulin pump, SARCOIDOSIS, hx BLADDER CANCER-chemo one time directly into bladder, OCC CONSTIPATION, neuropathy, BPH, macular edema- getting eye injections Last Myocardial Infarction Date:: 07/19/17 History of Any Multi-Drug Resistant Organisms: None Reported Past Surgical History: Back Surgery, Heart Catheterization, Heart Catheterization With Stent, Joint Replacement, Orthopedic Surgery Additional Past Surgical History / Comment(s): SX FOR BLADDER CANCER x 3, SAVITA CATARACTS, COLONOSCOPY, RT ANKLE tendonitis, SAVITA CARPAL TUNNEL, LT KNEE REPLACEMENT, SAVITA SHOULDER ROTATOR CUFF SX (total 6), LAMINECTOMY X2, THORACOTOMY/BX FOR NODULES ON LYMPH NODES(SARCOIDOSIS), 6 trigger finger re leases, cardiac stents x 6,left total reversed shoulder Past Anesthesia/Blood Transfusion Reactions: Previous Problems w/ Anesthesia, Motion Sickness, Postoperative Nausea & Vomiting (PONV) Additional Past Anesthesia/Blood Transfusion Reaction / Comment(s): anesthesia dropped BP once & was in recovery longer with a shoulder surgery.no hx blood tra nsfusion Date of Last Stent Placement:: september 2020 Past Psychological History: No Psychological Hx Reported Additional Psychological History / Comment(s): . Smoking Status: Former smoker Past Alcohol Use History: Occasional Additional Past Alcohol Use History / Comment(s): STARTED SMOKING 1984 AND QUIT 1994 SMOKED 1 PPD Past Drug Use History: None Reported - Past Family History Brother(s) Family Medical History: Cancer Additional Family Medical History / Comment(s): Prostate cancer General Exam - General Exam Comments Initial Comments: GENERAL: Patient is well-developed and well-nourished. Patient is nontoxic and well- hydrated and is in mild distress. ENT: Neck is soft and supple. No significant lymphadenopathy is noted. Oropharynx is clear. Moist mucous membranes. Neck has full range of motion without eliciting any pain. EYES: The sclera were anicteric and conjunctiva were pink and moist. Extraocular movements were intact and pupils were equal round and reactive to light. Eyelids were unremarkable. PULMONARY: Unlabored respirations. Good breath sounds bilaterally. No audible rales rhonchi or wheezing was noted. CARDIOVASCULAR: There is a regular rate and rhythm without any murmurs gallops or rubs. ABDOMEN: Soft and nontender with normal bowel sounds. SKIN: Skin is clear with no lesions or rashes and otherwise unremarkable. NEUROLOGIC: Patient is alert and oriented x3. Cranial nerves II through XII are grossly intact. Motor and sensory are also intact. Normal speech, volume and content. Symmetrical smile. MUSCULOSKELETAL: Normal extremities with adequate strength and full range of motion. No lower extremity swelling or edema. No calf tenderness. LYMPHATICS: No significant lymphadenopathy is noted PSYCHIATRIC: Normal psychiatric evaluation. Course Vital Signs 07/12/22 14:10 Temperature 97.8 F Pulse Rate 51 L Respiratory 20 Rate Blood Pressure 136/67 O2 Sat by Pulse 98 Oximetry Medical Decision Making - Medical Decision Making EKG shows sinus bradycardia 50 bpm RI interval 298 QRSs 143 QT intervals 511 QTC is 45. Patient's EKG shows no ST segment elevation or depression. Chest x-ray shows no acute abnormality. Patient remains chest pain-free. I spoke with Dr. Terrell he agreed to admit the patient admitted the patient wrote admitting orders. I consult to cardiology. - Lab Data Result diagrams: 07/12/22 14:17 07/12/22 14:17 Lab Results 07/12/22 07/12/22 07/12/22 Range/Units 14:17 14:17 14:17 WBC 7.3 (3.8-10.6) k/uL RBC 3.71 L (4.30-5.90) m/uL Hgb 11.9 L (13.0-17.5) gm/dL Hct 36.0 L (39.0-53.0) % MCV 97.0 (80.0-100.0) fL MCH 32.1 (25.0-35.0) pg MCHC 33.1 (31.0-37.0) g/dL RDW 13.4 (11.5-15.5) % Plt Count 204 (150-450) k/uL MPV 7.9 Neutrophils % 63 % Lymphocytes % 25 % Monocytes % 7 % Eosinophils % 1 % Basophils % 1 % Neutrophils # 4.6 (1.3-7.7) k/uL Lymphocytes # 1.8 (1.0-4.8) k/uL Monocytes # 0.5 (0-1.0) k/uL Eosinophils # 0.1 (0-0.7) k/uL Basophils # 0.0 (0-0.2) k/uL PT 11.0 (9.0-12.0) sec INR 1.0 (<1.2) APTT 24.2 (22.0-30.0) sec Sodium 136 L (137-145) mmol/L Potassium 4.6 (3.5-5.1) mmol/L Chloride 104 (98-107) mmol/L Carbon Dioxide 23 (22-30) mmol/L Anion Gap 9 mmol/L BUN 34 H (9-20) mg/dL Creatinine 1.23 (0.66-1.25) mg/dL Est GFR (CKD-EPI)AfAm 68 (>60 ml/min/1.73 sqM) Est GFR (CKD-EPI)NonAf 59 (>60 ml/min/1.73 sqM) Glucose 210 H (74-99) mg/dL Calcium 8.2 L (8.4-10.2) mg/dL Magnesium 2.0 (1.6-2.3) mg/dL Total Bilirubin 0.5 (0.2-1.3) mg/dL AST 25 (17-59) U/L ALT 14 (4-49) U/L Alkaline Phosphatase 86 (38-126) U/L Troponin I (0.000-0.034) ng/mL Total Protein 5.6 L (6.3-8.2) g/dL Albumin 3.6 (3.5-5.0) g/dL 07/12/22 Range/Units 14:17 WBC (3.8-10.6) k/uL RBC (4.30-5.90) m/uL Hgb (13.0-17.5) gm/dL Hct (39.0-53.0) % MCV (80.0-100.0) fL MCH (25.0-35.0) pg MCHC (31.0-37.0) g/dL RDW (11.5-15.5) % Plt Count (150-450) k/uL MPV Neutrophils % % Lymphocytes % % Monocytes % % Eosinophils % % Basophils % % Neutrophils # (1.3-7.7) k/uL Lymphocytes # (1.0-4.8) k/uL Monocytes # (0-1.0) k/uL Eosinophils # (0-0.7) k/uL Basophils # (0-0.2) k/uL PT (9.0-12.0) sec INR (<1.2) APTT (22.0-30.0) sec Sodium (137-145) mmol/L Potassium (3.5-5.1) mmol/L Chloride (98-107) mmol/L Carbon Dioxide (22-30) mmol/L Anion Gap mmol/L BUN (9-20) mg/dL Creatinine (0.66-1.25) mg/dL Est GFR (CKD-EPI)AfAm (>60 ml/min/1.73 sqM) Est GFR (CKD-EPI)NonAf (>60 ml/min/1.73 sqM) Glucose (74-99) mg/dL Calcium (8.4-10.2) mg/dL Magnesium (1.6-2.3) mg/dL Total Bilirubin (0.2-1.3) mg/dL AST (17-59) U/L ALT (4-49) U/L Alkaline Phosphatase (38-126) U/L Troponin I <0.012 (0.000-0.034) ng/mL Total Protein (6.3-8.2) g/dL Albumin (3.5-5.0) g/dL Disposition Clinical Impression: Chest pain Disposition: ADMITTED IP TO THIS HOSP Referrals: Alban Terrell DO [Primary Care Provider] - 1-2 days Time of Disposition: 15:11
[2022-07-12 14:36] LABS: Basophils % (A) 1 %; Eosinophils # (A) 0.1 k/uL (0-0.7); Eosinophils % (A) 1 %; HGB 11.9 gm/dL (13.0-17.5); Lymphocytes # (A) 1.8 k/uL (1.0-4.8); Lymphocytes % (A) 25 %; MCH 32.1 pg (25.0-35.0); MCHC 33.1 g/dL (31.0-37.0); Mean Platelet Volume 7.9; Monocytes # (A) 0.5 k/uL (0-1.0); Monocytes % (A) 7 %; Neutrophils # (A) 4.6 k/uL (1.3-7.7); Neutrophils % (A) 63 %; Platelet Count 204 k/uL (150-450); RBC 3.71 m/uL (4.30-5.90); RDW 13.4 % (11.5-15.5); WBC 7.3 k/uL (3.8-10.6)
[2022-07-12 14:39] LABS: Albumin 3.6 g/dL (3.5-5.0); Calcium 8.2 mg/dL (8.4-10.2); Total Bilirubin 0.5 mg/dL (0.2-1.3); Total Protein 5.6 g/dL (6.3-8.2)
[2022-07-12 14:44] LABS: Potassium 4.6 mmol/L (3.5-5.1)
[2022-07-12 15:06] LABS: Partial Thromboplastin Time 24.2 sec (22.0-30.0)
[2022-07-12] MEDS ORDERED: NITROGLYCERIN SL TABS 0.4 MG TAB SUBLINGUAL PRN (15:11)
--- NOTE | 2022-07-12 15:21 | XR ---
EXAMINATION TYPE: XR chest 2V DATE OF EXAM: 07/12/2022 COMPARISON: Chest x-ray 11/20/2021 HISTORY: Chest pain TECHNIQUE: Frontal and lateral views of the chest are obtained. FINDINGS: There is no focal air space opacity, pleural effusion, or pneumothorax seen. The cardiac silhouette size is within normal limits. The osseous structures are stable, postop change noted to the right shoulder, left shoulder, there are overlying leads. IMPRESSION: No acute cardiopulmonary process.
[2022-07-12] MEDS: NITROGLYCERIN OINT 1 INCH/GM PACKET TOPICAL SCH (19:47)
[2022-07-13 00:13] LABS: Glucose,Whole Blood 285 mg/dL (70-110)
[2022-07-13] MEDS: NITROGLYCERIN OINT 1 INCH/GM PACKET TOPICAL SCH ×2 (03:37→06:53)
[2022-07-13 06:54] LABS: Glucose,Whole Blood 134 mg/dL (70-110)
[2022-07-13 08:19] VITALS: BP 119/61; PULSE 59; RESP 18; TEMP 97.6
[2022-07-13] MEDS ORDERED: ISOSORBIDE MONONITRATE ER 60 MG TAB.ER.24H PO SCH (09:00)
[2022-07-13] MEDS ORDERED: CLOPIDOGREL 75 MG TAB PO SCH (09:00)
[2022-07-13] MEDS ORDERED: EZETIMIBE 10 MG TAB PO SCH (09:00)
[2022-07-13] MEDS ORDERED: amLODIPine 2.5 MG TAB PO SCH (09:00)
[2022-07-13] MEDS ORDERED: ASPIRIN 325 MG TAB PO SCH (09:00)
[2022-07-13] MEDS ORDERED: METOPROLOL SUCCINATE (ER) 50 MG TAB.ER.24H PO SCH (09:00)
[2022-07-13] MEDS ORDERED: ASPIRIN 81 MG PO SCH (09:00)
[2022-07-13] MEDS ORDERED: RANOLAZINE 500 MG TAB.ER.12H PO SCH (09:00)
[2022-07-13] MEDS ORDERED: lisinopriL 10 MG TAB PO SCH (09:00)
[2022-07-13 10:28] LABS: Triglycerides 39.8 mg/dL (0.00-149.00)
[2022-07-13 10:42] LABS: Chol/HDL Ratio 2.11 Ratio; LDL Cholesterol,Direct Reflex 43.2 mg/dL (0.00-129.00)
--- NOTE | 2022-07-13 10:54 | P.CRDCN ---
History of Present Illness Consult date: 07/13/22 History of present illness: HISTORY OF PRESENT ILLNESS: This is a 72-year-old male with a past medical history significant for coronary artery disease with previous stenting, hypertension, hyperlipidemia, and diabetes. Patient follows in the office with Dr. Gomes. We have been asked to see the patient in consultation for chest pain. Patient examined at the bedside. Patient states yesterday he went out to lunch and shortly afterwards he began having chest pain. He reports the pain was in the middle of his chest and felt like a stabbing sensation. He reports feeling nauseated but denies any vomiting. He states when he got out of the car he passed out. He believes that he lost consciousness for approximately 1 minute. He reports when he came to he was still having chest pain which lasted for approximately another 20 minutes. He states his symptoms yesterday were different than his previous episodes of angina. He states he usually has chest pressure that radiates to his left arm. He states he took a nitro and aspirin yesterday which did not help. EMS was called and he was brought to the hospital for further evaluation. The patient denies any further episodes of chest pain or pressure. He denies shortness of breath. Vital signs are stable. * EKG reveals sinus bradycardia with right bundle branch block. No signs of ac jc ischemia. * Chest xray negative for acute process * Laboratory data: WBC 7.3. Hemoglobin 11.9. Platelet count 204. Sodium 136. Potassium 4.6. BUN 34. Creatinine 1.23. Troponin negative 3. * Current home cardiac medications include aspirin 81 mg daily, atorvastatin 80 mg at night, amlodipine 2.5 mg daily, Plavix 75 mg daily, Zetia 10 mg daily, Imdur 60 mg daily, lisinopril 30 mg daily, metoprolol succinate 50 mg daily, Ranexa 1000 mg twice a day * Most recent echocardiogram obtained in April 2022 revealed normal EF, mild MR, mild TR * Cardiac catheterization history: November 2021 with PCI to the distal RCA. REVIEW OF SYSTEMS: At the time of my exam: CONSTITUTIONAL: Denies fever or chills. HEENT: Denies blurred vision, vision changes, or eye pain. Denies hemoptysis CARDIOVASCULAR: Denies chest pain. Denies orthopnea. Denies PND. Denies palpitations RESPIRATORY: Denies shortness of breath. GASTROINTESTINAL: Denies abdominal pain. Denies nausea or vomiting. HEMATOLOGIC: Denies bleeding disorders. GENITOURINARY: Denies any blood in urine. SKIN: Denies pruitis. Denies rash. PHYSICAL EXAM: VITAL SIGNS: Reviewed. GENERAL: Well-developed in no acute distress. HEENT: Head is normocephalic. Pupils are equal, round. Sclerae anicteric. Mucous membranes of the mouth are moist. Neck supple. No JVD or thyromegaly LUNGS: Respirations even and unlabored. Lungs essentially clear to auscultation bilaterally. HEART: Regular rate and rhythm. S1 and S2 heard. ABDOMEN: Soft. Nondistended. Nontender. EXTREMITIES: Normal range of motion. No clubbing or cyanosis. Peripheral pulses intact. No lower extremity edema NEUROLOGIC: Awake and alert. Oriented x 3. ASSESSMENT: Chest pain Syncope Coronary artery disease with previous stenting to the circumflex and RCA Hypertension Hyperlipidemia Diabetes PLAN: An acute coronary event has been ruled out Continue home cardiac medications Patient to undergo outpatient Lexiscan stress test Patient may be discharged home today from a cardiac standpoint and follow up outpatient with Dr. Gomes Nurse practitioner note has been reviewed by physician. Signing provider agrees with the documented findings, assessment, and plan of care. Past Medical History Past Medical History: Coronary Artery Disease (CAD), Cancer, Chest Pain / Angina, Diabetes Mellitus, Eye Disorder, GERD/Reflux, Myocardial Infarction ([place]), Osteoarthritis (OA), Prostate Disorder Additional Past Medical History / Comment(s): Chronic back pain, sciaticia, insulin pump, SARCOIDOSIS, hx BLADDER CANCER-chemo one time directly into bladder, OCC CONSTIPATION, neuropathy, BPH, macular edema- getting eye injections, [place] X2 Last Myocardial Infarction Date:: 07/19/17 History of Any Multi-Drug Resistant Organisms: None Reported Past Surgical History: Back Surgery, Heart Catheterization, Heart Catheterizati on With Stent, Joint Replacement, Orthopedic Surgery Additional Past Surgical History / Comment(s): SX FOR BLADDER CANCER x 3, SAVITA CATARACTS, COLONOSCOPY, RT ANKLE tendonitis, SAVITA CARPAL TUNNEL, LT KNEE REPLACEMENT, SAVITA SHOULDER ROTATOR CUFF SX (total 6), LAMINECTOMY X2, THO RACOTOMY/BX FOR NODULES ON LYMPH NODES(SARCOIDOSIS), 6 trigger finger releases, cardiac stents x 7,left total reversed shoulder Past Anesthesia/Blood Transfusion Reactions: Previous Problems w/ Anesthesia, Motion Sickness, Postoperative Nausea & Vomiting (PONV) Additional Past Anesthesia/Blood Transfusion Reaction / Comment(s): anesthesia dropped BP once & was in recovery longer with a shoulder surgery.no hx blood transfusion Date of Last Stent Placement:: November 2021 Past Psychological History: No Psychological Hx Reported Smoking Status: Former smoker Past Alcohol Use History: Occasional Additional Past Alcohol Use History / Comment(s): Pt states he smoked for about 5 years. Past Drug Use History: None Reported - Past Family History Brother(s) Family Medical History: Cancer Additional Family Medical History / Comment(s): Prostate cancer Medications and Allergies Home Medications Medication Instructions Recorded Confirmed Type Cetirizine HCl 10 mg PO DAILY 07/19/17 07/12/22 History Ezetimibe [Zetia] 10 mg PO DAILY #30 tab 02/02/18 07/12/22 Rx Clopidogrel [Plavix] 75 mg PO DAILY 10/25/18 07/12/22 History Acetaminophen [Tylenol Extra 1,000 mg PO HS 08/12/20 07/12/22 History Strength] Aspirin EC [Ecotrin Low Dose] 81 mg PO DAILY 04/16/21 07/12/22 History Isosorbide Mononitrate ER [Imdur] 60 mg PO DAILY 04/16/21 07/12/22 History Ranolazine [Ranolazine ER] 1,000 mg PO BID 04/16/21 07/12/22 History Cholecalciferol [Vitamin D3 (25 50 mcg PO DAILY 11/13/21 07/12/22 History Mcg = 1000 Iu)] Pantoprazole Sodium [Protonix] 20 mg PO DAILY 11/13/21 07/12/22 History Atorvastatin [Lipitor] 80 mg PO HS 07/12/22 07/12/22 History Cyanocobalamin (Vitamin B-12) 1,000 mcg PO DAILY 07/12/22 07/12/22 History [Vitamin B-12] Insulin Aspart (For Pump) [NovoLOG 0.01 unit SQ-PUMP CONTINUOUS 07/12/22 07/12/22 History (For Pump)] Metoprolol Succinate (ER) [Toprol 50 mg PO DAILY 07/12/22 07/12/22 History XL] Montelukast Sodium [Singulair] 10 mg PO HS 07/12/22 07/12/22 History amLODIPine [Norvasc] 2.5 mg PO DAILY 07/12/22 07/12/22 History lisinopriL 30 mg PO DAILY 07/12/22 07/12/22 History Allergies Allergy/AdvReac Type Severity Reaction Status Date / Time No Known Allergies Allergy Verified 07/12/22 15:34 Physical Exam Vitals: Vital Signs Temp Pulse Pulse Resp BP BP Pulse Ox 07/13/22 07:00 97.6 F 59 L 18 119/61 98 07/13/22 02:24 97.7 F 56 L 16 133/68 97 07/13/22 01:55 60 18 124/65 98 07/12/22 22:00 97.8 F 64 20 140/68 98 07/12/22 19:45 97.6 F 62 20 145/73 98 07/12/22 17:12 97.8 F 66 18 106/56 97 07/12/22 14:30 62 07/12/22 14:10 97.8 F 51 L 20 136/67 98 Intake and Output 07/12/22 07/13/22 07/13/22 22:59 06:59 14:59 Other: Voiding Method Toilet # Voids 1 Weight 92.986 kg Results 07/12/22 14:17 07/12/22 14:17 Cardiac Enzymes 07/12/22 07/12/22 07/12/22 Range/Units 14:17 14:17 17:55 AST 25 (17-59) U/L Troponin I <0.012 <0.012 (0.000-0.034) ng/mL 07/12/22 Range/Units 22:27 AST (17-59) U/L Troponin I <0.012 (0.000-0.034) ng/mL Coagulation 07/12/22 Range/Units 14:17 PT 11.0 (9.0-12.0) sec APTT 24.2 (22.0-30.0) sec CBC 07/12/22 Range/Units 14:17 WBC 7.3 (3.8-10.6) k/uL RBC 3.71 L (4.30-5.90) m/uL Hgb 11.9 L (13.0-17.5) gm/dL Hct 36.0 L (39.0-53.0) % Plt Count 204 (150-450) k/uL Comprehensive Metabolic Panel 07/12/22 Range/Units 14:17 Sodium 136 L (137-145) mmol/L Potassium 4.6 (3.5-5.1) mmol/L Chloride 104 (98-107) mmol/L Carbon Dioxide 23 (22-30) mmol/L BUN 34 H (9-20) mg/dL Creatinine 1.23 (0.66-1.25) mg/dL Glucose 210 H (74-99) mg/dL Calcium 8.2 L (8.4-10.2) mg/dL AST 25 (17-59) U/L ALT 14 (4-49) U/L Alkaline Phosphatase 86 (38-126) U/L Total Protein 5.6 L (6.3-8.2) g/dL Albumin 3.6 (3.5-5.0) g/dL Current Medications Generic Name Dose Route Start Last Admin Trade Name Freq PRN Reason Stop Dose Admin Amlodipine Besylate 2.5 mg 07/13/22 09:00 Amlodipine 2.5 Mg Tab PO DAILY [facility] Aspirin 81 mg 07/13/22 09:00 Aspirin 81 Mg PO DAILY [facility] Atorvastatin Calcium 80 mg 07/13/22 21:00 Atorvastatin 80 Mg Tab PO HS [facility] Clopidogrel Bisulfate 75 mg 07/13/22 09:00 Clopidogrel 75 Mg Tab PO DAILY [facility] Ezetimibe 10 mg 07/13/22 09:00 Ezetimibe 10 Mg Tab PO DAILY [facility] Isosorbide Mononitrate 60 mg 07/13/22 09:00 Isosorbide Mononitrate Er 60 Mg Tab.Er.24h PO DAILY [facility] Lisinopril 30 mg 07/13/22 09:00 Lisinopril 10 Mg Tab PO DAILY [facility] Metoprolol Succinate 50 mg 07/13/22 09:00 Metoprolol Succinate (Er) 50 Mg Tab.Er.24h PO DAILY [facility] Nitroglycerin 0.4 mg 07/12/22 15:11 Nitroglycerin Sl Tabs 0.4 Mg Tab SUBLINGUAL Q5M PRN Chest Pain Nitroglycerin 1 inch 07/12/22 18:00 07/13/22 06:53 Nitroglycerin Oint 1 Inch/Gm Packet TOPICAL Not Given Q6HR [facility] Ranolazine 1,000 mg 07/13/22 09:00 Ranolazine 500 Mg Tab.Er.12h PO BID [facility] Intake and Output 07/12/22 07/13/22 07/13/22 22:59 06:59 14:59 Other: Voiding Method Toilet # Voids 1 Weight 92.986 kg 07/12/22 14:17 07/12/22 14:17
[2022-07-13] MEDS ORDERED: Insulin Aspart (For Pump) 100 UNIT/ML VIAL SQ-PUMP SCH (11:30)
[2022-07-13] MEDS ORDERED: MONTELUKAST 10 MG TAB PO SCH (21:00)
[2022-07-13] MEDS ORDERED: ATORVASTATIN 80 MG TAB PO SCH (21:00)
[2022-07-14] MEDS ORDERED: PANTOPRAZOLE 40 MG TABLET PO SCH (07:30)
[2022-07-14] MEDS ORDERED: CHOLECALCIFEROL 25 MCG (1000 IU) TABLET PO SCH (09:00)
[2022-07-14] MEDS ORDERED: CYANOCOBALAMIN 500 MCG TAB PO SCH (09:00)
[2022-07-14] MEDS ORDERED: ASPIRIN 81 MG PO SCH (09:00)
[2022-07-14] MEDS ORDERED: LORATADINE 10 MG TAB PO SCH (09:00)
--- NOTE | 2022-07-14 17:25 | P.HPIM ---
History of Present Illness H&P Date: 07/13/22 Chief Complaint: Chest pain History and Physical and Discharge Summary : This is a 72-year-old gentleman with past medical history of RI, CAD ,status post multivessel angioplasty/stents, currently on Ranexa, diabetes mellitus with insulin pump Presented to the ER with complaints of chest pain. Reported anterior left chest pain that felt like a "punch in the chest" after consuming lunch lasting for approximately 20 minutes. Upon arriving home as he attempted to get out of the car, significant chest pressure radiating down his left arm, f ell out of the car while attempting to get out.Reports near syncope, Denies incontinence of urine or bowel movement. Difficulty getting up, EMS called and transported patient to the ER. EKG reported sinus bradycardia with right bundle branch block, troponins negative 3, chest x-ray reported nonacute.afebrile, normal WBC. Hemoglobin 11.9, platelets 204, INR 1, sodium 136, potassium 4.6, bicarb 23, BUN 34 , creatinine 1.23 glucose 210, magnesium 2 , lipid panel ordered .Currently denies chest pain, palpitations or shortness of breath. Ambulating in room, tolerating exertion well. Complains of chronic back pain. Denies lightheadedness dizziness or focal deficits. Cardiology consult in place. Review of Systems ROS Statement: Those systems with pertinent positive or pertinent negative responses have been documented in the HPI. ROS Other: All systems not noted in ROS Statement are negative. Past Medical History Past Medical History: Coronary Artery Disease (CAD), Cancer, Chest Pain / Angina, Diabetes Mellitus, Eye Disorder, GERD/Reflux, Myocardial Infarction (RI ), Osteoarthritis (OA), Prostate Disorder Additional Past Medical History / Comment(s): Chronic back pain, sciaticia, insulin pump, SARCOIDOSIS, hx BLADDER CANCER-chemo one time directly into bladder, OCC CONSTIPATION, neuropathy, BPH, macular edema- getting eye injections, RI X2 Last Myocardial Infarction Date:: 07/19/17 History of Any Multi-Drug Resistant Organisms: None Reported Past Surgical History: Back Surgery, Heart Catheterization, Heart Catheterization With Stent, Joint Replacement, Orthopedic Surgery Additional Past Surgical History / Comment(s): SX FOR BLADDER CANCER x 3, SAVITA CATARACTS, COLONOSCOPY, RT ANKLE tendonitis, SAVITA CARPAL TUNNEL, LT KNEE REPLACE MENT, SAVITA SHOULDER ROTATOR CUFF SX (total 6), LAMINECTOMY X2, THORACOTOMY/BX FOR NODULES ON LYMPH NODES(SARCOIDOSIS), 6 trigger finger releases, cardiac stents x 7,left total reversed shoulder Past Anesthesia/Blood Transfusion Reactions: Previous Problems w/ Anesthesia, Motion Sickness, Postoperative Nausea & Vomiting (PONV) Additional Past Anesthesia/Blood Transfusion Reaction / Comment(s): anesthesia dropped BP once & was in recovery longer with a shoulder surgery.no hx blood transfusion Date of Last Stent Placement:: November 2021 Past Psychological History: No Psychological Hx Reported Smoking Status: Former smoker Past Alcohol Use History: Occasional Additional Past Alcohol Use History / Comment(s): Pt states he smoked for about 5 years. Past Drug Use History: None Reported - Past Family History Brother(s) Family Medical History: Cancer Additional Family Medical History / Comment(s): Prostate cancer Medications and Allergies Home Medications Medication Instructions Recorded Confirmed Type Cetirizine HCl 10 mg PO DAILY 07/19/17 07/12/22 History Ezetimibe [Zetia] 10 mg PO DAILY #30 tab 02/02/18 07/12/22 Rx Clopidogrel [Plavix] 75 mg PO DAILY 10/25/18 07/12/22 History Acetaminophen [Tylenol Extra 1,000 mg PO HS 08/12/20 07/12/22 History Strength] Aspirin EC [Ecotrin Low Dose] 81 mg PO DAILY 04/16/21 07/12/22 History Isosorbide Mononitrate ER [Imdur] 60 mg PO DAILY 04/16/21 07/12/22 History Ranolazine [Ranolazine ER] 1,000 mg PO BID 04/16/21 07/12/22 History Cholecalciferol [Vitamin D3 (25 50 mcg PO DAILY 11/13/21 07/12/22 History Mcg = 1000 Iu)] Pantoprazole Sodium [Protonix] 20 mg PO DAILY 11/13/21 07/12/22 History Atorvastatin [Lipitor] 80 mg PO HS 07/12/22 07/12/22 History Cyanocobalamin (Vitamin B-12) 1,000 mcg PO DAILY 07/12/22 07/12/22 History [Vitamin B-12] Insulin Aspart (For Pump) [NovoLOG 0.01 unit SQ-PUMP CONTINUOUS 07/12/22 07/12/22 History (For Pump)] Metoprolol Succinate (ER) [Toprol 50 mg PO DAILY 07/12/22 07/12/22 History XL] Montelukast Sodium [Singulair] 10 mg PO HS 07/12/22 07/12/22 History amLODIPine [Norvasc] 2.5 mg PO DAILY 07/12/22 07/12/22 History lisinopriL 30 mg PO DAILY 07/12/22 07/12/22 History Allergies Allergy/AdvReac Type Severity Reaction Status Date / Time No Known Allergies Allergy Verified 07/12/22 15:34 Physical Exam Vitals: Vital Signs Temp Pulse Pulse Resp BP BP Pulse Ox 07/13/22 07:00 97.6 F 59 L 18 119/61 98 07/13/22 02:24 97.7 F 56 L 16 133/68 97 07/13/22 01:55 60 18 124/65 98 07/12/22 22:00 97.8 F 64 20 140/68 98 07/12/22 19:45 97.6 F 62 20 145/73 98 07/12/22 17:12 97.8 F 66 18 106/56 97 07/12/22 14:30 62 07/12/22 14:10 97.8 F 51 L 20 136/67 98 Intake and Output 07/12/22 07/13/22 07/13/22 22:59 06:59 14:59 Intake Total 118 Balance 118 Intake: Oral 118 Other: Voiding Method Toilet Toilet # Voids 1 Weight 92.986 kg PHYSICAL EXAM: VITAL SIGNS: As above GENERAL: Sitting up in bed HEENT: Conjunctivae normal. eyes normal. NECK: No JVD. No thyroid enlargement. No LNs CARDIOVASCULAR: S1, S2 regular. No murmur. RESPIRATION: Breath sounds diminished in the bases. No rhonchi or crackles. No bronchial breathing. ABDOMEN: Soft, nontender . No guarding. no masses palpable. No ascites, No hepatosplenomegaly.Bowel sounds heard. LEGS: No edema. no swelling PSYCHIATRY: Alert and oriented X3, mood and affect normal. NERVOUS SYSTEM: Cranial N 2-12 grossly normal. No focal deficits. Strength and sensation grossly intact. Skin: no lesions, no rash Results CBC & Chem 7: 07/12/22 14:17 07/12/22 14:17 Labs: Abnormal Lab Results - Last 24 Hours (Table) 07/12/22 07/12/22 07/13/22 Range/Units 14:17 14:17 00:12 RBC 3.71 L (4.30-5.90) m/uL Hgb 11.9 L (13.0-17.5) gm/dL Hct 36.0 L (39.0-53.0) % Sodium 136 L (137-145) mmol/L BUN 34 H (9-20) mg/dL Glucose 210 H (74-99) mg/dL POC Glucose (mg/dL) 285 H (70-110) mg/dL Calcium 8.2 L (8.4-10.2) mg/dL Total Protein 5.6 L (6.3-8.2) g/dL 07/13/22 Range/Units 06:52 RBC (4.30-5.90) m/uL Hgb (13.0-17.5) gm/dL Hct (39.0-53.0) % Sodium (137-145) mmol/L BUN (9-20) mg/dL Glucose (74-99) mg/dL POC Glucose (mg/dL) 134 H (70-110) mg/dL Calcium (8.4-10.2) mg/dL Total Protein (6.3-8.2) g/dL Thrombosis Risk Factor Assmnt - Choose All That Apply Each Factor Represents 1 point: Obesity (BMI >25) Each Risk Factor Represents 2 Points: Age 61-74 years Thrombosis Risk Factor Assessment Total Risk Factor Score: 3 Thrombosis Risk Factor Assessment Level: Moderate Risk Assessment and Plan Assessment: -Acute chest pain, rule out acute coronary syndrome, possible angina, cardiology following -Near syncope secondary to the above -CAD, history of RI and prior stents -Chronic back pain -Diabetes mellitus, hyperglycemia, on insulin pump -history of sarcoidosis -Hypertension -Hyperlipidemia -Bladder cancer -History of nicotine dependence -Osteoarthritis Plan: Continue on current medication regime ,monitoring and symptomatic treatment. Evaluated by cardiology and patient has been cleared for discharge. Outpatient Lexiscan stress test planned. Patient will be discharged home today in a stable condition with guarded prognosis. Follow-up with PCP in 3 days. Discharge Medication List Cetirizine HCl 10 mg PO DAILY 07/19/17 [History] Ezetimibe [Zetia] 10 mg PO DAILY #30 tab 02/02/18 [Rx] Clopidogrel [Plavix] 75 mg PO DAILY 10/25/18 [History] Acetaminophen [Tylenol Extra Strength] 1,000 mg PO HS 08/12/20 [History] Aspirin EC [Ecotrin Low Dose] 81 mg PO DAILY 04/16/21 [History] Isosorbide Mononitrate ER [Imdur] 60 mg PO DAILY 04/16/21 [History] Ranolazine [Ranolazine ER] 1,000 mg PO BID 04/16/21 [History] Cholecalciferol [Vitamin D3 (25 Mcg = 1000 Iu)] 50 mcg PO DAILY 11/13/21 [History] Pantoprazole Sodium [Protonix] 20 mg PO DAILY 11/13/21 [History] Atorvastatin [Lipitor] 80 mg PO HS 07/12/22 [History] Cyanocobalamin (Vitamin B-12) [Vitamin B-12] 1,000 mcg PO DAILY 07/12/22 [History] Insulin Aspart (For Pump) [NovoLOG (For Pump)] 0.01 unit SQ-PUMP CONTINUOUS 07/12/22 [History] Metoprolol Succinate (ER) [Toprol XL] 50 mg PO DAILY 07/12/22 [History] Montelukast Sodium [Singulair] 10 mg PO HS 07/12/22 [History] amLODIPine [Norvasc] 2.5 mg PO DAILY 07/12/22 [History] lisinopriL 30 mg PO DAILY 07/12/22 [History] The impression and plan of care has been dictated as directed. : I performed a history and examination of this patient, discussed the same with the dictator. I agree with the dictator's note ,documented as a scribe. Any additional findings or plans will be noted.
== END 2022-07-13 11:55 | disposition home or self-care (01) ==
LOC: EC 14:06 → 6NMEDSUR 15:18
PROVIDERS: ADMIT Family Medicine; ATTEND Family Medicine
DX: E11.65 Type 2 diabetes mellitus with hyperglycemia (principal); R55 Syncope and collapse; E78.00 Pure hypercholesterolemia, unspecified; I10 Essential (primary) hypertension; I25.10 Atherosclerotic heart disease of native coronary artery without angina pectoris; K21.9 Gastro-esophageal reflux disease without esophagitis; E11.40 Type 2 diabetes mellitus with diabetic neuropathy, unspecified; M54.9 Dorsalgia, unspecified; G89.29 Other chronic pain; N40.0 Benign prostatic hyperplasia without lower urinary tract symptoms; D86.1 Sarcoidosis of lymph nodes; I25.2 Old myocardial infarction; I45.10 Unspecified right bundle-branch block; R00.1 Bradycardia, unspecified; Z79.02 Long term (current) use of antithrombotics/antiplatelets; Z95.5 Presence of coronary angioplasty implant and graft; Z79.4 Long term (current) use of insulin; Z96.41 Presence of insulin pump (external) (internal); Z79.82 Long term (current) use of aspirin; Z79.899 Other long term (current) drug therapy; Z85.51 Personal history of malignant neoplasm of bladder; Z87.891 Personal history of nicotine dependence; Z96.652 Presence of left artificial knee joint; Z80.42 Family history of malignant neoplasm of prostate
CPT/HCPCS: 99285; 36415; 93005; 80061; 80053; 83735; 84484; 85025; 85610; 85730; 83721; 71046; G0378 ×2

== ENCOUNTER → 2022-08-19 | Outpatient (CLI) | payer MEDICARE ==
--- NOTE | 2022-08-20 04:38 | MR ---
EXAMINATION TYPE: MR lumbar spine wo con DATE OF EXAM: 08/19/2022 COMPARISON: 03/29/2017 HISTORY: Lower back pain, spinal stenosis. Multiplanar multiecho imaging of the lumbar spine performed without contrast. The lumbar vertebrae have normal alignment. There is degenerative disc space narrowing from L3 to S1. There is laminectomy of L5 on the left side. There is L3-4 moderate spinal stenosis due to posterior disc bulging and ligament thickening. No compression fracture. No lumbar paraspinal mass. There is s ome narrowing of the neural foramen at L4-5 on the left side due to facet arthropathy and disc space narrowing. IMPRESSION: Multilevel spondylotic changes. There is some spinal stenosis at L3-4 which is slightly worse than ol d exam. No compression fracture. Mild left side L4-5 neural foraminal narrowing.
== END | disposition home or self-care (01) ==
LOC: RADMRIMAIN 18:12
PROVIDERS: ATTEND Orthopaedic Surgery
DX: M47.816 Spondylosis without myelopathy or radiculopathy, lumbar region (principal); M51.37 Other intervertebral disc degeneration, lumbosacral region; M51.26 Other intervertebral disc displacement, lumbar region; M99.73 Connective tissue and disc stenosis of intervertebral foramina of lumbar region; M48.061 Spinal stenosis, lumbar region without neurogenic claudication
CPT/HCPCS: 72148

== ENCOUNTER 2023-11-03 14:08 | Emergency (ER) | payer MEDICARE ==
[2023-11-03 14:43] LABS: Basophils % (A) 0 %; Eosinophils # (A) 0.1 k/uL (0-0.7); Eosinophils % (A) 1 %; HCT 43.9 % (39.0-53.0); HGB 14.3 gm/dL (13.0-17.5); Lymphocytes # (A) 2.4 k/uL (1.0-4.8); Lymphocytes % (A) 25 %; MCH 32.6 pg (25.0-35.0); MCHC 32.5 g/dL (31.0-37.0); MCV 100.4 fL (80.0-100.0); Mean Platelet Volume 7.8; Monocytes # (A) 0.7 k/uL (0-1.0); Monocytes % (A) 7 %; Neutrophils # (A) 5.9 k/uL (1.3-7.7); Neutrophils % (A) 64 %; Platelet Count 240 k/uL (150-450); RBC 4.38 m/uL (4.30-5.90); RDW 13.1 % (11.5-15.5); WBC 9.2 k/uL (3.8-10.6)
[2023-11-03 14:48] LABS: Prothrombin Time 11.1 sec (10.0-12.5)
--- NOTE | 2023-11-03 15:01 | XR ---
EXAMINATION TYPE: XR chest 2V DATE OF EXAM: 11/03/2023 2:52 PM CLINICAL INDICATION:Male, 73 years old with history of Weakness; COMPARISON: Chest radiographs from 07/12/2022 TECHNIQUE: XR chest 2V Frontal and lateral views of the chest. FINDINGS: Lungs/Pleura: There is no evidence of pleural effusion, focal consolidation, or pneumothorax. Pulmonary vascularity: Unremarkable. Heart/mediastinum: Cardiomediastinal silhouette is unremarkable. Musculoskeletal: No acute osseous pathology. Left shoulder arthroplasty appears intact. IMPRESSION: No acute cardiopulmonary disease/process.
[2023-11-03 15:03] VITALS: RESP 18
[2023-11-03 15:34] LABS: ALT 18 U/L (4-49); AST 25 U/L (17-59); African American GFR (CKD) 77 (>60 ml/min/1.73 sqM); Albumin 3.1 g/dL (3.5-5.0); Alkaline Phosphatase 125 U/L (38-126); Anion Gap 7 mmol/L; Blood Urea Nitrogen 41 mg/dL (9-20); Calcium 8.4 mg/dL (8.4-10.2); Carbon Dioxide 24 mmol/L (22-30); Chloride 105 mmol/L (98-107); Glucose 270 mg/dL (74-99); Magnesium 2.2 mg/dL (1.6-2.3); Non-African American GFR(CKD) 66 (>60 ml/min/1.73 sqM); Potassium 4.4 mmol/L (3.5-5.1); Sodium 136 mmol/L (137-145); Total Bilirubin 0.6 mg/dL (0.2-1.3); Total Protein 5.5 g/dL (6.3-8.2)
[2023-11-03 15:42] LABS: NT-Pro-B-Type Natriuretic Pept 308 pg/mL
--- NOTE | 2023-11-03 16:58 | ED ---
Weakness HPI - General Chief complaint: Weakness Stated complaint: chest pain Time Seen by Provider: 11/03/23 14:15 Source: EMS Mode of arrival: EMS Limitations: no limitations - History of Present Illness Initial comments: 73-year-old male presents to the emergency department via EMS for sudden onset of diaphoresis and weakness. Patient was at lunch with his significant other when he suddenly felt like he could not keep his head up. He felt extremely weak with sudden onset of nausea, vomiting. Patient had a laying his head on the table because of his symptoms. He does have history of cardiac disease and therefore EMS was called. Twelve-lead EKG was completed with no remarkable findings. Patient transported to the hospital for further evaluation. Upon hospital arrival he states that he feels remarkably better after he vomited. He states that him and his ate the same foods and she is not sick. No recent fevers. Does report to recent upper respiratory symptoms. He denies any chest pain or shortness of breath. No other alleviating, precipitating or modifying factors - Related Data Home Medications Medication Instructions Recorded Confirmed Acetaminophen [Tylenol Extra 1,000 mg PO HS 08/12/20 11/03/23 Strength] Aspirin EC [Ecotrin Low Dose] 81 mg PO DAILY 04/16/21 11/03/23 Isosorbide Mononitrate ER [Imdur] 60 mg PO DAILY 04/16/21 11/03/23 Ranolazine [Ranexa] 1,000 mg PO BID 04/16/21 11/03/23 Cholecalciferol [Vitamin D3 (25 25 mcg PO DAILY 11/13/21 11/03/23 Mcg = 1000 Iu)] Pantoprazole Sodium [Protonix] 20 mg PO DAILY 11/13/21 11/03/23 Atorvastatin [Lipitor] 80 mg PO HS 07/12/22 11/03/23 Insulin Aspart (For Pump) [NovoLOG 0.01 unit SQ-PUMP CONTINUOUS 07/12/22 11/03/23 (For Pump)] Metoprolol Succinate (ER) [Toprol 50 mg PO DAILY 07/12/22 11/03/23 XL] Amoxic-Pot Clav 875-125Mg 1 tab PO BID 11/03/23 11/03/23 [Augmentin 875-125] Cyanocobalamin (Vitamin B-12) 2,500 mcg PO DAILY 11/03/23 11/03/23 [Vitamin B-12] Empagliflozin [Jardiance] 12.5 mg PO DAILY 11/03/23 11/03/23 Fluticasone Nasal [place] [Flonase 1 spr EA NOSTRIL BID 11/03/23 11/03/23 Nasal [place]] Pseudoephedrine [Sudafed] 30 mg PO Q6H PRN 11/03/23 11/03/23 amLODIPine [Norvasc] 5 mg PO DAILY 11/03/23 11/03/23 lisinopriL [Zestril] 20 mg PO DAILY 11/03/23 11/03/23 Previous Rx's Medication Instructions Recorded Ezetimibe [Zetia] 10 mg PO DAILY #30 tab 02/02/18 Allergies Allergy/AdvReac Type Severity Reaction Status Date / Time No Known Allergies Allergy Verified 11/03/23 15:07 Review of Systems ROS Statement: Those systems with pertinent positive or pertinent negative responses have been documented in the HPI. ROS Other: All systems not noted in ROS Statement are negative. Past Medical History Past Medical History: Cancer, Diabetes Mellitus Additional Past Medical History / Comment(s): Chronic back pain, sciaticia, insulin pump, SARCOIDOSIS, hx BLADDER CANCER-chemo one time directly into bladder, OCC CONSTIPATION, neuropathy, BPH, macular edema- getting eye injections Last Myocardial Infarction Date:: 07/19/17 History of Any Multi-Drug Resistant Organisms: None Reported Past Surgical History: Heart Catheterization With Stent Additional Past Surgical History / Comment(s): SX FOR BLADDER CANCER x 3, SAVITA CATARACTS, COLONOSCOPY, RT ANKLE tendonitis, SAVITA CARPAL TUNNEL, LT KNEE REPLACEMENT, SAVITA SHOULDER ROTATOR CUFF SX (total 6), LAMINECTOMY X2, THORACOTOMY/BX FOR NODULES ON LYMPH NODES(SARCOIDOSIS), 6 trigger finger releases, cardiac stents x 6,left total reversed shoulder Past Anesthesia/Blood Transfusion Reactions: Previous Problems w/ Anesthesia, Motion Sickness, Postoperative Nausea & Vomiting (PONV) Additional Past Anesthesia/Blood Transfusion Reaction / Comment(s): anesthesia dropped BP once & was in recovery longer with a shoulder surgery.no hx blood transfusion Date of Last Stent Placement:: september 2020 Past Psychological History: No Psychological Hx Reported Smoking Status: Former smoker Past Alcohol Use History: Occasional Past Drug Use History: None Reported - Past Family History Brother(s) Family Medical History: Cancer Additional Family Medical History / Comment(s): Prostate cancer General Exam Limitations: no limitations General appearance: alert, in no apparent distress Head exam: Present: atraumatic, normocephalic, normal inspection Eye exam: Present: normal appearance, PERRL, EOMI. Absent: scleral icterus, conjunctival injection, periorbital swelling ENT exam: Present: normal exam, mucous membranes moist Neck exam: Present: normal inspection. Absent: tenderness, meningismus, lymphadenopathy Respiratory exam: Present: normal lung sounds bilaterally. Absent: respiratory distress, wheezes, rales, rhonchi, stridor Cardiovascular Exam: Present: regular rate, normal rhythm, normal heart sounds. Absent: systolic murmur, diastolic murmur, rubs, gallop, clicks GI/Abdominal exam: Present: soft, normal bowel sounds. Absent: distended, tenderness, guarding, rebound, rigid Extremities exam: Present: normal inspection, full ROM, normal capillary refill. Absent: tenderness, pedal edema, joint swelling, calf tenderness Back exam: Present: normal inspection Neurological exam: Present: alert, oriented X3, CN II-XII intact Psychiatric exam: Present: normal affect, normal mood Skin exam: Present: warm, dry, intact, normal color. Absent: rash Course Vital Signs 11/03/23 11/03/23 14:11 17:11 Temperature 97.8 F 98.9 F Pulse Rate 54 L 61 Respiratory 18 18 Rate Blood Pressure 101/65 102/68 O2 Sat by Pulse 97 97 Oximetry Medical Decision Making - Medical Decision Making Was pt. sent in by a medical professional or institution (, PA, SCRATCHER TENDER, urgent care, hospital, or long-term...) When possible be specific @ -No Did you speak to anyone other than the patient for history (EMS, parent, family, police, friend...)? What history was obtained from this source @ -EMS and provided history Did you review nursing and triage notes (agree or disagree)? Why? @ -I reviewed and agree with nursing and triage notes Were old charts reviewed (outside hosp., previous admission, EMS record, old EKG, old radiological studies, urgent care reports/EKG's, long-term records)? Report findings @ -No old charts were reviewed Differential Diagnosis (chest pain, altered mental status, abdominal pain women, abdominal pain men, vaginal bleeding, weakness, fever, dyspnea, syncope, headache, dizziness, GI bleed, back pain, seizure, CVA, palpatations, mental health, musculoskeletal)? @ -Differential Weakness: Hypoglycemia, shock, sepsis, hyponatremia, anemia, infection, WA, ETOH, adverse medicine reaction, overdose, stroke, this is not meant to be an all-inclusive list. EKG interpreted by me (3pts min.). @ -Yes and demonstrates sinus bradycardia with a rate of 58. MO interval 169. QRS 148. QTc of 491. No acute ST segment elevations or depressions X-rays interpreted by me (1pt min.). @ -Yes and demonstrates no acute process CT interpreted by me (1pt min.). @ -None done U/S interpreted by me (1pt. min.). @ -None done What testing was considered but not performed or refused? (CT, X-rays, U/S, labs)? Why? @ -None What meds were considered but not given or refused? Why? @ -None Did you discuss the management of the patient with other professionals (professionals i.e. , PA, SCRATCHER TENDER, lab, RT, psych nurse, mental health social worker, fugitive investigator, teacher, appeals officer, director case management)? Give summary @ -No Was smoking cessation discussed for >3mins.? @ -No Was critical care preformed (if so, how long)? @ -No Were there social determinants of health that impacted care today? How? (Homelessness, low income, unemployed, alcoholism, drug addiction, transportation, low edu. Level, literacy, decrease access to med. care, long-term, rehab)? @ -No Was there de-escalation of care discussed even if they declined (Discuss DNR or withdrawal of care, Hospice)? DNR status @ -No What co-morbidities impacted this encounter? (DM, HTN, Smoking, COPD, CAD, Can cer, CVA, ARF, Chemo, Hep., AIDS, mental health diagnosis, sleep apnea, morbid obesity)? @ -Atherosclerotic coronary artery disease, diabetes mellitus, chronic back pain Was patient admitted / discharged? Hospital course, mention meds given and route, prescriptions, significant lab abnormalities, going to OR and other pertinent info. @ -Upon arrival patient was placed into room 31. Thorough history and physical exam was performed. Twelve-lead EKG was obtained. Laboratory studies are conducted. Patient is offered pain and nausea medications however he feels improved at this time. Laboratory studies are conducted. Chest x-ray was performed. Upon return the results they are discussed with the patient. Recommended admission for serial troponins. Patient feels completely asymptomatic at this time and would like to go home. Patient needs to follow-up with his primary care doctors and his owner professional engineer. Return for any new or worsening symptoms. Patient agreeable to the plan he was discharged home in stable condition Undiagnosed new problem with uncertain prognosis? @ -Yes Drug Therapy requiring intensive monitoring for toxicity (Heparin, Nitro, Insulin, Cardizem)? @ -No Were any procedures done? @ -No Diagnosis/symptom? @ -Acute nausea, acute vomiting, COVID infection Acute, or Chronic, or Acute on Chronic? @ -Acute Uncomplicated (without systemic symptoms) or Complicated (systemic symptoms)? @ -Complicated Side effects of treatment? @ -No Exacerbation, Progression, or Severe Exacerbation? @ -No Poses a threat to life or bodily function? How? (Chest pain, USA, WA, pneumonia, PE, COPD, DKA, ARF, appy, cholecystitis, CVA, Diverticulitis, Homicidal, Suicidal, threat to staff... and all critical care pts) @ -No - Lab Data Result diagrams: 11/03/23 14:27 11/03/23 14:27 Lab Results 11/03/23 11/03/23 11/03/23 Range/Units 14:27 14:27 14:27 WBC 9.2 (3.8-10.6) k/uL RBC 4.38 (4.30-5.90) m/uL Hgb 14.3 (13.0-17.5) gm/dL Hct 43.9 (39.0-53.0) % MCV 100.4 H (80.0-100.0) fL MCH 32.6 (25.0-35.0) pg MCHC 32.5 (31.0-37.0) g/dL RDW 13.1 (11.5-15.5) % Plt Count 240 (150-450) k/uL MPV 7.8 Neutrophils % 64 % Lymphocytes % 25 % Monocytes % 7 % Eosinophils % 1 % Basophils % 0 % Neutrophils # 5.9 (1.3-7.7) k/uL Lymphocytes # 2.4 (1.0-4.8) k/uL Monocytes # 0.7 (0-1.0) k/uL Eosinophils # 0.1 (0-0.7) k/uL Basophils # 0.0 (0-0.2) k/uL PT 11.1 (10.0-12.5) sec INR 1.0 (<1.2) APTT 22.0 (22.0-30.0) sec Sodium 136 L (137-145) mmol/L Potassium 4.4 (3.5-5.1) mmol/L Chloride 105 (98-107) mmol/L Carbon Dioxide 24 (22-30) mmol/L Anion Gap 7 mmol/L BUN 41 H (9-20) mg/dL Creatinine 1.11 (0.66-1.25) mg/dL Est GFR (CKD-EPI)AfAm 77 (>60 ml/min/1.73 sqM) Est GFR (CKD-EPI)NonAf 66 (>60 ml/min/1.73 sqM) Glucose 270 H (74-99) mg/dL Plasma Lactic Acid Jon (0.7-2.0) mmol/L Calcium 8.4 (8.4-10.2) mg/dL Magnesium 2.2 (1.6-2.3) mg/dL Total Bilirubin 0.6 (0.2-1.3) mg/dL AST 25 (17-59) U/L ALT 18 (4-49) U/L Alkaline Phosphatase 125 (38-126) U/L Troponin I (0.000-0.034) ng/mL NT-Pro-B Natriuret Pep 308 pg/mL Total Protein 5.5 L (6.3-8.2) g/dL Albumin 3.1 L (3.5-5.0) g/dL Influenza Type A (PCR) (Not Detectd) Influenza Type B (PCR) (Not Detectd) RSV (PCR) (Not Detectd) SARS-CoV-2 (PCR) (Not Detectd) 11/03/23 11/03/23 11/03/23 Range/Units 14:27 14:27 14:27 WBC (3.8-10.6) k/uL RBC (4.30-5.90) m/uL Hgb (13.0-17.5) gm/dL Hct (39.0-53.0) % MCV (80.0-100.0) fL MCH (25.0-35.0) pg MCHC (31.0-37.0) g/dL RDW (11.5-15.5) % Plt Count (150-450) k/uL MPV Neutrophils % % Lymphocytes % % Monocytes % % Eosinophils % % Basophils % % Neutrophils # (1.3-7.7) k/uL Lymphocytes # (1.0-4.8) k/uL Monocytes # (0-1.0) k/uL Eosinophils # (0-0.7) k/uL Basophils # (0-0.2) k/uL PT (10.0-12.5) sec INR (<1.2) APTT (22.0-30.0) sec Sodium (137-145) mmol/L Potassium (3.5-5.1) mmol/L Chloride (98-107) mmol/L Carbon Dioxide (22-30) mmol/L Anion Gap mmol/L BUN (9-20) mg/dL Creatinine (0.66-1.25) mg/dL Est GFR (CKD-EPI)AfAm (>60 ml/min/1.73 sqM) Est GFR (CKD-EPI)NonAf (>60 ml/min/1.73 sqM) Glucose (74-99) mg/dL Plasma Lactic Acid Jon 1.4 (0.7-2.0) mmol/L Calcium (8.4-10.2) mg/dL Magnesium (1.6-2.3) mg/dL Total Bilirubin (0.2-1.3) mg/dL AST (17-59) U/L ALT (4-49) U/L Alkaline Phosphatase (38-126) U/L Troponin I <0.012 (0.000-0.034) ng/mL NT-Pro-B Natriuret Pep pg/mL Total Protein (6.3-8.2) g/dL Albumin (3.5-5.0) g/dL Influenza Type A (PCR) Not Detected (Not Detectd) Influenza Type B (PCR) Not Detected (Not Detectd) RSV (PCR) Not Detected (Not Detectd) SARS-CoV-2 (PCR) Detected A (Not Detectd) Disposition Clinical Impression: Near syncope, Vomiting Disposition: HOME SELF-CARE Condition: Stable Instructions (If sedation given, give patient instructions): Near Syncope (ED) Additional Instructions: Please follow-up with your doctor within 2 to 4 days. Let your owner professional engineer know about the event that brought you to the ER. Return should you have any new or worsening symptoms Is patient prescribed a controlled substance at d/c from ED?: No Referrals: Alban Terrell DO [Primary Care Provider] - 1-2 days Time of Disposition: 16:58
[2023-11-03 17:29] VITALS: BP 102/68; PULSE 61; TEMP 98.9
== END 2023-11-03 17:19 | disposition home or self-care (01) ==
LOC: EC 14:08
DX: I45.10 Unspecified right bundle-branch block (principal); R11.10 Vomiting, unspecified; E11.9 Type 2 diabetes mellitus without complications; Z87.891 Personal history of nicotine dependence; Z79.82 Long term (current) use of aspirin; Z79.4 Long term (current) use of insulin; Z79.84 Long term (current) use of oral hypoglycemic drugs; Z20.822 Contact with and (suspected) exposure to COVID-19
CPT/HCPCS: 36415; 71046; 80053; 83605; 83735; 83880; 84484; 85025; 85610; 85730; 87636; 93005; 99285

== ENCOUNTER → 2023-12-09 | Outpatient (CLI) | payer MEDICARE ==
[2023-12-09 11:48] LABS: HCT 44.9 % (39.6-50.0); HGB 14.4 g/dL (13.0-17.0); MCH 31.9 pg (27.0-32.0); MCHC 32.1 g/dL (32.0-37.0); MCV 99.3 FL (80.0-97.0); NRBC Per 100 WBC 0 X 10*3/uL (0.00-0.01); Platelet Count 244 X 10*3/uL (140-440); RBC 4.52 X 10*6/uL (4.40-5.60); RDW 13.3 % (11.5-14.5); WBC 6.85 X 10*3/uL (4.50-10.00)
[2023-12-09 12:06] LABS: Carbon Dioxide 23.7 mmol/L (21.6-31.8); Chloride 105 mmol/L (96-109); Potassium 4.3 mmol/L (3.5-5.5); Sodium 140 mmol/L (135-145)
== END | disposition home or self-care (01) ==
LOC: LABPAT 08:31
PROVIDERS: ATTEND Internal Medicine Interventional Cardiology
DX: Z01.812 Encounter for preprocedural laboratory examination (principal); I25.10 Atherosclerotic heart disease of native coronary artery without angina pectoris
CPT/HCPCS: 36415; 80051; 82565; 84520; 85027

== ENCOUNTER 2024-02-16 07:28 | Day surgery (SDC) | payer MEDICARE ==
[2024-02-10 12:03] VITALS: BMI 25.4
[2024-02-16 07:53] LABS: Glucose,Whole Blood 140 mg/dL (70-110)
[2024-02-16] MEDS: SODIUM CHLORIDE 0.9% 1,000 ML IV SCH (08:03)
[2024-02-16 08:07] VITALS: BP 140/70; PULSE 60; TEMP 98.1
--- NOTE | 2024-02-21 19:48 | P.EPPROC ---
- EP Procedure Note Electrophysiology Procedure Note: Diagnosis Recurrent syncope Twelve-lead EKG shows sinus rhythm normal WA IVCD normal QT interval Tilt table test per protocol Baseline blood pressure 160/50 mmHg baseline heart rate 58 beats a minute patient was tilted upright in angle of 70 degrees per protocol. There was an immediate drop in his blood pressure to 138/58 mmHg without any change in heart rate He complained of dizziness After 12 minutes the blood pressure dropped to 97/40 mmHg and then 74/38 mmHg. The patient still complained of tunnel vision feeling clammy and almost slumped over At that point the test was aborted and the patient was laid supine Prior to that there was no change in heart rate When he was laid supine his blood pressure immediately increased to 167/66 mmHg Impression IVCD on twelve-lead EKG Orthostatic hypotension syndrome is the most plausible reason for his symptoms
== END 2024-02-16 09:45 | disposition home or self-care (01) ==
LOC: CATHEP 07:28
PROVIDERS: ATTEND Internal Medicine Clinical Cardiac Electrophysiology
DX: I25.5 Ischemic cardiomyopathy (principal); I10 Essential (primary) hypertension; E78.5 Hyperlipidemia, unspecified; I25.10 Atherosclerotic heart disease of native coronary artery without angina pectoris; I65.23 Occlusion and stenosis of bilateral carotid arteries; Z85.51 Personal history of malignant neoplasm of bladder; Z79.82 Long term (current) use of aspirin; Z79.899 Other long term (current) drug therapy
CPT/HCPCS: 93660

== ENCOUNTER → 2024-03-23 | Outpatient (CLI) | payer MEDICARE ==
[2024-03-23 12:12] LABS: African American GFR (CKD) >90 (>60 ml/min/1.73 sqM); Blood Urea Nitrogen 29 mg/dL (9-20); Non-African American GFR(CKD) 86 (>60 ml/min/1.73 sqM)
--- NOTE | 2024-03-23 21:42 | CT ---
EXAMINATION TYPE: CT urogram wo/w con CT DLP: 2527 mGycm, Automated exposure control for dose reduction was used. DATE OF EXAM: 03/23/2024 1:34 PM COMPARISON: 07/01/2022 CLINICAL INDICATION:Male, 74 years old with history of C67.9 BLADDER CANCER; [facility], TECHNIQUE: Urogram with imaging of the abdomen and pelvis. Coronal and sagittal reformats were performed. 2D and 3D reconstructions are performed to assist visualization of the urinary tract on a separate workstat ion. Contrast used: mL of , None Oral contrast used: None. FINDINGS: LOWER CHEST: No significant findings. GENITOURINARY: RIGHT KIDNEY AND URETER: No calculi. No hydronephrosis or hydroureter. No renal mass or other lesions . No urothelial lesions: no filling defect, dilation, stricture or wall thickening. LEFT KIDNEY AND URETER: No calculi. No hydronephrosis or hydroureter. No renal mass or other lesions. No urothelial lesions: no filling defect, dilation, stricture or wall thickening. URINARY BLADDER: The right bladder wall is mildly thickened measuring up to 6 mm in thickness extendi ng approximately 36 mm. This is increased from prior on 07/01/2022. Wall is thin and prior on 022. REPRODUCTIVE: Unremarkable. ABDOMEN LIVER: Unremarkable. GALLBLADDER AND BILE DUCTS: Cholelithiasis. PANCREAS: Unremarkable. SPLEEN: Unremarkable. ADRENAL GLANDS: Unremarkable. STOMACH AND BOWEL: . No evidence of bowel obstruction. Third portion duodenal diverticulum. Scattered colonic diverticula. PERITONEUM: No evidence of pneumoperitoneum, free fluid, or adenopathy. VASCULATURE: No evidence of aortic aneurysm. MUSCULOSKELETAL: No acute osseous abnormalities LYMPH NODES: No gross evidence for lymphadenopathy. SOFT TISSUE/ABDOMINAL WALL: Fat-containing umbilical hernia. IMPRESSION: 1. Interval increase in Right lateral bladder wall thickening possibly related to history of bladder cancer. Possibly progression. Direct visualization recommended if not recently performed. No evidence for lymphadenopathy at this time. 2. Colonic diverticulosis. 3. Left fat-containing inguinal hernia.
== END | disposition home or self-care (01) ==
LOC: RADCTMAIN 11:29
PROVIDERS: ATTEND Urology
DX: C67.9 Malignant neoplasm of bladder, unspecified (principal); K40.90 Unilateral inguinal hernia, without obstruction or gangrene, not specified as recurrent; K57.30 Diverticulosis of large intestine without perforation or abscess without bleeding; Z85.51 Personal history of malignant neoplasm of bladder
CPT/HCPCS: 82565; 84520; 74178; 74400; Q9967

== ENCOUNTER 2024-09-14 17:08 | Observation (INO) | payer MEDICARE ==
[2024-09-14 18:01] LABS: HCT 41.2 % (39.0-53.0); HGB 12.9 gm/dL (13.0-17.5); Hypochromasia Slight; MCH 28.3 pg (25.0-35.0); MCHC 31.4 g/dL (31.0-37.0); MCV 90.2 fL (80.0-100.0); Mean Platelet Volume 7.2; Platelet Count 312 k/uL (150-450); RBC 4.56 m/uL (4.30-5.90); RDW 15.3 % (11.5-15.5); WBC 11.9 k/uL (3.8-10.6)
[2024-09-14 18:19] LABS: ALT 11 U/L (4-49); African American GFR (CKD) 73 (>60 ml/min/1.73 sqM); Anion Gap 11 mmol/L; Blood Urea Nitrogen 25 mg/dL (9-20); Calcium 9.2 mg/dL (8.4-10.2); Carbon Dioxide 21 mmol/L (22-30); Chloride 105 mmol/L (98-107); Glucose 98 mg/dL (74-99); Non-African American GFR(CKD) 63 (>60 ml/min/1.73 sqM); Sodium 137 mmol/L (137-145)
[2024-09-14 18:29] LABS: AST 38 U/L (17-59); Albumin 4.5 g/dL (3.5-5.0); Alkaline Phosphatase 94 U/L (38-126); Potassium 4.7 mmol/L (3.5-5.1); Total Bilirubin 0.8 mg/dL (0.2-1.3); Total Protein 7.8 g/dL (6.3-8.2)
[2024-09-14 20:31] LABS: Appearance,Urine Turbid (Clear); Bacteria,Urine Moderate /hpf; Bilirubin,Urine Negative (Negative); Blood,Urine Moderate (Negative); Color,Urine Colorless; Glucose,Urine (UA) 4+ (Negative); Ketones,Urine Negative (Negative); Leukocyte Esterase,Urine Large (Negative); Mucus,Urine Rare /hpf; Nitrite,Urine Positive (Negative); Protein,Urine 2+ (Negative); RBC,Urine 16 /hpf (0-5); Specific Gravity,Urine 1.011 (1.001-1.035); Squamous Epithelial Cell,Urine <1 /hpf (0-4); Urobilinogen,Urine <2.0 mg/dL (<2.0); WBC,Urine >182 /hpf (0-5)
--- NOTE | 2024-09-14 21:09 | CT ---
EXAMINATION TYPE: CT abdomen pelvis w con DATE OF EXAM: 09/14/2024 8:32 PM COMPARISON: Previous CT study [address]. CLINICAL INDICATION: Male, 74 years old with history of abdominal/bilateral flank pain; bilt flank pa in for weeks. pt with urostomy. no fever. c/o chills. TECHNIQUE: Axial CT abdomen pelvis w con;Sagittal and coronal reformats were created on a separate w orkstation. Contrast used:100cc mL of Isovue 300 with IV Contrast, (none if empty) Oral contrast used: without Oral Contrast (none if empty) CT DLP: 1133.1 mGycm, Automated exposure control for dose reduction was used. FINDINGS: LOWER CHEST: Unremarkable ABDOMEN LIVER: Unremarkable GALLBLADDER AND BILE DUCTS: Cholelithiasis. PANCREAS: Unremarkable. SPLEEN: Unremarkable. ADRENAL GLANDS: Unremarkable. KIDNEYS AND URETERS: Postsurgical changes of cystoprostatectomy with urinary diversion and right lowe r quadrant urostomy. There is mild right-sided hydroureteronephrosis and urothelial wall thickening/h yperenhancement. No definite obstructing renal or ureteral calculus identified. There is asymmetric h ypoenhancement of the right renal parenchyma. Punctate nonobstructive calculus in the inferior left k idney. No evidence of significant left-sided hydronephrosis or either ureter. PELVIS Postsurgical changes of cystoprostatectomy. ABDOMEN & PELVIS STOMACH AND BOWEL: Stomach and duodenum are unremarkable. Scattered diverticula are noted throughout the colon. No evidence of bowel obstruction. Small duodenal diverticulum. PERITONEUM/RETROPERITONEUM: No evidence of pneumoperitoneum or free fluid. VASCULATURE: No evidence of aortic aneurysm. MUSCULOSKELETAL: No acute osseous abnormalities LYMPH NODES: No gross evidence for lymphadenopathy. SOFT TISSUE/ABDOMINAL WALL: Unremarkable IMPRESSION: Interval postoperative changes of cystoprostatectomy with urinary diversion right lower quadrant uros rodrigue. [id number] right-sided hydroureteronephrosis, right-sided urothelial wall thickening/hype renhancement and asymmetric hypoenhancement of the right renal parenchyma. Findings are suggestive of pyelitis without definite obstructing renal or ureteral calculus identified. Consider outpatient dir ect visualization for further evaluation as clinically indicated to exclude other etiologies. [facility], , 09/14/2024 9:07 PM
[2024-09-14] MEDS: cefTRIAXone IN SWFI 1,000 MG/10 ML SYRINGE IVP STA (22:02)
[2024-09-14] MEDS ORDERED: ONDANSETRON 4 MG/2 ML VIAL IVP PRN (22:11)
[2024-09-14] MEDS ORDERED: KETOROLAC 15 MG/ML 1 ML VIAL IVP PRN (22:11)
[2024-09-14] MEDS ORDERED: NALOXONE 0.4 MG/ML 1 ML VIAL IV PRN (22:11)
[2024-09-14] MEDS ORDERED: MORPHINE SULFATE 4 MG/ML SYRINGE IV PRN (22:11)
--- NOTE | 2024-09-14 22:14 | ED ---
Male Urogenital HPI - General Chief complaint: Urogenital Stated complaint: severe back pain Time Seen by Provider: 09/14/24 19:47 Source: patient, family Mode of arrival: ambulatory Limitations: no limitations - History of Present Illness Initial comments: 74-year-old male presenting with chief complaint of flank pain. Patient has history of radical cystoprostatectomy back in May due to bladder cancer. Patient reports that he has been having bilateral flank pain. This is usually on the left and now is started to occur on the right as well. Pain is colicky in nature. Patient has urostomy, states that there was 1 time where he noticed a very small blood clot, otherwise his urine appears normal. No fever. Admits to nausea and vomiting. No chest pain or difficulty breathing. No injury. States he has been having some constipation. - Related Data Home Medications Medication Instructions Recorded Confirmed Aspirin EC [Ecotrin Low Dose] 81 mg PO DAILY 04/16/21 09/15/24 Isosorbide Mononitrate ER [Imdur] 60 mg PO DAILY 04/16/21 09/15/24 Ranolazine [Ranexa] 1,000 mg PO BID 04/16/21 09/15/24 Pantoprazole Sodium [Protonix] 20 mg PO DAILY 11/13/21 09/15/24 Atorvastatin [Lipitor] 80 mg PO HS 07/12/22 09/15/24 Insulin Aspart (For Pump) [NovoLOG 0.01 unit SQ-PUMP CONTINUOUS 07/12/22 09/15/24 (For Pump)] Empagliflozin [Jardiance] 12.5 mg PO DAILY 11/03/23 09/15/24 Montelukast [Singulair] 10 mg PO HS 12/07/23 09/15/24 Loratadine [Claritin] 10 mg PO DAILY PRN 09/15/24 09/15/24 Previous Rx's Medication Instructions Recorded Ezetimibe [Zetia] 10 mg PO DAILY #30 tab 02/02/18 Allergies Allergy/AdvReac Type Severity Reaction Status Date / Time No Known Allergies Allergy Verified 09/15/24 08:46 Review of Systems ROS Statement: Those systems with pertinent positive or pertinent negative responses have been documented in the HPI. ROS Other: All systems not noted in ROS Statement are negative. Past Medical History Past Medical History: Cancer, Diabetes Mellitus, Prostate Disorder Additional Past Medical History / Comment(s): Chronic back pain, sciatica, insu florentino pump, SARCOIDOSIS, BLADDER CANCER-weekly treatments for 6 weeks at a time- BCG treatments (most recent one 12/09/23), neuropathy, BPH, macular edema Last Myocardial Infarction Date:: 07/19/17 History of Any Multi-Drug Resistant Organisms: None Reported Past Surgical History: Back Surgery, Heart Catheterization With Stent, Joint Replacement, Orthopedic Surgery Additional Past Surgical History / Comment(s): SX FOR BLADDER CANCER x 3, SAVITA CATARACTS, COLONOSCOPY, RT ANKLE tendonitis, SAVITA CARPAL TUNNEL, LT KNEE REPLACEMENT, SAVITA SHOULDER ROTATOR CUFF SX (total 6), LAMINECTOMY X2, THORACOTOMY/BX FOR NODULES ON LYMPH NODES(SARCOIDOSIS), 6 trigger finger releases, cardiac stents x 7,left total reversed shoulder Past Anesthesia/Blood Transfusion Reactions: Previous Problems w/ Anesthesia, Motion Sickness, Postoperative Nausea & Vomiting (PONV) Additional Past Anesthesia/Blood Transfusion Reaction / Comment(s): BP drops with anesthesia Date of Last Stent Placement:: september 2020 Past Psychological History: No Psychological Hx Reported Smoking Status: Former smoker - Past Family History Brother(s) Family Medical History: Cancer Additional Family Medical History / Comment(s): Prostate cancer General Exam Limitations: no limitations General appearance: alert, in no apparent distress Head exam: Present: atraumatic, normocephalic, normal inspection Eye exam: Present: normal appearance, EOMI Neck exam: Present: normal inspection. Absent: meningismus Respiratory exam: Present: normal lung sounds bilaterally. Absent: respiratory distress, wheezes, rales, rhonchi, stridor Cardiovascular Exam: Present: regular rate, normal rhythm, normal heart sounds. Absent: systolic murmur, diastolic murmur, rubs, gallop, clicks GI/Abdominal exam: Present: soft. Absent: distended, tenderness, guarding, rebound, rigid Neurological exam: Present: alert, oriented X3 Psychiatric exam: Present: normal affect, normal mood Skin exam: Present: warm, dry Course Vital Signs 09/14/24 09/14/24 09/15/24 17:14 19:59 01:54 Temperature 98.7 F 99.1 F 97.5 F L Pulse Rate 85 74 Pulse Rate [ 74 Call Center Representative ] Respiratory 16 16 16 Rate Blood Pressure 132/75 Blood Pressure 132/75 [Right Arm] O2 Sat by Pulse 98 97 96 Oximetry 09/15/24 12:00 Temperature Pulse Rate 72 Pulse Rate [ Call Center Representative ] Respiratory 18 Rate Blood Pressure 126/64 Blood Pressure [Right Arm] O2 Sat by Pulse 100 Oximetry Medical Decision Making - Medical Decision Making Was pt. sent in by a medical professional or institution (, PA, ASSET COORDINATOR, urgent care, hospital, or half-way...) When possible be specific @ -No Did you speak to anyone other than the patient for history (EMS, parent, family, police, friend...)? What history was obtained from this source @ -No Did you review nursing and triage notes (agree or disagree)? Why? @ -I reviewed and agree with nursing and triage notes Were old charts reviewed (outside hosp., previous admission, EMS record, old EKG, old radiological studies, urgent care reports/EKG's, half-way records)? Report findings @ -No old charts were reviewed Differential Diagnosis (chest pain, altered mental status, abdominal pain women, abdominal pain men, vaginal bleeding, weakness, fever, dyspnea, syncope, head ache, dizziness, GI bleed, back pain, seizure, CVA, palpatations, mental health, musculoskeletal)? @ - MDM Differential Back Pain: Strain, zoster, cauda equina syndrome, epidural abscess, vertebral osteomyelitis, discitis, fracture, subluxation, disc herniation, DJD, spinal stenosis, dissection, AAA, pancreatitis, peptic ulcer disease, pyelonephritis, kidney stone this is not meant to be an all-inclusive list. EKG interpreted by me (3pts min.). @ -As above X-rays interpreted by me (1pt min.). @ -None done CT interpreted by me (1pt min.). @ -CT shows interval postoperative changes of cystoprostatectomy with urinary diversion right lower quadrant urostomy. Mild to moderate right-sided hydroureteronephrosis, right-sided urothelial wall thickening/hyperenhancement and asymmetric hypoenhancement of the right renal parenchyma. Findings are suggestive of pyelitis without definitive obstructing renal or ureteral calculus identified. U/S interpreted by me (1pt. min.). @ -None done What testing was considered but not performed or refused? (CT, X-rays, U/S, labs)? Why? @ -None What meds were considered but not given or refused? Why? @ -None Did you discuss the management of the patient with other professionals (professionals i.e. DrWilliam, PA, ASSET COORDINATOR, lab, RT, psych nurse, social media analyst, field automobile adjuster, teacher, business banking officer, case liner)? Give summary @ -I spoke with Dr. Ramos who accepts admission Was smoking cessation discussed for >3mins.? @ -No Was critical care preformed (if so, how long)? @ -No Were there social determinants of health that impacted care today? How? (Homelessness, low income, unemployed, alcoholism, drug addiction, transportation, low edu. Level, literacy, decrease access to med. care, correction, rehab)? @ -No Was there de-escalation of care discussed even if they declined (Discuss DNR or withdrawal of care, Hospice)? DNR status @ -No What co-morbidities impacted this encounter? (DM, HTN, Smoking, COPD, CAD, Cancer, CVA, ARF, Chemo, Hep., AIDS, mental health diagnosis, sleep apnea, morbid obesity)? @ -None Was patient admitted / discharged? Hospital course, mention meds given and route, prescriptions, significant lab abnormalities, going to OR and other pertinent info. @ -74-year-old male presenting with chief complaint of bilateral flank pain. P atient currently has a urostomy, history of radical cystoprostatectomy. History and physical examination are conducted. White count of 11.9. BUN 25 creatinine 1.15. Urine is positive for infection with large leukocytes moderate blood and positive nitrates. Patient is treated with [address] is obtained which shows evidence of pyelitis. Patient will be admitted for IV antibiotics and evaluation by urology, currently sees urologist Dr. Humphries who was consulted. Patient is agreeable with this plan. I discussed this case with my attending Dr. Tuttle Undiagnosed new problem with uncertain prognosis? @ -No Drug Therapy requiring intensive monitoring for toxicity (Heparin, Nitro, Insulin, Cardizem)? @ -No Were any procedures done? @ -No Diagnosis/symptom? @ -Pyelitis Acute, or Chronic, or Acute on Chronic? @ -Acute Uncomplicated (without systemic symptoms) or Complicated (systemic symptoms)? @ -Complicated Side effects of treatment? @ -No Exacerbation, Progression, or Severe Exacerbation? @ -No Poses a threat to life or bodily function? How? (Chest pain, [place], [place], pneumonia, PE, COPD, DKA, ARF, appy, cholecystitis, CVA, Diverticulitis, Homicidal, Suicidal, threat to staff... and all critical care pts) @ -Yes - Lab Data Result diagrams: 09/14/24 17:26 09/14/24 17:26 Lab Results 09/14/24 09/14/24 09/14/24 Range/Units 17: 17: 17: WBC 11.9 H (3.8-10.6) k/uL RBC 4.56 (4.30-5.90) m/uL Hgb 12.9 L (13.0-17.5) gm/dL Hct 41.2 (39.0-53.0) % MCV 90.2 (80.0-100.0) fL MCH 28.3 (25.0-35.0) pg MCHC 31.4 (31.0-37.0) g/dL RDW 15.3 (11.5-15.5) % Plt Count 312 (150-450) k/uL MPV 7.2 Hypochromasia Slight Sodium 137 (137-145) mmol/L Potassium 4.7 (3.5-5.1) mmol/L Chloride 105 (98-107) mmol/L Carbon Dioxide 21 L (22-30) mmol/L Anion Gap 11 mmol/L BUN 25 H (9-20) mg/dL Creatinine 1.15 (0.66-1.25) mg/dL Est GFR (CKD-EPI)AfAm 73 (>60 ml/min/1.73 sqM) Est GFR (CKD-EPI)NonAf 63 (>60 ml/min/1.73 sqM) Glucose 98 (74-99) mg/dL Plasma Lactic Acid Jon 1.4 (0.7-2.0) mmol/L Calcium 9.2 (8.4-10.2) mg/dL Total Bilirubin 0.8 (0.2-1.3) mg/dL AST 38 (17-59) U/L ALT 11 (4-49) U/L Alkaline Phosphatase 94 (38-126) U/L Total Protein 7.8 (6.3-8.2) g/dL Albumin 4.5 (3.5-5.0) g/dL Urine Color Urine Appearance (Clear) Urine pH (5.0-8.0) Ur Specific [place] (1.001-1.035) Urine Protein (Negative) Urine Glucose (UA) (Negative) Urine Ketones (Negative) Urine Blood (Negative) Urine Nitrite (Negative) Urine Bilirubin (Negative) Urine Urobilinogen (<2.0) mg/dL Ur Leukocyte Esterase (Negative) Urine RBC (0-5) /hpf Urine WBC (0-5) /hpf Urine WBC Clumps (None) /hpf Ur Squamous Epith Cells (0-4) /hpf Urine Bacteria (None) /hpf Urine Mucus (None) /hpf 09/14/24 Range/Units 20:02 WBC (3.8-10.6) k/uL RBC (4.30-5.90) m/uL Hgb (13.0-17.5) gm/dL Hct (39.0-53.0) % MCV (80.0-100.0) fL MCH (25.0-35.0) pg MCHC (31.0-37.0) g/dL RDW (11.5-15.5) % Plt Count (150-450) k/uL MPV Hypochromasia Sodium (137-145) mmol/L Potassium (3.5-5.1) mmol/L Chloride (98-107) mmol/L Carbon Dioxide (22-30) mmol/L Anion Gap mmol/L BUN (9-20) mg/dL Creatinine (0.66-1.25) mg/dL Est GFR (CKD-EPI)AfAm (>60 ml/min/1.73 sqM) Est GFR (CKD-EPI)NonAf (>60 ml/min/1.73 sqM) Glucose (74-99) mg/dL Plasma Lactic Acid Jon (0.7-2.0) mmol/L Calcium (8.4-10.2) mg/dL Total Bilirubin (0.2-1.3) mg/dL AST (17-59) U/L ALT (4-49) U/L Alkaline Phosphatase (38-126) U/L Total Protein (6.3-8.2) g/dL Albumin (3.5-5.0) g/dL Urine Color Colorless Urine Appearance Turbid (Clear) Urine pH 6.0 (5.0-8.0) Ur Specific [place] 1.011 (1.001-1.035) Urine Protein 2+ H (Negative) Urine Glucose (UA) 4+ H (Negative) Urine Ketones Negative (Negative) Urine Blood Moderate H (Negative) Urine Nitrite Positive (Negative) Urine Bilirubin Negative (Negative) Urine Urobilinogen <2.0 (<2.0) mg/dL Ur Leukocyte Esterase Large H (Negative) Urine RBC 16 H (0-5) /hpf Urine WBC >182 H (0-5) /hpf Urine WBC Clumps Many H (None) /hpf Ur Squamous Epith Cells <1 (0-4) /hpf Urine Bacteria Moderate H (None) /hpf Urine Mucus Rare H (None) /hpf Disposition Clinical Impression: Pyelitis Disposition: ADMITTED IP TO THIS HOSP Condition: Serious Time of Disposition: 22:14
[2024-09-14] MEDS: SODIUM CHLORIDE 0.9% 1,000 ML IV SCH (22:24)
--- NOTE | 2024-09-15 11:06 | P.GSCN ---
History of Present Illness Consult date: 09/15/24 Reason for Consult: Right hydronephrosis History of present illness: This is a 74-year-old male with history of bladder cancer underwent a radical cystoprostatectomy in June [address] [facility] [address] Bullard. No complication during surgery. Presented to the hospital with fatigue and weakness for the past 24 to 48 hours. He is also been having intermittent bilateral flank pain worse on the left. In the ER he underwent a CT abdomen and pelvis that showed evidence of mild right-sided hydronephrosis with hyperenhancement of the ureter. Urinalysis on presentation was concerning for UTI. Renal function is within normal limits. He is unsure of his pathology, and is not currently available to review. Review of Systems - Constitutional Reports chills, Reports sweats, Reports weakness, Denies weight loss - EENT Ears, nose, mouth and throat: Denies dysphagia - Cardiovascular Denies chest pain, Denies shortness of breath - Respiratory Denies cough, Denies 7 - Gastrointestinal Reports abdominal pain, Denies nausea, Denies vomiting - Genitourinary Reports flank pain Past Medical History Past Medical History: Cancer, Diabetes Mellitus, Prostate Disorder Additional Past Medical History / Comment(s): Chronic back pain, sciatica, insulin pump, SARCOIDOSIS, BLADDER CANCER-weekly treatments for 6 weeks at a time-BCG treatments (most recent one 12/09/23), neuropathy, BPH, macular edema Last Myocardial Infarction Date:: 07/19/17 History of Any Multi-Drug Resistant Organisms: None Reported Past Surgical History: Back Surgery, Heart Catheterization With Stent, Joint Replacement, Orthopedic Surgery, Prostate Surgery Additional Past Surgical History / Comment(s): SX FOR BLADDER CANCER x 3, SAVITA CATARACTS, COLONOSCOPY, RT ANKLE tendonitis, SAVITA CARPAL TUNNEL, LT KNEE REPL ACEMENT, SAVITA SHOULDER ROTATOR CUFF SX (total 6), LAMINECTOMY X2, THORACOTOMY/BX FOR NODULES ON LYMPH NODES(SARCOIDOSIS), 6 trigger finger releases, cardiac stents x 7,left total reversed shoulder, prostatectomy, cystecomy. Past Anesthesia/Blood Transfusion Reactions: Previous Problems w/ Anesthesia, Motion Sickness, Postoperative Nausea & Vomiting (PONV) Additional Past Anesthesia/Blood Transfusion Reaction / Comm: BP drops with anesthesia Date of Last Stent Placement:: september 2020 Smoking Status: Former smoker - Past Family History Brother(s) Family Medical History: Cancer Additional Family Medical History / Comment(s): Prostate cancer Medications and Allergies Home Medications Medication Instructions Recorded Confirmed Type Ezetimibe [Zetia] 10 mg PO DAILY #30 tab 02/02/18 09/15/24 Rx Aspirin EC [Ecotrin Low Dose] 81 mg PO DAILY 04/16/21 09/15/24 History Isosorbide Mononitrate ER [Imdur] 60 mg PO DAILY 04/16/21 09/15/24 History Ranolazine [Ranexa] 1,000 mg PO BID 04/16/21 09/15/24 History Pantoprazole Sodium [Protonix] 20 mg PO DAILY 11/13/21 09/15/24 History Atorvastatin [Lipitor] 80 mg PO HS 07/12/22 09/15/24 History Insulin Aspart (For Pump) [NovoLOG 0.01 unit SQ-PUMP CONTINUOUS 07/12/22 09/15/24 History (For Pump)] Empagliflozin [Jardiance] 12.5 mg PO DAILY 11/03/23 09/15/24 History Montelukast [Singulair] 10 mg PO HS 12/07/23 09/15/24 History Loratadine [Claritin] 10 mg PO DAILY PRN 09/15/24 09/15/24 History Allergies Allergy/AdvReac Type Severity Reaction Status Date / Time No Known Allergies Allergy Verified 09/15/24 08:46 Surgical - Exam Vital Signs Temp Pulse Resp Pulse Ox 98.7 F 85 16 98 09/14/24 17:14 09/14/24 17:14 09/14/24 17:14 09/14/24 17:14 - General no distress, no pain - Eyes normal ocular movement, no pale - ENT normal nares, normal mucosa - Respiratory normal expansion, normal respiratory effort - Abdomen Abdomen: soft, non tender, no distended - Psychiatric oriented to time, oriented to person, oriented to place Results - Labs 09/14/24 17:26 09/14/24 17:26 Abnormal Lab Results - Last 24 Hours (Table) 09/14/24 09/14/24 09/14/24 Range/Units 17:26 17:26 20:02 WBC 11.9 H (3.8-10.6) k/uL Hgb 12.9 L (13.0-17.5) gm/dL Carbon Dioxide 21 L (22-30) mmol/L BUN 25 H (9-20) mg/dL Urine Protein 2+ H (Negative) Urine Glucose (UA) 4+ H (Negative) Urine Blood Moderate H (Negative) Ur Leukocyte Esterase Large H (Negative) Urine RBC 16 H (0-5) /hpf Urine WBC >182 H (0-5) /hpf Urine WBC Clumps Many H (None) /hpf Urine Bacteria Moderate H (None) /hpf Urine Mucus Rare H (None) /hpf Diabetes panel 09/14/24 Range/Units 17:26 Sodium 137 (137-145) mmol/L Potassium 4.7 (3.5-5.1) mmol/L Chloride 105 (98-107) mmol/L Carbon Dioxide 21 L (22-30) mmol/L BUN 25 H (9-20) mg/dL Creatinine 1.15 (0.66-1.25) mg/dL Glucose 98 (74-99) mg/dL Calcium 9.2 (8.4-10.2) mg/dL AST 38 (17-59) U/L ALT 11 (4-49) U/L Alkaline Phosphatase 94 (38-126) U/L Total Protein 7.8 (6.3-8.2) g/dL Albumin 4.5 (3.5-5.0) g/dL Calcium panel 09/14/24 Range/Units 17:26 Calcium 9.2 (8.4-10.2) mg/dL Albumin 4.5 (3.5-5.0) g/dL Pituitary panel 09/14/24 Range/Units 17:26 Sodium 137 (137-145) mmol/L Potassium 4.7 (3.5-5.1) mmol/L Chloride 105 (98-107) mmol/L Carbon Dioxide 21 L (22-30) mmol/L BUN 25 H (9-20) mg/dL Creatinine 1.15 (0.66-1.25) mg/dL Glucose 98 (74-99) mg/dL Calcium 9.2 (8.4-10.2) mg/dL Adrenal panel 09/14/24 Range/Units 17:26 Sodium 137 (137-145) mmol/L Potassium 4.7 (3.5-5.1) mmol/L Chloride 105 (98-107) mmol/L Carbon Dioxide 21 L (22-30) mmol/L BUN 25 H (9-20) mg/dL Creatinine 1.15 (0.66-1.25) mg/dL Glucose 98 (74-99) mg/dL Calcium 9.2 (8.4-10.2) mg/dL Total Bilirubin 0.8 (0.2-1.3) mg/dL AST 38 (17-59) U/L ALT 11 (4-49) U/L Alkaline Phosphatase 94 (38-126) U/L Total Protein 7.8 (6.3-8.2) g/dL Albumin 4.5 (3.5-5.0) g/dL Assessment and Plan Assessment: 74-year-old male admitted to the hospital UTI, underwent a recent cystoprostatectomy at [facility]. Pathology is unavailable. CT showed evidence of mild right-sided hydronephrosis with hyperenhancement of the ureter on the right. Discussed with him this and has been was likely from an ascending infection, but there is also possibility of transitional cell carcinoma given his history of bladder cancer, I did discuss with him we will request the pathology from [facility] because if he is had a positive margin and the ureter at a higher likelihood of bladder cancer. -Continue antibiotic -Will request records from [facility] be reviewed as an outpatient -Discussed with him I will recommend a repeat CT urogram as an outpatient in 4 to 6 weeks to assess for resolution of the enhancement
[2024-09-15] MEDS ORDERED: LORATADINE 10 MG TAB PO PRN (15:27)
[2024-09-15] MEDS ORDERED: DEXTROSE 50% SYRINGE 50 ML IVP PRN ×2 (15:28)
[2024-09-15 17:42] LABS: Glucose,Whole Blood 101 mg/dL (70-110)
[2024-09-15 20:47] LABS: Glucose,Whole Blood 143 mg/dL (70-110)
[2024-09-15] MEDS: Insulin Aspart (For Pump) 100 UNIT/ML VIAL SQ-PUMP SCH (20:49)
[2024-09-15] MEDS: MONTELUKAST 10 MG TAB PO SCH (20:50)
[2024-09-15] MEDS: ATORVASTATIN 80 MG TAB PO SCH (20:50)
[2024-09-15] MEDS: RANOLAZINE 500 MG TAB.ER.12H PO SCH (20:50)
[2024-09-16 05:34] LABS: Glucose,Whole Blood 134 mg/dL (70-110)
--- NOTE | 2024-09-16 07:05 | P.CONS ---
History of Present Illness - Reason for Consult Consult date: 09/15/24 Pyelitis Requesting physician: Markus Franks - Chief Complaint Bilateral flank pain x few days - History of Present Illness Patient is a 74-year-old male with a past medical history significant for bladder cancer in this patient who is status post radical cystoprostatectomy end ileostomy creation on June 12, [address] [facility] patient presenting to the hospital concerning for bilateral flank pain patient initially started having pain to the left flank area that he kind of ignored initially slowly got worse over the last few days and then he started having pain to the right flank area and episode of vomiting blood. The patient and he presented to the hospital patient on arrival to the did have a low-grade fever of 99.1 degrees for night patient was not tachycardic hypotensive or hypoxic he did have white count of 11.9 creatinine is 1.15 urine has been positive, patient did have abdominal pelvis CT mild to moderate right-sided hydro utero nephrosis right- sided ureteral wall thickening hyperemia findings suggestive of pyelitis patient has been started on ceftriaxone infectious disease was consulted for further management of antibiotic therapy Review of Systems Positive point and negatives has been mentioned in the HPI, complete review of systems was performed and all other systems are negative Past Medical History Past Medical History: Cancer, Diabetes Mellitus, Prostate Disorder Additional Past Medical History / Comment(s): Chronic back pain, sciatica, insulin pump, SARCOIDOSIS, BLADDER CANCER-weekly treatments for 6 weeks at a [facility] treatments (most recent one 12/09/23), neuropathy, BPH, macular edema Last Myocardial Infarction Date:: 07/19/17 History of Any Multi-Drug Resistant Organisms: None Reported Past Surgical History: Back Surgery, Heart Catheterization With Stent, Joint Replacement, Orthopedic Surgery, Prostate Surgery Additional Past Surgical History / Comment(s): SX FOR BLADDER CANCER x 3, SAVITA CATARACTS, COLONOSCOPY, RT ANKLE tendonitis, SAVITA CARPAL TUNNEL, LT KNEE REPLACEMENT, SAVITA SHOULDER ROTATOR CUFF SX (total 6), LAMINECTOMY X2, THORACOTOMY/BX FOR NODULES ON LYMPH NODES(SARCOIDOSIS), 6 trigger finger re leases, cardiac stents x 7,left total reversed shoulder, prostatectomy, cystecomy. Past Anesthesia/Blood Transfusion Reactions: Previous Problems w/ Anesthesia, Motion Sickness, Postoperative Nausea & Vomiting (PONV) Additional Past Anesthesia/Blood Transfusion Reaction / Comm: BP drops with anesthesia Date of Last Stent Placement:: september 2020 Smoking Status: Former smoker - Past Family History Brother(s) Family Medical History: Cancer Additional Family Medical History / Comment(s): Prostate cancer Medications and Allergies Home Medications Medication Instructions Recorded Confirmed Type Ezetimibe [Zetia] 10 mg PO DAILY #30 tab 02/02/18 09/15/24 Rx Aspirin EC [Ecotrin Low Dose] 81 mg PO DAILY 04/16/21 09/15/24 History Isosorbide Mononitrate ER [Imdur] 60 mg PO DAILY 04/16/21 09/15/24 History Ranolazine [Ranexa] 1,000 mg PO BID 04/16/21 09/15/24 History Pantoprazole Sodium [Protonix] 20 mg PO DAILY 11/13/21 09/15/24 History Atorvastatin [Lipitor] 80 mg PO HS 07/12/22 09/15/24 History Insulin Aspart (For Pump) [NovoLOG 0.01 unit SQ-PUMP CONTINUOUS 07/12/22 09/15/24 History (For Pump)] Empagliflozin [Jardiance] 12.5 mg PO DAILY 11/03/23 09/15/24 History Montelukast [Singulair] 10 mg PO HS 12/07/23 09/15/24 History Loratadine [Claritin] 10 mg PO DAILY PRN 09/15/24 09/15/24 History Allergies Allergy/AdvReac Type Severity Reaction Status Date / Time No Known Allergies Allergy Verified 09/15/24 08:46 Physical Exam Vitals: Vital Signs Temp Pulse Pulse Resp BP BP Pulse Ox 09/15/24 13:50 81 16 137/67 100 09/15/24 12:00 72 18 126/64 100 09/15/24 01:54 97.5 F L 74 16 132/75 96 09/14/24 19:59 99.1 F 74 16 132/75 97 09/14/24 17:14 98.7 F 85 16 98 Intake and Output 09/15/24 09/15/24 09/15/24 06:59 14:59 22:59 Other: Voiding Method Ileal Conduit (Right) Ileal Conduit (Right) Weight 83.461 kg GENERAL DESCRIPTION: Elderly male lying in bed, no distress. No tachypnea or accessory muscle of respiration use. HEENT: Shows Pallor , no scleral icterus. Oral mucous membrane is dry. No pharyngeal erythema or thrush NECK: Trachea central, no thyromegaly. LUNGS: Unlabored breathing. Clear to auscultation anteriorly. No wheeze or crackle. HEART: S1, S2, regular rate and rhythm. No loud murmur ABDOMEN: Soft, no tenderness , guarding or rigidity, no organomegaly EXTREMITIES: No edema of feet. SKIN: No rash, no masses palpable. NEUROLOGICAL: The patient is awake, alert, oriented x3, mood and affect normal. Results CBC & Chem 7: 09/14/24 17:26 09/14/24 17: Labs: Abnormal Lab Results - Last 24 Hours (Table) 09/14/24 09/14/24 09/14/24 Range/Units 17: 17: 20:02 WBC 11.9 H (3.8-10.6) k/uL Hgb 12.9 L (13.0-17.5) gm/dL Carbon Dioxide 21 L (22-30) mmol/L BUN 25 H (9-20) mg/dL Urine Protein 2+ H (Negative) Urine Glucose (UA) 4+ H (Negative) Urine Blood Moderate H (Negative) Ur Leukocyte Esterase Large H (Negative) Urine RBC 16 H (0-5) /hpf Urine WBC >182 H (0-5) /hpf Urine WBC Clumps Many H (None) /hpf Urine Bacteria Moderate H (None) /hpf Urine Mucus Rare H (None) /hpf Assessment and Plan (1) Leukocytosis Current Visit: Yes Status: Acute Code(s): D72.829 - ELEVATED WHITE BLOOD CELL COUNT, UNSPECIFIED SNOMED Code(s): 072560117 (2) Pyelitis Current Visit: Yes Status: Acute Code(s): N12 - TUBULO-INTERSTITIAL NEPHRITIS, NOT SPCF ACUTE OR CHRONIC SNOMED Code(s): 50742486 Plan: 1patient presented to hospital with bilateral flank pain more marked on the right side in this patient who did have a complicated history of bladder cancer status post cystoprostatectomy now with elevated white count CT has been suggestive of abnormality suggestive of pyelitis likely from enteric gram- negative pathogen. 2Rocephin 2 g daily while waiting for the culture to finalize. We will follow on clinical condition and cultures to further adjust medication if needed Thank you for this consultation we will follow the patient along with you Dictation was produced using [employer] dictation software. please excuse any grammatical, word or spelling errors. Time with Patient: Greater than 30
[2024-09-16] MEDS: PANTOPRAZOLE 40 MG TABLET PO SCH (08:05)
[2024-09-16] MEDS: EZETIMIBE 10 MG TAB PO SCH (08:05)
[2024-09-16] MEDS: DAPAGLIFLOZIN PROPANEDIOL 5 MG TABLET PO SCH (08:05)
[2024-09-16] MEDS: ISOSORBIDE MONONITRATE ER 60 MG TAB.ER.24H PO SCH (08:05)
[2024-09-16] MEDS: ASPIRIN 81 MG PO SCH (08:05)
[2024-09-16 09:56] LABS: Basophils # (A) 0.05 X 10*3/uL (0.00-0.10); Basophils % (A) 0.7 %; Eosinophils # (A) 0.13 X 10*3/uL (0.04-0.35); Eosinophils % (A) 1.9 %; HCT 37.4 % (39.6-50.0); HGB 11.6 g/dL (13.0-17.0); Lymphocytes # (A) 1.93 X 10*3/uL (0.90-5.00); Lymphocytes % (A) 27.5 %; MCH 27.8 pg (27.0-32.0); MCV 89.5 FL (80.0-97.0); Mean Platelet Volume 10.3 FL (9.5-12.2); Monocytes # (A) 0.98 X 10*3/uL (0.20-1.00); NRBC Per 100 WBC 0 X 10*3/uL (0.00-0.01); Neutrophils # (A) 3.91 X 10*3/uL (1.80-7.70); Neutrophils % (A) 55.6 %; Platelet Count 270 X 10*3/uL (140-440); RBC 4.18 X 10*6/uL (4.40-5.60); RDW 15.5 % (11.5-14.5); WBC 7.02 X 10*3/uL (4.50-10.00)
[2024-09-16 10:06] LABS: BUN/Creat Ratio 17.15 Ratio (12.00-20.00); Blood Urea Nitrogen 22.3 mg/dL (9.0-27.0); Calcium 8.2 mg/dL (8.7-10.3); Carbon Dioxide 20.2 mmol/L (21.6-31.8); Chloride 108 mmol/L (96-109); Glucose 154 mg/dL (70-110); Sodium 140 mmol/L (135-145)
[2024-09-16] MEDS ORDERED: SENNOSIDES 8.6 MG TAB PO PRN (10:29)
--- NOTE | 2024-09-16 10:32 | P.PN ---
Subjective Progress Note Date: 09/16/24 No acute overnight event urine culture growing gram-negative bacilli. Denies any right-sided flank pain Objective - Vital Signs Vital signs: Vital Signs Temp 98.0 F 09/16/24 07:00 Pulse 76 09/16/24 07:00 Resp 16 09/16/24 07:00 BP 127/67 09/16/24 07:00 Pulse Ox 97 09/16/24 07:00 FiO2 Intake & Output 09/15/24 09/16/24 09/16/24 18:59 06:59 18:59 Intake Total 236 Output Total 1000 1500 Balance -1000 -1500 236 Intake: Oral 236 Output: Urine 1000 1500 Other: Voiding Method Ileal Conduit (Right) Ileal Conduit (Right) Ileal Conduit (Right) # Bowel Movements 1 - Constitutional General appearance: Present: no acute distress - Gastrointestinal General gastrointestinal: Present: soft. Absent: distended, tenderness - Labs CBC & Chem 7: 09/16/24 05:29 09/16/24 05:29 Labs: Abnormal Lab Results - Last 24 Hours (Table) 09/15/24 09/16/24 09/16/24 Range/Units 20:45 05:29 05:29 RBC 4.18 L (4.40-5.60) X 10*6/uL Hgb 11.6 L (13.0-17.0) g/dL Hct 37.4 L (39.6-50.0) % MCHC 31.0 L (32.0-37.0) g/dL RDW 15.5 H (11.5-14.5) % Carbon Dioxide (21.6-31.8) mmol/L Est GFR (CKD-EPI) (>=60) Glucose (70-110) mg/dL POC Glucose (mg/dL) 143 H (70-110) mg/dL Hemoglobin A1c 8.3 H (<=6.0) % Calcium (8.7-10.3) mg/dL 09/16/24 09/16/24 Range/Units 05:29 05:33 RBC (4.40-5.60) X 10*6/uL Hgb (13.0-17.0) g/dL Hct (39.6-50.0) % MCHC (32.0-37.0) g/dL RDW (11.5-14.5) % Carbon Dioxide 20.2 L (21.6-31.8) mmol/L Est GFR (CKD-EPI) 58 L (>=60) Glucose 154 H (70-110) mg/dL POC Glucose (mg/dL) 134 H (70-110) mg/dL Hemoglobin A1c (<=6.0) % Calcium 8.2 L (8.7-10.3) mg/dL Microbiology - Last 24 Hours (Table) 09/14/24 20:02 Urine Culture - Preliminary Urine,Voided Gram Neg Bacilli Assessment and Plan Assessment: 74-year-old male admitted to the hospital UTI, underwent a recent cystopr ostatectomy at [facility]. Pathology is unavailable. CT showed evidence of mild right-sided hydronephrosis with hyperenhancement of the ureter on the right. Discussed with him this and has been was likely from an ascending infection, but there is also possibility of transitional cell carcinoma given his history of bladder cancer, I did discuss with him we will request the pathology from [facility] because if he is had a positive margin and the ureter at a higher likelihood of bladder cancer. Denies any flank pain this morning -Continue antibiotic -Will request records from [facility] be reviewed as an outpatient -Discussed with him I will recommend a repeat CT urogram as an outpatient in 4 to 6 weeks to assess for resolution of the enhancement
[2024-09-16 12:00] LABS: Glucose,Whole Blood 197 mg/dL (70-110)
--- NOTE | 2024-09-16 16:08 | P.PN ---
Subjective Progress Note Date: 09/16/24 Principal diagnosis: Reason for follow-up is UTI Patient is a 83-year-old male with a past medical history significant for coronary artery disease diabetes mellitus DVT CVA TIA patient has been brought into the hospital for evaluation of mental status changes x 2 days presented to hospital bilateral flank pain CT with mild to moderate right-sided hydronephrosis did have a positive UA concerning for symptomatic UTI. On today's evaluation that is 09/16/2024, Patient is afebrile patient is currently on room air and denies having any shortness of breath, the patient denies any chest pain or cough, the patient denies any nausea vomiting still complaining of pain to the left flank area right flank pain has improved. Patient white count 7.02 creatinine is 1.3 urine is growing gram-negative a Objective - Vital Signs Vital signs: Vital Signs Temp 98.0 F 09/16/24 07:00 Pulse 76 09/16/24 07:00 Resp 16 09/16/24 07:00 BP 127/67 09/16/24 07:00 Pulse Ox 97 09/16/24 07:00 FiO2 Intake & Output 09/15/24 09/16/24 09/16/24 18:59 06:59 18:59 Intake Total 236 Output Total 1000 1500 Balance -1000 -1500 236 Intake: Oral 236 Output: Urine 1000 1500 Other: Voiding Method Ileal Conduit (Right) Ileal Conduit (Right) Ileal Conduit (Right) # Bowel Movements 1 - Exam GENERAL DESCRIPTION: An elderly male lying in bed in no distress RESPIRATORY SYSTEM: Unlabored breathing , decreased breath sounds at bases HEART: S1 S2 regular rate and rhythm , ABDOMEN: Soft , no tenderness EXTREMITIES: No edema feet - Labs CBC & Chem 7: 09/16/24 05:29 09/16/24 05:29 Labs: Abnormal Lab Results - Last 24 Hours (Table) 09/15/24 09/16/24 09/16/24 Range/Units 20:45 05:29 05:29 RBC 4.18 L (4.40-5.60) X 10*6/uL Hgb 11.6 L (13.0-17.0) g/dL Hct 37.4 L (39.6-50.0) % MCHC 31.0 L (32.0-37.0) g/dL RDW 15.5 H (11.5-14.5) % Carbon Dioxide (21.6-31.8) mmol/L Est GFR (CKD-EPI) (>=60) Glucose (70-110) mg/dL POC Glucose (mg/dL) 143 H (70-110) mg/dL Hemoglobin A1c 8.3 H (<=6.0) % Calcium (8.7-10.3) mg/dL 09/16/24 09/16/24 Range/Units 05:29 05:33 RBC (4.40-5.60) X 10*6/uL Hgb (13.0-17.0) g/dL Hct (39.6-50.0) % MCHC (32.0-37.0) g/dL RDW (11.5-14.5) % Carbon Dioxide 20.2 L (21.6-31.8) mmol/L Est GFR (CKD-EPI) 58 L (>=60) Glucose 154 H (70-110) mg/dL POC Glucose (mg/dL) 134 H (70-110) mg/dL Hemoglobin A1c (<=6.0) % Calcium 8.2 L (8.7-10.3) mg/dL Microbiology - Last 24 Hours (Table) 09/14/24 20:02 Urine Culture - Preliminary Urine,Voided Gram Neg Bacilli Assessment and Plan (1) Leukocytosis Current Visit: Yes Status: Acute Code(s): D72.829 - ELEVATED WHITE BLOOD CELL COUNT, UNSPECIFIED SNOMED Code(s): 445304357 (2) Pyelitis Current Visit: Yes Status: Acute Code(s): N12 - TUBULO-INTERSTITIAL NEPHR ITIS, NOT SPCF ACUTE OR CHRONIC SNOMED Code(s): 54346355 Plan: 1patient presented to hospital with bilateral flank pain more marked on the right side in this patient who did have a complicated history of bladder cancer status post cystoprostatectomy now with elevated white count CT has been suggestive of abnormality suggestive of pyelitis likely from enteric gram- negative pathogen. 2patient white count has normalized urine is growing gram-negative patient will be treated with Rocephin 2 g daily while waiting for the culture to finalize. Dictation was produced using [employer] software. please excuse any grammatical, word or spelling errors. Time with Patient: Less than 30
[2024-09-16 17:24] LABS: Glucose,Whole Blood 172 mg/dL (70-110)
[2024-09-16 20:24] LABS: Glucose,Whole Blood 173 mg/dL (70-110)
[2024-09-17] MEDS: HYDROcodone/APAP 5-325MG 1 EACH TAB PO PRN (04:23)
[2024-09-17 05:33] LABS: Glucose,Whole Blood 132 mg/dL (70-110)
[2024-09-17 07:41] VITALS: BP 135/71; PULSE 57; RESP 16; TEMP 97.8
--- NOTE | 2024-09-17 09:08 | HP ---
HISTORY AND PHYSICAL CHIEF COMPLAINT: Back pain, right more than left. HISTORY OF PRESENT ILLNESS: This 74-year-old gentleman with a past medical history of multiple medical problems and bladder cancer. The patient underwent radical cystoprostatectomy in May in [facility]. Now the patient is complaining of weakness and bilateral flank pain, right more than left. CT abdomen pelvis was reviewed which showed postsurgical changes as well as [id number] right-sided hydronephrosis with hyperenhancement of the urine. White count is elevated. UA shows possible UTI, pyelonephritis considered. The patient admitted for further evaluation. There is no history of fever, rigors, chills. PAST MEDICAL HISTORY: History of diabetes mellitus, history of chronic back pain, sarcoidosis, multiple medical illnesses. Rest of the chart and rest of the history is reviewed. HOME MEDICATIONS: Singulair, dose and rest of medications reviewed. ALLERGIES: None. FAMILY HISTORY: History of prostate cancer. SOCIAL HISTORY: Previously a smoker. REVIEW OF SYSTEMS: Fourteen-point review of systems negative except as mentioned earlier. PHYSICAL EXAM: VITAL SIGNS: Pulse is 72, blood pressure 110/62, respirations 18. HEENT: Conjunctivae normal. NECK: No jugular venous distention. No carotid bruit. CARDIOVASCULAR: S1 and S2. RESPIRATIONS: Breath sounds diminished at the bases. A few scattered rhonchi. ABDOMEN: Soft. Mild diffuse tenderness in the PEG site present. LEGS: No edema. No swelling. NERVOUS SYSTEM: No focal deficit. LABORATORY DATA: Reviewed. ASSESSMENT: 1. Bilateral back pain and right flank pain, possible right pyelonephritis. 2. Right moderate hydronephrosis. 3. History of recent radical cystoprostatectomy for bladder cancer. 4. Diabetes mellitus type 2. 5. Elevated WBC. 6. History of sarcoidosis. 7. Multiple complex medical issues. RECOMMENDATION: This 74-year-old gentleman presented with multiple complex medical issues, we will monitor the patient closely. I would recommend IV antibiotics. Urine culture, blood culture. Infectious Disease evaluation. Urology consultation. Resume the home medications. Symptomatic treatment of the pain. Guarded prognosis because of multiple complex medical conditions. Further recommendations to follow. See orders for details. MMODL / IJN: [id number] /
--- NOTE | 2024-09-17 09:17 | PN ---
PROGRESS NOTE DATE OF SERVICE: 09/16/2024 SUBJECTIVE: This is a 74-year-old gentleman, who underwent ureteral stent with hydronephrosis, also had features of pyelitis. No chest pain. No palpitation. Urine culture, gram- negative vastly. PHYSICAL EXAMINATION: VITAL SIGNS: Pulse is 77, blood pressure 120/60, respirations 16. CHEST: Clear to auscultation. ABDOMEN: Soft, nontender. LABORATORY DATA: Reviewed. ASSESSMENT: 1. Acute pyelonephritis. 2. History of ureteral stent with hydronephrosis. 3. Diabetes mellitus, type 2. 4. Multiple complex medical issues. RECOMMENDATION: Recommend to continue current management and we will await for the final ID of the organism. Continue the antibiotics. Further recommendations to follow. MMODL / IJN: [id number] /
[2024-09-17 12:10] LABS: Glucose,Whole Blood 213 mg/dL (70-110)
--- NOTE | 2024-09-18 13:43 | P.DS ---
Providers Date of admission: 09/14/24 22:11 Expected date of discharge: 09/17/24 Attending physician: Yael Ramos MD Consults: 09/14/24 22:11 Consult Physician Urgent Consulting Provider: Dandy Humphries Consult Reason/Comments: pyelitis Do you want consulting provider notified?: Yes, Notify in am 09/15/24 15:28 Consult Physician Routine Consulting Provider: Wallace Steel Consult Reason/Comments: pyelo Do you want consulting provider notified?: Yes Primary care physician: Dandy Humphries MD Hospital Course: Final diagnosis Bilateral back pain and right flank pain, possible right pyelonephritis with urinary tract infection, culture showing Klebsiella pneumonia Right moderate hydronephrosis History of recent radical cystoscopy prostatectomy for bladder cancer Diabetes mellitus, type II Elevated white blood count History of sarcoidosis GI prophylaxis DVT prophylaxis Full code Discharge disposition Patient is being discharged in a stable condition with guarded prognosis to home. Patient will follow-up with Dr. Terrell in the outpatient setting upon discharge. Patient is to continue with oral Ceftin and outpatient follow-up with urology as scheduled. Total time taken is greater than 35 minutes. Hospital course This is a 74-year-old male who was recently admitted with bilateral back and flank pain with concerns of pyelonephritis. Patient with urine cultures finalizing showing Klebsiella pneumonia with urology and infectious disease following maintained on antibiotics. Patient will transition to oral Ceftin on discharge with close outpatient follow-up. Patient reports to feeling improved and would like to go home. Please refer to other consultation notes for further HPI. Currently no reports of chest pain, shortness of breath, or palpitations. Patient is afebrile. No reports of nausea or vomiting and patient is tolerating diet. Patient will be discharged home in guarded prognosis today. Physical exam: Gen: This is a 74-year-old male who is awake, alert and oriented x 3, well- developed, elderly appearing HEENT: Head is atraumatic, normocephalic. Pupils equal, round. Sclerae is anicteric. NECK: Supple. No JVD. No lymphadenopathy. No thyromegaly. LUNGS: Clear to auscultation. No wheezes or rhonchi. No intercostal retractions. HEART: Regular rate and rhythm. No murmur. ABDOMEN: Soft. Bowel sounds are present. No masses. No tenderness. EXTREMITIES: No pedal edema. No calf tenderness. NEUROLOGICAL: Patient is awake, alert and oriented x3. Cranial nerves 2 through 12 are grossly intact. Please refer to medication reconciliation sheet for a list of medications. The impression and plan of care has been dictated by Elida Bryant, Nurse Practitioner as directed. Dr. Golden MD I have performed a history and examination and MDM of this patient, discussed the same with the dictator, and agree with the dictator's assessment and plan as written ,documented as a scribe. Based on total visit time, I have performed more than 50% of the visit. Patient Condition at Discharge: Fair Plan - Discharge Summary Discharge Rx Participant: No New Discharge Prescriptions: New cefuroxime axetiL [Ceftin] 500 mg PO BID #20 tab Continue Ezetimibe [Zetia] 10 mg PO DAILY #30 tab Ranolazine [Ranexa] 1,000 mg PO BID Pantoprazole Sodium [Protonix] 20 mg PO DAILY Empagliflozin [Jardiance] 12.5 mg PO DAILY Montelukast [Singulair] 10 mg PO HS Loratadine [Claritin] 10 mg PO DAILY PRN PRN Reason: Allergy Symptoms Isosorbide Mononitrate ER [Imdur] 60 mg PO DAILY Aspirin EC [Ecotrin Low Dose] 81 mg PO DAILY Atorvastatin [Lipitor] 80 mg PO HS Insulin Aspart (For Pump) [NovoLOG (For Pump)] 0.01 unit SQ-PUMP CONTINUOUS Discharge Medication List Ezetimibe [Zetia] 10 mg PO DAILY #30 tab 02/02/18 [Rx] Aspirin EC [Ecotrin Low Dose] 81 mg PO DAILY 04/16/21 [History] Isosorbide Mononitrate ER [Imdur] 60 mg PO DAILY 04/16/21 [History] Ranolazine [Ranexa] 1,000 mg PO BID 04/16/21 [History] Pantoprazole Sodium [Protonix] 20 mg PO DAILY 11/13/21 [History] Atorvastatin [Lipitor] 80 mg PO HS 07/12/22 [History] Insulin Aspart (For Pump) [NovoLOG (For Pump)] 0.01 unit SQ-PUMP CONTINUOUS 07/12/22 [History] Empagliflozin [Jardiance] 12.5 mg PO DAILY 11/03/23 [History] Montelukast [Singulair] 10 mg PO HS 12/07/23 [History] Loratadine [Claritin] 10 mg PO DAILY PRN 09/15/24 [History] cefuroxime axetiL [Ceftin] 500 mg PO BID #20 tab 09/17/24 [Rx] Follow up Appointment(s)/Referral(s): Alban Terrell DO [STAFF PHYSICIAN] - 1 Week Dandy Humphries MD [Primary Care Provider] - 1-2 days (Office will call with appointment date and time.) Activity/Diet/Wound Care/Special Instructions: Activity limited until follow-up Follow-up with primary care provider on discharge Follow-up with urology outpatient Continue taking medications as prescribed Discharge Disposition: HOME SELF-CARE
--- NOTE | 2024-09-19 14:59 | P.PN ---
Subjective Progress Note Date: 09/17/24 Principal diagnosis: Reason for follow-up is UTI Patient is a 83-year-old male with a past medical history significant for coronary artery disease diabetes mellitus DVT CVA TIA patient has been brought into the hospital for evaluation of mental status changes x 2 days presented to hospital bilateral flank pain CT with mild to moderate right-sided hydronephrosis did have a positive UA concerning for symptomatic UTI. On today's evaluation that is 09/17/2024, patient has been afebrile, patient is breathing comfortably and is currently on room air, patient denies having any significant cough no chest pain, patient denies nausea vomiting or diarrhea and no abdominal pain, feeling better wants to go home. No new lab has been repeated today urine with Klebsiella sensitive to ceftriaxone Objective - Vital Signs Vital signs: Vital Signs Temp 97.8 F 09/17/24 07:00 Pulse 57 L 09/17/24 07:00 Resp 16 09/17/24 07:00 BP 135/71 09/17/24 07:00 Pulse Ox 99 09/17/24 07:00 FiO2 Intake & Output 09/16/24 09/17/24 09/17/24 18:59 06:59 18:59 Intake Total 476 118 Balance 476 118 Intake: Oral 476 118 Other: Voiding Method Ileal Conduit (Right) Ileal Conduit (Right) Ileal Conduit (Right) # Voids 3 3 - Exam GENERAL DESCRIPTION: An elderly male lying in bed in no distress RESPIRATORY SYSTEM: Unlabored breathing , decreased breath sounds at bases HEART: S1 S2 regular rate and rhythm , ABDOMEN: Soft , no tenderness EXTREMITIES: No edema feet - Labs CBC & Chem 7: 09/16/24 05:29 09/16/24 05:29 Labs: Abnormal Lab Results - Last 24 Hours (Table) 09/16/24 09/16/24 09/17/24 Range/Units 17:21 20:22 05:30 POC Glucose (mg/dL) 172 H 173 H 132 H (70-110) mg/dL 09/17/24 Range/Units 12:09 POC Glucose (mg/dL) 213 H (70-110) mg/dL Microbiology - Last 24 Hours (Table) 09/15/24 17:50 Blood Culture - Preliminary Blood 09/14/24 20:02 Urine Culture - Final Urine,Voided Klebsiella pneumoniae Assessment and Plan (1) Leukocytosis Status: Acute Code(s): D72.829 - ELEVATED WHITE BLOOD CELL COUNT, UNSPECIFIED SNOMED Code(s): 750086979 (2) Pyelitis Status: Acute Code(s): N12 - TUBULO-INTERSTITIAL NEPHRITIS, NOT SPCF ACUTE OR CHRONIC SNOMED Code(s): 13135085 Plan: 1patient presented to hospital with bilateral flank pain more marked on the right side in this patient who did have a complicated history of bladder cancer status post cystoprostatectomy now with elevated white count CT has been suggestive of abnormality suggestive of pyelitis likely from enteric gram- negative pathogen. 2patient white count has normalized urine is growing Klebsiella that is sensitive to ceftriaxone patient has shown clinical improvement as well he will finish therapy with oral Ceftin x 10 days on discharge discussed with the DIRECTOR [employer]POR[employer]ICATION[employer] for admitting team working on discharge Dictation was produced using [employer] dictation software. please excuse any grammatical, word or spelling errors. Time with Patient: Less than 30
== END 2024-09-17 14:04 | disposition home or self-care (01) ==
LOC: EC 17:08 → 6NMEDSUR 22:11
PROVIDERS: ADMIT Internal Medicine; ATTEND Internal Medicine
DX: N10 Acute pyelonephritis (principal); N13.30 Unspecified hydronephrosis; B96.1 Klebsiella pneumoniae [K. pneumoniae] as the cause of diseases classified elsewhere; D72.829 Elevated white blood cell count, unspecified; N40.0 Benign prostatic hyperplasia without lower urinary tract symptoms; E11.40 Type 2 diabetes mellitus with diabetic neuropathy, unspecified; I25.10 Atherosclerotic heart disease of native coronary artery without angina pectoris; Z85.51 Personal history of malignant neoplasm of bladder; Z86.73 Personal history of transient ischemic attack (TIA), and cerebral infarction without residual deficits; Z87.891 Personal history of nicotine dependence; Z95.5 Presence of coronary angioplasty implant and graft; Z96.0 Presence of urogenital implants; Z96.41 Presence of insulin pump (external) (internal); Z79.4 Long term (current) use of insulin; Z79.82 Long term (current) use of aspirin; Z79.84 Long term (current) use of oral hypoglycemic drugs; Z79.899 Other long term (current) drug therapy
CPT/HCPCS: 96365 ×2; 96366 ×3; 96376; 99285; 36415; 80053; 80048; 83605; 85025; 85027; 81001; 87040; 87086; 87077; 87186; 83036; 74177; G0378 ×4; J0696 ×4; Q9967

== ENCOUNTER 2024-10-01 16:59 | Inpatient (IN) | payer MEDICARE ==
--- NOTE | 2024-10-01 17:24 | ED ---
General Adult HPI - General Source: patient, family, RN notes reviewed Mode of arrival: wheelchair Limitations: no limitations <Diana Bhatti - Last Filed: 10/01/24 17:25> <Daniel Cardenas - Last Filed: 10/01/24 19:59> - General Stated complaint: weakness,fever Time Seen by Provider: 10/01/24 17:23 - History of Present Illness Initial comments: Quick note: 74-year-old male presented the ER for evaluation of weakness and fevers. Patient states he was recently admitted for IV antibiotics with Dr. Humphries for pyleonephritis.Hx bladder cancer. Patient discharged on 09-17-2024 with Ceftin and instructed to follow-up with urology.Patient states for the past 3 days he has been endorsing a decreased appetite, chills and fevers. Patient also is endorsing bilateral flank pain. (Diana Bhatti) This is a 74-year-old male who presents to the emergency department complaining that he had a low-grade fever and some pain in the left flank and in the suprapubic region. Patient has a urostomy secondary to bladder cancer. Patient states he has had urinary tract infections before. Patient recently had a urinary tract infection. Patient denies any current abdominal pain patient [place] any nausea vomiting. Patient denies any congestion sore throat or cough (Daniel Cardenas) - Related Data Home Medications Medication Instructions Recorded Confirmed Aspirin EC [Ecotrin Low Dose] 81 mg PO DAILY 04/16/21 09/15/24 Isosorbide Mononitrate ER [Imdur] 60 mg PO DAILY 04/16/21 09/15/24 Ranolazine [Ranexa] 1,000 mg PO BID 04/16/21 09/15/24 Pantoprazole Sodium [Protonix] 20 mg PO DAILY 11/13/21 09/15/24 Atorvastatin [Lipitor] 80 mg PO HS 07/12/22 09/15/24 Insulin Aspart (For Pump) [NovoLOG 0.01 unit SQ-PUMP CONTINUOUS 07/12/22 09/15/24 (For Pump)] Empagliflozin [Jardiance] 12.5 mg PO DAILY 11/03/23 09/15/24 Montelukast [Singulair] 10 mg PO HS 12/07/23 09/15/24 Loratadine [Claritin] 10 mg PO DAILY PRN 09/15/24 09/15/24 Previous Rx's Medication Instructions Recorded Ezetimibe [Zetia] 10 mg PO DAILY #30 tab 02/02/18 cefuroxime axetiL [Ceftin] 500 mg PO BID #20 tab 09/17/24 Allergies Allergy/AdvReac Type Severity Reaction Status Date / Time No Known Allergies Allergy Verified 10/01/24 17:56 Review of Systems ROS Other: All systems not noted in ROS Statement are negative. <Diana Bhatti - Last Filed: 10/01/24 17:25> ROS Other: All systems not noted in ROS Statement are negative. <Daniel Cardenas - Last Filed: 10/01/24 19:59> ROS Statement: Those systems with pertinent positive or pertinent negative responses have been documented in the HPI. Past Medical History Past Medical History: Cancer, Diabetes Mellitus, Prostate Disorder Additional Past Medical History / Comment(s): Chronic back pain, sciatica, insulin pump, SARCOIDOSIS, BLADDER CANCER-weekly treatments for 6 weeks at a time-BCG treatments (most recent one 12/09/23), neuropathy, BPH, macular edema Last Myocardial Infarction Date:: 07/19/17 History of Any Multi-Drug Resistant Organisms: None Reported Past Surgical History: Back Surgery, Heart Catheterization With Stent, Joint Replacement, Orthopedic Surgery, Prostate Surgery Additional Past Surgical History / Comment(s): SX FOR BLADDER CANCER x 3, SAVITA CATARACTS, COLONOSCOPY, RT ANKLE tendonitis, SAVITA CARPAL TUNNEL, LT KNEE R EPLACEMENT, SAVITA SHOULDER ROTATOR CUFF SX (total 6), LAMINECTOMY X2, THORACOTOMY/BX FOR NODULES ON LYMPH NODES(SARCOIDOSIS), 6 trigger finger releases, cardiac stents x 7,left total reversed shoulder, prostatectomy, cystecomy. Past Anesthesia/Blood Transfusion Reactions: Previous Problems w/ Anesthesia, Motion Sickness, Postoperative Nausea & Vomiting (PONV) Additional Past Anesthesia/Blood Transfusion Reaction / Comment(s): BP drops with anesthesia Date of Last Stent Placement:: september 2020 Smoking Status: Former smoker - Past Family History Brother(s) Family Medical History: Cancer Additional Family Medical History / Comment(s): Prostate cancer <Diana Bhatti - Last Filed: 10/01/24 17:25> General Exam <Diana Bhatti - Last Filed: 10/01/24 17:25> <Daniel Cardenas - Last Filed: 10/01/24 19:59> - General Exam Comments Initial Comments: Visual Physical Exam Vital signs reviewed General: Well-appearing, nontoxic, no acute distress. Head: Normocephalic, atraumatic Eyes: PERRLA, EOMI ENT: Airway patent Chest: Nonlabored breathing Skin: No visual rash, normal skin tone Neuro: Alert and oriented 3 Musculoskeletal: No gross abnormalities (Diana Bhatti) GENERAL: Patient is well-developed and well-nourished. Patient is nontoxic and well- hydrated and is in mild distress. ENT: Neck is soft and supple. No significant lymphadenopathy is noted. Oropharynx is clear. Moist mucous membranes. Neck has full range of motion without eliciting any pain. EYES: The sclera were anicteric and conjunctiva were pink and moist. Extraocular movements were intact and pupils were equal round and reactive to light. Eyelids were unremarkable. PULMONARY: Unlabored respirations. Good breath sounds bilaterally. No audible rales rhonchi or wheezing was noted. CARDIOVASCULAR: There is a regular rate and rhythm without any murmurs gallops or rubs. ABDOMEN: Soft and nontender with normal bowel sounds. SKIN: Skin is clear with no lesions or rashes and otherwise unremarkable. NEUROLOGIC: Patient is alert and oriented x3. Cranial nerves II through XII are grossly int act. Motor and sensory are also intact. Normal speech, volume and content. Symmetrical smile. MUSCULOSKELETAL: Normal extremities with adequate strength and full range of motion. Patient has right-sided CVA tenderness LYMPHATICS: No significant lymphadenopathy is noted PSYCHIATRIC: Normal psychiatric evaluation. (Daniel Cardenas) Course Vital Signs 10/01/24 17:56 Temperature 98.8 F Pulse Rate 89 Respiratory 24 Rate Blood Pressure 89/51 O2 Sat by Pulse 97 Oximetry Medical Decision Making <Diana Bhatti - Last Filed: 10/01/24 17:25> - Lab Data Result diagrams: 10/01/24 18:24 10/01/24 18:24 <Daniel Cardenas - Last Filed: 10/01/24 19:59> - Medical Decision Making I performed the quick note portion of this chart. Electronically signed by Diana Bhatti PA-C (Diana Bhatti) Was pt. sent in by a medical professional or institution ([facility], [employer], urgent care, hospital, or usp...) When possible be specific @ -No Did you speak to anyone other than the patient for history (EMS, parent, family, police, friend...)? What history was obtained from this source @ -No Did you review nursing and triage notes (agree or disagree)? Why? @ -I reviewed and agree with nursing and triage notes Were old charts reviewed (outside hosp., previous admission, EMS record, old EKG, old radiological studies, urgent care reports/EKG's, usp records)? Report findings @ -No old charts were reviewed Differential Diagnosis? @ -Differential Abdominal Pain Men: Appendicitis, cholecystitis, diverticulosis, ischemic bowel, pancreatitis, hepatitis, UTI, gastroenteritis, AAA, incarcerated hernia, bowel obstruction, constipation, inflammatory bowel, hepatitis, peptic ulcer disease, splenic infarction, perforated viscus, testicular torsion, this is not meant to be an all-inclusive list EKG interpreted by me (3pts min.). @ -As above X-rays interpreted by me (1pt min.). @ -None done CT interpreted by me (1pt min.). @ -None done U/S interpreted by me (1pt. min.). @ -None done What testing was considered but not performed or refused? (CT, X-rays, U/S, labs)? Why? @ -None What meds were considered but not given or refused? Why? @ -None Did you discuss the management of the patient with other professionals (professionals i.e. VERONICA Luong, [employer], lab, RT, psych nurse, social sciences chair, corporation lawyer, teacher, fire officer, case work aide)? Give summary @ -I spoke with Dr. Terrell and he agreed to admit the patient Was smoking cessation discussed for >3mins.? @ -No Was critical care preformed (if so, how long)? @ -No Were there social determinants of health that impacted care today? How? (Homelessness, low income, unemployed, alcoholism, drug addiction, transportation, low edu. Level, literacy, decrease access to med. care, fci, rehab)? @ -No Was there de-escalation of care discussed even if they declined (Discuss DNR or withdrawal of care, Hospice)? DNR status @ -No What co-morbidities impacted this encounter? (DM, HTN, Smoking, COPD, CAD, Cancer, CVA, ARF, Chemo, Hep., AIDS, mental health diagnosis, sleep apnea, morbid obesity)? @ -None Was patient admitted / discharged? Hospital course, mention meds given and route, prescriptions, significant lab abnormalities, going to OR and other pertinent info. @ -Patient had a urine that appeared infected patient got 2 g of Rocephin. Patient did have some right-sided CVA tenderness so patient will be admitted for pyelonephritis to Dr. Terrell. Results came back positive for infection. Patient was given 2 g of Rocephin IV and will be sent home with antibiotics. Undiagnosed new problem with uncertain prognosis? @ -No Drug Therapy requiring intensive monitoring for toxicity (Heparin, Nitro, Insulin, Cardizem)? @ -No Were any procedures done? @ -No Diagnosis/symptom? @ -Pyelonephritis Acute, or Chronic, or Acute on Chronic? @ -Acute Uncomplicated (without systemic symptoms) or Complicated (systemic symptoms)? @ -Comp Side effects of treatment? @ -Acute Exacerbation, Progression, or Severe Exacerbation? @ -No Poses a threat to life or bodily function? How? (Chest pain, [place], [place], pneumonia, PE, COPD, DKA, ARF, appy, cholecystitis, CVA, Diverticulitis, Homicidal, Suicidal, threat to staff... and all critical care pts) @ -Yes this can lead to sepsis and endorgan dysfunction (Daniel Cardenas) - Lab Data Lab Results 10/01/24 10/01/24 10/01/24 Range/Units 18:24 18:24 18:24 WBC 18.0 H (3.8-10.6) k/uL RBC 4.60 (4.30-5.90) m/uL Hgb 12.9 L (13.0-17.5) gm/dL Hct 40.7 (39.0-53.0) % MCV 88.5 (80.0-100.0) fL MCH 28.0 (25.0-35.0) pg MCHC 31.6 (31.0-37.0) g/dL RDW 16.1 H (11.5-15.5) % Plt Count 240 (150-450) k/uL MPV 7.1 Neutrophils % 84 % Lymphocytes % 6 % Monocytes % 8 % Eosinophils % 0 % Basophils % 0 % Neutrophils # 15.1 H (1.3-7.7) k/uL Lymphocytes # 1.0 (1.0-4.8) k/uL Monocytes # 1.4 H (0-1.0) k/uL Eosinophils # 0.1 (0-0.7) k/uL Basophils # 0.0 (0-0.2) k/uL Anisocytosis Slight Sodium 131 L (137-145) mmol/L Potassium 4.4 (3.5-5.1) mmol/L Chloride 99 (98-107) mmol/L Carbon Dioxide 19 L (22-30) mmol/L Anion Gap 13 mmol/L BUN 42 H (9-20) mg/dL Creatinine 1.70 H (0.66-1.25) mg/dL Est GFR (CKD-EPI)AfAm 46 (>60 ml/min/1.73 sqM) Est GFR (CKD-EPI)NonAf 39 (>60 ml/min/1.73 sqM) Glucose 292 H (74-99) mg/dL Plasma Lactic Acid Jon 1.7 (0.7-2.0) mmol/L Calcium 9.2 (8.4-10.2) mg/dL Total Bilirubin 0.6 (0.2-1.3) mg/dL AST 22 (17-59) U/L ALT 12 (4-49) U/L Alkaline Phosphatase 91 (38-126) U/L Total Protein 6.9 (6.3-8.2) g/dL Albumin 3.9 (3.5-5.0) g/dL Urine Color Urine Appearance (Clear) Urine pH (5.0-8.0) Ur Specific [place] (1.001-1.035) Urine Protein (Negative) Urine Glucose (UA) (Negative) Urine Ketones (Negative) Urine Blood (Negative) Urine Nitrite (Negative) Urine Bilirubin (Negative) Urine Urobilinogen (<2.0) mg/dL Ur Leukocyte Esterase (Negative) Urine RBC (0-5) /hpf Urine WBC (0-5) /hpf Urine WBC Clumps (None) /hpf Urine Bacteria (None) /hpf Urine Mucus (None) /hpf Influenza Type A (PCR) (Not Detectd) Influenza Type B (PCR) (Not Detectd) RSV (PCR) (Not Detectd) SARS-CoV-2 (PCR) (Not Detectd) 10/01/24 10/01/24 Range/Units 18:24 18:53 WBC (3.8-10.6) k/uL RBC (4.30-5.90) m/uL Hgb (13.0-17.5) gm/dL Hct (39.0-53.0) % MCV (80.0-100.0) fL MCH (25.0-35.0) pg MCHC (31.0-37.0) g/dL RDW (11.5-15.5) % Plt Count (150-450) k/uL MPV Neutrophils % % Lymphocytes % % Monocytes % % Eosinophils % % Basophils % % Neutrophils # (1.3-7.7) k/uL Lymphocytes # (1.0-4.8) k/uL Monocytes # (0-1.0) k/uL Eosinophils # (0-0.7) k/uL Basophils # (0-0.2) k/uL Anisocytosis Sodium (137-145) mmol/L Potassium (3.5-5.1) mmol/L Chloride (98-107) mmol/L Carbon Dioxide (22-30) mmol/L Anion Gap mmol/L BUN (9-20) mg/dL Creatinine (0.66-1.25) mg/dL Est GFR (CKD-EPI)AfAm (>60 ml/min/1.73 sqM) Est GFR (CKD-EPI)NonAf (>60 ml/min/1.73 sqM) Glucose (74-99) mg/dL Plasma Lactic Acid Jon (0.7-2.0) mmol/L Calcium (8.4-10.2) mg/dL Total Bilirubin (0.2-1.3) mg/dL AST (17-59) U/L ALT (4-49) U/L Alkaline Phosphatase (38-126) U/L Total Protein (6.3-8.2) g/dL Albumin (3.5-5.0) g/dL Urine Color Colorless Urine Appearance Turbid (Clear) Urine pH 6.0 (5.0-8.0) Ur Specific [place] 1.016 (1.001-1.035) Urine Protein 1+ H (Negative) Urine Glucose (UA) 4+ H (Negative) Urine Ketones Negative (Negative) Urine Blood Moderate H (Negative) Urine Nitrite Negative (Negative) Urine Bilirubin Negative (Negative) Urine Urobilinogen <2.0 (<2.0) mg/dL Ur Leukocyte Esterase Large H (Negative) Urine RBC 13 H (0-5) /hpf Urine WBC >182 H (0-5) /hpf Urine WBC Clumps Many H (None) /hpf Urine Bacteria Rare H (None) /hpf Urine Mucus Rare H (None) /hpf Influenza Type A (PCR) Not Detected (Not Detectd) Influenza Type B (PCR) Not Detected (Not Detectd) RSV (PCR) Not Detected (Not Detectd) SARS-CoV-2 (PCR) Not Detected (Not Detectd) Disposition <Diana Bhatti - Last Filed: 10/01/24 17:25> Time of Disposition: 19:57 <Daniel Cardenas - Last Filed: 10/01/24 19:59> Clinical Impression: Pyelonephritis Disposition: ADMITTED IP TO THIS [facility] Referrals: Dandy Humphries MD [STAFF PHYSICIAN] - 1-2 days
[2024-10-01 18:48] LABS: Anisocytosis Slight; Basophils % (A) 0 %; Eosinophils # (A) 0.1 k/uL (0-0.7); Eosinophils % (A) 0 %; HCT 40.7 % (39.0-53.0); HGB 12.9 gm/dL (13.0-17.5); Lymphocytes % (A) 6 %; MCHC 31.6 g/dL (31.0-37.0); MCV 88.5 fL (80.0-100.0); Mean Platelet Volume 7.1; Monocytes # (A) 1.4 k/uL (0-1.0); Monocytes % (A) 8 %; Neutrophils # (A) 15.1 k/uL (1.3-7.7); Neutrophils % (A) 84 %; Platelet Count 240 k/uL (150-450); RDW 16.1 % (11.5-15.5)
[2024-10-01 19:03] LABS: ALT 12 U/L (4-49); AST 22 U/L (17-59); African American GFR (CKD) 46 (>60 ml/min/1.73 sqM); Albumin 3.9 g/dL (3.5-5.0); Alkaline Phosphatase 91 U/L (38-126); Anion Gap 13 mmol/L; Blood Urea Nitrogen 42 mg/dL (9-20); Calcium 9.2 mg/dL (8.4-10.2); Carbon Dioxide 19 mmol/L (22-30); Chloride 99 mmol/L (98-107); Glucose 292 mg/dL (74-99); Non-African American GFR(CKD) 39 (>60 ml/min/1.73 sqM); Potassium 4.4 mmol/L (3.5-5.1); Sodium 131 mmol/L (137-145); Total Bilirubin 0.6 mg/dL (0.2-1.3); Total Protein 6.9 g/dL (6.3-8.2)
--- NOTE | 2024-10-01 19:03 | XR ---
EXAMINATION TYPE: XR chest 2V DATE OF EXAM: 10/01/2024 7:00 PM COMPARISON: Chest radiographs from 11/03/2023. CLINICAL INDICATION: Male, 74 years old with history of fever; TECHNIQUE: XR chest 2V Frontal and lateral views of the chest. FINDINGS: Lungs/Pleura: There is no evidence of pleural effusion, focal consolidation, or pneumothorax. Pulmonary vascularity: Unremarkable. Heart/mediastinum: Cardiomediastinal silhouette is unremarkable. Musculoskeletal: No acute osseous pathology. Left shoulder arthroplasty changes appear intact. IMPRESSION: No acute cardiopulmonary disease/process. [facility], , 10/01/2024 7:01 PM
[2024-10-01 19:21] LABS: Influenza A Not Detected (Not Detectd); Influenza B Not Detected (Not Detectd); RSV Not Detected (Not Detectd)
[2024-10-01 19:21] LABS: Appearance,Urine Turbid (Clear); Bacteria,Urine Rare /hpf; Bilirubin,Urine Negative (Negative); Blood,Urine Moderate (Negative); Color,Urine Colorless; Glucose,Urine (UA) 4+ (Negative); Ketones,Urine Negative (Negative); Leukocyte Esterase,Urine Large (Negative); Mucus,Urine Rare /hpf; Nitrite,Urine Negative (Negative); Protein,Urine 1+ (Negative); RBC,Urine 13 /hpf (0-5); Specific Gravity,Urine 1.016 (1.001-1.035); Urobilinogen,Urine <2.0 mg/dL (<2.0); WBC,Urine >182 /hpf (0-5)
[2024-10-01] MEDS: cefTRIAXone IN SWFI 1,000 MG/10 ML SYRINGE IVP STA ×2 (19:58→19:59)
[2024-10-01] MEDS: SODIUM CHLORIDE 0.9% 1,000 ML IV ONE (20:08)
[2024-10-01] MEDS: ACETAMINOPHEN TAB 500 MG TAB PO STA (22:14)
[2024-10-02] MEDS ORDERED: INSULIN ASPART (NovoLOG) 100 UNIT/ML VIAL SQ PRN (00:41)
[2024-10-02] MEDS ORDERED: INSULIN PUMP BASAL RATES 1 EACH MISC MISCELLANE PRN (00:41)
[2024-10-02] MEDS ORDERED: INSPUCOR MISCELLANE PRN (00:41)
[2024-10-02 01:46] LABS: Glucose,Whole Blood 346 mg/dL (70-110)
[2024-10-02 05:38] LABS: Glucose,Whole Blood 169 mg/dL (70-110)
[2024-10-02] MEDS: ACETAMINOPHEN TAB 325 MG TAB PO PRN (05:45)
[2024-10-02] MEDS: INSULIN PUMP MEAL BOLUS 1 UNIT MISC MISCELLANE SCH (08:29)
[2024-10-02] MEDS ORDERED: LORATADINE 10 MG TAB PO PRN (10:10)
[2024-10-02 10:52] LABS: Anisocytosis Slight; Basophils % (A) 0 %; Eosinophils % (A) 0 %; HCT 37.7 % (39.0-53.0); HGB 11.8 gm/dL (13.0-17.5); Lymphocytes # (A) 0.6 k/uL (1.0-4.8); Lymphocytes % (A) 5 %; MCH 27.7 pg (25.0-35.0); MCHC 31.2 g/dL (31.0-37.0); MCV 88.6 fL (80.0-100.0); Mean Platelet Volume 7.6; Monocytes # (A) 0.9 k/uL (0-1.0); Monocytes % (A) 7 %; Neutrophils # (A) 10.6 k/uL (1.3-7.7); Neutrophils % (A) 85 %; Platelet Count 204 k/uL (150-450); RBC 4.26 m/uL (4.30-5.90); RDW 16.2 % (11.5-15.5); WBC 12.4 k/uL (3.8-10.6)
[2024-10-02] MEDS: EZETIMIBE 10 MG TAB PO SCH (11:17)
[2024-10-02] MEDS: ASPIRIN 81 MG PO SCH (11:17)
[2024-10-02] MEDS: PANTOPRAZOLE 40 MG/10 ML VIAL IVP SCH (11:17)
[2024-10-02] MEDS: ISOSORBIDE MONONITRATE ER 60 MG TAB.ER.24H PO SCH (11:20)
[2024-10-02 11:23] LABS: African American GFR (CKD) 46 (>60 ml/min/1.73 sqM); Anion Gap 14 mmol/L; Blood Urea Nitrogen 41 mg/dL (9-20); Carbon Dioxide 18 mmol/L (22-30); Chloride 104 mmol/L (98-107); Glucose 216 mg/dL (74-99); Magnesium 2.4 mg/dL (1.6-2.3); Non-African American GFR(CKD) 39 (>60 ml/min/1.73 sqM); Potassium 3.7 mmol/L (3.5-5.1); Sodium 136 mmol/L (137-145)
[2024-10-02 12:33] LABS: Glucose,Whole Blood 203 mg/dL (70-110)
--- NOTE | 2024-10-02 14:01 | P.GSCN ---
History of Present Illness Consult date: 10/02/24 Reason for Consult: Bladder cancer, right hydronephrosis, UTI History of present illness: This is a 74-year-old male presents to the hospital with fatigue and fevers. He was recently admitted to the hospital in late August for a UTI. He has history of bladder cancer underwent a radical cystoprostatectomy in June 12 at [facility] by Dr. Bullard. No complication during surgery. Pathology was obtained which showed evidence of Susie 7(3+4) prostate cancer, and CIS of the bladder, ureteral margins were negative for malignancy. He had similar complaints during his hospital admission, he is also been experiencing intermittent bilateral flank pain worse on the left. Underwent CT abdomen and pelvis in August that showed evidence of mild right-sided hydronephrosis with hyperenhancement of the ureter. Urine culture last admission showed Klebsiella. He was discharged home on antibiotics. Urinalysis on presentation was con cerning for UTI, patient also had a spike of fever of 103. His creatinine is up to 1.7 at time of discharge in August was 1.3 his baseline is around 1. He indicated since being admitted to the hospital he is feeling slightly better. Review of Systems - Constitutional Reports chills, Reports fatigue, Reports fever - EENT Ears, nose, mouth and throat: Denies dysphagia - Cardiovascular Denies chest pain, Denies shortness of breath - Respiratory Denies cough, Denies 7 - Gastrointestinal Denies abdominal pain, Denies nausea, Denies vomiting - Genitourinary Reports flank pain - Integumentary Denies rash, Denies unusual bruising - Neurological Denies headaches, Denies syncope Past Medical History Past Medical History: Cancer, Diabetes Mellitus, Prostate Disorder Additional Past Medical History / Comment(s): Chronic back pain, sciatica, insulin pump, SARCOIDOSIS, BLADDER CANCER-weekly treatments for 6 weeks at a time-BCG treatments (most recent one 12/09/23), neuropathy, BPH, macular edema Last Myocardial Infarction Date:: 07/19/17 History of Any Multi-Drug Resistant Organisms: None Reported Past Surgical History: Back Surgery, Heart Catheterization With Stent, Joint Replacement, Orthopedic Surgery, Prostate Surgery Additional Past Surgical History / Comment(s): SX FOR BLADDER CANCER x 3, SAVITA CATARACTS, COLONOSCOPY, RT ANKLE tendonitis, SAVITA CARPAL TUNNEL, LT KNEE REPLAC EMENT, SAVITA SHOULDER ROTATOR CUFF SX (total 6), LAMINECTOMY X2, THORACOTOMY/BX FOR NODULES ON LYMPH NODES(SARCOIDOSIS), 6 trigger finger releases, cardiac stents x 7,left total reversed shoulder, prostatectomy, cystecomy. Pt has urosotmy. Past Anesthesia/Blood Transfusion Reactions: Previous Problems w/ Anesthesia, Motion Sickness, Postoperative Nausea & Vomiting (PONV) Additional Past Anesthesia/Blood Transfusion Reaction / Comm: BP drops with a nesthesia Date of Last Stent Placement:: september 2020 Past Psychological History: No Psychological Hx Reported Additional Psychological History / Comment(s): . Smoking Status: Former smoker Past Alcohol Use History: None Reported Additional Past Alcohol Use History / Comment(s): STARTED SMOKING 1984 AND QUIT 1994 SMOKED 1 PPD Past Drug Use History: None Reported - Past Family History Brother(s) Family Medical History: Cancer Additional Family Medical History / Comment(s): Prostate cancer Medications and Allergies Home Medications Medication Instructions Recorded Confirmed Type Ezetimibe [Zetia] 10 mg PO DAILY #30 tab 02/02/18 10/01/24 Rx Aspirin EC [Ecotrin Low Dose] 81 mg PO DAILY 04/16/21 10/01/24 History Isosorbide Mononitrate ER [Imdur] 60 mg PO DAILY 04/16/21 10/01/24 History Ranolazine [Ranexa] 1,000 mg PO BID 04/16/21 10/01/24 History Pantoprazole Sodium [Protonix] 20 mg PO DAILY 11/13/21 10/01/24 History Atorvastatin [Lipitor] 80 mg PO HS 07/12/22 10/01/24 History Insulin Aspart (For Pump) [NovoLOG 0.01 unit SQ-PUMP CONTINUOUS 07/12/22 10/01/24 History (For Pump)] Empagliflozin [Jardiance] 12.5 mg PO DAILY 11/03/23 10/01/24 History Montelukast [Singulair] 10 mg PO HS 12/07/23 10/01/24 History Loratadine [Claritin] 10 mg PO DAILY PRN 09/15/24 10/01/24 History Allergies Allergy/AdvReac Type Severity Reaction Status Date / Time No Known Allergies Allergy Verified 10/01/24 21:02 Surgical - Exam Vital Signs Temp Pulse Resp BP Pulse Ox 98.8 F 89 24 89/51 97 10/01/24 17:56 10/01/24 17:56 10/01/24 17:56 10/01/24 17:56 10/01/24 17:56 - General no distress, moderate pain - Eyes normal ocular movement, no pale - ENT normal nares, normal mucosa - Respiratory normal expansion, normal respiratory effort - Abdomen Abdomen: soft, non tender, no distended - Psychiatric oriented to time, oriented to person, oriented to place Results - Labs 10/02/24 10:25 10/02/24 10:25 Abnormal Lab Results - Last 24 Hours (Table) 10/01/24 10/01/24 10/01/24 Range/Units 18:24 18:24 18:53 WBC 18.0 H (3.8-10.6) k/uL RBC (4.30-5.90) m/uL Hgb 12.9 L (13.0-17.5) gm/dL Hct (39.0-53.0) % RDW 16.1 H (11.5-15.5) % Neutrophils # 15.1 H (1.3-7.7) k/uL Lymphocytes # (1.0-4.8) k/uL Monocytes # 1.4 H (0-1.0) k/uL Sodium 131 L (137-145) mmol/L Carbon Dioxide 19 L (22-30) mmol/L BUN 42 H (9-20) mg/dL Creatinine 1.70 H (0.66-1.25) mg/dL Glucose 292 H (74-99) mg/dL POC Glucose (mg/dL) (70-110) mg/dL Magnesium (1.6-2.3) mg/dL Urine Protein 1+ H (Negative) Urine Glucose (UA) 4+ H (Negative) Urine Blood Moderate H (Negative) Ur Leukocyte Esterase Large H (Negative) Urine RBC 13 H (0-5) /hpf Urine WBC >182 H (0-5) /hpf Urine WBC Clumps Many H (None) /hpf Urine Bacteria Rare H (None) /hpf Urine Mucus Rare H (None) /hpf 10/02/24 10/02/24 10/02/24 Range/Units 01:45 05:37 10:25 WBC 12.4 H (3.8-10.6) k/uL RBC 4.26 L (4.30-5.90) m/uL Hgb 11.8 L (13.0-17.5) gm/dL Hct 37.7 L (39.0-53.0) % RDW 16.2 H (11.5-15.5) % Neutrophils # 10.6 H (1.3-7.7) k/uL Lymphocytes # 0.6 L (1.0-4.8) k/uL Monocytes # (0-1.0) k/uL Sodium (137-145) mmol/L Carbon Dioxide (22-30) mmol/L BUN (9-20) mg/dL Creatinine (0.66-1.25) mg/dL Glucose (74-99) mg/dL POC Glucose (mg/dL) 346 H 169 H (70-110) mg/dL Magnesium (1.6-2.3) mg/dL Urine Protein (Negative) Urine Glucose (UA) (Negative) Urine Blood (Negative) Ur Leukocyte Esterase (Negative) Urine RBC (0-5) /hpf Urine WBC (0-5) /hpf Urine WBC Clumps (None) /hpf Urine Bacteria (None) /hpf Urine Mucus (None) /hpf 10/02/24 10/02/24 Range/Units 10:25 12:32 WBC (3.8-10.6) k/uL RBC (4.30-5.90) m/uL Hgb (13.0-17.5) gm/dL Hct (39.0-53.0) % RDW (11.5-15.5) % Neutrophils # (1.3-7.7) k/uL Lymphocytes # (1.0-4.8) k/uL Monocytes # (0-1.0) k/uL Sodium 136 L (137-145) mmol/L Carbon Dioxide 18 L (22-30) mmol/L BUN 41 H (9-20) mg/dL Creatinine 1.70 H (0.66-1.25) mg/dL Glucose 216 H (74-99) mg/dL POC Glucose (mg/dL) 203 H (70-110) mg/dL Magnesium 2.4 H (1.6-2.3) mg/dL Urine Protein (Negative) Urine Glucose (UA) (Negative) Urine Blood (Negative) Ur Leukocyte Esterase (Negative) Urine RBC (0-5) /hpf Urine WBC (0-5) /hpf Urine WBC Clumps (None) /hpf Urine Bacteria (None) /hpf Urine Mucus (None) /hpf Diabetes panel 10/01/24 10/02/24 Range/Units 18:24 10:25 Sodium 131 L 136 L (137-145) mmol/L Potassium 4.4 3.7 (3.5-5.1) mmol/L Chloride 99 104 (98-107) mmol/L Carbon Dioxide 19 L 18 L (22-30) mmol/L BUN 42 H 41 H (9-20) mg/dL Creatinine 1.70 H 1.70 H (0.66-1.25) mg/dL Glucose 292 H 216 H (74-99) mg/dL Calcium 9.2 9.0 (8.4-10.2) mg/dL AST 22 (17-59) U/L ALT 12 (4-49) U/L Alkaline Phosphatase 91 (38-126) U/L Total Protein 6.9 (6.3-8.2) g/dL Albumin 3.9 (3.5-5.0) g/dL Calcium panel 10/01/24 10/02/24 Range/Units 18:24 10:25 Calcium 9.2 9.0 (8.4-10.2) mg/dL Albumin 3.9 (3.5-5.0) g/dL Pituitary panel 10/01/24 10/02/24 Range/Units 18:24 10:25 Sodium 131 L 136 L (137-145) mmol/L Potassium 4.4 3.7 (3.5-5.1) mmol/L Chloride 99 104 (98-107) mmol/L Carbon Dioxide 19 L 18 L (22-30) mmol/L BUN 42 H 41 H (9-20) mg/dL Creatinine 1.70 H 1.70 H (0.66-1.25) mg/dL Glucose 292 H 216 H (74-99) mg/dL Calcium 9.2 9.0 (8.4-10.2) mg/dL Adrenal panel 10/01/24 10/02/24 Range/Units 18:24 10:25 Sodium 131 L 136 L (137-145) mmol/L Potassium 4.4 3.7 (3.5-5.1) mmol/L Chloride 99 104 (98-107) mmol/L Carbon Dioxide 19 L 18 L (22-30) mmol/L BUN 42 H 41 H (9-20) mg/dL Creatinine 1.70 H 1.70 H (0.66-1.25) mg/dL Glucose 292 H 216 H (74-99) mg/dL Calcium 9.2 9.0 (8.4-10.2) mg/dL Total Bilirubin 0.6 (0.2-1.3) mg/dL AST 22 (17-59) U/L ALT 12 (4-49) U/L Alkaline Phosphatase 91 (38-126) U/L Total Protein 6.9 (6.3-8.2) g/dL Albumin 3.9 (3.5-5.0) g/dL Assessment and Plan Assessment: 74-year-old male history history of right-sided hydronephrosis, status post radical cystectomy at [facility] in May 2024. Imaging last hospital admission showed evidence of right-sided hydronephrosis, at that time he was admitted for UTI presented back 2 weeks later with similar complaints. Urine culture is currently pending. His creatinine is up to 1.7 from a baseline of 1 -will obtain renal ultrasound, -Continue antibiotics, recommend keeping in the hospital until cultures finalize given the fever of 103
--- NOTE | 2024-10-02 15:51 | US ---
EXAMINATION TYPE: US kidneys/renal and bladder DATE OF EXAM: 10/02/2024 Exam done portable COMPARISON: CT 2023 CLINICAL INDICATION: Male, 74 years old with history of Hydronephrosis; TECHNIQUE: Grayscale imaging of the bilateral kidneys and urinary bladder: FINDINGS: EXAM MEASUREMENTS: Right Kidney: 10.4 x 5.5 x 5.9 cm Left Kidney: 10.1 x 5.8 x 4.2 cm Right Kidney: mild hydronephrosis Left Kidney: wnl Bladder: surgically absent IMPRESSION: 1. Mild right hydronephrosis. [facility], , 10/02/2024 3:49 PM
--- NOTE | 2024-10-02 16:38 | P.HPIM ---
History of Present Illness H&P Date: 10/02/24 Chief Complaint: Left flank pain This is a 74-year-old recently admitted inpatient discharged 09/17/2024 with Klebsiella pneumoniae UTI/pyelonephritis, right moderate hydronephrosis in a patient with history of recent radical cystoscopy prostatectomy for bladder cancer returned to the hospital with similar symptoms. States the week before admission began having symptoms of low-grade fevers, occasional left flank pain. Symptoms progressed over the weekend-continued having low-grade fevers of 99.3, increased generalized weakness and fatigue," slept for 3 days". Denies cough or congestion or sore throat. Reports positive headache positive nausea and vomiting. Tmax 103, WBCs 18, UA reporting moderate blood, negative nitrates, large leukocytes, greater than 182 WBCs, many WBC clumps, rare bacteria, turbid colored, urine culture pending. Patient has an ileostomy, reports that he normally changes his appliance every 2 to 3 days but over the last 3 days he has had to change it daily. Reports urine with "threadlike sediment, cloudy." Sodium 136, potassium 3.7 bicarb 18, BUN 41, creatinine 1.7, blood sugars 160s to the low 200s, magnesium 2.4 .chest x-ray reported no acute cardiopulmonary disease/process. Denies chest pain, palpitations or shortness of breath. O2 sats in the high 90s on room air IV fluids and ceftriaxone initiated in the ER. Review of Systems Constitutional: Positive fatigue and low-grade fevers. Cardio vascular: denied any chest pain, palpitations Gastrointestinal :positive nausea vomiting Pulmonary: Denied any shortness of breath cough Neurologic denied any new focal deficits All inpatient medications were reviewed and appropriate changes in these medications as dictated in the interval history and assessment and plan. Past Medical History Past Medical History: Cancer, Diabetes Mellitus, Prostate Disorder Additional Past Medical History / Comment(s): Chronic back pain, sciatica, insulin pump, SARCOIDOSIS, BLADDER CANCER-weekly treatments for 6 weeks at a time-BCG treatments (most recent one 12/09/23), neuropathy, BPH, macular edema Last Myocardial Infarction Date:: 07/19/17 History of Any Multi-Drug Resistant Organisms: None Reported Past Surgical History: Back Surgery, Heart Catheterization With Stent, Joint Replacement, Orthopedic Surgery, Prostate Surgery Additional Past Surgical History / Comment(s): SX FOR BLADDER CANCER x 3, SAVITA CATARACTS, COLONOSCOPY, RT ANKLE tendonitis, SAVITA CARPAL TUNNEL, LT KNEE REPLACEMENT, SAVITA SHOULDER ROTATOR CUFF SX (total 6), LAMINECTOMY X2, THORACOTOMY/BX FOR NODULES ON LYMPH NODES(SARCOIDOSIS), 6 trigger finger releases, cardiac stents x 7,left total reversed shoulder, prostatectomy, cystecomy. Pt has urosotmy. Past Anesthesia/Blood Transfusion Reactions: Previous Problems w/ Anesthesia, Motion Sickness, Postoperative Nausea & Vomiting (PONV) Additional Past Anesthesia/Blood Transfusion Reaction / Comment(s): BP drops with anesthesia Date of Last Stent Placement:: september 2020 Past Psychological History: No Psychological Hx Reported Additional Psychological History / Comment(s): . Smoking Status: Former smoker Past Alcohol Use History: None Reported Additional Past Alcohol Use History / Comment(s): STARTED SMOKING 1984 AND QUIT 1994 SMOKED 1 PPD Past Drug Use History: None Reported - Past Family History Brother(s) Family Medical History: Cancer Additional Family Medical History / Comment(s): Prostate cancer Medications and Allergies Home Medications Medication Instructions Recorded Confirmed Type Ezetimibe [Zetia] 10 mg PO DAILY #30 tab 02/02/18 10/01/24 Rx Aspirin EC [Ecotrin Low Dose] 81 mg PO DAILY 04/16/21 10/01/24 History Isosorbide Mononitrate ER [Imdur] 60 mg PO DAILY 04/16/21 10/01/24 History Ranolazine [Ranexa] 1,000 mg PO BID 04/16/21 10/01/24 History Pantoprazole Sodium [Protonix] 20 mg PO DAILY 11/13/21 10/01/24 History Atorvastatin [Lipitor] 80 mg PO HS 07/12/22 10/01/24 History Insulin Aspart (For Pump) [NovoLOG 0.01 unit SQ-PUMP CONTINUOUS 07/12/22 10/01/24 History (For Pump)] Empagliflozin [Jardiance] 12.5 mg PO DAILY 11/03/23 10/01/24 History Montelukast [Singulair] 10 mg PO HS 12/07/23 10/01/24 History Loratadine [Claritin] 10 mg PO DAILY PRN 09/15/24 10/01/24 History Allergies Allergy/AdvReac Type Severity Reaction Status Date / Time No Known Allergies Allergy Verified 10/01/24 21:02 Physical Exam Vitals: Vital Signs Temp Pulse Pulse Resp BP BP Pulse Ox 10/02/24 07:55 98 F 89 18 113/59 95 10/02/24 05:40 103.0 F H 10/02/24 01:58 98.9 F 84 16 126/69 97 10/02/24 00:30 100.0 F H 10/01/24 22:50 106 H 18 147/78 96 10/01/24 21:11 100 F H 86 17 148/70 97 10/01/24 17:56 98.8 F 89 24 89/51 97 Intake and Output 10/02/24 10/02/24 10/02/24 06:59 14:59 22:59 Intake Total 750 Output Total 2100 Balance -1350 Intake: Oral 750 Output: Urine 2100 Other: # Bowel Movements 0 Weight 82.554 kg GENERAL: Pleasant elderly male sitting up in bed, no distress. HEENT: Normocephalic, atraumatic, eyes normal, no conjunctival pallor or no scleral icterus. Oral mucous membrane is dry. No pharyngeal erythema or thrush NECK: Supple, no JVD, trachea central, no thyromegaly. LUNGS: Unlabored breathing. Equal air entry, clear to auscultation anteriorly. No wheeze or crackle. HEART: S1, S2, regular rate and rhythm. No loud murmur ABDOMEN: Soft, nondistended, left flank tenderness,no guarding or rigidity, no organomegaly EXTREMITIES: No edema, no clubbing or cyanosis, no calf tenderness. SKIN: No rash noted, warm and dry. NEUROLOGICAL: Cranial nerves II through XII grossly intact Results CBC & Chem 7: 10/03/24 03:01 10/03/24 03:01 Labs: Abnormal Lab Results - Last 24 Hours (Table) 10/01/24 10/01/24 10/01/24 Range/Units 18:24 18:24 18:53 WBC 18.0 H (3.8-10.6) k/uL RBC (4.30-5.90) m/uL Hgb 12.9 L (13.0-17.5) gm/dL Hct (39.0-53.0) % RDW 16.1 H (11.5-15.5) % Neutrophils # 15.1 H (1.3-7.7) k/uL Lymphocytes # (1.0-4.8) k/uL Monocytes # 1.4 H (0-1.0) k/uL Sodium 131 L (137-145) mmol/L Carbon Dioxide 19 L (22-30) mmol/L BUN 42 H (9-20) mg/dL Creatinine 1.70 H (0.66-1.25) mg/dL Glucose 292 H (74-99) mg/dL POC Glucose (mg/dL) (70-110) mg/dL Magnesium (1.6-2.3) mg/dL Urine Protein 1+ H (Negative) Urine Glucose (UA) 4+ H (Negative) Urine Blood Moderate H (Negative) Ur Leukocyte Esterase Large H (Negative) Urine RBC 13 H (0-5) /hpf Urine WBC >182 H (0-5) /hpf Urine WBC Clumps Many H (None) /hpf Urine Bacteria Rare H (None) /hpf Urine Mucus Rare H (None) /hpf 10/02/24 10/02/24 10/02/24 Range/Units 01:45 05:37 10:25 WBC 12.4 H (3.8-10.6) k/uL RBC 4.26 L (4.30-5.90) m/uL Hgb 11.8 L (13.0-17.5) gm/dL Hct 37.7 L (39.0-53.0) % RDW 16.2 H (11.5-15.5) % Neutrophils # 10.6 H (1.3-7.7) k/uL Lymphocytes # 0.6 L (1.0-4.8) k/uL Monocytes # (0-1.0) k/uL Sodium (137-145) mmol/L Carbon Dioxide (22-30) mmol/L BUN (9-20) mg/dL Creatinine (0.66-1.25) mg/dL Glucose (74-99) mg/dL POC Glucose (mg/dL) 346 H 169 H (70-110) mg/dL Magnesium (1.6-2.3) mg/dL Urine Protein (Negative) Urine Glucose (UA) (Negative) Urine Blood (Negative) Ur Leukocyte Esterase (Negative) Urine RBC (0-5) /hpf Urine WBC (0-5) /hpf Urine WBC Clumps (None) /hpf Urine Bacteria (None) /hpf Urine Mucus (None) /hpf 10/02/24 10/02/24 Range/Units 10:25 12:32 WBC (3.8-10.6) k/uL RBC (4.30-5.90) m/uL Hgb (13.0-17.5) gm/dL Hct (39.0-53.0) % RDW (11.5-15.5) % Neutrophils # (1.3-7.7) k/uL Lymphocytes # (1.0-4.8) k/uL Monocytes # (0-1.0) k/uL Sodium 136 L (137-145) mmol/L Carbon Dioxide 18 L (22-30) mmol/L BUN 41 H (9-20) mg/dL Creatinine 1.70 H (0.66-1.25) mg/dL Glucose 216 H (74-99) mg/dL POC Glucose (mg/dL) 203 H (70-110) mg/dL Magnesium 2.4 H (1.6-2.3) mg/dL Urine Protein (Negative) Urine Glucose (UA) (Negative) Urine Blood (Negative) Ur Leukocyte Esterase (Negative) Urine RBC (0-5) /hpf Urine WBC (0-5) /hpf Urine WBC Clumps (None) /hpf Urine Bacteria (None) /hpf Urine Mucus (None) /hpf Thrombosis Risk Factor Assmnt - Choose All That Apply Any of the Below Risk Factors Present?: No Other Risk Factors: Yes Each Risk Factor Represents 2 Points: Age 61-74 years Other congenital or acquired thrombophilia - If yes, enter type in comment: No Thrombosis Risk Factor Assessment Total Risk Factor Score: 2 Thrombosis Risk Factor Assessment Level: Low Risk Assessment and Plan Assessment: Sepsis secondary to acute UTI, pyelonephritis. Renal ultrasound pending Leukocytosis Acute renal failure secondary to the above Recently discharged on 09/17/2024 with bilateral back pain, right flank pain, possible right pyelonephritis with urinary tract infection, culture showing Klebsiella pneumonia, right moderate hydronephrosis History of recent radical cystoprostatectomy for bladder cancer 06/12 [address] [facility] with Dr. Bullard Diabetes mellitus, type II, A1c 8.3 Leukocytosis History of sarcoidosis Plan: Continue on current medication regimen ,monitoring and symptomatic treatment. Urine culture pending. Blood cultures ordered. Maintain IV fluids, antibiotics. Infectious disease and urology consulted. The impression and plan of care has been dictated as directed. : I performed a history and examination of this patient, discussed the same with the dictator. I agree with the dictator's note ,documented as a scribe. Any additional findings or plans will be noted.
[2024-10-02 18:46] LABS: Glucose,Whole Blood 313 mg/dL (70-110)
[2024-10-02] MEDS: INSULIN ASPART (NovoLOG) 100 UNIT/ML VIAL SQ SCH ×2 (19:27→23:15)
[2024-10-02 20:42] LABS: Glucose,Whole Blood 274 mg/dL (70-110)
[2024-10-02] MEDS: SODIUM CHLORIDE 0.9% 1,000 ML IV SCH (20:46)
[2024-10-02] MEDS: MONTELUKAST 10 MG TAB PO SCH (21:30)
[2024-10-02] MEDS: INSULIN ASPART (NovoLOG) 100 UNIT/ML VIAL SQ ONE (21:30)
[2024-10-02] MEDS: ATORVASTATIN 80 MG TAB PO SCH (21:30)
[2024-10-03 02:14] LABS: Glucose,Whole Blood 242 mg/dL (70-110)
--- NOTE | 2024-10-03 05:52 | P.CONS ---
History of Present Illness - Reason for Consult Consult date: 10/02/24 Sepsis, pyelo- Requesting physician: Jimena Wray - Chief Complaint Fever flank pain x 3 days - History of Present Illness Patient is a 74-year-old male with a past medical history significant for bladder cancer in this patient who is status post radical cystoprostatectomy end ileostomy creation on June 12, 2024 at [facility] with recent admission to this facility September 15, 2024 and the patient has been diagnosed with a pyelitis urine was positive for Klebsiella patient was treated with Rocephin with improvement subsequently discharged on oral Ceftin patient now presenting back to the hospital concerning for weakness and fever symptom has been getting worse over the last 3 days the patient did have decreased appetite fever and chills also complaining of bilateral flank pain pain has been mostly dull aching mild to moderate distress without radiation with associated nausea, no vomiting denies having any diarrhea no chest pain shortness of breath or cough on presentation to the hospital patient did have a temperature of 100 F subsequently spiked a fever of 103 degrees for night patient was tachycardic but not hypotensive or hypoxic and no need for supplemental oxygen he did have a white count of 18,000 BUN and creatinine has been mildly elevated urine has been positive influenza RSV COVID testing negative patient did have a chest x-ray no acute cardiopulmonary disease process abdominal bladder ultrasound did show some mild right-sided hydronephrosis patient was started on Rocephin infectious disease was consulted for further management of antibiotic therapy Review of Systems Positive point and negatives has been mentioned in the HPI, complete review of systems was performed and all other systems are negative Past Medical History Past Medical History: Cancer, Diabetes Mellitus, Prostate Disorder Additional Past Medical History / Comment(s): Chronic back pain, sciatica, insulin pump, SARCOIDOSIS, BLADDER CANCER-weekly treatments for 6 weeks at a time-BCG treatments (most recent one 12/09/23), neuropathy, BPH, macular edema Last Myocardial Infarction Date:: 07/19/17 History of Any Multi-Drug Resistant Organisms: None Reported Past Surgical History: Back Surgery, Heart Catheterization With Stent, Joint Replacement, Orthopedic Surgery, Prostate Surgery Additional Past Surgical History / Comment(s): SX FOR BLADDER CANCER x 3, SAVITA CATARACTS, COLONOSCOPY, RT ANKLE tendonitis, SAVITA CARPAL TUNNEL, LT KNEE REPLACEMENT, SAVITA SHOULDER ROTATOR CUFF SX (total 6), LAMINECTOMY X2, THORACOTOMY/BX FOR NODULES ON LYMPH NODES(SARCOIDOSIS), 6 trigger finger releases, cardiac stents x 7,left total reversed shoulder, prostatectomy, cystecomy. Pt has urosotmy. Past Anesthesia/Blood Transfusion Reactions: Previous Problems w/ Anesthesia, Motion Sickness, Postoperative Nausea & Vomiting (PONV) Additional Past Anesthesia/Blood Transfusion Reaction / Comm: BP drops with anesthesia Date of Last Stent Placement:: september 2020 Past Psychological History: No Psychological Hx Reported Smoking Status: Former smoker Past Alcohol Use History: None Reported Past Drug Use History: None Reported - Past Family History Brother(s) Family Medical History: Cancer Additional Family Medical History / Comment(s): Prostate cancer Medications and Allergies Home Medications Medication Instructions Recorded Confirmed Type Ezetimibe [Zetia] 10 mg PO DAILY #30 tab 02/02/18 10/01/24 Rx Aspirin EC [Ecotrin Low Dose] 81 mg PO DAILY 04/16/21 10/01/24 History Isosorbide Mononitrate ER [Imdur] 60 mg PO DAILY 04/16/21 10/01/24 History Ranolazine [Ranexa] 1,000 mg PO BID 04/16/21 10/01/24 History Pantoprazole Sodium [Protonix] 20 mg PO DAILY 11/13/21 10/01/24 History Atorvastatin [Lipitor] 80 mg PO HS 07/12/22 10/01/24 History Insulin Aspart (For Pump) [NovoLOG 0.01 unit SQ-PUMP CONTINUOUS 07/12/22 10/01/24 History (For Pump)] Empagliflozin [Jardiance] 12.5 mg PO DAILY 11/03/23 10/01/24 History Montelukast [Singulair] 10 mg PO HS 12/07/23 10/01/24 History Loratadine [Claritin] 10 mg PO DAILY PRN 09/15/24 10/01/24 History Allergies Allergy/AdvReac Type Severity Reaction Status Date / Time No Known Allergies Allergy Verified 10/01/24 21:02 Physical Exam Vitals: Vital Signs Temp Pulse Pulse Resp BP BP Pulse Ox 10/02/24 07:55 98 F 89 18 113/59 95 10/02/24 05:40 103.0 F H 10/02/24 01:58 98.9 F 84 16 126/69 97 10/02/24 00:30 100.0 F H 10/01/24 22:50 106 H 18 147/78 96 10/01/24 21:11 100 F H 86 17 148/70 97 10/01/24 17:56 98.8 F 89 24 89/51 97 Intake and Output 10/01/24 10/02/24 10/02/24 22:59 06:59 14:59 Intake Total 750 Output Total 2100 Balance -1350 Intake: Oral 750 Output: Urine 2100 Other: # Bowel Movements 0 Weight 82.554 kg GENERAL DESCRIPTION: Elderly male lying in bed, no distress. No tachypnea or accessory muscle of respiration use. HEENT: Shows Pallor , no scleral icterus. Oral mucous membrane is dry. No pharyngeal erythema or thrush NECK: Trachea central, no thyromegaly. LUNGS: Unlabored breathing. Clear to auscultation anteriorly. No wheeze or crackle. HEART: S1, S2, regular rate and rhythm. No loud murmur ABDOMEN: Soft, no tenderness , EXTREMITIES: No edema of feet. SKIN: No rash, no masses palpable. NEUROLOGICAL: The patient is awake, alert, oriented x3, mood and affect normal. Results CBC & Chem 7: 10/02/24 10:25 10/02/24 10:25 Labs: Abnormal Lab Results - Last 24 Hours (Table) 10/01/24 10/01/24 10/01/24 Range/Units 18:24 18:24 18:53 WBC 18.0 H (3.8-10.6) k/uL RBC (4.30-5.90) m/uL Hgb 12.9 L (13.0-17.5) gm/dL Hct (39.0-53.0) % RDW 16.1 H (11.5-15.5) % Neutrophils # 15.1 H (1.3-7.7) k/uL Lymphocytes # (1.0-4.8) k/uL Monocytes # 1.4 H (0-1.0) k/uL Sodium 131 L (137-145) mmol/L Carbon Dioxide 19 L (22-30) mmol/L BUN 42 H (9-20) mg/dL Creatinine 1.70 H (0.66-1.25) mg/dL Glucose 292 H (74-99) mg/dL POC Glucose (mg/dL) (70-110) mg/dL Magnesium (1.6-2.3) mg/dL Urine Protein 1+ H (Negative) Urine Glucose (UA) 4+ H (Negative) Urine Blood Moderate H (Negative) Ur Leukocyte Esterase Large H (Negative) Urine RBC 13 H (0-5) /hpf Urine WBC >182 H (0-5) /hpf Urine WBC Clumps Many H (None) /hpf Urine Bacteria Rare H (None) /hpf Urine Mucus Rare H (None) /hpf 10/02/24 10/02/24 10/02/24 Range/Units 01:45 05:37 10:25 WBC 12.4 H (3.8-10.6) k/uL RBC 4.26 L (4.30-5.90) m/uL Hgb 11.8 L (13.0-17.5) gm/dL Hct 37.7 L (39.0-53.0) % RDW 16.2 H (11.5-15.5) % Neutrophils # 10.6 H (1.3-7.7) k/uL Lymphocytes # 0.6 L (1.0-4.8) k/uL Monocytes # (0-1.0) k/uL Sodium (137-145) mmol/L Carbon Dioxide (22-30) mmol/L BUN (9-20) mg/dL Creatinine (0.66-1.25) mg/dL Glucose (74-99) mg/dL POC Glucose (mg/dL) 346 H 169 H (70-110) mg/dL Magnesium (1.6-2.3) mg/dL Urine Protein (Negative) Urine Glucose (UA) (Negative) Urine Blood (Negative) Ur Leukocyte Esterase (Negative) Urine RBC (0-5) /hpf Urine WBC (0-5) /hpf Urine WBC Clumps (None) /hpf Urine Bacteria (None) /hpf Urine Mucus (None) /hpf 10/02/24 Range/Units 10:25 WBC (3.8-10.6) k/uL RBC (4.30-5.90) m/uL Hgb (13.0-17.5) gm/dL Hct (39.0-53.0) % RDW (11.5-15.5) % Neutrophils # (1.3-7.7) k/uL Lymphocytes # (1.0-4.8) k/uL Monocytes # (0-1.0) k/uL Sodium 136 L (137-145) mmol/L Carbon Dioxide 18 L (22-30) mmol/L BUN 41 H (9-20) mg/dL Creatinine 1.70 H (0.66-1.25) mg/dL Glucose 216 H (74-99) mg/dL POC Glucose (mg/dL) (70-110) mg/dL Magnesium 2.4 H (1.6-2.3) mg/dL Urine Protein (Negative) Urine Glucose (UA) (Negative) Urine Blood (Negative) Ur Leukocyte Esterase (Negative) Urine RBC (0-5) /hpf Urine WBC (0-5) /hpf Urine WBC Clumps (None) /hpf Urine Bacteria (None) /hpf Urine Mucus (None) /hpf Assessment and Plan (1) Sepsis Current Visit: Yes Status: Acute Code(s): A41.9 - SEPSIS, UNSPECIFIED ORGANISM SNOMED Code(s): 66561385 (2) Pyelonephritis Current Visit: Yes Status: Acute Code(s): N12 - TUBULO-INTERSTITIAL NEPHRITIS, NOT SPCF ACUTE OR CHRONIC SNOMED Code(s): 69602803 (3) Leukocytosis Current Visit: No Status: Acute Code(s): D72.829 - ELEVATED WHITE BLOOD CELL COUNT, UNSPECIFIED SNOMED Code(s): 537676853 Plan: 1patient presented to hospital with sepsis in this patient who did have fever tachycardia elevated white count patient did have a flank pain with nausea significantly positive UA concerning for pyelonephritis with ultrasound suggestive of mild right hydronephrosis and recent culture positive for Klebsiella 2-patient will be advised Rocephin 2 g daily while waiting for the culture to finalize 3-did have mild hydronephrosis and has been followed by urology Question concern answered We will follow on clinical condition and cultures to further adjust medication if needed Thank you for this consultation we will follow the patient along with you Dictation was produced using [employer] software. please excuse any grammatical, word or spelling errors. Time with Patient: Greater than 30
[2024-10-03 06:06] LABS: Glucose,Whole Blood 223 mg/dL (70-110)
[2024-10-03 09:43] LABS: Basophils # (A) 0.03 X 10*3/uL (0.00-0.10); Basophils % (A) 0.3 %; Eosinophils # (A) 0.05 X 10*3/uL (0.04-0.35); Eosinophils % (A) 0.5 %; HCT 39.5 % (39.6-50.0); HGB 12.3 g/dL (13.0-17.0); Lymphocytes # (A) 0.89 X 10*3/uL (0.90-5.00); Lymphocytes % (A) 8.8 %; MCH 27.8 pg (27.0-32.0); MCHC 31.1 g/dL (32.0-37.0); MCV 89.2 FL (80.0-97.0); Mean Platelet Volume 10.8 FL (9.5-12.2); Monocytes # (A) 1.15 X 10*3/uL (0.20-1.00); Monocytes % (A) 11.3 %; NRBC Per 100 WBC 0 X 10*3/uL (0.00-0.01); Neutrophils # (A) 7.99 X 10*3/uL (1.80-7.70); Neutrophils % (A) 78.5 %; Platelet Count 218 X 10*3/uL (140-440); RBC 4.43 X 10*6/uL (4.40-5.60); RDW 16.4 % (11.5-14.5); WBC 10.17 X 10*3/uL (4.50-10.00)
[2024-10-03 09:51] LABS: BUN/Creat Ratio 24.24 Ratio (12.00-20.00); Blood Urea Nitrogen 41.2 mg/dL (9.0-27.0); Calcium 8.5 mg/dL (8.7-10.3); Carbon Dioxide 18.4 mmol/L (21.6-31.8); Chloride 103 mmol/L (96-109); Glucose 250 mg/dL (70-110); Potassium 3.9 mmol/L (3.5-5.5); Sodium 134 mmol/L (135-145)
[2024-10-03 12:14] LABS: Glucose,Whole Blood 373 mg/dL (70-110)
[2024-10-03] MEDS: INSULIN DETEMIR (LEVEMIR) 100 UNIT/ML SYR SQ SCH (14:56)
--- NOTE | 2024-10-03 16:12 | P.PN ---
Subjective Progress Note Date: 10/03/24 H&P Date: 10/02/24 Chief Complaint: Left flank pain This is a 74-year-old recently admitted inpatient discharged 09/17/2024 with Klebsiella pneumoniae pyelitis urine, right moderate hydronephrosis in a patient with history of recent radical cystoscopy prostatectomy for bladder cancer returned to the hospital with similar symptoms. States the week before admission began having symptoms of low-grade fevers, occasional left flank pain. Symptoms progressed over the weekend-continued having low-grade fevers of 99.3, increased generalized weakness and fatigue," slept for 3 days". Denies cough or congestion or sore throat. Reports positive headache positive nausea and vomiting. Tmax 103, WBCs 18, UA reporting moderate blood, negative nitrates, large leukocytes, greater than 182 WBCs, many WBC clumps, rare bacteria, turbid colored, urine culture pending. Patient has an ileostomy, reports that he normally changes his appliance every 2 to 3 days but over the last 3 days he has had to change it daily. Reports urine with "threadlike sediment, cloudy." Sodium 136, potassium 3.7 bicarb 18, BUN 41, creatinine 1.7, blood sugars 160s to the low 200s, magnesium 2.4 .chest x-ray reported no acute cardiopulmonary disease/process. Denies chest pain, palpitations or shortness of breath. O2 sats in the high 90s on room air IV fluids and ceftriaxone initiated in the ER. 10/03/2024 maintained on IV fluid hydration, ceftriaxone. Last night patient had some mild confusion; patient's insulin pump discontinued and NovoLog sliding scale initiated. Blood sugars 200-300s, long-acting insulin added to med regimen. Tmax 103.9, WBC 10.17 preliminary urine culture reporting gram- negative bacilli. Preliminary blood cultures pending. Bicarb 18.4, BUN 41.2 creatinine 1.7. reports he slept well last night and feels better today. Objective - Vital Signs Vital signs: Vital Signs Temp 98.4 F 10/03/24 15:00 Pulse 68 10/03/24 15:00 Resp 17 10/03/24 15:00 BP 121/62 10/03/24 15:00 Pulse Ox 98 10/03/24 15:00 FiO2 Intake & Output 10/02/24 10/03/24 10/03/24 18:59 06:59 18:59 Intake Total 240 Output Total 1999 Balance -1999 240 Weight 82.554 kg Intake: Oral 240 Output: Urine 1999 Other: # Voids 1 1 - Exam GENERAL: Alert and oriented x 3, sitting up in bed, no distress. HEENT: Normocephalic, atraumatic, eyes normal, no conjunctival pallor or scleral icterus. MMM. NECK: Supple, no JVD LUNGS: Unlabored breathing. Equal air entry, clear to auscultation anteriorly. HEART: S1, S2, regular rate and rhythm. No loud murmur ABDOMEN: Soft, nondistended, ileostomy present left flank tenderness,no guarding or rigidity,+BS EXTREMITIES: No edema, no clubbing or cyanosis, no calf tenderness. SKIN: No rash noted, warm and dry. NEUROLOGICAL: Cranial nerves II through XII grossly intact - Labs CBC & Chem 7: 10/03/24 03:01 10/03/24 03:01 Labs: Abnormal Lab Results - Last 24 Hours (Table) 10/02/24 10/02/24 10/03/24 Range/Units 18:44 20:41 02:06 WBC (4.50-10.00) X 10*3/uL Hgb (13.0-17.0) g/dL Hct (39.6-50.0) % MCHC (32.0-37.0) g/dL RDW (11.5-14.5) % Immature Gran # (0.00-0.04) X 10*3/uL Neutrophils # (1.80-7.70) X 10*3/uL Lymphocytes # (0.90-5.00) X 10*3/uL Monocytes # (0.20-1.00) X 10*3/uL Sodium (135-145) mmol/L Carbon Dioxide (21.6-31.8) mmol/L Anion Gap (4.00-12.00) mmol/L BUN (9.0-27.0) mg/dL Creatinine (0.6-1.5) mg/dL Est GFR (CKD-EPI) (>=60) BUN/Creatinine Ratio (12.00-20.00) Ratio Glucose (70-110) mg/dL POC Glucose (mg/dL) 313 H 274 H 242 H (70-110) mg/dL Calcium (8.7-10.3) mg/dL 10/03/24 10/03/24 10/03/24 Range/Units 03:01 03:01 06:05 WBC 10.17 H (4.50-10.00) X 10*3/uL Hgb 12.3 L (13.0-17.0) g/dL Hct 39.5 L (39.6-50.0) % MCHC 31.1 L (32.0-37.0) g/dL RDW 16.4 H (11.5-14.5) % Immature Gran # 0.06 H (0.00-0.04) X 10*3/uL Neutrophils # 7.99 H (1.80-7.70) X 10*3/uL Lymphocytes # 0.89 L (0.90-5.00) X 10*3/uL Monocytes # 1.15 H (0.20-1.00) X 10*3/uL Sodium 134 L (135-145) mmol/L Carbon Dioxide 18.4 L (21.6-31.8) mmol/L Anion Gap 12.60 H (4.00-12.00) mmol/L BUN 41.2 H (9.0-27.0) mg/dL Creatinine 1.7 H (0.6-1.5) mg/dL Est GFR (CKD-EPI) 42 L (>=60) BUN/Creatinine Ratio 24.24 H (12.00-20.00) Ratio Glucose 250 H (70-110) mg/dL POC Glucose (mg/dL) 223 H (70-110) mg/dL Calcium 8.5 L (8.7-10.3) mg/dL 10/03/24 Range/Units 12:12 WBC (4.50-10.00) X 10*3/uL Hgb (13.0-17.0) g/dL Hct (39.6-50.0) % MCHC (32.0-37.0) g/dL RDW (11.5-14.5) % Immature Gran # (0.00-0.04) X 10*3/uL Neutrophils # (1.80-7.70) X 10*3/uL Lymphocytes # (0.90-5.00) X 10*3/uL Monocytes # (0.20-1.00) X 10*3/uL Sodium (135-145) mmol/L Carbon Dioxide (21.6-31.8) mmol/L Anion Gap (4.00-12.00) mmol/L BUN (9.0-27.0) mg/dL Creatinine (0.6-1.5) mg/dL Est GFR (CKD-EPI) (>=60) BUN/Creatinine Ratio (12.00-20.00) Ratio Glucose (70-110) mg/dL POC Glucose (mg/dL) 373 H (70-110) mg/dL Calcium (8.7-10.3) mg/dL Microbiology - Last 24 Hours (Table) 10/01/24 18:53 Urine Culture - Preliminary Urine,Voided Gram Neg Bacilli Assessment and Plan Assessment: Sepsis secondary to acute UTI, pyelonephritis. Urine culture reported gram- negative bacilli. Acute metabolic encephalopathy secondary to the above, improving Leukocytosis Acute renal failure secondary to the above. Renal ultrasound reporting mild right hydronephrosis. Recently discharged on 09/17/2024 with bilateral back pain, right flank pain, possible right pyelonephritis with urinary tract infection, culture showing Klebsiella pneumonia, right moderate hydronephrosis History of recent radical cystoprostatectomy for bladder cancer 06/12 at [facility] with Dr. Bullard Diabetes mellitus, type II, A1c 8.3 Leukocytosis History of sarcoidosis Plan: Continue on current medication regimen ,monitoring and symptomatic treatment.Blood cultures in progress. Maintain IV fluids, antibiotics. Urine culture finalizing. Insulin pump off, Levemir insulin added to regimen with c lose monitoring of Accu-Cheks. The impression and plan of care has been dictated as directed. : I performed a history and examination of this patient, discussed the same with the dictator. I agree with the dictator's note ,documented as a scribe. Any additional findings or plans will be noted.
[2024-10-03 17:29] LABS: Glucose,Whole Blood 244 mg/dL (70-110)
[2024-10-03 20:08] LABS: Glucose,Whole Blood 304 mg/dL (70-110)
[2024-10-04 02:49] LABS: Glucose,Whole Blood 122 mg/dL (70-110)
[2024-10-04 06:16] LABS: Glucose,Whole Blood 146 mg/dL (70-110)
[2024-10-04 10:37] LABS: BUN/Creat Ratio 22.77 Ratio (12.00-20.00); Blood Urea Nitrogen 29.6 mg/dL (9.0-27.0); Calcium 8.4 mg/dL (8.7-10.3); Carbon Dioxide 20.8 mmol/L (21.6-31.8); Chloride 109 mmol/L (96-109); Glucose 157 mg/dL (70-110); Potassium 3.3 mmol/L (3.5-5.5); Sodium 141 mmol/L (135-145)
[2024-10-04 10:50] LABS: Basophils # (A) 0.03 X 10*3/uL (0.00-0.10); Basophils % (A) 0.5 %; Eosinophils # (A) 0.07 X 10*3/uL (0.04-0.35); Eosinophils % (A) 1.1 %; HCT 35.8 % (39.6-50.0); HGB 11.5 g/dL (13.0-17.0); Lymphocytes # (A) 0.93 X 10*3/uL (0.90-5.00); Lymphocytes % (A) 14.2 %; MCH 27.6 pg (27.0-32.0); MCHC 32.1 g/dL (32.0-37.0); MCV 85.9 FL (80.0-97.0); Mean Platelet Volume 9.7 FL (9.5-12.2); Monocytes # (A) 0.98 X 10*3/uL (0.20-1.00); NRBC Per 100 WBC 0 X 10*3/uL (0.00-0.01); Neutrophils # (A) 4.51 X 10*3/uL (1.80-7.70); Neutrophils % (A) 68.7 %; Platelet Count 206 X 10*3/uL (140-440); RBC 4.17 X 10*6/uL (4.40-5.60); RDW 16.3 % (11.5-14.5); WBC 6.55 X 10*3/uL (4.50-10.00)
--- NOTE | 2024-10-04 11:29 | P.PN ---
Subjective Progress Note Date: 10/04/24 H&P Date: 10/02/24 Chief Complaint: Left flank pain This is a 74-year-old recently admitted inpatient discharged 09/17/2024 with Klebsiella pneumoniae pyelitis urine, right moderate hydronephrosis in a patient with history of recent radical cystoscopy prostatectomy for bladder cancer returned to the hospital with similar symptoms. States the week before admission began having symptoms of low-grade fevers, occasional left flank pain. Symptoms progressed over the weekend-continued having low-grade fevers of 99.3, increased generalized weakness and fatigue," slept for 3 days". Denies cough or congestion or sore throat. Reports positive headache positive nausea and vomiting. Tmax 103, WBCs 18, UA reporting moderate blood, negative nitrates, large leukocytes, greater than 182 WBCs, many WBC clumps, rare bacteria, turbid colored, urine culture pending. Patient has an ileostomy, reports that he normally changes his appliance every 2 to 3 days but over the last 3 days he has had to change it daily. Reports urine with "threadlike sediment, cloudy." Sodium 136, potassium 3.7 bicarb 18, BUN 41, creatinine 1.7, blood sugars 160s to the low 200s, magnesium 2.4 .chest x-ray reported no acute cardiopulmonary disease/process. Denies chest pain, palpitations or shortness of breath. O2 sats in the high 90s on room air IV fluids and ceftriaxone initiated in the ER. 10/03/2024 maintained on IV fluid hydration, ceftriaxone. Last night patient had some mild confusion; patient's insulin pump discontinued and NovoLog sliding scale initiated. Blood sugars 200-300s, long-acting insulin added to med regimen. Tmax 103.9, WBC 10.17 preliminary urine culture reporting gram- negative bacilli. Preliminary blood cultures pending. Bicarb 18.4, BUN 41.2 creatinine 1.7. reports he slept well last night and feels better today. 10/04/2024 maintained on ceftriaxone. Urine culture reporting Klebsiella pneumonia resistant to ampicillin. Preliminary blood cultures reported no growth after 24 hours. Tmax 99.1, WBC within normal limits. Hemoglobin 11.5, platelets 206. Potassium 3.3. renal function improving, bicarb 20.8, BUN 29.6, creatinine 1.3. Blood sugars ranging from 150s to 250s. Viral studies negative. Trouble with ileostomy bag leaking this morning. Objective - Vital Signs Vital signs: Vital Signs Temp 98.2 F 10/04/24 07:25 Pulse 76 10/04/24 07:25 Resp 17 10/04/24 07:25 BP 145/70 10/04/24 07:25 Pulse Ox 97 10/04/24 07:25 FiO2 Intake & Output 10/03/24 10/04/24 10/04/24 18:59 06:59 18:59 Intake Total 1358 350 Output Total 1950 Balance 1358 -1950 350 Intake: Oral 1358 350 Output: Urine 1950 Other: # Voids 1 # Bowel Movements 0 - Exam GENERAL: Alert and oriented x 3, sitting up in bed, no distress. HEENT: Normocephalic, atraumatic, eyes normal, no conjunctival pallor or scleral icterus. MMM. NECK: Supple, no JVD LUNGS: Unlabored breathing. Equal air entry, clear to auscultation. HEART: S1, S2, regular rate and rhythm. No loud murmur ABDOMEN: Soft, nondistended, ileostomy present , minimal left flank tenderness,no guarding or rigidity,+BS EXTREMITIES: No edema, no clubbing or cyanosis, no calf tenderness. SKIN: No rash noted, warm and dry. NEUROLOGICAL: Cranial nerves II through XII grossly intact - Labs CBC & Chem 7: 10/04/24 06:40 10/04/24 06:40 Labs: Abnormal Lab Results - Last 24 Hours (Table) 10/03/24 10/03/24 10/03/24 Range/Units 12:12 17:27 20:07 RBC (4.40-5.60) X 10*6/uL Hgb (13.0-17.0) g/dL Hct (39.6-50.0) % RDW (11.5-14.5) % Potassium (3.5-5.5) mmol/L Carbon Dioxide (21.6-31.8) mmol/L BUN (9.0-27.0) mg/dL Est GFR (CKD-EPI) (>=60) BUN/Creatinine Ratio (12.00-20.00) Ratio Glucose (70-110) mg/dL POC Glucose (mg/dL) 373 H 244 H 304 H (70-110) mg/dL Calcium (8.7-10.3) mg/dL 10/04/24 10/04/24 10/04/24 Range/Units 02:47 06:14 06:40 RBC 4.17 L (4.40-5.60) X 10*6/uL Hgb 11.5 L (13.0-17.0) g/dL Hct 35.8 L (39.6-50.0) % RDW 16.3 H (11.5-14.5) % Potassium (3.5-5.5) mmol/L Carbon Dioxide (21.6-31.8) mmol/L BUN (9.0-27.0) mg/dL Est GFR (CKD-EPI) (>=60) BUN/Creatinine Ratio (12.00-20.00) Ratio Glucose (70-110) mg/dL POC Glucose (mg/dL) 122 H 146 H (70-110) mg/dL Calcium (8.7-10.3) mg/dL 10/04/24 Range/Units 06:40 RBC (4.40-5.60) X 10*6/uL Hgb (13.0-17.0) g/dL Hct (39.6-50.0) % RDW (11.5-14.5) % Potassium 3.3 L (3.5-5.5) mmol/L Carbon Dioxide 20.8 L (21.6-31.8) mmol/L BUN 29.6 H (9.0-27.0) mg/dL Est GFR (CKD-EPI) 58 L (>=60) BUN/Creatinine Ratio 22.77 H (12.00-20.00) Ratio Glucose 157 H (70-110) mg/dL POC Glucose (mg/dL) (70-110) mg/dL Calcium 8.4 L (8.7-10.3) mg/dL Microbiology - Last 24 Hours (Table) 10/01/24 18:53 Urine Culture - Final Urine,Voided Klebsiella pneumoniae 10/02/24 10:25 Blood Culture - Preliminary Blood Assessment and Plan Assessment: Sepsis secondary to acute UTI, pyelonephritis. Urine culture reported Klebsiella pneumonia Acute metabolic encephalopathy secondary to the above, improving Leukocytosis, resolved Acute renal failure secondary to the above. Improving. Renal ultrasound reporting mild right hydronephrosis. Recently discharged on 09/17/2024 with bilateral back pain, right flank pain, possible right pyelonephritis with urinary tract infection, culture showing Klebsiella pneumonia, right moderate hydronephrosis History of recent radical cystoprostatectomy for bladder cancer 06/12 at [facility] with Dr. Bullard Diabetes mellitus, type II, A1c 8.3 Leukocytosis History of sarcoidosis Hypokalemia Plan: Continue on current medication regimen ,monitoring and symptomatic treatment.potassium supplement ordered .blood cultures finalizing. Maintain IV fluids, antibiotics. The impression and plan of care has been dictated as directed. : I performed a history and examination of this patient, discussed the same with the dictator. I agree with the dictator's note ,documented as a scribe. Any additional findings or plans will be noted.
[2024-10-04] MEDS: POTASSIUM CHLORIDE ER 20 MEQ TAB.ER PO STA (11:38)
[2024-10-04 12:00] LABS: Glucose,Whole Blood 181 mg/dL (70-110)
--- NOTE | 2024-10-04 14:54 | P.PN ---
Subjective Progress Note Date: 10/04/24 No acute overnight event, urine cultures growing Klebsiella. Ultrasound showed mild right-sided hydronephrosis creatinine is down to 1.3 Objective - Vital Signs Vital signs: Vital Signs Temp 98.2 F 10/04/24 07:25 Pulse 76 10/04/24 07:25 Resp 17 10/04/24 07:25 BP 145/70 10/04/24 07:25 Pulse Ox 97 10/04/24 07:25 FiO2 Intake & Output 10/03/24 10/04/24 10/04/24 18:59 06:59 18:59 Intake Total 1358 350 Output Total 1950 Balance 1358 -1950 350 Intake: Oral 1358 350 Output: Urine 1950 Other: # Voids 1 # Bowel Movements 0 - Constitutional General appearance: Present: no acute distress - Gastrointestinal General gastrointestinal: Present: soft. Absent: distended, tenderness - Psychiatric Psychiatric: Present: A&O x's 3 - Labs CBC & Chem 7: 10/04/24 06:40 10/04/24 06:40 Labs: Abnormal Lab Results - Last 24 Hours (Table) 10/03/24 10/03/24 10/04/24 Range/Units 17:27 20:07 02:47 RBC (4.40-5.60) X 10*6/uL Hgb (13.0-17.0) g/dL Hct (39.6-50.0) % RDW (11.5-14.5) % Potassium (3.5-5.5) mmol/L Carbon Dioxide (21.6-31.8) mmol/L BUN (9.0-27.0) mg/dL Est GFR (CKD-EPI) (>=60) BUN/Creatinine Ratio (12.00-20.00) Ratio Glucose (70-110) mg/dL POC Glucose (mg/dL) 244 H 304 H 122 H (70-110) mg/dL Calcium (8.7-10.3) mg/dL 10/04/24 10/04/24 10/04/24 Range/Units 06:14 06:40 06:40 RBC 4.17 L (4.40-5.60) X 10*6/uL Hgb 11.5 L (13.0-17.0) g/dL Hct 35.8 L (39.6-50.0) % RDW 16.3 H (11.5-14.5) % Potassium 3.3 L (3.5-5.5) mmol/L Carbon Dioxide 20.8 L (21.6-31.8) mmol/L BUN 29.6 H (9.0-27.0) mg/dL Est GFR (CKD-EPI) 58 L (>=60) BUN/Creatinine Ratio 22.77 H (12.00-20.00) Ratio Glucose 157 H (70-110) mg/dL POC Glucose (mg/dL) 146 H (70-110) mg/dL Calcium 8.4 L (8.7-10.3) mg/dL 10/04/24 Range/Units 11:59 RBC (4.40-5.60) X 10*6/uL Hgb (13.0-17.0) g/dL Hct (39.6-50.0) % RDW (11.5-14.5) % Potassium (3.5-5.5) mmol/L Carbon Dioxide (21.6-31.8) mmol/L BUN (9.0-27.0) mg/dL Est GFR (CKD-EPI) (>=60) BUN/Creatinine Ratio (12.00-20.00) Ratio Glucose (70-110) mg/dL POC Glucose (mg/dL) 181 H (70-110) mg/dL Calcium (8.7-10.3) mg/dL Microbiology - Last 24 Hours (Table) 10/01/24 18:53 Urine Culture - Final Urine,Voided Klebsiella pneumoniae 10/02/24 10:25 Blood Culture - Preliminary Blood Assessment and Plan Assessment: 74-year-old male history history of right-sided hydronephrosis, status post radical cystectomy at [facility] in May 2024. Imaging last hospital admission showed evidence of right-sided hydronephrosis, at that time he was admitted for UTI presented back 2 weeks later with similar complaints. Urine cu lture is growing Klebsiella. Renal ultrasound showed mild right-sided hydronephrosis, creatinine is improving is down down to 1.3 from 1.7 -He is okay for discharge from urology standpoint, he will be set up for a follow-up imaging in 3 to 4 weeks as an outpatient
--- NOTE | 2024-10-04 16:30 | P.PN ---
Subjective Progress Note Date: 10/04/24 Principal diagnosis: Reason for follow-up is complicated UTI Patient is a 74-year-old male with a past medical history significant for bladder cancer in this patient who is status post radical cystoprostatectomy end ileostomy creation on June 12, 2024 at [facility] presented to hospital with weakness fever flank pain concerning for pyelonephritis. On today's evaluation that is 10/04/2024,the patient remains to be afebrile, patient is on room air not requiring supplemental oxygen and denies any shortness of breath no chest pain or cough.Patient denies having any nausea or vomiting, no abdominal pain and no diarrhea has been reported patient mention overall improvement in his urine color. Patient white count is normalized to 6.55, creat is 1.3 urine is growing Klebsiella sensitive pathogen blood culture negative Objective - Vital Signs Vital signs: Vital Signs Temp 98.1 F 10/04/24 14:50 Pulse 65 10/04/24 14:50 Resp 16 10/04/24 14:50 BP 135/72 10/04/24 14:50 Pulse Ox 99 10/04/24 14:50 FiO2 Intake & Output 10/03/24 10/04/24 10/04/24 18:59 06:59 18:59 Intake Total 1358 650 Output Total 1950 Balance 1358 -1950 650 Intake: Oral 1358 650 Output: Urine 1950 Other: # Voids 1 2 # Bowel Movements 0 - Exam GENERAL DESCRIPTION: An elderly male lying in bed in no distress RESPIRATORY SYSTEM: Unlabored breathing , decreased breath sounds at bases HEART: S1 S2 regular rate and rhythm , ABDOMEN: Soft , no tenderness EXTREMITIES: No edema feet - Labs CBC & Chem 7: 10/04/24 06:40 10/04/24 06:40 Labs: Abnormal Lab Results - Last 24 Hours (Table) 10/03/24 10/03/24 10/04/24 Range/Units 17:27 20:07 02:47 RBC (4.40-5.60) X 10*6/uL Hgb (13.0-17.0) g/dL Hct (39.6-50.0) % RDW (11.5-14.5) % Potassium (3.5-5.5) mmol/L Carbon Dioxide (21.6-31.8) mmol/L BUN (9.0-27.0) mg/dL Est GFR (CKD-EPI) (>=60) BUN/Creatinine Ratio (12.00-20.00) Ratio Glucose (70-110) mg/dL POC Glucose (mg/dL) 244 H 304 H 122 H (70-110) mg/dL Calcium (8.7-10.3) mg/dL 10/04/24 10/04/24 10/04/24 Range/Units 06:14 06:40 06:40 RBC 4.17 L (4.40-5.60) X 10*6/uL Hgb 11.5 L (13.0-17.0) g/dL Hct 35.8 L (39.6-50.0) % RDW 16.3 H (11.5-14.5) % Potassium 3.3 L (3.5-5.5) mmol/L Carbon Dioxide 20.8 L (21.6-31.8) mmol/L BUN 29.6 H (9.0-27.0) mg/dL Est GFR (CKD-EPI) 58 L (>=60) BUN/Creatinine Ratio 22.77 H (12.00-20.00) Ratio Glucose 157 H (70-110) mg/dL POC Glucose (mg/dL) 146 H (70-110) mg/dL Calcium 8.4 L (8.7-10.3) mg/dL 10/04/24 Range/Units 11:59 RBC (4.40-5.60) X 10*6/uL Hgb (13.0-17.0) g/dL Hct (39.6-50.0) % RDW (11.5-14.5) % Potassium (3.5-5.5) mmol/L Carbon Dioxide (21.6-31.8) mmol/L BUN (9.0-27.0) mg/dL Est GFR (CKD-EPI) (>=60) BUN/Creatinine Ratio (12.00-20.00) Ratio Glucose (70-110) mg/dL POC Glucose (mg/dL) 181 H (70-110) mg/dL Calcium (8.7-10.3) mg/dL Microbiology - Last 24 Hours (Table) 10/01/24 18:53 Urine Culture - Final Urine,Voided Klebsiella pneumoniae 10/02/24 10:25 Blood Culture - Preliminary Blood Assessment and Plan (1) Sepsis Current Visit: Yes Status: Acute Code(s): A41.9 - SEPSIS, UNSPECIFIED ORGANISM SNOMED Code(s): 04544589 (2) Pyelonephritis Current Visit: Yes Status: Acute Code(s): N12 - TUBULO-INTERSTITIAL NEPHRITIS, NOT SPCF ACUTE OR CHRONIC SNOMED Code(s): 60849334 (3) Leukocytosis Current Visit: No Status: Acute Code(s): D72.829 - ELEVATED WHITE BLOOD CELL COUNT, UNSPECIFIED SNOMED Code(s): 810920676 Plan: 1patient presented to hospital with sepsis in this patient who did have fever tachycardia elevated white count patient did have a flank pain with nausea significantly positive UA concerning for pyelonephritis with ultrasound suggestive of mild right hydronephrosis and recent culture positive for Klebsiella 2-patient did have mild hydronephrosis and has been followed by urology 3patient white count has normalized blood culture negative urine is growing Klebsiella sensitive to Rocephin 4patient to continue with Rocephin while inpatient recommended 2-week course of oral Ceftin on discharge because of recurrent infection and evidence of h ydronephrosis on admission Dictation was produced using [employer] dictation software. please excuse any grammatical, word or spelling errors. Time with Patient: Less than 30
[2024-10-04 17:07] LABS: Glucose,Whole Blood 310 mg/dL (70-110)
[2024-10-04 20:12] LABS: Glucose,Whole Blood 243 mg/dL (70-110)
[2024-10-05 02:02] VITALS: PULSE 68
[2024-10-05 02:09] LABS: Glucose,Whole Blood 161 mg/dL (70-110)
[2024-10-05 05:51] LABS: Glucose,Whole Blood 161 mg/dL (70-110)
[2024-10-05] MEDS: PANTOPRAZOLE 40 MG TABLET PO SCH (06:21)
[2024-10-05 07:34] VITALS: BP 137/82; RESP 16; TEMP 98.1
[2024-10-05 09:06] LABS: BUN/Creat Ratio 24.23 Ratio (12.00-20.00); Blood Urea Nitrogen 31.5 mg/dL (9.0-27.0); Calcium 8.9 mg/dL (8.7-10.3); Chloride 107 mmol/L (96-109); Glucose 197 mg/dL (70-110); Potassium 3.7 mmol/L (3.5-5.5); Sodium 141 mmol/L (135-145)
[2024-10-05 10:22] LABS: Basophils # (A) 0.03 X 10*3/uL (0.00-0.10); Basophils % (A) 0.5 %; Eosinophils # (A) 0.11 X 10*3/uL (0.04-0.35); Eosinophils % (A) 1.7 %; HCT 40.7 % (39.6-50.0); HGB 12.4 g/dL (13.0-17.0); Lymphocytes # (A) 1.59 X 10*3/uL (0.90-5.00); Lymphocytes % (A) 24.3 %; MCH 27.2 pg (27.0-32.0); MCHC 30.5 g/dL (32.0-37.0); MCV 89.3 FL (80.0-97.0); Mean Platelet Volume 10.6 FL (9.5-12.2); Monocytes # (A) 0.98 X 10*3/uL (0.20-1.00); NRBC Per 100 WBC 0 X 10*3/uL (0.00-0.01); Neutrophils % (A) 58.2 %; Platelet Count 216 X 10*3/uL (140-440); RBC 4.56 X 10*6/uL (4.40-5.60); RDW 16.3 % (11.5-14.5); WBC 6.53 X 10*3/uL (4.50-10.00)
--- NOTE | 2024-10-05 23:19 | P.PN ---
Subjective Progress Note Date: 10/05/24 Principal diagnosis: Reason for follow-up is complicated UTI Patient is a 74-year-old male with a past medical history significant for bladder cancer in this patient who is status post radical cystoprostatectomy end ileostomy creation on June 12, 2024 at [facility] presented to hospital with weakness fever flank pain concerning for pyelonephritis. On today's evaluation that is 10/05/2024, the patient continues to be afebrile, the patient is on room air and breathing comfortably, the Pt denies having any chest pain or cough, the patient denies having any abdominal pain no vomiting or any diarrhea, mention feeling better. Patient white count is 6.53, creatinine is 1.3 blood culture negative Objective - Vital Signs Vital signs: Vital Signs Temp 98.1 F 10/05/24 07:00 Pulse 68 10/05/24 07:00 Resp 16 10/05/24 07:00 BP 137/82 10/05/24 07:00 Pulse Ox 97 10/05/24 07:00 FiO2 Intake & Output 10/04/24 10/05/24 10/05/24 18:59 06:59 18:59 Intake Total 890 Output Total 700 2500 Balance 190 -2500 Intake: Oral 890 Output: Urine 700 2500 Other: # Voids 2 - Exam GENERAL DESCRIPTION: An elderly male lying in bed in no distress RESPIRATORY SYSTEM: Unlabored breathing , decreased breath sounds at bases HEART: S1 S2 regular rate and rhythm , ABDOMEN: Soft , no tenderness EXTREMITIES: No edema feet - Labs CBC & Chem 7: 10/05/24 04:54 10/05/24 04:51 Labs: Abnormal Lab Results - Last 24 Hours (Table) 10/04/24 10/04/24 10/04/24 Range/Units 06:40 06:40 11:59 RBC 4.17 L (4.40-5.60) X 10*6/uL Hgb 11.5 L (13.0-17.0) g/dL Hct 35.8 L (39.6-50.0) % RDW 16.3 H (11.5-14.5) % Potassium 3.3 L (3.5-5.5) mmol/L Carbon Dioxide 20.8 L (21.6-31.8) mmol/L Anion Gap (4.00-12.00) mmol/L BUN 29.6 H (9.0-27.0) mg/dL Est GFR (CKD-EPI) 58 L (>=60) BUN/Creatinine Ratio 22.77 H (12.00-20.00) Ratio Glucose 157 H (70-110) mg/dL POC Glucose (mg/dL) 181 H (70-110) mg/dL Calcium 8.4 L (8.7-10.3) mg/dL 10/04/24 10/04/24 10/05/24 Range/Units 17:06 20:05 01:51 RBC (4.40-5.60) X 10*6/uL Hgb (13.0-17.0) g/dL Hct (39.6-50.0) % RDW (11.5-14.5) % Potassium (3.5-5.5) mmol/L Carbon Dioxide (21.6-31.8) mmol/L Anion Gap (4.00-12.00) mmol/L BUN (9.0-27.0) mg/dL Est GFR (CKD-EPI) (>=60) BUN/Creatinine Ratio (12.00-20.00) Ratio Glucose (70-110) mg/dL POC Glucose (mg/dL) 310 H 243 H 161 H (70-110) mg/dL Calcium (8.7-10.3) mg/dL 10/05/24 10/05/24 Range/Units 04:51 05:39 RBC (4.40-5.60) X 10*6/uL Hgb (13.0-17.0) g/dL Hct (39.6-50.0) % RDW (11.5-14.5) % Potassium (3.5-5.5) mmol/L Carbon Dioxide 20.0 L (21.6-31.8) mmol/L Anion Gap 14.00 H (4.00-12.00) mmol/L BUN 31.5 H (9.0-27.0) mg/dL Est GFR (CKD-EPI) 58 L (>=60) BUN/Creatinine Ratio 24.23 H (12.00-20.00) Ratio Glucose 197 H (70-110) mg/dL POC Glucose (mg/dL) 161 H (70-110) mg/dL Calcium (8.7-10.3) mg/dL Microbiology - Last 24 Hours (Table) 10/02/24 10:25 Blood Culture - Preliminary Blood Assessment and Plan (1) Sepsis Status: Acute Code(s): A41.9 - SEPSIS, UNSPECIFIED ORGANISM SNOMED Code(s): 12875731 (2) Pyelonephritis Status: Acute Code(s): N12 - TUBULO-INTERSTITIAL NEPHRITIS, NOT SPCF ACUTE OR CHRONIC SNOMED Code(s): 85990787 (3) Leukocytosis Status: Acute Code(s): D72.829 - ELEVATED WHITE BLOOD CELL COUNT, UNSPECIFIED SNOMED Code(s): 773143863 Plan: 1patient presented to hospital with sepsis in this patient who did have fever tachycardia elevated white count patient did have a flank pain with nausea significantly positive UA concerning for pyelonephritis with ultrasound suggestive of mild right hydronephrosis and recent culture positive for Klebsiella 2-patient did have mild hydronephrosis and has been followed by urology 3patient white count has normalized blood culture negative urine is growing Klebsiella sensitive to Rocephin 4patient has received adequate IV antibiotics white count normalized plan is to finish therapy 2-week course of oral Ceftin on discharge discussed with [employer] for admitting team Dictation was produced using [employer] dictation software. please excuse any g rammatical, word or spelling errors. Time with Patient: Less than 30
--- NOTE | 2024-10-05 23:20 | P.PN ---
Subjective Progress Note Date: 10/03/24 Principal diagnosis: Reason for follow-up is complicated UTI Patient is a 74-year-old male with a past medical history significant for bladder cancer in this patient who is status post radical cystoprostatectomy end ileostomy creation on June 12, 2024 at [facility] presented to hospital with weakness fever flank pain concerning for pyelonephritis. On today's evaluation that is 10/03/2024,the patient did spike a fever last evening of 103.9 F patient is afebrile this morning, patient is breathing comfortably on room air, the patient denies chest pain shortness of breath and no significant cough, patient denies abdominal pain, no nausea vomiting or diarrhea. Patient white count is down to 10.17 creatinine is 1.7 urine is growing gram- negative Objective - Vital Signs Vital signs: Vital Signs Temp 98.4 F 10/03/24 07:00 Pulse 70 10/03/24 07:00 Resp 17 10/03/24 07:00 BP 131/66 10/03/24 07:00 Pulse Ox 99 10/03/24 07:00 FiO2 Intake & Output 10/02/24 10/03/24 10/03/24 18:59 06:59 18:59 Output Total 1999 Balance -1999 Weight 82.554 kg Output: Urine 1999 Other: # Voids 1 1 - Exam GENERAL DESCRIPTION: An elderly male lying in bed in no distress RESPIRATORY SYSTEM: Unlabored breathing , decreased breath sounds at bases HEART: S1 S2 regular rate and rhythm , ABDOMEN: Soft , no tenderness EXTREMITIES: No edema feet - Labs CBC & Chem 7: 10/04/24 06:40 10/04/24 06:40 Labs: Abnormal Lab Results - Last 24 Hours (Table) 10/02/24 10/02/24 10/03/24 Range/Units 18:44 20:41 02:06 WBC (4.50-10.00) X 10*3/uL Hgb (13.0-17.0) g/dL Hct (39.6-50.0) % MCHC (32.0-37.0) g/dL RDW (11.5-14.5) % Immature Gran # (0.00-0.04) X 10*3/uL Neutrophils # (1.80-7.70) X 10*3/uL Lymphocytes # (0.90-5.00) X 10*3/uL Monocytes # (0.20-1.00) X 10*3/uL Sodium (135-145) mmol/L Carbon Dioxide (21.6-31.8) mmol/L Anion Gap (4.00-12.00) mmol/L BUN (9.0-27.0) mg/dL Creatinine (0.6-1.5) mg/dL Est GFR (CKD-EPI) (>=60) BUN/Creatinine Ratio (12.00-20.00) Ratio Glucose (70-110) mg/dL POC Glucose (mg/dL) 313 H 274 H 242 H (70-110) mg/dL Calcium (8.7-10.3) mg/dL 10/03/24 10/03/24 10/03/24 Range/Units 03:01 03:01 06:05 WBC 10.17 H (4.50-10.00) X 10*3/uL Hgb 12.3 L (13.0-17.0) g/dL Hct 39.5 L (39.6-50.0) % MCHC 31.1 L (32.0-37.0) g/dL RDW 16.4 H (11.5-14.5) % Immature Gran # 0.06 H (0.00-0.04) X 10*3/uL Neutrophils # 7.99 H (1.80-7.70) X 10*3/uL Lymphocytes # 0.89 L (0.90-5.00) X 10*3/uL Monocytes # 1.15 H (0.20-1.00) X 10*3/uL Sodium 134 L (135-145) mmol/L Carbon Dioxide 18.4 L (21.6-31.8) mmol/L Anion Gap 12.60 H (4.00-12.00) mmol/L BUN 41.2 H (9.0-27.0) mg/dL Creatinine 1.7 H (0.6-1.5) mg/dL Est GFR (CKD-EPI) 42 L (>=60) BUN/Creatinine Ratio 24.24 H (12.00-20.00) Ratio Glucose 250 H (70-110) mg/dL POC Glucose (mg/dL) 223 H (70-110) mg/dL Calcium 8.5 L (8.7-10.3) mg/dL 10/03/24 Range/Units 12:12 WBC (4.50-10.00) X 10*3/uL Hgb (13.0-17.0) g/dL Hct (39.6-50.0) % MCHC (32.0-37.0) g/dL RDW (11.5-14.5) % Immature Gran # (0.00-0.04) X 10*3/uL Neutrophils # (1.80-7.70) X 10*3/uL Lymphocytes # (0.90-5.00) X 10*3/uL Monocytes # (0.20-1.00) X 10*3/uL Sodium (135-145) mmol/L Carbon Dioxide (21.6-31.8) mmol/L Anion Gap (4.00-12.00) mmol/L BUN (9.0-27.0) mg/dL Creatinine (0.6-1.5) mg/dL Est GFR (CKD-EPI) (>=60) BUN/Creatinine Ratio (12.00-20.00) Ratio Glucose (70-110) mg/dL POC Glucose (mg/dL) 373 H (70-110) mg/dL Calcium (8.7-10.3) mg/dL Microbiology - Last 24 Hours (Table) 10/01/24 18:53 Urine Culture - Preliminary Urine,Voided Gram Neg Bacilli Assessment and Plan (1) Sepsis Current Visit: Yes Status: Acute Code(s): A41.9 - SEPSIS, UNSPECIFIED ORGANISM SNOMED Code(s): 11099198 (2) Pyelonephritis Current Visit: Yes Status: Acute Code(s): N12 - TUBULO-INTERSTITIAL NEPHRITIS, NOT SPCF ACUTE OR CHRONIC SNOMED Code(s): 09655640 (3) Leukocytosis Current Visit: No Status: Acute Code(s): D72.829 - ELEVATED WHITE BLOOD CELL COUNT, UNSPECIFIED SNOMED Code(s): 030779168 Plan: 1patient presented to hospital with sepsis in this patient who did have fever tachycardia elevated white count patient did have a flank pain with nausea significantly positive UA concerning for pyelonephritis with ultrasound suggestive of mild right hydronephrosis and recent culture positive for Klebsiella 2-patient did have mild hydronephrosis and has been followed by urology 3patient white count is trending down blood culture currently pending urine is growing gram-negative continue with Rocephin 2 g daily Dictation was produced using [employer] dictation software. please excuse any grammatical, word or spelling errors. Time with Patient: Less than 30
[2024-10-08 09:32] LABS: Glucose,Whole Blood 161 mg/dL (70-110)
--- NOTE | 2024-12-06 14:32 | P.DS ---
Providers Date of admission: 10/02/24 07:16 Expected date of discharge: 10/05/24 Attending physician: Alban Terrell Consults: 10/02/24 09:54 Consult Physician Routine Consulting Provider: Wallace Steel Consult Reason/Comments: Sepsis ,pyleo, recent IP tx for of klebsiella pyelitis,HX bladder Ca/Cysto Do you want consulting provider notified?: Yes 10/02/24 10:00 Consult Physician Routine Consulting Provider: Dandy Humphries Consult Reason/Comments: Pyelonephritis, rec. IP Kleb.Pyelitis/hx Cystoscopy prostatect./bladder can Do you want consulting provider notified?: Yes Primary care physician: Alban Terrell [facility] Course: Final Diagnoses: Sepsis secondary to acute UTI, pyelonephritis. Urine culture reported Klebsiella pneumonia Acute metabolic encephalopathy secondary to the above, improving Leukocytosis, resolved Acute renal failure secondary to the above. Improving. Renal ultrasound reporting mild right hydronephrosis. Recently discharged on 09/17/2024 with bilateral back pain, right flank pain, possible right pyelonephritis with urinary tract infection, culture showing Klebsiella pneumonia, right moderate hydronephrosis History of recent radical cystoprostatectomy for bladder cancer 06/12 at [facility] with Dr. Bullard Diabetes mellitus, type II, A1c 8.3 Leukocytosis History of sarcoidosis Hypokalemia Hospital course:This is a 74-year-old recently admitted inpatient discharged 09/17/2024 with Klebsiella pneumoniae pyelitis urine, right moderate hydronephrosis in a patient with history of recent radical cystoscopy prostatectomy for bladder cancer returned to the hospital with similar symptoms. States the week before admission began having symptoms of low-grade fevers, occasional left flank pain. Symptoms progressed over the weekend-continued having low-grade fevers of 99.3, increased generalized weakness and fatigue," slept for 3 days". Denies cough or congestion or sore throat. Reports positive headache positive nausea and vomiting. Tmax 103, WBCs 18, UA reporting moderate blood, negative nitrates, large leukocytes, greater than 182 WBCs, many WBC clumps, rare bacteria, turbid colored, urine culture pending. Patient has an ileostomy, reports that he normally changes his appliance every 2 to 3 days but over the last 3 days he has had to change it daily. Reports urine with "threadlike sediment, cloudy." Sodium 136, potassium 3.7 bicarb 18, BUN 41, creatinine 1.7, blood sugars 160s to the low 200s, magnesium 2.4 .chest x-ray reported no acute cardiopulmonary disease/process. Denies chest pain, palpitations or shortness of breath. O2 sats in the high 90s on room air IV fluids and ceftriaxone initiated in the ER. 10/03/2024 maintained on IV fluid hydration, ceftriaxone. Last night patient had some mild confusion; patient's insulin pump discontinued and NovoLog sliding scale initiated. Blood sugars 200-300s, long-acting insulin added to med regimen. Tmax 103.9, WBC 10.17 preliminary urine culture reporting gram- negative bacilli. Preliminary blood cultures pending. Bicarb 18.4, BUN 41.2 creatinine 1.7. reports he slept well last night and feels better today. 10/04/2024 maintained on ceftriaxone. Urine culture reporting Klebsiella pneumonia resistant to ampicillin. Preliminary blood cultures reported no growth after 24 hours. Tmax 99.1, WBC within normal limits. Hemoglobin 11.5, platelets 206. Potassium 3.3. renal function improving, bicarb 20.8, BUN 29.6, creatinine 1.3. Blood sugars ranging from 150s to 250s. Viral studies negative. Trouble with ileostomy bag leaking this morning. Continue on current medication regimen ,monitoring and symptomatic treatment.potassium supplement ordered .blood cultures finalizing. Maintain IV fluids, antibiotics. Significant clinical improvement. Patient will be discharged this morning after IV antibiotic dose completed on antibiotics as per infectious disease, in a stable condition with guarded prognosis. The impression and plan of care has been dictated as directed. : I performed a history and examination of this patient, discussed the same with the dictator. I agree with the dictator's note ,documented as a scribe. Any additional findings or plans will be noted. Patient Condition at Discharge: Stable Plan - Discharge Summary Discharge Rx Participant: No New Discharge Prescriptions: Continue Ezetimibe [Zetia] 10 mg PO DAILY #30 tab Ranolazine [Ranexa] 1,000 mg PO BID Pantoprazole Sodium [Protonix] 20 mg PO DAILY Empagliflozin [Jardiance] 12.5 mg PO DAILY Montelukast [Singulair] 10 mg PO HS Loratadine [Claritin] 10 mg PO DAILY PRN PRN Reason: Allergy Symptoms Isosorbide Mononitrate ER [Imdur] 60 mg PO DAILY Aspirin EC [Ecotrin Low Dose] 81 mg PO DAILY Atorvastatin [Lipitor] 80 mg PO HS Insulin Aspart (For Pump) [NovoLOG (For Pump)] 0.01 unit SQ-PUMP CONTINUOUS No Action Ciprofloxacin HCl [Cipro] 500 mg PO BID 21 Days #42 tab Discharge Medication List Ezetimibe [Zetia] 10 mg PO DAILY #30 tab 02/02/18 [Rx] Aspirin EC [Ecotrin Low Dose] 81 mg PO DAILY 04/16/21 [History] Isosorbide Mononitrate ER [Imdur] 60 mg PO DAILY 04/16/21 [History] Ranolazine [Ranexa] 1,000 mg PO BID 04/16/21 [History] Pantoprazole Sodium [Protonix] 20 mg PO DAILY 11/13/21 [History] Atorvastatin [Lipitor] 80 mg PO HS 07/12/22 [History] Insulin Aspart (For Pump) [NovoLOG (For Pump)] 0.01 unit SQ-PUMP CONTINUOUS 07/12/22 [History] Empagliflozin [Jardiance] 12.5 mg PO DAILY 11/03/23 [History] Montelukast [Singulair] 10 mg PO HS 12/07/23 [History] Loratadine [Claritin] 10 mg PO DAILY PRN 09/15/24 [History] Ciprofloxacin HCl [Cipro] 500 mg PO BID 21 Days #42 tab 10/29/24 [Rx] Follow up Appointment(s)/Referral(s): Alban Terrell DO [Primary Care Provider] - 1 Week Dandy Humphries MD [STAFF PHYSICIAN] - 3 Weeks [facility], [NON-STAFF] - As Needed Wallace Steel MD [STAFF PHYSICIAN] - 1 Week Patient Instructions/Handouts: Urinary Tract Infection in Men (ED), Urinary Tract Infection in Men (DC), Kidney Infection (ED), Kidney Infection (DC) Activity/Diet/Wound Care/Special Instructions: FOLLOW UP DIRECTED, SOONER FOR WORSENING SYMPTOMS, PROBLEMS, OR CONCERNS. Discharge Disposition: HOME SELF-CARE
--- NOTE | 2024-12-06 14:32 | P.DS ---
Providers Date of admission: 10/02/24 07:16 Expected date of discharge: 10/05/24 Attending physician: Alban Terrell Consults: 10/02/24 09:54 Consult Physician Routine Consulting Provider: Wallace Steel Consult Reason/Comments: Sepsis ,pyleo, recent IP tx for of klebsiella pyelitis,HX bladder Ca/Cysto Do you want consulting provider notified?: Yes 10/02/24 10:00 Consult Physician Routine Consulting Provider: Dandy Humphries Consult Reason/Comments: Pyelonephritis, rec. IP Kleb.Pyelitis/hx Cystoscopy prostatect./bladder can Do you want consulting provider notified?: Yes Primary care physician: Alban Terrell [facility] Course: Final Diagnoses: Sepsis secondary to acute UTI, pyelonephritis. Urine culture reported Klebsiella pneumonia Acute metabolic encephalopathy secondary to the above, improving Leukocytosis, resolved Acute renal failure secondary to the above. Improving. Renal ultrasound reporting mild right hydronephrosis. Recently discharged on 09/17/2024 with bilateral back pain, right flank pain, possible right pyelonephritis with urinary tract infection, culture showing Klebsiella pneumonia, right moderate hydronephrosis History of recent radical cystoprostatectomy for bladder cancer 06/12 at [facility] with Dr. Bullard Diabetes mellitus, type II, A1c 8.3 Leukocytosis History of sarcoidosis Hypokalemia Hospital course:This is a 74-year-old recently admitted inpatient discharged 09/17/2024 with Klebsiella pneumoniae pyelitis urine, right moderate hydron ephrosis in a patient with history of recent radical cystoscopy prostatectomy for bladder cancer returned to the hospital with similar symptoms. States the week before admission began having symptoms of low-grade fevers, occasional left flank pain. Symptoms progressed over the weekend-continued having low-grade fevers of 99.3, increased generalized weakness and fatigue," slept for 3 days". Denies cough or congestion or sore throat. Reports positive headache positive nausea and vomiting. Tmax 103, WBCs 18, UA reporting moderate blood, negative nitrates, large leukocytes, greater than 182 WBCs, many WBC clumps, rare bacteria, turbid colored, urine culture pending. Patient has an ileostomy, reports that he normally changes his appliance every 2 to 3 days but over the last 3 days he has had to change it daily. Reports urine with "threadlike sediment, cloudy." Sodium 136, potassium 3.7 bicarb 18, BUN 41, creatinine 1.7, blood sugars 160s to the low 200s, magnesium 2.4 .chest x-ray reported no acute cardiopulmonary disease/process. Denies chest pain, palpitations or shortness of breath. O2 sats in the high 90s on room air IV fluids and ceftriaxone initiated in the ER. 10/03/2024 maintained on IV fluid hydration, ceftriaxone. Last night patient had some mild confusion; patient's insulin pump discontinued and NovoLog sliding scale initiated. Blood sugars 200-300s, long-acting insulin added to med regimen. Tmax 103.9, WBC 10.17 preliminary urine culture reporting gram- negative bacilli. Preliminary blood cultures pending. Bicarb 18.4, BUN 41.2 creatinine 1.7. reports he slept well last night and feels better today. 10/04/2024 maintained on ceftriaxone. Urine culture reporting Klebsiella pneumonia resistant to ampicillin. Preliminary blood cultures reported no gr owth after 24 hours. Tmax 99.1, WBC within normal limits. Hemoglobin 11.5, platelets 206. Potassium 3.3. renal function improving, bicarb 20.8, BUN 29.6, creatinine 1.3. Blood sugars ranging from 150s to 250s. Viral studies negative. Trouble with ileostomy bag leaking this morning. Significant clinical improvement. Patient will be discharged home after completing IV antibiotics this morning on DC antibiotics per ID, in a stable condition with guarded prognosis. The impression and plan of care has been dictated as directed. : I performed a history and examination of this patient, discussed the same with the dictator. I agree with the dictator's note ,documented as a scribe. Any additional findings or plans will be noted. Patient Condition at Discharge: Stable Plan - Discharge Summary Discharge Rx Participant: No New Discharge Prescriptions: Continue Ezetimibe [Zetia] 10 mg PO DAILY #30 tab Ranolazine [Ranexa] 1,000 mg PO BID Pantoprazole Sodium [Protonix] 20 mg PO DAILY Empagliflozin [Jardiance] 12.5 mg PO DAILY Montelukast [Singulair] 10 mg PO HS Loratadine [Claritin] 10 mg PO DAILY PRN PRN Reason: Allergy Symptoms Isosorbide Mononitrate ER [Imdur] 60 mg PO DAILY Aspirin EC [Ecotrin Low Dose] 81 mg PO DAILY Atorvastatin [Lipitor] 80 mg PO HS Insulin Aspart (For Pump) [NovoLOG (For Pump)] 0.01 unit SQ-PUMP CONTINUOUS No Action Ciprofloxacin HCl [Cipro] 500 mg PO BID 21 Days #42 tab Discharge Medication List Ezetimibe [Zetia] 10 mg PO DAILY #30 tab 02/02/18 [Rx] Aspirin EC [Ecotrin Low Dose] 81 mg PO DAILY 04/16/21 [History] Isosorbide Mononitrate ER [Imdur] 60 mg PO DAILY 04/16/21 [History] Ranolazine [Ranexa] 1,000 mg PO BID 04/16/21 [History] Pantoprazole Sodium [Protonix] 20 mg PO DAILY 11/13/21 [History] Atorvastatin [Lipitor] 80 mg PO HS 07/12/22 [History] Insulin Aspart (For Pump) [NovoLOG (For Pump)] 0.01 unit SQ-PUMP CONTINUOUS 07/12/22 [History] Empagliflozin [Jardiance] 12.5 mg PO DAILY 11/03/23 [History] Montelukast [Singulair] 10 mg PO HS 12/07/23 [History] Loratadine [Claritin] 10 mg PO DAILY PRN 09/15/24 [History] Ciprofloxacin HCl [Cipro] 500 mg PO BID 21 Days #42 tab 10/29/24 [Rx] Follow up Appointment(s)/Referral(s): Alban Terrell DO [Primary Care Provider] - 1 Week Dandy Humphries MD [STAFF PHYSICIAN] - 3 Weeks [facility], [NON-STAFF] - As Needed Wallace Steel MD [STAFF PHYSICIAN] - 1 Week Patient Instructions/Handouts: Urinary Tract Infection in Men (ED), Urinary Tract Infection in Men (DC), Kidney Infection (ED), Kidney Infection (DC) Activity/Diet/Wound Care/Special Instructions: FOLLOW UP DIRECTED, SOONER FOR WORSENING SYMPTOMS, PROBLEMS, OR CONCERNS. Discharge Disposition: HOME SELF-CARE
== END 2024-10-05 12:50 | disposition home or self-care (01) | DRG 871 ==
LOC: SUPCPDRO 16:59 → EC 16:59 → OBSVTOIN 19:59 → UNDOADMOB 19:59 → 6NMEDSUR 19:59 → UNDOADMOB 20:00 → 6NMEDSUR 22:52 → INTOOBSV 10-02 07:16 → OBSVTOIN 10-02 07:16 → 1SOBS 10-02 10:32 → 6NMEDSUR 10-02 10:32 → 1SOBS 10-02 18:09 → UNDODISIN 10-05 12:50
PROVIDERS: ADMIT Family Medicine; ATTEND Family Medicine
DX: A41.89 Other specified sepsis (principal); G93.41 Metabolic encephalopathy; C67.9 Malignant neoplasm of bladder, unspecified; E11.311 Type 2 diabetes mellitus with unspecified diabetic retinopathy with macular edema; N13.6 Pyonephrosis; K94.13 Enterostomy malfunction; N17.9 Acute kidney failure, unspecified; Z16.11 Resistance to penicillins; Z79.4 Long term (current) use of insulin; D86.9 Sarcoidosis, unspecified; E87.6 Hypokalemia; I25.2 Old myocardial infarction; G89.29 Other chronic pain; M54.9 Dorsalgia, unspecified; G62.9 Polyneuropathy, unspecified; Z86.14 Personal history of Methicillin resistant Staphylococcus aureus infection; N40.0 Benign prostatic hyperplasia without lower urinary tract symptoms; Z79.82 Long term (current) use of aspirin; Z79.899 Other long term (current) drug therapy; Z85.51 Personal history of malignant neoplasm of bladder; Z87.891 Personal history of nicotine dependence; Z90.6 Acquired absence of other parts of urinary tract; Z90.79 Acquired absence of other genital organ(s); Z95.5 Presence of coronary angioplasty implant and graft; Z96.41 Presence of insulin pump (external) (internal); Z96.652 Presence of left artificial knee joint; Z98.42 Cataract extraction status, left eye; Z98.41 Cataract extraction status, right eye; Y84.8 Other medical procedures as the cause of abnormal reaction of the patient, or of later complication, without mention of misadventure at the time of the procedure
CPT/HCPCS: 36415; 71046; 76770; 80048; 80053; 81001; 83605; 83735; 85025; 87040; 87077; 87086; 87186; 87636; 96361; 96365; 96375; 96376; 99285

== ENCOUNTER → 2024-11-09 | Outpatient (CLI) | payer MEDICARE ==
[2024-11-09 14:03] LABS: African American GFR (CKD) 58 (>60 ml/min/1.73 sqM); Blood Urea Nitrogen 31 mg/dL (9-20); Non-African American GFR(CKD) 50 (>60 ml/min/1.73 sqM)
--- NOTE | 2024-11-09 15:30 | CT ---
EXAMINATION TYPE: CT urogram wo/w con DATE OF EXAM: 11/09/2024 3:16 PM COMPARISON: 10/26/2024 CLINICAL INDICATION: Male, 74 years old with history of C67.9 Bladder CA N13.30 Hydronephrosis; PHH, Hx of bladder CA. Hx of rt side kidney hydronephrosis. TECHNIQUE: Urogram with imaging of the abdomen and pelvis. Coronal and sagittal reformats were performed. 2D and 3D reconstructions are performed to assist visualization of the urinary tract on a separate workstat ion. Contrast used:80 ml mL of Isovue 370 with IV Contrast, Oral contrast used: None. CT DLP: 2722.2 mGycm, Automated exposure control for dose reduction was used. FINDINGS: LOWER CHEST: No significant findings. GENITOURINARY: RIGHT KIDNEY AND URETER: No calculi. Mild dilation of the right collecting system and right renal pel vis and calyces. Ileal conduit noted. No renal mass or other lesions. No urothelial lesions: no filli ng defect, dilation, stricture or wall thickening. LEFT KIDNEY AND URETER: Nonobstructing 2 mm calculus.. No hydronephrosis or hydroureter with Ileal co nduit noted. . No renal mass or other lesions. No urothelial lesions: no filling defect, dilation, st ricture or wall thickening. URINARY BLADDER: Surgically absent urinary bladder with ileal conduit. Mild dilation of the collectin g systems. REPRODUCTIVE: Unremarkable. ABDOMEN LIVER: Unremarkable. GALLBLADDER AND BILE DUCTS: Gallstone in the gallbladder lumen. PANCREAS: Unremarkable. SPLEEN: Unremarkable. ADRENAL GLANDS: Unremarkable. STOMACH AND BOWEL: . No evidence of bowel obstruction. PERITONEUM: No evidence of pneumoperitoneum, free fluid, or adenopathy. VASCULATURE: No evidence of aortic aneurysm. MUSCULOSKELETAL: No acute osseous abnormalities. Moderate disc degeneration changes are present throu ghout the thoracolumbar spine. LYMPH NODES: No gross evidence for lymphadenopathy. 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 Fat-containing left i nguinal hernia. Surgical changes anterior abdominal wall. IMPRESSION: 1. Surgically absent urinary bladder with ileal conduit. Mild dilation of the collecting system on t he right is similar dating back to at least 09/14/2024. No evidence for lymphadenopathy no suspicious osseous lesions visualized. 2. Cholelithiasis. 3. Large amount stool throughout the colon. [facility]: [id number], 11/09/2024 3:28 PM
== END | disposition home or self-care (01) ==
LOC: RADCTMAIN 13:01
PROVIDERS: ATTEND Urology
DX: C67.9 Malignant neoplasm of bladder, unspecified (principal); K80.20 Calculus of gallbladder without cholecystitis without obstruction; R19.5 Other fecal abnormalities; K40.90 Unilateral inguinal hernia, without obstruction or gangrene, not specified as recurrent
CPT/HCPCS: 82565; 84520; 74178; 36415; 74400; Q9967

== ENCOUNTER 2024-12-19 19:41 | Inpatient (IN) | payer MEDICARE ==
[2024-12-19 20:09] LABS: Anisocytosis Slight; Basophils % (A) 0 %; Eosinophils # (A) 0.3 k/uL (0-0.7); Eosinophils % (A) 2 %; HCT 36.9 % (39.0-53.0); HGB 11.6 gm/dL (13.0-17.5); Hypochromasia Slight; Lymphocytes # (A) 1.1 k/uL (1.0-4.8); Lymphocytes % (A) 9 %; MCH 28.8 pg (25.0-35.0); MCHC 31.3 g/dL (31.0-37.0); MCV 91.9 fL (80.0-100.0); Mean Platelet Volume 7.2; Monocytes # (A) 0.7 k/uL (0-1.0); Monocytes % (A) 6 %; Neutrophils # (A) 9.1 k/uL (1.3-7.7); Neutrophils % (A) 80 %; Platelet Count 236 k/uL (150-450); RBC 4.01 m/uL (4.30-5.90); RDW 16.1 % (11.5-15.5); WBC 11.4 k/uL (3.8-10.6)
[2024-12-19 20:12] LABS: Appearance,Urine Cloudy (Clear); Bilirubin,Urine Negative (Negative); Blood,Urine Trace (Negative); Color,Urine Colorless; Glucose,Urine (UA) 4+ (Negative); Ketones,Urine Negative (Negative); Leukocyte Esterase,Urine Large (Negative); Mucus,Urine Rare /hpf; Nitrite,Urine Positive (Negative); PH, Urine 6.5 (5.0-8.0); Protein,Urine Negative (Negative); RBC,Urine 2 /hpf (0-5); Specific Gravity,Urine 1.009 (1.001-1.035); Urobilinogen,Urine <2.0 mg/dL (<2.0); WBC,Urine 54 /hpf (0-5)
[2024-12-19 20:18] LABS: ALT 13 U/L (4-49); AST 23 U/L (17-59); African American GFR (CKD) 62 (>60 ml/min/1.73 sqM); Albumin 3.4 g/dL (3.5-5.0); Alkaline Phosphatase 92 U/L (38-126); Anion Gap 9 mmol/L; Blood Urea Nitrogen 33 mg/dL (9-20); Calcium 8.7 mg/dL (8.4-10.2); Carbon Dioxide 18 mmol/L (22-30); Chloride 105 mmol/L (98-107); Glucose 275 mg/dL (74-99); Non-African American GFR(CKD) 54 (>60 ml/min/1.73 sqM); Sodium 132 mmol/L (137-145); Total Bilirubin 0.5 mg/dL (0.2-1.3); Total Protein 6.3 g/dL (6.3-8.2)
--- NOTE | 2024-12-19 20:22 | XR ---
EXAMINATION TYPE: XR chest 2V DATE OF EXAM: 12/19/2024 CLINICAL INDICATION: Male, 74 years old with history of fever, TECHNIQUE: Frontal and lateral views of the chest are obtained. COMPARISON: Chest x-ray October 01, 2024 FINDINGS: There is no focal air space opacity, pleural effusion, or pneumothorax seen. The cardiac silhouette size is stable and upper limits of normal. Surgical change left shoulder is partially imag ed similar to prior. IMPRESSION: No acute pulmonary infiltrate. [facility], , 12/19/2024 8:20 PM
[2024-12-19] MEDS: PIPERACILLIN-TAZOBACTAM 3.375 GM in SODIUM CHLORIDE 0.9% 100 ML IVPB SCH (22:19)
--- NOTE | 2024-12-19 22:19 | ED ---
Weakness HPI - General Chief complaint: Weakness Stated complaint: Weakness Time Seen by Provider: 12/19/24 19:50 Source: patient, EMS Mode of arrival: EMS Limitations: no limitations - History of Present Illness Initial comments: 4-year-old male with past medical history of bladder cancer and urostomy who presents to the emergency department with bilateral flank pain and fever. States that today he was so weak he could not get out of his chair. This typically happens to him when he has a urinary tract infection. He just finished a 20-day course of oral Cipro on Tuesday. Weakness became significant today. He did take Tylenol before coming into the emergency department. He admits that his urine has been darker in color. He denies any additional symptoms of infection such as cough, shortness of breath, sore throat, ear pain. No anterior abdominal pain. No other alleviating, precipitating or modifying factors - Related Data Home Medications Medication Instructions Recorded Confirmed Aspirin EC [Ecotrin Low Dose] 81 mg PO DAILY 04/16/21 12/19/24 Isosorbide Mononitrate ER [Imdur] 60 mg PO DAILY 04/16/21 12/19/24 Ranolazine [Ranexa] 1,000 mg PO BID 04/16/21 12/19/24 Pantoprazole Sodium [Protonix] 20 mg PO DAILY 11/13/21 12/19/24 Atorvastatin [Lipitor] 80 mg PO HS 07/12/22 12/19/24 Insulin Aspart (For Pump) [NovoLOG 0.01 unit SQ-PUMP CONTINUOUS 07/12/22 12/19/24 (For Pump)] Empagliflozin [Jardiance] 12.5 mg PO DAILY 11/03/23 12/19/24 Montelukast [Singulair] 10 mg PO HS 12/07/23 12/19/24 Loratadine [Claritin] 10 mg PO DAILY PRN 09/15/24 12/19/24 Albuterol Sulfate [Ventolin HFA] 2 puff INHALATION RT-QID PRN 12/19/24 12/19/24 Previous Rx's Medication Instructions Recorded Ezetimibe [Zetia] 10 mg PO DAILY #30 tab 02/02/18 Allergies Allergy/AdvReac Type Severity Reaction Status Date / Time No Known Allergies Allergy Verified 12/19/24 20:59 Review of Systems ROS Statement: Those systems with pertinent positive or pertinent negative responses have been documented in the HPI. ROS Other: All systems not noted in ROS Statement are negative. Past Medical History Past Medical History: Cancer, Diabetes Mellitus, Prostate Disorder Additional Past Medical History / Comment(s): Chronic back pain, sciatica, insulin pump, SARCOIDOSIS, BLADDER CANCER with removal of bladder sept 2023, urostomy placed, neuropathy, BPH, macular edema Last Myocardial Infarction Date:: 07/19/17 History of Any Multi-Drug Resistant Organisms: None Reported Past Surgical History: Back Surgery, Heart Catheterization With Stent, Joint Replacement, Orthopedic Surgery, Prostate Surgery Additional Past Surgical History / Comment(s): SX FOR BLADDER CANCER x 3, SAVITA CATARACTS, COLONOSCOPY, RT ANKLE tendonitis, SAVITA CARPAL TUNNEL, LT KNEE REPLACEMENT, SAVITA SHOULDER ROTATOR CUFF SX (total 6), LAMINECTOMY X2, THORACOTOMY/BX FOR NODULES ON LYMPH NODES(SARCOIDOSIS), 6 trigger finger releases, cardiac stents x 7,left total reversed shoulder, prostatectomy, cystecomy. Pt has urosotmy. Past Anesthesia/Blood Transfusion Reactions: Previous Problems w/ Anesthesia, Motion Sickness, Postoperative Nausea & Vomiting (PONV) Additional Past Anesthesia/Blood Transfusion Reaction / Comment(s): BP drops with anesthesia Date of Last Stent Placement:: september 2020 Past Psychological History: No Psychological Hx Reported Smoking Status: Former smoker Past Alcohol Use History: None Reported Past Drug Use History: None Reported - Past Family History Brother(s) Family Medical History: Cancer Additional Family Medical History / Comment(s): Prostate cancer General Exam Limitations: no limitations General appearance: alert, in no apparent distress Head exam: Present: atraumatic, normocephalic, normal inspection Eye exam: Present: normal appearance, PERRL, EOMI. Absent: scleral icterus, conjunctival injection, periorbital swelling ENT exam: Present: normal exam, mucous membranes moist Neck exam: Present: normal inspection. Absent: tenderness, meningismus, lymphadenopathy Respiratory exam: Present: normal lung sounds bilaterally. Absent: respiratory distress, wheezes, rales, rhonchi, stridor Cardiovascular Exam: Present: regular rate, normal rhythm, normal heart sounds. Absent: systolic murmur, diastolic murmur, rubs, gallop, clicks GI/Abdominal exam: Present: soft, normal bowel sounds. Absent: distended, tenderness, guarding, rebound, rigid Extremities exam: Present: normal inspection, full ROM, normal capillary refill. Absent: tenderness, pedal edema, joint swelling, calf tenderness Back exam: Present: normal inspection Neurological exam: Present: alert, oriented X3, CN II-XII intact Psychiatric exam: Present: normal affect, normal mood Skin exam: Present: warm, dry, intact, normal color. Absent: rash Course Vital Signs 12/19/24 12/19/24 12/19/24 19:48 21:00 22:00 Temperature 99.2 F 100.8 F H Pulse Rate 86 79 75 Respiratory 17 18 18 Rate Blood Pressure 125/64 143/66 141/69 O2 Sat by Pulse 95 95 96 Oximetry 12/20/24 12/20/24 00:00 05:30 Temperature 98.8 F 97.3 F L Pulse Rate 63 60 Respiratory 13 14 Rate Blood Pressure 118/54 146/68 O2 Sat by Pulse 96 98 Oximetry Medical Decision Making - Medical Decision Making Was pt. sent in by a medical professional or institution (, PA, FUNDRAISING DIRECTOR, urgent care, hospital, or jail...) When possible be specific @ -No Did you speak to anyone other than the patient for history (EMS, parent, family, police, friend...)? What history was obtained from this source @ -Spoke with for history Did you review nursing and triage notes (agree or disagree)? Why? @ -I reviewed and agree with nursing and triage notes Were old charts reviewed (outside hosp., previous admission, EMS record, old EKG, old radiological studies, urgent care reports/EKG's, jail records)? Report findings @ -I reviewed urine culture report from October of this year where patient grew Proteus in his urine Differential Diagnosis (chest pain, altered mental status, abdominal pain women, abdominal pain men, vaginal bleeding, weakness, fever, dyspnea, syncope, headache, dizziness, GI bleed, back pain, seizure, CVA, palpatations, mental health, musculoskeletal)? @ -Differential Weakness: Hypoglycemia, shock, sepsis, hyponatremia, anemia, infection, OH, ETOH, adverse medicine reaction, overdose, stroke, this is not meant to be an all-inclusive list. EKG interpreted by me (3pts min.). @ -Yes and demonstrates sinus rhythm with rate of 83. [place] interval 177. QRS 146. QTc of 457. No acute ST segment elevations. Right bundle branch block X-rays interpreted by me (1pt min.). @ -None done CT interpreted by me (1pt min.). @ -None done U/S interpreted by me (1pt. min.). @ -Yes and demonstrates only mild hydronephrosis What testing was considered but not performed or refused? (CT, X-rays, U/S, labs)? Why? @ -None What meds were considered but not given or refused? Why? @ -None Did you discuss the management of the patient with other professionals (professionals i.e. , PA, FUNDRAISING DIRECTOR, lab, RT, psych nurse, web content & social media manager, audit analyst, t eacher, senior escrow officer, case picker)? Give summary @ -Spoke with Dr. Terrell for admission Was smoking cessation discussed for >3mins.? @ -No Was critical care preformed (if so, how long)? @ -No Were there social determinants of health that impacted care today? How? (Homelessness, low income, unemployed, alcoholism, drug addiction, transportation, low edu. Level, literacy, decrease access to med. care, fci, rehab)? @ -No Was there de-escalation of care discussed even if they declined (Discuss DNR or withdrawal of care, Hospice)? DNR status @ -No What co-morbidities impacted this encounter? (DM, HTN, Smoking, COPD, CAD, Cancer, CVA, ARF, Chemo, Hep., AIDS, mental health diagnosis, sleep apnea, morbid obesity)? @ -Bladder cancer with urostomy Was patient admitted / discharged? Hospital course, mention meds given and route, prescriptions, significant lab abnormalities, going to OR and other pertinent info. @ -Upon arrival patient seen and evaluated in bed 5. Thorough history and p hysical exam was performed. Patient states his symptoms are consistent with his previous urinary tract infections. IV was established. Laboratory studies were conducted. Urinalysis is performed which is positive for nitrates. Previous cultures did grow out Proteus. Due to to patient's profound weakness I did initiate antibiotics. Renal ultrasound was performed which demonstrates only mild hydronephrosis. I did discuss possible other infections with the patient however he is adamant that he is not having a cough, shortness of breath, anterior abdominal pain. I did recommend admission for which I spoke to Dr. Terrell. He was agreeable to the admission Undiagnosed new problem with uncertain prognosis? @ -No Drug Therapy requiring intensive monitoring for toxicity (Heparin, Nitro, Ins ulin, Cardizem)? @ -No Were any procedures done? @ -No Diagnosis/symptom? @ -Acute bilateral flank pain, acute weakness, suspected UTI, history of bladder cancer with urostomy Acute, or Chronic, or Acute on Chronic? @ -Acute on chronic Uncomplicated (without systemic symptoms) or Complicated (systemic symptoms)? @ -Complicated Side effects of treatment? @ -No Exacerbation, Progression, or Severe Exacerbation? @ -No Poses a threat to life or bodily function? How? (Chest pain, [place], OH, pneumonia, PE, COPD, DKA, ARF, appy, cholecystitis, CVA, Diverticulitis, Homicidal, Suicidal, threat to staff... and all critical care pts) @ -No - Lab Data Result diagrams: 12/22/24 03:27 12/22/24 03:27 Lab Results 12/19/24 12/19/24 12/19/24 Range/Units 20:04 20:04 20:04 WBC 11.4 H (3.8-10.6) k/uL RBC 4.01 L (4.30-5.90) m/uL Hgb 11.6 L (13.0-17.5) gm/dL Hct 36.9 L (39.0-53.0) % MCV 91.9 (80.0-100.0) fL MCH 28.8 (25.0-35.0) pg MCHC 31.3 (31.0-37.0) g/dL RDW 16.1 H (11.5-15.5) % Plt Count 236 (150-450) k/uL MPV 7.2 Neutrophils % 80 % Lymphocytes % 9 % Monocytes % 6 % Eosinophils % 2 % Basophils % 0 % Neutrophils # 9.1 H (1.3-7.7) k/uL Lymphocytes # 1.1 (1.0-4.8) k/uL Monocytes # 0.7 (0-1.0) k/uL Eosinophils # 0.3 (0-0.7) k/uL Basophils # 0.0 (0-0.2) k/uL Hypochromasia Slight Anisocytosis Slight Sodium 132 L (137-145) mmol/L Potassium 4.0 (3.5-5.1) mmol/L Chloride 105 (98-107) mmol/L Carbon Dioxide 18 L (22-30) mmol/L Anion Gap 9 mmol/L BUN 33 H (9-20) mg/dL Creatinine 1.31 H (0.66-1.25) mg/dL Est GFR (CKD-EPI)AfAm 62 (>60 ml/min/1.73 sqM) Est GFR (CKD-EPI)NonAf 54 (>60 ml/min/1.73 sqM) Glucose 275 H (74-99) mg/dL Plasma Lactic Acid Jon (0.7-2.0) mmol/L Calcium 8.7 (8.4-10.2) mg/dL Total Bilirubin 0.5 (0.2-1.3) mg/dL AST 23 (17-59) U/L ALT 13 (4-49) U/L Alkaline Phosphatase 92 (38-126) U/L Total Protein 6.3 (6.3-8.2) g/dL Albumin 3.4 L (3.5-5.0) g/dL Urine Color Colorless Urine Appearance Cloudy (Clear) Urine pH 6.5 (5.0-8.0) Ur Specific [place] 1.009 (1.001-1.035) Urine Protein Negative (Negative) Urine Glucose (UA) 4+ H (Negative) Urine Ketones Negative (Negative) Urine Blood Trace H (Negative) Urine Nitrite Positive (Negative) Urine Bilirubin Negative (Negative) Urine Urobilinogen <2.0 (<2.0) mg/dL Ur Leukocyte Esterase Large H (Negative) Urine RBC 2 (0-5) /hpf Urine WBC 54 H (0-5) /hpf Urine Mucus Rare H (None) /hpf 12/19/24 Range/Units 20:04 WBC (3.8-10.6) k/uL RBC (4.30-5.90) m/uL Hgb (13.0-17.5) gm/dL Hct (39.0-53.0) % MCV (80.0-100.0) fL MCH (25.0-35.0) pg MCHC (31.0-37.0) g/dL RDW (11.5-15.5) % Plt Count (150-450) k/uL MPV Neutrophils % % Lymphocytes % % Monocytes % % Eosinophils % % Basophils % % Neutrophils # (1.3-7.7) k/uL Lymphocytes # (1.0-4.8) k/uL Monocytes # (0-1.0) k/uL Eosinophils # (0-0.7) k/uL Basophils # (0-0.2) k/uL Hypochromasia Anisocytosis Sodium (137-145) mmol/L Potassium (3.5-5.1) mmol/L Chloride (98-107) mmol/L Carbon Dioxide (22-30) mmol/L Anion Gap mmol/L BUN (9-20) mg/dL Creatinine (0.66-1.25) mg/dL Est GFR (CKD-EPI)AfAm (>60 ml/min/1.73 sqM) Est GFR (CKD-EPI)NonAf (>60 ml/min/1.73 sqM) Glucose (74-99) mg/dL Plasma Lactic Acid Jon 1.1 (0.7-2.0) mmol/L Calcium (8.4-10.2) mg/dL Total Bilirubin (0.2-1.3) mg/dL AST (17-59) U/L ALT (4-49) U/L Alkaline Phosphatase (38-126) U/L Total Protein (6.3-8.2) g/dL Albumin (3.5-5.0) g/dL Urine Color Urine Appearance (Clear) Urine pH (5.0-8.0) Ur Specific [place] (1.001-1.035) Urine Protein (Negative) Urine Glucose (UA) (Negative) Urine Ketones (Negative) Urine Blood (Negative) Urine Nitrite (Negative) Urine Bilirubin (Negative) Urine Urobilinogen (<2.0) mg/dL Ur Leukocyte Esterase (Negative) Urine RBC (0-5) /hpf Urine WBC (0-5) /hpf Urine Mucus (None) /hpf Disposition Clinical Impression: Fever Disposition: ADMITTED IP TO THIS [facility] Condition: Stable Is patient prescribed a controlled substance at d/c from ED?: No Time of Disposition: 22:22 Decision to Admit Reason: Admit from EC Decision Date: 12/19/24 Decision Time: 22:22
[2024-12-19] MEDS ORDERED: NALOXONE 0.4 MG/ML 1 ML VIAL IV PRN (22:22)
--- NOTE | 2024-12-19 22:24 | US ---
EXAMINATION TYPE: US kidneys/renal and bladder DATE OF EXAM: 12/19/2024 COMPARISON: US 09/2024 CLINICAL INDICATION: Male, 74 years old with history of flank pain; patient states kidney infections this year. bladder surgical removal. TECHNIQUE: Grayscale imaging of the bilateral kidneys and urinary bladder: FINDINGS: EXAM MEASUREMENTS: Right Kidney: 11.0 x 5.3 x 4.9 cm Left Kidney: 11.0 x 5.5 x 4.9 cm Right Kidney: mild hydro seen Left Kidney: wnl Bladder: surgically absent No left hydronephrosis. Moderate dilation of the collecting system. No nephrolithiasis is seen. No m asses are identified. The urinary bladder is anechoic. IMPRESSION: 1. Mild right hydronephrosis correlate for obstructive uropathy. 2. No evidence for renal calculus. [facility], , 12/19/2024 10:22 PM
[2024-12-19] MEDS: ACETAMINOPHEN TAB 325 MG TAB PO PRN (22:57)
[2024-12-19] MEDS ORDERED: INSULIN LISPRO (HumaLOG) 100 UNIT/ML 10 mL VL SQ PRN (23:41)
[2024-12-19] MEDS ORDERED: INSULIN PUMP BASAL RATES 1 EACH MISC MISCELLANE PRN (23:41)
[2024-12-19] MEDS ORDERED: INSPUCOR MISCELLANE PRN (23:41)
[2024-12-20 05:37] LABS: Glucose,Whole Blood 145 mg/dL (70-110)
[2024-12-20 06:37] LABS: Anisocytosis Slight; Basophils % (A) 0 %; Eosinophils # (A) 0.3 k/uL (0-0.7); Eosinophils % (A) 3 %; HGB 12.2 gm/dL (13.0-17.5); Hypochromasia Slight; Lymphocytes # (A) 1.3 k/uL (1.0-4.8); Lymphocytes % (A) 13 %; MCH 28.9 pg (25.0-35.0); MCHC 30.6 g/dL (31.0-37.0); MCV 94.4 fL (80.0-100.0); Mean Platelet Volume 7.5; Monocytes # (A) 0.9 k/uL (0-1.0); Monocytes % (A) 9 %; Neutrophils # (A) 7.2 k/uL (1.3-7.7); Neutrophils % (A) 72 %; Platelet Count 219 k/uL (150-450); RBC 4.23 m/uL (4.30-5.90); RDW 16.4 % (11.5-15.5)
[2024-12-20 06:46] LABS: African American GFR (CKD) 64 (>60 ml/min/1.73 sqM); Anion Gap 8 mmol/L; Blood Urea Nitrogen 33 mg/dL (9-20); Carbon Dioxide 23 mmol/L (22-30); Chloride 106 mmol/L (98-107); Glucose 158 mg/dL (74-99); Non-African American GFR(CKD) 55 (>60 ml/min/1.73 sqM); Potassium 3.9 mmol/L (3.5-5.1); Sodium 137 mmol/L (137-145)
[2024-12-20 08:24] LABS: Glucose,Whole Blood 198 mg/dL (70-110)
[2024-12-20] MEDS: INSULIN PUMP MEAL BOLUS 1 UNIT MISC MISCELLANE SCH (08:51)
[2024-12-20] MEDS ORDERED: LORATADINE 10 MG TAB PO PRN (09:21)
[2024-12-20] MEDS ORDERED: ALBUTEROL NEBULIZED 2.5 MG/3 ML INHALATION PRN (09:21)
[2024-12-20] MEDS ORDERED: Insulin Aspart (For Pump) 100 UNIT/ML VIAL SQ-PUMP SCH (09:30)
--- NOTE | 2024-12-20 11:33 | P.GSCN ---
History of Present Illness Consult date: 12/20/24 Reason for Consult: UTI Requesting physician: Alban Terrell History of present illness: This is a 74-year-old male that underwent a radical cystectomy in May [address] Bullard at [facility]. Surgery was uncomplicated. However, he has had 3 previous hospital admission within the past several months for treatment of recurrent Klebsiella pneumoniae UTI's. 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 He completed a 20-day course of antibiotics on December 15, 2024. Within 2 to 3 days, he noted that his urine was rust colored and he experienced low-grade fever in association with bilateral flank pain, nausea and vomiting. His creatinine is stable at 1.3. Ultrasound performed yesterday shows mild right hydronephrosis, no left hydronephrosis. He states that he is already feeling better after receiving IV antibiotics. Review of Systems - Constitutional Reports chills, Reports fever, Reports weakness - Genitourinary Reports as per HPI Past Medical History Past Medical History: Cancer, Diabetes Mellitus, Prostate Disorder Additional Past Medical History / Comment(s): Chronic back pain, sciatica, insulin pump, SARCOIDOSIS, BLADDER CANCER with removal of bladder may 2024, urostomy placed, neuropathy, BPH, macular edema Last Myocardial Infarction Date:: 07/19/17 History of Any Multi-Drug Resistant Organisms: None Reported Past Surgical History: Back Surgery, Heart Catheterization With Stent, Joint Replacement, Orthopedic Surgery, Prostate Surgery Additional Past Surgical History / Comment(s): SX FOR BLADDER CANCER x 3, SAVITA CATARACTS, COLONOSCOPY, RT ANKLE tendonitis, SAVITA CARPAL TUNNEL, LT KNEE REPLACEMENT, SAVITA SHOULDER ROTATOR CUFF SX (total 6), LAMINECTOMY X2, THORACOTOMY/BX FOR NODULES ON LYMPH NODES(SARCOIDOSIS), 6 trigger finger releases, cardiac stents x 7,left total reversed shoulder, prostatectomy, cystecomy. Pt has urosotmy. Past Anesthesia/Blood Transfusion Reactions: Previous Problems w/ Anesthesia, Motion Sickness, Postoperative Nausea & Vomiting (PONV) Additional Past Anesthesia/Blood Transfusion Reaction / Comm: BP drops with anesthesia Date of Last Stent Placement:: september 2020 Past Psychological History: No Psychological Hx Reported Smoking Status: Former smoker Past Alcohol Use History: None Reported Past Drug Use History: None Reported - Past Family History Brother(s) Family Medical History: Cancer Additional Family Medical History / Comment(s): Prostate cancer Medications and Allergies Home Medications Medication Instructions Recorded Confirmed Type Ezetimibe [Zetia] 10 mg PO DAILY #30 tab 02/02/18 12/19/24 Rx Aspirin EC [Ecotrin Low Dose] 81 mg PO DAILY 04/16/21 12/19/24 History Isosorbide Mononitrate ER [Imdur] 60 mg PO DAILY 04/16/21 12/19/24 History Ranolazine [Ranexa] 1,000 mg PO BID 04/16/21 12/19/24 History Pantoprazole Sodium [Protonix] 20 mg PO DAILY 11/13/21 12/19/24 History Atorvastatin [Lipitor] 80 mg PO HS 07/12/22 12/19/24 History Insulin Aspart (For Pump) [NovoLOG 0.01 unit SQ-PUMP CONTINUOUS 07/12/22 12/19/24 History (For Pump)] Empagliflozin [Jardiance] 12.5 mg PO DAILY 11/03/23 12/19/24 History Montelukast [Singulair] 10 mg PO HS 12/07/23 12/19/24 History Loratadine [Claritin] 10 mg PO DAILY PRN 09/15/24 12/19/24 History Albuterol Sulfate [Ventolin HFA] 2 puff INHALATION RT-QID PRN 12/19/24 12/19/24 History Allergies Allergy/AdvReac Type Severity Reaction Status Date / Time No Known Allergies Allergy Verified 12/19/24 20:59 Surgical - Exam Vital Signs Temp Pulse Resp BP Pulse Ox 99.2 F 86 17 125/64 95 12/19/24 19:48 12/19/24 19:48 12/19/24 19:48 12/19/24 19:48 12/19/24 19:48 - General well developed, well nourished, no distress - Respiratory normal respiratory effort - Abdomen Soft, non-tender, non-distended. There is no CVA tenderness. The ileal conduit is draining clear yellow urine. - Psychiatric oriented to time, oriented to person, oriented to place, speech is normal, memory intact Results - Labs 12/20/24 06:18 12/20/24 06:18 Abnormal Lab Results - Last 24 Hours (Table) 12/19/24 12/19/24 12/19/24 Range/Units 20:04 20:04 20:04 WBC 11.4 H (3.8-10.6) k/uL RBC 4.01 L (4.30-5.90) m/uL Hgb 11.6 L (13.0-17.5) gm/dL Hct 36.9 L (39.0-53.0) % MCHC (31.0-37.0) g/dL RDW 16.1 H (11.5-15.5) % Neutrophils # 9.1 H (1.3-7.7) k/uL Sodium 132 L (137-145) mmol/L Carbon Dioxide 18 L (22-30) mmol/L BUN 33 H (9-20) mg/dL Creatinine 1.31 H (0.66-1.25) mg/dL Glucose 275 H (74-99) mg/dL POC Glucose (mg/dL) (70-110) mg/dL Albumin 3.4 L (3.5-5.0) g/dL Urine Glucose (UA) 4+ H (Negative) Urine Blood Trace H (Negative) Ur Leukocyte Esterase Large H (Negative) Urine WBC 54 H (0-5) /hpf Urine Mucus Rare H (None) /hpf 12/20/24 12/20/24 12/20/24 Range/Units 05:35 06:18 06:18 WBC (3.8-10.6) k/uL RBC 4.23 L (4.30-5.90) m/uL Hgb 12.2 L (13.0-17.5) gm/dL Hct (39.0-53.0) % MCHC 30.6 L (31.0-37.0) g/dL RDW 16.4 H (11.5-15.5) % Neutrophils # (1.3-7.7) k/uL Sodium (137-145) mmol/L Carbon Dioxide (22-30) mmol/L BUN 33 H (9-20) mg/dL Creatinine 1.28 H (0.66-1.25) mg/dL Glucose 158 H (74-99) mg/dL POC Glucose (mg/dL) 145 H (70-110) mg/dL Albumin (3.5-5.0) g/dL Urine Glucose (UA) (Negative) Urine Blood (Negative) Ur Leukocyte Esterase (Negative) Urine WBC (0-5) /hpf Urine Mucus (None) /hpf Diabetes panel 12/19/24 12/20/24 Range/Units 20:04 06:18 Sodium 132 L 137 (137-145) mmol/L Potassium 4.0 3.9 (3.5-5.1) mmol/L Chloride 105 106 (98-107) mmol/L Carbon Dioxide 18 L 23 (22-30) mmol/L BUN 33 H 33 H (9-20) mg/dL Creatinine 1.31 H 1.28 H (0.66-1.25) mg/dL Glucose 275 H 158 H (74-99) mg/dL Calcium 8.7 9.0 (8.4-10.2) mg/dL AST 23 (17-59) U/L ALT 13 (4-49) U/L Alkaline Phosphatase 92 (38-126) U/L Total Protein 6.3 (6.3-8.2) g/dL Albumin 3.4 L (3.5-5.0) g/dL Calcium panel 12/19/24 12/20/24 Range/Units 20:04 06:18 Calcium 8.7 9.0 (8.4-10.2) mg/dL Albumin 3.4 L (3.5-5.0) g/dL Pituitary panel 12/19/24 12/20/24 Range/Units 20:04 06:18 Sodium 132 L 137 (137-145) mmol/L Potassium 4.0 3.9 (3.5-5.1) mmol/L Chloride 105 106 (98-107) mmol/L Carbon Dioxide 18 L 23 (22-30) mmol/L BUN 33 H 33 H (9-20) mg/dL Creatinine 1.31 H 1.28 H (0.66-1.25) mg/dL Glucose 275 H 158 H (74-99) mg/dL Calcium 8.7 9.0 (8.4-10.2) mg/dL Adrenal panel 12/19/24 12/20/24 Range/Units 20:04 06:18 Sodium 132 L 137 (137-145) mmol/L Potassium 4.0 3.9 (3.5-5.1) mmol/L Chloride 105 106 (98-107) mmol/L Carbon Dioxide 18 L 23 (22-30) mmol/L BUN 33 H 33 H (9-20) mg/dL Creatinine 1.31 H 1.28 H (0.66-1.25) mg/dL Glucose 275 H 158 H (74-99) mg/dL Calcium 8.7 9.0 (8.4-10.2) mg/dL Total Bilirubin 0.5 (0.2-1.3) mg/dL AST 23 (17-59) U/L ALT 13 (4-49) U/L Alkaline Phosphatase 92 (38-126) U/L Total Protein 6.3 (6.3-8.2) g/dL Albumin 3.4 L (3.5-5.0) g/dL - Imaging US - kidney/bladder: report reviewed Assessment and Plan Plan: Patient likely has a recurrent Klebsiella UTI. Based on previous cultures, this organism is sensitive to Zosyn, which she is currently receiving. As stated, he already feels much better. He did undergo a recent ultrasound at [facility] and is waiting to hear back from them. In my opinion, he should undergo right percutaneous nephrostomy tube insertion, and a nephrostogram could be performed to determine whether there is indeed a ureteroileal anastomotic stricture. An attempt could be made to place an antegrade right ureteral stent at that time. The patient was advised of the possibility that he will require open repair of a ureteroileal anastomotic stricture, if indeed he is found to have one and it cannot be managed conservatively. Time with Patient: Greater than 30
[2024-12-20 12:16] LABS: Glucose,Whole Blood 191 mg/dL (70-110)
[2024-12-20] MEDS: EZETIMIBE 10 MG TAB PO SCH (12:46)
[2024-12-20] MEDS: ASPIRIN 81 MG PO SCH (12:46)
[2024-12-20] MEDS: PANTOPRAZOLE 40 MG/10 ML VIAL IVP SCH (12:46)
[2024-12-20] MEDS: ISOSORBIDE MONONITRATE ER 60 MG TAB.ER.24H PO SCH (12:46)
[2024-12-20] MEDS: RANOLAZINE 500 MG TAB.ER.12H PO SCH (12:46)
--- NOTE | 2024-12-20 13:46 | P.HPIM ---
History of Present Illness H&P Date: 12/20/24 Chief Complaint: Bilateral flank pain This is a 74-year-old gentleman with past medical history significant for Klebsiella pneumoniae UTI/pyelonephritis, right moderate hydronephrosis, radical cystoprostatectomy ,urostomy secondary to bladder cancer on 08/12/2024 at [facility] with Dr. Bullard and multiple other medical issues, presented to the ER with worsening bilateral flank pain since Tuesday, increased generalized weakness, dark zay urine. Recently hospitalized in October 2024 with right sided hydronephrosis, concerning for right sided pyelonephritis, cultures grew Klebsiella, discharged on 08/29/2025 and completed a prolonged 20-day course of Cipro. Tmax 100.8, WBC 11.4, lactic acid 1.1, hemoglobin 11.6 platelets 236. Sodium 132, bicarb 18, BUN 33, creatinine 1.31. UA reported trace blood, positive nitrates, large leukocytes. IV antibiotics of Zosyn initiated in the ER. This morning afebrile, WBC is normalized, hemoglobin 12.2, platelets 219, sodium 137 bicarb 23, BUN 33, creatinine 1.28, blood sugars controlled. Nausea has subsided, denies abdominal pain. Feels better with morning. Review of Systems Constitutional: Positive fatigue and low-grade fevers, bilateral flank pain. Cardio vascular: denied any chest pain, palpitations Gastrointestinal :positive nausea Pulmonary: Denied any shortness of breath cough Neurologic denied any new focal deficits Past Medical History Past Medical History: Cancer, Diabetes Mellitus, Prostate Disorder Additional Past Medical History / Comment(s): Chronic back pain, sciatica, insulin pump, SARCOIDOSIS, BLADDER CANCER with removal of bladder sept 2023, urostomy placed, neuropathy, BPH, macular edema Last Myocardial Infarction Date:: 07/19/17 History of Any Multi-Drug Resistant Organisms: None Reported Past Surgical History: Back Surgery, Heart Catheterization With Stent, Joint Replacement, Orthopedic Surgery, Prostate Surgery Additional Past Surgical History / Comment(s): SX FOR BLADDER CANCER x 3, SAVITA CATARACTS, COLONOSCOPY, RT ANKLE tendonitis, SAVITA CARPAL TUNNEL, LT KNEE REPLACEMENT, SAVITA SHOULDER ROTATOR CUFF SX (total 6), LAMINECTOMY X2, THORACOTOMY/BX FOR NODULES ON LYMPH NODES(SARCOIDOSIS), 6 trigger finger releases, cardiac stents x 7,left total reversed shoulder, prostatectomy, cystecomy. Pt has urosotmy. Past Anesthesia/Blood Transfusion Reactions: Previous Problems w/ Anesthesia, Motion Sickness, Postoperative Nausea & Vomiting (PONV) Additional Past Anesthesia/Blood Transfusion Reaction / Comment(s): BP drops with anesthesia Date of Last Stent Placement:: september 2020 Past Psychological History: No Psychological Hx Reported Smoking Status: Former smoker Past Alcohol Use History: None Reported Past Drug Use History: None Reported - Past Family History Brother(s) Family Medical History: Cancer Additional Family Medical History / Comment(s): Prostate cancer Medications and Allergies Home Medications Medication Instructions Recorded Confirmed Type Ezetimibe [Zetia] 10 mg PO DAILY #30 tab 02/02/18 12/19/24 Rx Aspirin EC [Ecotrin Low Dose] 81 mg PO DAILY 04/16/21 12/19/24 History Isosorbide Mononitrate ER [Imdur] 60 mg PO DAILY 04/16/21 12/19/24 History Ranolazine [Ranexa] 1,000 mg PO BID 04/16/21 12/19/24 History Pantoprazole Sodium [Protonix] 20 mg PO DAILY 11/13/21 12/19/24 History Atorvastatin [Lipitor] 80 mg PO HS 07/12/22 12/19/24 History Insulin Aspart (For Pump) [NovoLOG 0.01 unit SQ-PUMP CONTINUOUS 07/12/22 12/19/24 History (For Pump)] Empagliflozin [Jardiance] 12.5 mg PO DAILY 11/03/23 12/19/24 History Montelukast [Singulair] 10 mg PO HS 12/07/23 12/19/24 History Loratadine [Claritin] 10 mg PO DAILY PRN 09/15/24 12/19/24 History Albuterol Sulfate [Ventolin HFA] 2 puff INHALATION RT-QID PRN 12/19/24 12/19/24 History Allergies Allergy/AdvReac Type Severity Reaction Status Date / Time No Known Allergies Allergy Verified 12/19/24 20:59 Physical Exam Vitals: Vital Signs Temp Pulse Pulse Resp BP BP Pulse Ox 12/20/24 08:21 98.4 F 74 18 130/65 98 12/20/24 05:30 97.3 F L 60 14 146/68 98 12/20/24 00:00 98.8 F 63 13 118/54 96 12/19/24 22:00 100.8 F H 75 18 141/69 96 12/19/24 21:00 79 18 143/66 95 12/19/24 19:48 99.2 F 86 17 125/64 95 Intake and Output 12/19/24 12/20/24 12/20/24 22:59 06:59 14:59 Other: Weight 80.286 kg GENERAL: Pleasant elderly male sitting up in bed, no distress. HEENT: Normocephalic, atraumatic, eyes normal, no conjunctival pallor or no scleral icterus. MMM. No pharyngeal erythema or thrush NECK: Supple, no JVD, trachea central, no thyromegaly. LUNGS: Unlabored breathing. Equal air entry, clear to auscultation anteriorly. No wheeze or crackle. HEART: S1, S2, regular rate and rhythm. No loud murmur ABDOMEN: Soft, nondistended, bilateral flank tenderness,no guarding or rigidity, no organomegaly EXTREMITIES: No edema, no clubbing or cyanosis, no calf tenderness. SKIN: No rash noted, warm and dry. NEUROLOGICAL: Cranial nerves II through XII grossly intact Results CBC & Chem 7: 12/20/24 06:18 12/20/24 06:18 Labs: Abnormal Lab Results - Last 24 Hours (Table) 12/19/24 12/19/24 12/19/24 Range/Units 20:04 20:04 20:04 WBC 11.4 H (3.8-10.6) k/uL RBC 4.01 L (4.30-5.90) m/uL Hgb 11.6 L (13.0-17.5) gm/dL Hct 36.9 L (39.0-53.0) % MCHC (31.0-37.0) g/dL RDW 16.1 H (11.5-15.5) % Neutrophils # 9.1 H (1.3-7.7) k/uL Sodium 132 L (137-145) mmol/L Carbon Dioxide 18 L (22-30) mmol/L BUN 33 H (9-20) mg/dL Creatinine 1.31 H (0.66-1.25) mg/dL Glucose 275 H (74-99) mg/dL POC Glucose (mg/dL) (70-110) mg/dL Albumin 3.4 L (3.5-5.0) g/dL Urine Glucose (UA) 4+ H (Negative) Urine Blood Trace H (Negative) Ur Leukocyte Esterase Large H (Negative) Urine WBC 54 H (0-5) /hpf Urine Mucus Rare H (None) /hpf 12/20/24 12/20/24 12/20/24 Range/Units 05:35 06:18 06:18 WBC (3.8-10.6) k/uL RBC 4.23 L (4.30-5.90) m/uL Hgb 12.2 L (13.0-17.5) gm/dL Hct (39.0-53.0) % MCHC 30.6 L (31.0-37.0) g/dL RDW 16.4 H (11.5-15.5) % Neutrophils # (1.3-7.7) k/uL Sodium (137-145) mmol/L Carbon Dioxide (22-30) mmol/L BUN 33 H (9-20) mg/dL Creatinine 1.28 H (0.66-1.25) mg/dL Glucose 158 H (74-99) mg/dL POC Glucose (mg/dL) 145 H (70-110) mg/dL Albumin (3.5-5.0) g/dL Urine Glucose (UA) (Negative) Urine Blood (Negative) Ur Leukocyte Esterase (Negative) Urine WBC (0-5) /hpf Urine Mucus (None) /hpf 12/20/24 Range/Units 08:23 WBC (3.8-10.6) k/uL RBC (4.30-5.90) m/uL Hgb (13.0-17.5) gm/dL Hct (39.0-53.0) % MCHC (31.0-37.0) g/dL RDW (11.5-15.5) % Neutrophils # (1.3-7.7) k/uL Sodium (137-145) mmol/L Carbon Dioxide (22-30) mmol/L BUN (9-20) mg/dL Creatinine (0.66-1.25) mg/dL Glucose (74-99) mg/dL POC Glucose (mg/dL) 198 H (70-110) mg/dL Albumin (3.5-5.0) g/dL Urine Glucose (UA) (Negative) Urine Blood (Negative) Ur Leukocyte Esterase (Negative) Urine WBC (0-5) /hpf Urine Mucus (None) /hpf Assessment and Plan Assessment: Sepsis secondary to acute UTI, pyelonephritis, cultures pending, suspect Klebsiella on Zosyn. Recently completed prolonged course of Cipro. 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 Bullard Diabetes mellitus, type II, A1c 8.3, has insulin pump History of sarcoidosis Plan: Continue on current medication regimen ,monitoring and symptomatic treatment. Evaluated by urology, reporting patient recently completed an ultrasound at [facility], waiting for results-ruling out ureteral ileal anastomotic stricture; recommending possible right percutaneous nephrostomy tube insertion and a nephrostogram. IV fluids were ordered. UA collected in the ER but no urine culture was ordered prior to the start of antibiotics. urine culture ordered. Continues on Zosyn ,infectious disease consulted. Pain management. The impression and plan of care has been dictated as directed. : I performed a history and examination of this patient, discussed the same with the dictator. I agree with the dictator's note ,documented as a scribe. Any additional findings or plans will be noted.
[2024-12-20] MEDS: SODIUM CHLORIDE 0.9% 1,000 ML IV SCH (16:21)
[2024-12-20 17:28] LABS: Glucose,Whole Blood 247 mg/dL (70-110)
[2024-12-20 20:00] LABS: Glucose,Whole Blood 163 mg/dL (70-110)
[2024-12-20] MEDS: MONTELUKAST 10 MG TAB PO SCH (20:05)
[2024-12-20] MEDS: ATORVASTATIN 80 MG TAB PO SCH (20:08)
[2024-12-21 01:40] LABS: Glucose,Whole Blood 204 mg/dL (70-110)
[2024-12-21 07:19] LABS: Glucose,Whole Blood 178 mg/dL (70-110)
[2024-12-21 08:37] LABS: BUN/Creat Ratio 22.38 Ratio (12.00-20.00); Blood Urea Nitrogen 29.1 mg/dL (9.0-27.0); Calcium 8.3 mg/dL (8.7-10.3); Carbon Dioxide 17.5 mmol/L (21.6-31.8); Chloride 110 mmol/L (96-109); Glucose 170 mg/dL (70-110); Sodium 139 mmol/L (135-145)
[2024-12-21 08:41] LABS: Basophils # (A) 0.05 X 10*3/uL (0.00-0.10); Basophils % (A) 0.6 %; Eosinophils % (A) 2.4 %; HCT 35.6 % (39.6-50.0); Lymphocytes # (A) 1.47 X 10*3/uL (0.90-5.00); Lymphocytes % (A) 17.5 %; MCH 29.1 pg (27.0-32.0); MCHC 30.9 g/dL (32.0-37.0); MCV 94.2 FL (80.0-97.0); Mean Platelet Volume 9.9 FL (9.5-12.2); Monocytes # (A) 1.35 X 10*3/uL (0.20-1.00); Monocytes % (A) 16.1 %; NRBC Per 100 WBC 0 X 10*3/uL (0.00-0.01); Neutrophils # (A) 5.26 X 10*3/uL (1.80-7.70); Neutrophils % (A) 62.8 %; Platelet Count 212 X 10*3/uL (140-440); RBC 3.78 X 10*6/uL (4.40-5.60); WBC 8.38 X 10*3/uL (4.50-10.00)
[2024-12-21] MEDS: PANTOPRAZOLE 40 MG/10 ML VIAL IVP SCH (08:49)
[2024-12-21] MEDS ORDERED: PANTOPRAZOLE 40 MG TABLET PO SCH (09:00)
--- NOTE | 2024-12-21 09:14 | P.PN ---
Subjective Progress Note Date: 12/21/24 Principal diagnosis: Recurrent UTI The patient reports that he feels weak today. He is afebrile. His urine is clearing. Objective - Vital Signs Vital signs: Vital Signs Temp 98.1 F 12/21/24 07:14 Pulse 64 12/21/24 07:14 Resp 16 12/21/24 07:14 BP 95/53 12/21/24 07:35 Pulse Ox 96 12/21/24 07:14 FiO2 Intake & Output 12/20/24 12/21/24 12/21/24 18:59 06:59 18:59 Intake Total 200 Balance 200 Weight 80.286 kg Intake: Oral 200 Other: Voiding Method Ileal Conduit (Right) Ileal Conduit (Right) # Voids 3 - Constitutional General appearance: Present: average body habitus, cooperative, no acute distress - Psychiatric Psychiatric: Present: A&O x's 3 - Labs CBC & Chem 7: 12/21/24 04:39 12/21/24 04:39 Labs: Abnormal Lab Results - Last 24 Hours (Table) 12/20/24 12/20/24 12/20/24 Range/Units 12:14 17:26 19:58 RBC (4.40-5.60) X 10*6/uL Hgb (13.0-17.0) g/dL Hct (39.6-50.0) % MCHC (32.0-37.0) g/dL RDW (11.5-14.5) % Immature Gran # (0.00-0.04) X 10*3/uL Monocytes # (0.20-1.00) X 10*3/uL Chloride (96-109) mmol/L Carbon Dioxide (21.6-31.8) mmol/L BUN (9.0-27.0) mg/dL Est GFR (CKD-EPI) (>=60) BUN/Creatinine Ratio (12.00-20.00) Ratio Glucose (70-110) mg/dL POC Glucose (mg/dL) 191 H 247 H 163 H (70-110) mg/dL Calcium (8.7-10.3) mg/dL 12/21/24 12/21/24 12/21/24 Range/Units 01:37 04:39 04:39 RBC 3.78 L (4.40-5.60) X 10*6/uL Hgb 11.0 L (13.0-17.0) g/dL Hct 35.6 L (39.6-50.0) % MCHC 30.9 L (32.0-37.0) g/dL RDW 16.0 H (11.5-14.5) % Immature Gran # 0.05 H (0.00-0.04) X 10*3/uL Monocytes # 1.35 H (0.20-1.00) X 10*3/uL Chloride 110 H (96-109) mmol/L Carbon Dioxide 17.5 L (21.6-31.8) mmol/L BUN 29.1 H (9.0-27.0) mg/dL Est GFR (CKD-EPI) 58 L (>=60) BUN/Creatinine Ratio 22.38 H (12.00-20.00) Ratio Glucose 170 H (70-110) mg/dL POC Glucose (mg/dL) 204 H (70-110) mg/dL Calcium 8.3 L (8.7-10.3) mg/dL 12/21/24 Range/Units 07:17 RBC (4.40-5.60) X 10*6/uL Hgb (13.0-17.0) g/dL Hct (39.6-50.0) % MCHC (32.0-37.0) g/dL RDW (11.5-14.5) % Immature Gran # (0.00-0.04) X 10*3/uL Monocytes # (0.20-1.00) X 10*3/uL Chloride (96-109) mmol/L Carbon Dioxide (21.6-31.8) mmol/L BUN (9.0-27.0) mg/dL Est GFR (CKD-EPI) (>=60) BUN/Creatinine Ratio (12.00-20.00) Ratio Glucose (70-110) mg/dL POC Glucose (mg/dL) 178 H (70-110) mg/dL Calcium (8.7-10.3) mg/dL Microbiology - Last 24 Hours (Table) 12/19/24 20:29 Blood Culture - Preliminary Blood Assessment and Plan Plan: Patient likely has a recurrent Klebsiella UTI. Urine and blood culture results are pending. Based on previous cultures, this organism is sensitive to Zosyn, which he is currently receiving. As stated, he already feels better. He did undergo a recent ultrasound at [facility] and is waiting to hear back from them. In my opinion, he should undergo right percutaneous nephrostomy tube insertion, and a nephrostogram could be performed to determine whether there is indeed a ureteroileal anastomotic stricture. An attempt could be made to place an antegrade right ureteral stent at that time. The patient was advised of the possibility that he will require open repair of a ureteroileal anastomotic stricture, if indeed he is found to have one and it cannot be managed conservatively. All of this was reiterated with the patient this morning.
--- NOTE | 2024-12-21 12:10 | P.PN ---
Subjective Progress Note Date: 12/21/24 H&P Date: 12/20/24 Chief Complaint: Bilateral flank pain This is a 74-year-old gentleman with past medical history significant for Klebsiella pneumoniae UTI/pyelonephritis, right moderate hydronephrosis, radical cystoprostatectomy ,urostomy secondary to bladder cancer on 08/12/2024 at [facility] with Dr. Bullard and multiple other medical issues, presented to the ER with worsening bilateral flank pain since Tuesday, increased generalized weakness, dark zay urine. Recently hospitalized in October 2024 with right sided hydronephrosis, concerning for right sided pyelonephritis, cultures grew Klebsiella, discharged on 08/29/2025 and completed a prolonged 20-day course of Cipro. Tmax 100.8, WBC 11.4, lactic acid 1.1, hemoglobin 11.6 platelets 236. Sodium 132, bicarb 18, BUN 33, creatinine 1.31. UA reported trace blood, positive nitrates, large leukocytes. IV antibiotics of Zosyn initiated in the ER. This morning afebrile, WBC is normalized, hemoglobin 12.2, platelets 219, sodium 137 bicarb 23, BUN 33, creatinine 1.28, blood sugars controlled. Nausea has subsided, denies abdominal pain. Feels better with morning. 12/21/2024 maintained on IV fluid hydration, Zosyn. Urine clearing. Urine culture in progress .preliminary blood culture reporting no growth after 24 hours .reports significant generalized weakness.Blood pressures soft. Afebrile, normal WBC, hemoglobin 11, platelets 212, bicarb 17.5, BUN 29.1 creatinine 1.3. Objective - Vital Signs Vital signs: Vital Signs Temp 98.1 F 12/21/24 07:14 Pulse 73 12/21/24 09:02 Resp 16 12/21/24 07:14 BP 115/61 12/21/24 09:02 Pulse Ox 96 12/21/24 07:14 FiO2 Intake & Output 12/20/24 12/21/24 12/21/24 18:59 06:59 18:59 Intake Total 200 360 Balance 200 360 Weight 80.286 kg Intake: Oral 200 360 Other: Voiding Method Ileal Conduit (Right) Ileal Conduit (Right) # Voids 3 - Exam GENERAL: Pleasant elderly male sitting up in chair, no acute distress. HEENT: Normocephalic, atraumatic, eyes normal, no conjunctival pallor or no scleral icterus. MMM. NECK: Supple, no JVD. LUNGS: Unlabored breathing. Equal air entry, clear to auscultation. HEART: S1, S2, regular rate and rhythm. No loud murmur. ABDOMEN: Soft, nondistended, decreased bilateral flank tenderness,no guarding or rigidity, no organomegaly EXTREMITIES: No edema, no clubbing or cyanosis, no calf tenderness. SKIN: No rash noted, warm and dry. NEUROLOGICAL: Cranial nerves II through XII grossly intact - Labs CBC & Chem 7: 12/21/24 04:39 12/21/24 04:39 Labs: Abnormal Lab Results - Last 24 Hours (Table) 12/20/24 12/20/24 12/20/24 Range/Units 12:14 17:26 19:58 RBC (4.40-5.60) X 10*6/uL Hgb (13.0-17.0) g/dL Hct (39.6-50.0) % MCHC (32.0-37.0) g/dL RDW (11.5-14.5) % Immature Gran # (0.00-0.04) X 10*3/uL Monocytes # (0.20-1.00) X 10*3/uL Chloride (96-109) mmol/L Carbon Dioxide (21.6-31.8) mmol/L BUN (9.0-27.0) mg/dL Est GFR (CKD-EPI) (>=60) BUN/Creatinine Ratio (12.00-20.00) Ratio Glucose (70-110) mg/dL POC Glucose (mg/dL) 191 H 247 H 163 H (70-110) mg/dL Calcium (8.7-10.3) mg/dL 12/21/24 12/21/24 12/21/24 Range/Units 01:37 04:39 04:39 RBC 3.78 L (4.40-5.60) X 10*6/uL Hgb 11.0 L (13.0-17.0) g/dL Hct 35.6 L (39.6-50.0) % MCHC 30.9 L (32.0-37.0) g/dL RDW 16.0 H (11.5-14.5) % Immature Gran # 0.05 H (0.00-0.04) X 10*3/uL Monocytes # 1.35 H (0.20-1.00) X 10*3/uL Chloride 110 H (96-109) mmol/L Carbon Dioxide 17.5 L (21.6-31.8) mmol/L BUN 29.1 H (9.0-27.0) mg/dL Est GFR (CKD-EPI) 58 L (>=60) BUN/Creatinine Ratio 22.38 H (12.00-20.00) Ratio Glucose 170 H (70-110) mg/dL POC Glucose (mg/dL) 204 H (70-110) mg/dL Calcium 8.3 L (8.7-10.3) mg/dL 12/21/24 Range/Units 07:17 RBC (4.40-5.60) X 10*6/uL Hgb (13.0-17.0) g/dL Hct (39.6-50.0) % MCHC (32.0-37.0) g/dL RDW (11.5-14.5) % Immature Gran # (0.00-0.04) X 10*3/uL Monocytes # (0.20-1.00) X 10*3/uL Chloride (96-109) mmol/L Carbon Dioxide (21.6-31.8) mmol/L BUN (9.0-27.0) mg/dL Est GFR (CKD-EPI) (>=60) BUN/Creatinine Ratio (12.00-20.00) Ratio Glucose (70-110) mg/dL POC Glucose (mg/dL) 178 H (70-110) mg/dL Calcium (8.7-10.3) mg/dL Microbiology - Last 24 Hours (Table) 12/19/24 20:29 Blood Culture - Preliminary Blood Assessment and Plan Assessment: Sepsis secondary to acute UTI, pyelonephritis, cultures pending, suspect Klebsiella on Zosyn. Recently completed prolonged course of Cipro. 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 Bullard Diabetes mellitus, type II, A1c 8.3, has insulin pump History of sarcoidosis Plan: Continue on current medication regimen ,monitoring and symptomatic treatment. Maintained on IV fluids, Zosyn. Antibiotics as per ID. PT/OT consulted, patient complains of significant weakness. Patient ran out of insulin for his insulin pump, family bringing in insulin refill cartridge- currently on novolog sliding scale. Reports ostomy appliance leaking, family bring in his ostomy supplies. The impression and plan of care has been dictated as directed. : I performed a history and examination of this patient, discussed the same with the dictator. I agree with the dictator's note ,documented as a scribe. Any additional findings or plans will be noted.
[2024-12-21 12:24] LABS: Glucose,Whole Blood 270 mg/dL (70-110)
[2024-12-21] MEDS: SODIUM BICARBONATE TAB 650 MG TAB PO SCH (12:58)
[2024-12-21 14:05] VITALS: BMI 24.0
[2024-12-21 17:35] LABS: Glucose,Whole Blood 153 mg/dL (70-110)
[2024-12-21 20:19] LABS: Glucose,Whole Blood 198 mg/dL (70-110)
[2024-12-22 01:32] LABS: Glucose,Whole Blood 147 mg/dL (70-110)
[2024-12-22 07:25] LABS: Glucose,Whole Blood 152 mg/dL (70-110)
--- NOTE | 2024-12-22 07:33 | P.CONS ---
History of Present Illness - Reason for Consult Consult date: 12/21/24 UTI failed outpatient treatment Requesting physician: Jimena Wray - Chief Complaint Weakness flank pain and cloudy urine x 3 days - History of Present Illness Patient is a 74-year-old male with a past medical history significant for diabetes mellitus prostate cancer in this patient who did have radical cystectomy in May 2024 and urostomy, the patient did have multiple admission to the hospital recently secondary to Klebsiella pneumonia UTI and has been treated with the multiple courses of antibiotic on his last hospital admission patient was noticed to have evidence of right-sided hydronephrosis and he was advised to follow-up with his urologist in the outpatient setting with the patient mention he did did have an ultrasound but did not heard back patient also given a prolonged course of oral Cipro and plan was for suppressive oral antibiotic however the patient did not follow-up in the office patient recently completed his oral Cipro therapy and 3 days later started having pain to bilateral flank area and more cloudy urine patient was describing pain to be more than leaking moderate intensity without any radiation did have some nausea but no vomiting was feeling weak did have some chills but no high-grade fever with the symptoms the patient has been evaluated on presentation to the hospital patient did have a temperature of 100.8 F patient was nontachycardic hypotensive or hypoxic no need for supplemental oxygen patient did have white count of 11.4 with a left shift BUN and creatinine has been mildly elevated urine has been positive patient was started on Zosyn infectious disease was consulted for further management of antibiotic therapy patient did have abdominal bladder ultrasound mild right hydronephrosis no evidence for renal calculus Review of Systems Positive point and negatives has been mentioned in the HPI, complete review of systems was performed and all other systems are negative Past Medical History Past Medical History: Cancer, Diabetes Mellitus, Prostate Disorder Additional Past Medical History / Comment(s): Chronic back pain, sciatica, insulin pump, SARCOIDOSIS, BLADDER CANCER with removal of bladder may 2024, urostomy placed, neuropathy, BPH, macular edema Last Myocardial Infarction Date:: 07/19/17 History of Any Multi-Drug Resistant Organisms: None Reported Past Surgical History: Back Surgery, Heart Catheterization With Stent, Joint Replacement, Orthopedic Surgery, Prostate Surgery Additional Past Surgical History / Comment(s): SX FOR BLADDER CANCER x 3, SAVITA CATARACTS, COLONOSCOPY, RT ANKLE tendonitis, SAVITA CARPAL TUNNEL, LT KNEE REPLACEMENT, SAVITA SHOULDER ROTATOR CUFF SX (total 6), LAMINECTOMY X2, THORACOTOMY/BX FOR NODULES ON LYMPH NODES(SARCOIDOSIS), 6 trigger finger releases, cardiac stents x 7,left total reversed shoulder, prostatectomy, cystecomy. Pt has urosotmy. Past Anesthesia/Blood Transfusion Reactions: Previous Problems w/ Anesthesia, Motion Sickness, Postoperative Nausea & Vomiting (PONV) Additional Past Anesthesia/Blood Transfusion Reaction / Comm: BP drops with anesthesia Date of Last Stent Placement:: september 2020 Past Psychological History: No Psychological Hx Reported Smoking Status: Former smoker Past Alcohol Use History: None Reported Past Drug Use History: None Reported - Past Family History Brother(s) Family Medical History: Cancer Additional Family Medical History / Comment(s): Prostate cancer Medications and Allergies Home Medications Medication Instructions Recorded Confirmed Type Ezetimibe [Zetia] 10 mg PO DAILY #30 tab 02/02/18 12/19/24 Rx Aspirin EC [Ecotrin Low Dose] 81 mg PO DAILY 04/16/21 12/19/24 History Isosorbide Mononitrate ER [Imdur] 60 mg PO DAILY 04/16/21 12/19/24 History Ranolazine [Ranexa] 1,000 mg PO BID 04/16/21 12/19/24 History Pantoprazole Sodium [Protonix] 20 mg PO DAILY 11/13/21 12/19/24 History Atorvastatin [Lipitor] 80 mg PO HS 07/12/22 12/19/24 History Insulin Aspart (For Pump) [NovoLOG 0.01 unit SQ-PUMP CONTINUOUS 07/12/22 12/19/24 History (For Pump)] Empagliflozin [Jardiance] 12.5 mg PO DAILY 11/03/23 12/19/24 History Montelukast [Singulair] 10 mg PO HS 12/07/23 12/19/24 History Loratadine [Claritin] 10 mg PO DAILY PRN 09/15/24 12/19/24 History Albuterol Sulfate [Ventolin HFA] 2 puff INHALATION RT-QID PRN 12/19/24 12/19/24 History Allergies Allergy/AdvReac Type Severity Reaction Status Date / Time No Known Allergies Allergy Verified 12/19/24 20:59 Physical Exam Vitals: Vital Signs Temp Pulse Pulse Resp BP BP Pulse Ox 12/20/24 08:21 98.4 F 74 18 130/65 98 12/20/24 05:30 97.3 F L 60 14 146/68 98 12/20/24 00:00 98.8 F 63 13 118/54 96 12/19/24 22:00 100.8 F H 75 18 141/69 96 12/19/24 21:00 79 18 143/66 95 12/19/24 19:48 99.2 F 86 17 125/64 95 Intake and Output 12/19/24 12/20/24 12/20/24 22:59 06:59 14:59 Other: Weight 80.286 kg GENERAL DESCRIPTION: Elderly male up in the chair, no distress. No tachypnea or accessory muscle of respiration use. HEENT: Shows Pallor , no scleral icterus. Oral mucous membrane is dry. NECK: Trachea central, no thyromegaly. LUNGS: Unlabored breathing. Clear to auscultation anteriorly. No wheeze or crackle. HEART: S1, S2, regular rate and rhythm. No loud murmur ABDOMEN: Soft, no tenderness , guarding or rigidity, no organomegaly EXTREMITIES: No edema of feet. SKIN: No rash, no masses palpable. NEUROLOGICAL: The patient is awake, alert, oriented x3, mood and affect normal. Results CBC & Chem 7: 12/21/24 04:39 12/21/24 04:39 Labs: Abnormal Lab Results - Last 24 Hours (Table) 12/19/24 12/19/24 12/19/24 Range/Units 20:04 20:04 20:04 WBC 11.4 H (3.8-10.6) k/uL RBC 4.01 L (4.30-5.90) m/uL Hgb 11.6 L (13.0-17.5) gm/dL Hct 36.9 L (39.0-53.0) % MCHC (31.0-37.0) g/dL RDW 16.1 H (11.5-15.5) % Neutrophils # 9.1 H (1.3-7.7) k/uL Sodium 132 L (137-145) mmol/L Carbon Dioxide 18 L (22-30) mmol/L BUN 33 H (9-20) mg/dL Creatinine 1.31 H (0.66-1.25) mg/dL Glucose 275 H (74-99) mg/dL POC Glucose (mg/dL) (70-110) mg/dL Albumin 3.4 L (3.5-5.0) g/dL Urine Glucose (UA) 4+ H (Negative) Urine Blood Trace H (Negative) Ur Leukocyte Esterase Large H (Negative) Urine WBC 54 H (0-5) /hpf Urine Mucus Rare H (None) /hpf 12/20/24 12/20/24 12/20/24 Range/Units 05:35 06:18 06:18 WBC (3.8-10.6) k/uL RBC 4.23 L (4.30-5.90) m/uL Hgb 12.2 L (13.0-17.5) gm/dL Hct (39.0-53.0) % MCHC 30.6 L (31.0-37.0) g/dL RDW 16.4 H (11.5-15.5) % Neutrophils # (1.3-7.7) k/uL Sodium (137-145) mmol/L Carbon Dioxide (22-30) mmol/L BUN 33 H (9-20) mg/dL Creatinine 1.28 H (0.66-1.25) mg/dL Glucose 158 H (74-99) mg/dL POC Glucose (mg/dL) 145 H (70-110) mg/dL Albumin (3.5-5.0) g/dL Urine Glucose (UA) (Negative) Urine Blood (Negative) Ur Leukocyte Esterase (Negative) Urine WBC (0-5) /hpf Urine Mucus (None) /hpf 12/20/24 Range/Units 08:23 WBC (3.8-10.6) k/uL RBC (4.30-5.90) m/uL Hgb (13.0-17.5) gm/dL Hct (39.0-53.0) % MCHC (31.0-37.0) g/dL RDW (11.5-15.5) % Neutrophils # (1.3-7.7) k/uL Sodium (137-145) mmol/L Carbon Dioxide (22-30) mmol/L BUN (9-20) mg/dL Creatinine (0.66-1.25) mg/dL Glucose (74-99) mg/dL POC Glucose (mg/dL) 198 H (70-110) mg/dL Albumin (3.5-5.0) g/dL Urine Glucose (UA) (Negative) Urine Blood (Negative) Ur Leukocyte Esterase (Negative) Urine WBC (0-5) /hpf Urine Mucus (None) /hpf Assessment and Plan (1) UTI (urinary tract infection) Current Visit: Yes Status: Acute Code(s): N39.0 - URINARY TRACT INFECTION, SITE NOT SPECIFIED SNOMED Code(s): 45407450 (2) Sepsis Current Visit: No Status: Acute Code(s): A41.9 - SEPSIS, UNSPECIFIED ORGANISM SNOMED Code(s): 17973029 Plan: 1patient was in the hospital with sepsis in this patient who did have fever and elevated white count meeting criteria for SIRS source is likely urinary in this patient who did have bilateral flank pain and cloudy urine in this patient who did have a complicated history with cystectomy and urostomy with evidence of right-sided hydronephrosis concerning for possible obstruction leading to these recurrent episode of pyelonephritis 2patient will be treated with Zosyn while waiting for the culture to finalize Question concern answered We will follow on clinical condition and cultures to further adjust medication if needed Thank you for this consultation we will follow the patient along with you Dictation was produced using [employer] dictation software. please excuse any grammatical, word or spelling errors. Time with Patient: Greater than 30
[2024-12-22 09:26] LABS: Basophils # (A) 0.04 X 10*3/uL (0.00-0.10); Basophils % (A) 0.5 %; Eosinophils # (A) 0.18 X 10*3/uL (0.04-0.35); Eosinophils % (A) 2.2 %; HCT 33.9 % (39.6-50.0); HGB 10.8 g/dL (13.0-17.0); Lymphocytes # (A) 1.26 X 10*3/uL (0.90-5.00); Lymphocytes % (A) 15.5 %; MCH 29.3 pg (27.0-32.0); MCHC 31.9 g/dL (32.0-37.0); MCV 92.1 FL (80.0-97.0); Mean Platelet Volume 9.7 FL (9.5-12.2); Monocytes # (A) 1.07 X 10*3/uL (0.20-1.00); Monocytes % (A) 13.2 %; NRBC Per 100 WBC 0 X 10*3/uL (0.00-0.01); Neutrophils # (A) 5.55 X 10*3/uL (1.80-7.70); Neutrophils % (A) 68.4 %; Platelet Count 209 X 10*3/uL (140-440); RBC 3.68 X 10*6/uL (4.40-5.60); RDW 15.8 % (11.5-14.5); WBC 8.12 X 10*3/uL (4.50-10.00)
[2024-12-22 09:54] LABS: BUN/Creat Ratio 23.73 Ratio (12.00-20.00); Blood Urea Nitrogen 26.1 mg/dL (9.0-27.0); Calcium 8.2 mg/dL (8.7-10.3); Carbon Dioxide 18.6 mmol/L (21.6-31.8); Chloride 111 mmol/L (96-109); Glucose 161 mg/dL (70-110); Potassium 3.7 mmol/L (3.5-5.5); Sodium 141 mmol/L (135-145)
[2024-12-22 12:11] LABS: Glucose,Whole Blood 246 mg/dL (70-110)
--- NOTE | 2024-12-22 15:05 | P.PN ---
Subjective Progress Note Date: 12/22/24 Principal diagnosis: Reason for follow-up is UTI Patient is a 74-year-old male with a past medical history significant for diabetes mellitus prostate cancer in this patient who did have radical cystectomy in May 2024 and urostomy, the patient did have multiple ad mission to the hospital recently secondary to Klebsiella pneumonia UTI recently completed course of oral Cipro presenting back to the hospital with bilateral flank pain cloudy urine positive UA and fever concerning for pyelonephritis. On today's evaluation that is 12/22/2024, patient did not have any fever and denies any chills, patient is breathing comfortably on room air, patient with no chest pain or cough patient did not have any abdominal pain nausea vomiting or any loose stools. Patient white count is 8.12 creatinine is 1.1 blood cultures pending urine negative Objective - Vital Signs Vital signs: Vital Signs Temp 98 F 12/22/24 01:56 Pulse 71 12/22/24 01:56 Resp 16 12/22/24 01:56 BP 158/77 12/22/24 01:56 Pulse Ox 98 12/22/24 01:56 FiO2 Intake & Output 12/21/24 12/22/24 12/22/24 18:59 06:59 18:59 Intake Total 3420 Balance 3420 Weight 80.286 kg Intake: Intake, IV Titration 1760 Amount Piperacillin-Tazobactam 3 200 .375 gm In Sodium Chloride 0.9% 100 ml @ 25 mls/hr IVPB Q8HR [facility] Rx# :[id number] Sodium Chloride 0.9% 1, 1560 000 ml @ 130 mls/hr IV . [id number] J[facility]DON Rx#:[id number] Oral 1660 Other: Voiding Method Toilet Toilet # Voids 3 - Exam GENERAL DESCRIPTION: An elderly male up in the chair in no distress RESPIRATORY SYSTEM: Unlabored breathing , decreased breath sounds at bases HEART: S1 S2 regular rate and rhythm , ABDOMEN: Soft , no tenderness EXTREMITIES: No edema feet - Labs CBC & Chem 7: 12/22/24 03:27 12/22/24 03:27 Labs: Abnormal Lab Results - Last 24 Hours (Table) 12/21/24 12/21/24 12/21/24 Range/Units 04:39 04:39 12:24 RBC 3.78 L (4.40-5.60) X 10*6/uL Hgb 11.0 L (13.0-17.0) g/dL Hct 35.6 L (39.6-50.0) % MCHC 30.9 L (32.0-37.0) g/dL RDW 16.0 H (11.5-14.5) % Immature Gran # 0.05 H (0.00-0.04) X 10*3/uL Monocytes # 1.35 H (0.20-1.00) X 10*3/uL Chloride 110 H (96-109) mmol/L Carbon Dioxide 17.5 L (21.6-31.8) mmol/L BUN 29.1 H (9.0-27.0) mg/dL Est GFR (CKD-EPI) 58 L (>=60) BUN/Creatinine Ratio 22.38 H (12.00-20.00) Ratio Glucose 170 H (70-110) mg/dL POC Glucose (mg/dL) 270 H (70-110) mg/dL Calcium 8.3 L (8.7-10.3) mg/dL 12/21/24 12/21/24 12/22/24 Range/Units 17:34 20:15 01:20 RBC (4.40-5.60) X 10*6/uL Hgb (13.0-17.0) g/dL Hct (39.6-50.0) % MCHC (32.0-37.0) g/dL RDW (11.5-14.5) % Immature Gran # (0.00-0.04) X 10*3/uL Monocytes # (0.20-1.00) X 10*3/uL Chloride (96-109) mmol/L Carbon Dioxide (21.6-31.8) mmol/L BUN (9.0-27.0) mg/dL Est GFR (CKD-EPI) (>=60) BUN/Creatinine Ratio (12.00-20.00) Ratio Glucose (70-110) mg/dL POC Glucose (mg/dL) 153 H 198 H 147 H (70-110) mg/dL Calcium (8.7-10.3) mg/dL 12/22/24 Range/Units 07:24 RBC (4.40-5.60) X 10*6/uL Hgb (13.0-17.0) g/dL Hct (39.6-50.0) % MCHC (32.0-37.0) g/dL RDW (11.5-14.5) % Immature Gran # (0.00-0.04) X 10*3/uL Monocytes # (0.20-1.00) X 10*3/uL Chloride (96-109) mmol/L Carbon Dioxide (21.6-31.8) mmol/L BUN (9.0-27.0) mg/dL Est GFR (CKD-EPI) (>=60) BUN/Creatinine Ratio (12.00-20.00) Ratio Glucose (70-110) mg/dL POC Glucose (mg/dL) 152 H (70-110) mg/dL Calcium (8.7-10.3) mg/dL Microbiology - Last 24 Hours (Table) 12/19/24 20:29 Blood Culture - Preliminary Blood 12/20/24 11:37 Urine Culture - Final Urine,Voided Assessment and Plan (1) UTI (urinary tract infection) Current Visit: Yes Status: Acute Code(s): N39.0 - URINARY TRACT INFECTION, SITE NOT SPECIFIED SNOMED Code(s): 56583885 (2) Sepsis Current Visit: No Status: Acute Code(s): A41.9 - SEPSIS, UNSPECIFIED ORGANISM SNOMED Code(s): 56797234 Plan: 1patient was in the hospital with sepsis in this patient who did have fever and elevated white count meeting criteria for SIRS source is likely urinary in this patient who did have bilateral flank pain and cloudy urine in this patient who did have a complicated history with cystectomy and urostomy with evidence of right-sided hydronephrosis concerning for possible obstruction leading to these recurrent episode of pyelonephritis 2patient urine culture has been negative for any resistant pathogen we will discontinue Zosyn and start the patient on Rocephin and monitor clinical course closely Dictation was produced using [employer] dictation software. please excuse any grammatical, word or spelling errors. Time with Patient: Less than 30
[2024-12-22] MEDS ORDERED: HYDROcodone/APAP 5-325MG 1 EACH TAB PO PRN (15:31)
[2024-12-22] MEDS ORDERED: HYDROmorphone 0.5 MG/0.5 ML SYRINGE IVP PRN (15:31)
[2024-12-22 17:09] LABS: Glucose,Whole Blood 144 mg/dL (70-110)
[2024-12-22 20:11] LABS: Glucose,Whole Blood 132 mg/dL (70-110)
--- NOTE | 2024-12-23 01:19 | PN ---
PROGRESS NOTE DATE OF SERVICE: 12/22/[address] Terrell. SUBJECTIVE: This is a 74-year-old gentleman, who was admitted with UTI, possible pyelonephritis, being closely monitored. The patient is on broad spectrum IV antibiotics. Multiple consultants are following the patient closely. The white count is noted, glucose is 246. Cultures are negative so far. PAST MEDICAL HISTORY: Reviewed. REVIEW OF SYSTEMS: Fourteen-point review of systems negative except as mentioned earlier. CURRENT MEDICATIONS: Reviewed. PHYSICAL EXAMINATION: VITAL SIGNS: Pulse is 59, blood pressure 121/65, respirations 16. HEENT: Conjunctivae normal. NECK: No JVD. CARDIOVASCULAR: S1, S2. RESPIRATIONS: Breath sounds diminished at the bases. ABDOMEN: Soft. NERVOUS SYSTEM: Nonfocal. LABORATORY DATA: Glucose 152. ASSESSMENT: 1. Acute urinary tract infection with possible pyelonephritis and sepsis, present on admission. 2. Elevated WBC. 3. History of diabetes mellitus type 2. 4. History of prostate disorder. 5. History of sarcoidosis. 6. Multiple complex medical issues. RECOMMENDATIONS: Recommended to continue with current management, continue with symptomatic treatment. Otherwise, cultures are negative so far; however, I would recommend to continue with the current medications. Continue with the IV antibiotics empirically and to cut down the IV fluids. Repeat labs in the morning. Prognosis is guarded. Further recommendations to follow. MMODL / IJN: [id number] /
[2024-12-23 02:04] LABS: Glucose,Whole Blood 114 mg/dL (70-110)
[2024-12-23 07:33] LABS: Glucose,Whole Blood 131 mg/dL (70-110)
[2024-12-23 11:11] LABS: Basophils # (A) 0.04 X 10*3/uL (0.00-0.10); Basophils % (A) 0.6 %; Eosinophils # (A) 0.16 X 10*3/uL (0.04-0.35); Eosinophils % (A) 2.2 %; HCT 35.6 % (39.6-50.0); HGB 11.3 g/dL (13.0-17.0); Lymphocytes # (A) 1.71 X 10*3/uL (0.90-5.00); Lymphocytes % (A) 23.8 %; MCH 29.1 pg (27.0-32.0); MCHC 31.7 g/dL (32.0-37.0); MCV 91.8 FL (80.0-97.0); Mean Platelet Volume 9.9 FL (9.5-12.2); Monocytes # (A) 0.96 X 10*3/uL (0.20-1.00); Monocytes % (A) 13.4 %; NRBC Per 100 WBC 0 X 10*3/uL (0.00-0.01); Neutrophils # (A) 4.28 X 10*3/uL (1.80-7.70); Neutrophils % (A) 59.6 %; Platelet Count 247 X 10*3/uL (140-440); RBC 3.88 X 10*6/uL (4.40-5.60); RDW 15.7 % (11.5-14.5); WBC 7.18 X 10*3/uL (4.50-10.00)
[2024-12-23 11:16] LABS: BUN/Creat Ratio 20.67 Ratio (12.00-20.00); Blood Urea Nitrogen 24.8 mg/dL (9.0-27.0); Calcium 8.5 mg/dL (8.7-10.3); Carbon Dioxide 18.9 mmol/L (21.6-31.8); Chloride 115 mmol/L (96-109); Glucose 146 mg/dL (70-110); Potassium 4.2 mmol/L (3.5-5.5); Sodium 145 mmol/L (135-145)
[2024-12-23 12:11] LABS: Glucose,Whole Blood 299 mg/dL (70-110)
--- NOTE | 2024-12-23 12:51 | P.PN ---
Subjective Progress Note Date: 12/23/24 Principal diagnosis: Recurrent UTI The patient reports that he is feeling much better, though his blood glucose levels have been labile. He denies flank pain. He is afebrile. His urine is clearing. Urine culture showed mixed erlin. Blood cultures are negative. Patient is currently receiving Rocephin. Objective - Vital Signs Vital signs: Vital Signs Temp 98.1 F 12/23/24 07:28 Pulse 65 12/23/24 07:28 Resp 17 12/23/24 07:28 BP 161/74 12/23/24 07:28 Pulse Ox 98 12/23/24 07:28 FiO2 Intake & Output 12/22/24 12/23/24 12/23/24 18:59 06:59 18:59 Intake Total 820 Balance 820 Intake: Intake, IV Titration 820 Amount Sodium Chloride 0.9% 1, 720 000 ml @ 60 mls/hr IV . [id number] [facility] Rx#:[id number] cefTRIAXone 2 gm In 100 Sodium Chloride 0.9% 50 ml @ 100 mls/hr IVPB Q24HR [facility] Rx#:[id number] Other: Voiding Method Ileal Conduit (Right) Ileal Conduit (Right) - Constitutional General appearance: Present: average body habitus, cooperative, no acute distress - Psychiatric Psychiatric: Present: A&O x's 3 - Labs CBC & Chem 7: 12/23/24 05:39 12/23/24 05:39 Labs: Abnormal Lab Results - Last 24 Hours (Table) 12/22/24 12/22/24 12/22/24 Range/Units 03:27 03:27 12:02 RBC 3.68 L (4.40-5.60) X 10*6/uL Hgb 10.8 L (13.0-17.0) g/dL Hct 33.9 L (39.6-50.0) % MCHC 31.9 L (32.0-37.0) g/dL RDW 15.8 H (11.5-14.5) % Monocytes # 1.07 H (0.20-1.00) X 10*3/uL Chloride 111 H (96-109) mmol/L Carbon Dioxide 18.6 L (21.6-31.8) mmol/L BUN/Creatinine Ratio 23.73 H (12.00-20.00) Ratio Glucose 161 H (70-110) mg/dL POC Glucose (mg/dL) 246 H (70-110) mg/dL Calcium 8.2 L (8.7-10.3) mg/dL 12/22/24 12/22/24 12/23/24 Range/Units 17:05 20:07 02:01 RBC (4.40-5.60) X 10*6/uL Hgb (13.0-17.0) g/dL Hct (39.6-50.0) % MCHC (32.0-37.0) g/dL RDW (11.5-14.5) % Monocytes # (0.20-1.00) X 10*3/uL Chloride (96-109) mmol/L Carbon Dioxide (21.6-31.8) mmol/L BUN/Creatinine Ratio (12.00-20.00) Ratio Glucose (70-110) mg/dL POC Glucose (mg/dL) 144 H 132 H 114 H (70-110) mg/dL Calcium (8.7-10.3) mg/dL 12/23/24 Range/Units 07:31 RBC (4.40-5.60) X 10*6/uL Hgb (13.0-17.0) g/dL Hct (39.6-50.0) % MCHC (32.0-37.0) g/dL RDW (11.5-14.5) % Monocytes # (0.20-1.00) X 10*3/uL Chloride (96-109) mmol/L Carbon Dioxide (21.6-31.8) mmol/L BUN/Creatinine Ratio (12.00-20.00) Ratio Glucose (70-110) mg/dL POC Glucose (mg/dL) 131 H (70-110) mg/dL Calcium (8.7-10.3) mg/dL Microbiology - Last 24 Hours (Table) 12/21/24 17:43 Blood Culture - Preliminary Blood 12/19/24 20:29 Blood Culture - Preliminary Blood Assessment and Plan Plan: Discharge home tomorrow on oral antibiotics is anticipated. The patient will again attempt to arrange follow-up at [facility] for right percutaneous nephrostomy tube placement with possible antegrade stent.
--- NOTE | 2024-12-23 14:26 | P.PN ---
Subjective Progress Note Date: 12/23/24 Principal diagnosis: Reason for follow-up is UTI Patient is a 74-year-old male with a past medical history significant for diabetes mellitus prostate cancer in this patient who did have radical cystectomy in May 2024 and urostomy, the patient did have multiple ad mission to the hospital recently secondary to Klebsiella pneumonia UTI recently completed course of oral Cipro presenting back to the hospital with bilateral flank pain cloudy urine positive UA and fever concerning for pyelonephritis. On today's evaluation that is 12/23/2024, Patient is afebrile patient is currently on room air and denies having any shortness of breath, the patient denies any chest pain or cough, the patient denies any nausea vomiting did not have any abdominal pain and no diarrhea, urine seem to be dark. Patient white count 7.18, creatinine is 1.2 blood and urine culture has been negative so far Objective - Vital Signs Vital signs: Vital Signs Temp 98.2 F 12/23/24 11:47 Pulse 71 12/23/24 11:47 Resp 16 12/23/24 11:47 BP 103/58 12/23/24 11:47 Pulse Ox 96 12/23/24 11:47 FiO2 Intake & Output 12/22/24 12/23/24 12/23/24 18:59 06:59 18:59 Intake Total 820 Balance 820 Intake: Intake, IV Titration 820 Amount Sodium Chloride 0.9% 1, 720 000 ml @ 60 mls/hr IV . [id number] [facility] Rx#:[id number] cefTRIAXone 2 gm In 100 Sodium Chloride 0.9% 50 ml @ 100 mls/hr IVPB Q24HR [facility] Rx#:[id number] Other: Voiding Method Ileal Conduit (Right) Ileal Conduit (Right) Ileal Conduit (Right) - Exam GENERAL DESCRIPTION: An elderly male up in the chair in no distress RESPIRATORY SYSTEM: Unlabored breathing , decreased breath sounds at bases HEART: S1 S2 regular rate and rhythm , ABDOMEN: Soft , no tenderness EXTREMITIES: No edema feet - Labs CBC & Chem 7: 12/23/24 05:39 12/23/24 05:39 Labs: Abnormal Lab Results - Last 24 Hours (Table) 12/22/24 12/22/24 12/23/24 Range/Units 17:05 20:07 02:01 RBC (4.40-5.60) X 10*6/uL Hgb (13.0-17.0) g/dL Hct (39.6-50.0) % MCHC (32.0-37.0) g/dL RDW (11.5-14.5) % Chloride (96-109) mmol/L Carbon Dioxide (21.6-31.8) mmol/L BUN/Creatinine Ratio (12.00-20.00) Ratio Glucose (70-110) mg/dL POC Glucose (mg/dL) 144 H 132 H 114 H (70-110) mg/dL Calcium (8.7-10.3) mg/dL 12/23/24 12/23/24 12/23/24 Range/Units 05:39 05:39 07:31 RBC 3.88 L (4.40-5.60) X 10*6/uL Hgb 11.3 L (13.0-17.0) g/dL Hct 35.6 L (39.6-50.0) % MCHC 31.7 L (32.0-37.0) g/dL RDW 15.7 H (11.5-14.5) % Chloride 115 H (96-109) mmol/L Carbon Dioxide 18.9 L (21.6-31.8) mmol/L BUN/Creatinine Ratio 20.67 H (12.00-20.00) Ratio Glucose 146 H (70-110) mg/dL POC Glucose (mg/dL) 131 H (70-110) mg/dL Calcium 8.5 L (8.7-10.3) mg/dL 12/23/24 Range/Units 12:06 RBC (4.40-5.60) X 10*6/uL Hgb (13.0-17.0) g/dL Hct (39.6-50.0) % MCHC (32.0-37.0) g/dL RDW (11.5-14.5) % Chloride (96-109) mmol/L Carbon Dioxide (21.6-31.8) mmol/L BUN/Creatinine Ratio (12.00-20.00) Ratio Glucose (70-110) mg/dL POC Glucose (mg/dL) 299 H (70-110) mg/dL Calcium (8.7-10.3) mg/dL Microbiology - Last 24 Hours (Table) 12/21/24 17:43 Blood Culture - Preliminary Blood 12/19/24 20:29 Blood Culture - Preliminary Blood Assessment and Plan (1) UTI (urinary tract infection) Current Visit: Yes Status: Acute Code(s): N39.0 - URINARY TRACT INFECTION, S ITE NOT SPECIFIED SNOMED Code(s): 71699294 (2) Sepsis Current Visit: No Status: Acute Code(s): A41.9 - SEPSIS, UNSPECIFIED ORGANISM SNOMED Code(s): 47366103 Plan: 1patient was in the hospital with sepsis in this patient who did have fever and elevated white count meeting criteria for SIRS source is likely urinary in this patient who did have bilateral flank pain and cloudy urine in this patient who did have a complicated history with cystectomy and urostomy with evidence of right-sided hydronephrosis concerning for possible obstruction leading to these recurrent episode of pyelonephritis 2patient urine culture has been negative for any resistant pathogen, patient is currently on Rocephin 2 g daily symptoms doing well will transition to oral Ceftin on discharge and follow-up with his urology in the outpatient setting Dictation was produced using [employer] dictation software. please excuse any grammatical, word or spelling errors. Time with Patient: Less than 30
[2024-12-23 17:14] LABS: Glucose,Whole Blood 105 mg/dL (70-110)
[2024-12-23 20:04] LABS: Glucose,Whole Blood 147 mg/dL (70-110)
--- NOTE | 2024-12-24 00:51 | PN ---
PROGRESS NOTE DATE OF SERVICE: 12/23/2024 I am covering for Dr. Terrell. SUBJECTIVE: This is a 74-year-old gentleman, admitted with UTI, possible pyelonephritis, is being closely monitored. The patient is on antibiotics. No chest pain. No palpitation. The patient is slated to go to [facility] for right percutaneous nephrostomy tube. OBJECTIVE: VITAL SIGNS: Pulse is 71, blood pressure 103/58, respirations 16. CHEST: Clear to auscultation. CARDIOVASCULAR: S1, S2. ABDOMEN: Soft. NERVOUS SYSTEM: Nonfocal. LABORATORY DATA: Reviewed. Hemoglobin 11.3. ASSESSMENT: 1. Acute urinary tract infection with possible pyelonephritis and sepsis, present on admission. 2. Elevated WBC. 3. Nephrostomy tube in [facility]. 4. History of diabetes mellitus type 2. 5. History of prostate disorder. 6. History of sarcoidosis. 7. Multiple complex medical issues. RECOMMENDATIONS: Recommended to continue with current management, continue with antibiotics. Monitor blood sugars closely. Otherwise, Dr. Terrell will follow tomorrow. MMODL / IJN: [id number] /
[2024-12-24 01:08] LABS: Glucose,Whole Blood 155 mg/dL (70-110)
[2024-12-24 01:28] VITALS: PULSE 64
[2024-12-24 07:13] LABS: Glucose,Whole Blood 158 mg/dL (70-110)
[2024-12-24 07:51] VITALS: BP 121/58; RESP 16; TEMP 98
--- NOTE | 2024-12-24 11:41 | P.DS ---
Providers Date of admission: 12/19/24 22:26 Expected date of discharge: 12/24/24 Attending physician: Albna Terrell Consults: 12/19/24 22:22 Consult Physician Urgent Consulting Provider: Vince Meng Consult Reason/Comments: suspected uti, hx bladder ca Do you want consulting provider notified?: Yes 12/20/24 08:29 Consult Physician Routine Consulting Provider: Wallace Steel Consult Reason/Comments: UTI failed op [place] Do you want consulting provider notified?: Yes Primary care physician: Alban Terrell [facility] Course: Final Diagnosis: Sepsis secondary to acute UTI, recurrent pyelonephritis, cultures pending, suspect Klebsiella on Zosyn. Recently completed prolonged course of Cipro. 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 Bullard Diabetes mellitus, type II, A1c 8.3, has insulin pump History of sarcoidosis Hospital course:This is a 74-year-old gentleman with past medical history significant for Klebsiella pneumoniae UTI/pyelonephritis, right moderate hydronephrosis, radical cystoprostatectomy ,urostomy secondary to bladder cancer on 08/12/2024 at [facility] with Dr. Bullard and multiple other medical issues, presented to the ER with worsening bilateral flank pain since Tuesday, increased generalized weakness, dark zay urine. Recently hospitalized in October 2024 with right sided hydronephrosis, concerning for right sided pyelonephritis, cultures grew Klebsiella, discharged on 08/29/2025 and completed a prolonged 20-day course of Cipro. Tmax 100.8, WBC 11.4, lactic acid 1.1, hemoglobin 11.6 platelets 236. Sodium 132, bicarb 18, BUN 33, creatinine 1.31. UA reported trace blood, positive nitrates, large leukocytes. IV antibiotics of Zosyn initiated in the ER. This morning afebrile, WBC is normalized, hemoglobin 12.2, platelets 219, sodium 137 bicarb 23, BUN 33, creatinine 1.28, blood sugars controlled. Nausea has subsided, denies abdominal pain. Feels better with morning. 12/21/2024 maintained on IV fluid hydration, Zosyn. Urine clearing. Urine culture in progress .preliminary blood culture reporting no growth after 24 hours .reports significant generalized weakness.Blood pressures soft. Afebrile, normal WBC, hemoglobin 11, platelets 212, bicarb 17.5, BUN 29.1 creatinine 1.3. Maintained on IV fluids, Zosyn. Antibiotics as per ID. PT/OT consulted, patient complains of significant weakness. Patient ran out of insulin for his insulin pump, family bringing in insulin refill cartridge-currently on novolog sliding scale. Reports ostomy appliance leaking, family bring in his ostomy supplies. Significant clinical improvement. Urine culture reported normal erlin. Blood cultures reported no growth at 48 and 72 hours .denies flank pain, urine clearing. ambulating, tolerating well. Denies lightheadedness dizziness or focal deficits. Denies chest pain, palpitations or shortness of breath. Cleared by both urology and infectious disease. Patient to be discharged on 2 weeks of Ceftin 500 mg twice daily as per infectious disease recommendations and to follow-up with Dr. Bullard/[facility] for right nephrostomy tube placement and possible antegrade stent-appointment to be facilitated by [facility]. Urology to notify patient of [facility] appointment. patient will be discharged home today in a stable condition with guarded prognosis. Microbiology 12/21/24 17:43 Blood Blood Culture - Preliminary 12/19/24 20:29 Blood Blood Culture - Preliminary 12/20/24 11:37 Urine,Voided Urine Culture - Final The impression and plan of care has been dictated as directed. : I performed a history and examination of this patient, discussed the same with the dictator. I agree with the dictator's note ,documented as a scribe. Any additional findings or plans will be noted. Patient Condition at Discharge: Stable Plan - Discharge Summary New Discharge Prescriptions: New Lactobacillus Acidophilus [Acidophilus Probiotic] 1 each PO DAILY #14 capsule cefuroxime axetiL [Ceftin] 500 mg PO BID #14 tab Sodium Bicarbonate Tab 650 mg PO BID tab Continue Ezetimibe [Zetia] 10 mg PO DAILY #30 tab Ranolazine [Ranexa] 1,000 mg PO BID Pantoprazole Sodium [Protonix] 20 mg PO DAILY Empagliflozin [Jardiance] 12.5 mg PO DAILY Montelukast [Singulair] 10 mg PO HS Loratadine [Claritin] 10 mg PO DAILY PRN PRN Reason: Allergy Symptoms Isosorbide Mononitrate ER [Imdur] 60 mg PO DAILY Aspirin EC [Ecotrin Low Dose] 81 mg PO DAILY Atorvastatin [Lipitor] 80 mg PO HS Insulin Aspart (For Pump) [NovoLOG (For Pump)] 0.01 unit SQ-PUMP CONTINUOUS Albuterol Sulfate [Ventolin HFA] 2 puff INHALATION RT-QID PRN PRN Reason: Shortness Of Breath Discharge Medication List Ezetimibe [Zetia] 10 mg PO DAILY #30 tab 02/02/18 [Rx] Aspirin EC [Ecotrin Low Dose] 81 mg PO DAILY 04/16/21 [History] Isosorbide Mononitrate ER [Imdur] 60 mg PO DAILY 04/16/21 [History] Ranolazine [Ranexa] 1,000 mg PO BID 04/16/21 [History] Pantoprazole Sodium [Protonix] 20 mg PO DAILY 11/13/21 [History] Atorvastatin [Lipitor] 80 mg PO HS 07/12/22 [History] Insulin Aspart (For Pump) [NovoLOG (For Pump)] 0.01 unit SQ-PUMP CONTINUOUS 07/12/22 [History] Empagliflozin [Jardiance] 12.5 mg PO DAILY 11/03/23 [History] Montelukast [Singulair] 10 mg PO HS 12/07/23 [History] Loratadine [Claritin] 10 mg PO DAILY PRN 09/15/24 [History] Albuterol Sulfate [Ventolin HFA] 2 puff INHALATION RT-QID PRN 12/19/24 [History] Lactobacillus Acidophilus [Acidophilus Probiotic] 1 each PO DAILY #14 capsule 12/24/24 [Rx] Sodium Bicarbonate Tab 650 mg PO BID tab 12/24/24 [Rx] cefuroxime axetiL [Ceftin] 500 mg PO BID #14 tab 12/24/24 [Rx] Follow up Appointment(s)/Referral(s): Urology, Dr. Bullard [Other] - 1 Week (Appointment to be coordinated between patient and [facility]) Alban Terrell DO [Primary Care Provider] - 12/26/24 10:40 am [facility], [NON-STAFF] - 1 Week [facility] [NON-STAFF] - 1 Week
--- NOTE | 2024-12-24 12:40 | P.PN ---
Subjective Progress Note Date: 12/24/24 Principal diagnosis: Reason for follow-up is UTI Patient is a 74-year-old male with a past medical history significant for diabetes mellitus prostate cancer in this patient who did have radical cystectomy in May 2024 and urostomy, the patient did have multiple ad mission to the hospital recently secondary to Klebsiella pneumonia UTI recently completed course of oral Cipro presenting back to the hospital with bilateral flank pain cloudy urine positive UA and fever concerning for pyelonephritis. On today's evaluation that is 12/24/2024, patient has been afebrile, patient is breathing comfortably and is currently on room air, patient denies having any chest pain and cough, patient denies nausea vomiting or diarrhea and no abdominal pain, urine is more clearing out. Patient did not have lab work today blood culture has been negative so far Objective - Vital Signs Vital signs: Vital Signs Temp 98 F 12/24/24 07:48 Pulse 64 12/24/24 07:48 Resp 16 12/24/24 07:48 BP 121/58 12/24/24 07:48 Pulse Ox 97 12/24/24 07:48 FiO2 Intake & Output 12/23/24 12/24/24 12/24/24 18:59 06:59 18:59 Output Total 1200 Balance -1200 Output: Urine 1200 Other: Voiding Method Ileal Conduit (Right) Ileal Conduit (Right) Ileal Conduit (Right) Ileal Conduit (Left) # Voids 0 - Exam GENERAL DESCRIPTION: An elderly male up in the chair in no distress RESPIRATORY SYSTEM: Unlabored breathing , decreased breath sounds at bases HEART: S1 S2 regular rate and rhythm , ABDOMEN: Soft , no tenderness EXTREMITIES: No edema feet - Labs CBC & Chem 7: 12/23/24 05:39 12/23/24 05:39 Labs: Abnormal Lab Results - Last 24 Hours (Table) 12/23/24 12/23/24 12/23/24 Range/Units 05:39 05:39 12:06 RBC 3.88 L (4.40-5.60) X 10*6/uL Hgb 11.3 L (13.0-17.0) g/dL Hct 35.6 L (39.6-50.0) % MCHC 31.7 L (32.0-37.0) g/dL RDW 15.7 H (11.5-14.5) % Chloride 115 H (96-109) mmol/L Carbon Dioxide 18.9 L (21.6-31.8) mmol/L BUN/Creatinine Ratio 20.67 H (12.00-20.00) Ratio Glucose 146 H (70-110) mg/dL POC Glucose (mg/dL) 299 H (70-110) mg/dL Calcium 8.5 L (8.7-10.3) mg/dL 12/23/24 12/24/24 12/24/24 Range/Units 20:00 01:07 07:10 RBC (4.40-5.60) X 10*6/uL Hgb (13.0-17.0) g/dL Hct (39.6-50.0) % MCHC (32.0-37.0) g/dL RDW (11.5-14.5) % Chloride (96-109) mmol/L Carbon Dioxide (21.6-31.8) mmol/L BUN/Creatinine Ratio (12.00-20.00) Ratio Glucose (70-110) mg/dL POC Glucose (mg/dL) 147 H 155 H 158 H (70-110) mg/dL Calcium (8.7-10.3) mg/dL Microbiology - Last 24 Hours (Table) 12/21/24 17:43 Blood Culture - Preliminary Blood Assessment and Plan (1) UTI (urinary tract infection) Status: Acute Code(s): N39.0 - URINARY TRACT INFECTION, SITE NOT SPECIFIED SNOMED Code(s): 54333714 (2) Sepsis Status: Acute Code(s): A41.9 - SEPSIS, UNSPECIFIED ORGANISM SNOMED Code(s): 09418034 Plan: 1patient was in the hospital with sepsis in this patient who did have fever and elevated white count meeting criteria for SIRS source is likely urinary in this patient who did have bilateral flank pain and cloudy urine in this patient who did have a complicated history with cystectomy and urostomy with evidence of right-sided hydronephrosis concerning for possible obstruction leading to these recurrent episode of pyelonephritis 2patient urine culture has been negative for any resistant pathogen, patient i did well on Rocephin while inpatient will finish therapy with oral Ceftin x 2 weeks discussed with [facility] [employer] for admitting team patient instructed follow-up with the urologist and to follow-up in the office as he would likely need to be on suppressive antibiotic therapy because of his recurrent UTIs Dictation was produced using [employer] dictation software. please excuse any grammatical, word or spelling errors. Time with Patient: Less than 30
== END 2024-12-24 12:26 | disposition home or self-care (01) | DRG 872 ==
LOC: EC 19:41 → 5NMEDONC 22:25 → OBSVTOIN 22:26 → 5NMEDONC 12-20 06:33
PROVIDERS: ADMIT Family Medicine; ATTEND Family Medicine
DX: A41.9 Sepsis, unspecified organism (principal); N13.6 Pyonephrosis; E11.22 Type 2 diabetes mellitus with diabetic chronic kidney disease; Z79.4 Long term (current) use of insulin; N18.2 Chronic kidney disease, stage 2 (mild); Z96.41 Presence of insulin pump (external) (internal); Z79.82 Long term (current) use of aspirin; Z87.891 Personal history of nicotine dependence; D86.9 Sarcoidosis, unspecified; I25.2 Old myocardial infarction; Z79.899 Other long term (current) drug therapy; Z85.46 Personal history of malignant neoplasm of prostate; Z85.51 Personal history of malignant neoplasm of bladder; Z87.440 Personal history of urinary (tract) infections; Z90.6 Acquired absence of other parts of urinary tract; Z90.79 Acquired absence of other genital organ(s); Z95.5 Presence of coronary angioplasty implant and graft; Z96.652 Presence of left artificial knee joint
CPT/HCPCS: 36415; 71046; 76770; 80048; 80053; 81001; 83605; 85025; 87040; 87086; 96365; 96366; 99285